=== PATIENT | female | born 1960 | race Caucasian/White ===

== ENCOUNTER → 2017-11-22 11:03 | Outpatient (CLI) | payer OTHER, SELFPAY ==
[2017-11-22 12:45] LABS: ALB/GLOB Ratio 0.9 RATIO (0.9-2.4); AST(SGOT) 34 U/L (15-37); Alanine Aminotransfer ALT/SGPT 37 U/L (13-56); Albumin, Serum 3.8 g/dL (3.2-5.0); Alkaline Phosphatase 54 U/L (45-117); Anion Gap 10 (5-15); BUN 22 mg/dL (7-18); BUN/Creat Ratio 21.2 RATIO (10-20); Calcium,Total 9.8 mg/dL (8.5-10.1); Chloride 106 mmol/L (98-107); Creatinine, Serum 1.04 mg/dL (0.55-1.02); EST Glomerular Filtration Rate 58 mL/min (>60); Est Glom Filt Rate - Afr Amer 70 mL/min (>60); Globulin 4.4 g/dL (2.2-4.2); Glucose 96 mg/dL (74-106); Potassium 4.7 mmol/L (3.5-5.1); Protein, Total 8.2 g/dL (6.4-8.2); Sodium Level 141 mmol/L (136-145); Uric Acid 3.8 mg/dL (2.6-6.0)
[2017-11-22 12:46] LABS: Vitamin D,25 Hydroxy 52.5 ng/mL (19.95-100.01)
== END ==
PROVIDERS: Family Provider Family Medicine; PCP Family Medicine; Visit Provider Family Medicine
DX: E55.9 Vitamin D deficiency, unspecified (principal); E11.9 Type 2 diabetes mellitus without complications; M10.9 Gout, unspecified
CPT/HCPCS: 36415; 80053; 82306; 84443; 84550

== ENCOUNTER → 2018-02-19 11:06 | Outpatient (CLI) | payer OTHER, SELFPAY ==
[2018-02-19 12:18] LABS: Absolute Lymphocyte Count 1.72 X10^3/ul (0.83-4.51); Absolute Neutrophil Count 2.3 X10^3/uL (2.0-7.7); Basophil# 0.07 X10^3/uL; Basophil% 1.5 % (0-1); Eosinophil# 0.26 X10^3/uL; Eosinophils% 5.6 % (0-5); Hematocrit 36.6 % (37-47); Lymphocyte # 1.72 X10^3/ul (4.0); Lymphocyte % 37.3 % (19-41); Mean Corp Hgb Conc 32.8 g/gl (32-36); Mean Corpuscular Hgb 30.2 pg (27.0-32.0); Mean Corpuscular Volume 92.2 fL (81-99); Mean Platelet Vol. 9.3 fl (6.2-12.0); Monocyte# 0.27 X10^3/uL; Monocyte% 5.9 % (0-10); Neutrophil # 2.29 X10^3/uL (2.7-7.7); Neutrophil % 49.7 % (47-70); POSITIVE COUNT NO; POSITIVE DIFFERENTIAL NO; POSITIVE MORPHOLOGY NO; Platelet Count 191 K/mm3 (150-450); RBC Distribution Width CV 13.7 % (11.6-14.6); RBC Distribution Width SD 45.4 fl (35.1-43.9); Red Blood Count 3.97 M/mm3 (4.2-5.4); White Blood Count 4.6 K/mm3 (4.4-11.0)
[2018-02-19 12:40] LABS: ALB/GLOB Ratio 0.9 RATIO (0.9-2.4); AST(SGOT) 34 U/L (15-37); Alanine Aminotransfer ALT/SGPT 39 U/L (13-56); Albumin, Serum 3.9 g/dL (3.2-5.0); Alkaline Phosphatase 52 U/L (45-117); Anion Gap 9 (5-15); BUN 27 mg/dL (7-18); BUN/Creat Ratio 22.3 RATIO (10-20); Calcium,Total 10.1 mg/dL (8.5-10.1); Chloride 106 mmol/L (98-107); Cholesterol 254 mg/dL (200); Creatinine, Serum 1.21 mg/dL (0.55-1.02); EST Glomerular Filtration Rate 49 mL/min (>60); Est Glom Filt Rate - Afr Amer 59 mL/min (>60); Globulin 4.2 g/dL (2.2-4.2); Glucose 100 mg/dL (74-106); High Density Lipoprotein 36 mg/dL; Potassium 4.9 mmol/L (3.5-5.1); Protein, Total 8.1 g/dL (6.4-8.2); Sodium Level 139 mmol/L (136-145); Triglycerides 364 mg/dL; Very Low Density Lipoprotein 73 mg/dL (5-40)
== END ==
PROVIDERS: Family Provider Family Medicine; PCP Family Medicine; Visit Provider Family Medicine
DX: I10 Essential (primary) hypertension (principal); E78.00 Pure hypercholesterolemia, unspecified
CPT/HCPCS: 36415; 80053; 80061; 85025

== ENCOUNTER → 2018-02-22 09:49 | Outpatient (CLI) | payer OTHER, SELFPAY ==
--- NOTE | 2018-02-22 09:53 | RAD_ITS ---
STUDY: X-RAY - RIGHT SHOULDER REASON FOR EXAM: Female, 57 years old. Right shoulder pain for one month. No injury. TECHNIQUE: 4 view(s) of the shoulder. COMPARISON: None. FINDINGS: Normal glenohumeral articulation. Normal acromioclavicular joint. Normal acromion. There is no acute fracture, dislocation or destructive osseous pathology. Normal humeral head and visualized proximal humerus. The soft tissue structures are unremarkable. Normal visualized pulmonary apex. RAD/Shoulder min 2 Views IMPRESSION: Normal x-ray examination of the shoulder. Electronically Signed: Naveed Haas DO at 17:33 EDT Tel [phone], Service support ,
== END ==
PROVIDERS: Family Provider Family Medicine; PCP Family Medicine; Visit Provider Family Medicine
DX: M25.511 Pain in right shoulder (principal)
CPT/HCPCS: 73030

== ENCOUNTER → 2018-05-28 10:19 | Outpatient (CLI) | payer OTHER, SELFPAY ==
[2018-05-28 12:37] LABS: Absolute Lymphocyte Count 1.96 X10^3/ul (0.83-4.51); Absolute Neutrophil Count 3.1 X10^3/uL (2.0-7.7); Basophil# 0.07 X10^3/uL; Eosinophil# 1.39 X10^3/uL; Eosinophils% 20.3 % (0-5); Hematocrit 36.5 % (37-47); Hemoglobin 12.1 g/dl (12.0-15.0); Lymphocyte # 1.96 X10^3/ul (4.0); Lymphocyte % 28.7 % (19-41); Mean Corp Hgb Conc 33.2 g/gl (32-36); Mean Corpuscular Hgb 31.4 pg (27.0-32.0); Mean Corpuscular Volume 94.8 fL (81-99); Mean Platelet Vol. 9.8 fl (6.2-12.0); Monocyte# 0.35 X10^3/uL; Monocyte% 5.1 % (0-10); Neutrophil # 3.05 X10^3/uL (2.7-7.7); Neutrophil % 44.6 % (47-70); Platelet Count 216 K/mm3 (150-450); RBC Distribution Width CV 13.5 % (11.6-14.6); RBC Distribution Width SD 44.5 fl (35.1-43.9); Red Blood Count 3.85 M/mm3 (4.2-5.4); White Blood Count 6.8 K/mm3 (4.4-11.0)
[2018-05-28 12:39] LABS: POSITIVE COUNT NO; POSITIVE DIFFERENTIAL NO; POSITIVE MORPHOLOGY NO
[2018-05-28 13:06] LABS: Vitamin D,25 Hydroxy 64.1 ng/mL (29.95-100.01)
[2018-05-28 13:18] LABS: ALB/GLOB Ratio 0.9 RATIO (0.9-2.4); AST(SGOT) 35 U/L (15-37); Alanine Aminotransfer ALT/SGPT 33 U/L (13-56); Albumin, Serum 3.6 g/dL (3.2-5.0); Alkaline Phosphatase 52 U/L (45-117); Anion Gap 9 (5-15); BUN 34 mg/dL (7-18); BUN/Creat Ratio 29.8 RATIO (10-20); Calcium,Total 9.6 mg/dL (8.5-10.1); Chloride 109 mmol/L (98-107); Creatinine, Serum 1.14 mg/dL (0.55-1.02); EST Glomerular Filtration Rate 52 mL/min (>60); Est Glom Filt Rate - Afr Amer 63 mL/min (>60); Globulin 4.2 g/dL (2.2-4.2); Glucose 84 mg/dL (74-106); Potassium 4.6 mmol/L (3.5-5.1); Protein, Total 7.8 g/dL (6.4-8.2); Sodium Level 141 mmol/L (136-145); Thyroid Stim Hormone (TSH) 1.67 uIU/mL (0.358-3.74)
== END ==
PROVIDERS: Family Provider Family Medicine; PCP Family Medicine; Visit Provider Family Medicine
DX: E11.9 Type 2 diabetes mellitus without complications (principal); N18.9 Chronic kidney disease, unspecified; M06.4 Inflammatory polyarthropathy; M79.7 Fibromyalgia; R76.8 Other specified abnormal immunological findings in serum; M35.00 Sjogren syndrome, unspecified; K21.9 Gastro-esophageal reflux disease without esophagitis; M21.40 Flat foot [pes planus] (acquired), unspecified foot; K76.0 Fatty (change of) liver, not elsewhere classified; M47.897 Other spondylosis, lumbosacral region
CPT/HCPCS: 36415; 80053; 82306; 84443; 85025

== ENCOUNTER → 2018-08-08 14:47 | Outpatient (CLI) | payer OTHER, SELFPAY ==
--- NOTE | 2018-08-08 14:50 | RAD_ITS ---
STUDY: X-RAY - CERVICAL SPINE REASON FOR EXAM: Female, 57 years old. Chronic pain TECHNIQUE: 5 view(s) of the cervical spine were obtained. COMPARISON: None FINDINGS: There is no evidence of fracture or dislocation in the cervical spine. The dens is intact. The vertebral body heights are well-maintained There are mild degenerative changes with disc space narrowing in the mid to lower cervical spine. The prevertebral soft tissues are unremarkable. There is no radiodense foreign body. RAD/Cerv Spine 4 or 5 Views IMPRESSION: No fracture or dislocation in the cervical spine. Mild degenerative changes. Electronically Signed: Herve Hayden, at 15:13 EDT Tel , Service support ,
== END ==
PROVIDERS: Family Provider Family Medicine; PCP Family Medicine; Referring Provider Family Medicine; Visit Provider Family Medicine
DX: M54.2 Cervicalgia (principal)
CPT/HCPCS: 72050

== ENCOUNTER 2018-08-23 09:00 | Outpatient (RCR) | payer OTHER, SELFPAY ==
--- NOTE | 2018-08-23 10:42 | HP.PTEVAL_ITS ---
Patient's Visit Information AMY ELLISON is a 57 year old F referred to Physical Therapy by Olivier Gonzalez with a diagnosis of Cervical radiculopathy, R arm, radial nerve. Date of Evaluation: 08/13/18 Physical Therapist: Darryl Manriquez - Visit Plan Frequency: 2x /Week Duration: 4 Weeks Plan: Start with cervical retraction, postural exercises. Add in radial nerve glides, pec stretching, mid trap strengthening. May use modalities to reduce symptoms as well. - Subjective Subjective: Pt. is here today for her initial evaluation with diagnosis of cervical radiculopathy down her R arm. Pt. reports having increased pain for ~3- 4 years, but got worse last year and in November of this year she had a ripping sensation in R shoulder and has been bad ever since. Pt. reports increased pain with all use of RUE, especially with lifting and fine motor skills. Pt. has decreased pain with OTC meds and muscle relaxors. Pt. has had xrays of shoulder and neck with minor degeneration in disc. Pt. reports no mechanism of injury noted. Pt. does have increased pain with sleeping, has to sleep on her L side with R arm propped up. Pt. denies N/T in R UE. Pt. does have pain that radiates into R hand times, but not consistent. Pt. 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 Pt. has trialled massage therapy x1 per month, and chiropractor- x1 per week. 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 Pt. is hopeful to reduce symptoms in order to have a greater quality of life. - Pain RUE Pain Intensity (Out of 10): 3 Pain Intensity Range: 1, 7 Comment: anterior shoulder/ pec region Cervical spine Pain Intensity (Out of 10): 2 Pain Intensity Range: 0, 4 - Objective POSTURE: Pt. has FH posture, rounded shoulders. Pt. has overall slouched posture. PALPATION: Pt. has mild tenderness at anterior and posterior subacromial space, at pec minor/major, levator scap and UT on R side. No L sided pain. NEURO: Pt. has normal sensation throughout bilateral UEs and cervical spine. Pt. has 2+ biceps and triceps DTR without issues. ROM: CERVICAL SPINE: flexion- nil loss NE, ext mod loss mild increase NS, SB min loss NE bilat, rotation- min loss bilat increase NW rotation L. R shoulder- flexion 165deg increase NW, abd 155deg increase NW, ext 40deg NE, functional ER NE WNL, functional IR NE WFL. LUE- normal no effected. MMT: LUE- 5/5 throughout NE, RUE- wrist 5/5 throughout; elbow- 5/5 throughout; shoulder- flexion 4/5 increase NW, abd 4/5 increase nW, ext 5/5 NE, ER 4/5 increase NW, IR 5/5 NE. CERVICAL SPINE: 5/5 isometrics. - Special Tests C/S Radiculapathy - Left Spurlings: Negative C/S Radiculapathy - Right Spurlings: Negative C/S Radiculapathy - Left Cervical distraction: Negative C/S Radiculapathy - Right Cervical distraction: Negative C/S Radiculapathy - Left Relief test: Negative C/S Radiculapathy - Right Relief test: Negative Cervical Sitting: Protrusion - Mechanical Response: No effect Cervical Sitting: Protrusion - Symptoms During Testing: No effect Cervical Sitting: Protrusion - Symptoms After Testing: No effect Cervical Sitting: Retraction - Symptoms During Testing: Increases Cervical Sitting: Retraction - Symptoms After Testing: No worse Cervical Sitting: Retraction-Extension - Mechanical Response: No effect Cerv Sitting: Retraction-Extension - Symptoms During Testing: Increases Cerv Sitting: Retraction-Extension - Symptoms After Testing: No worse Cervical Sitting: Sidebend Right - Mechanical Response: No effect Cervical Sitting: Sidebend Right - Symptoms During Testing: No effect Cervical Sitting: Sidebend Right - Symptoms After Testing: No effect Cervical Sitting: Sidebend Left - Mechanical Response: No effect Cervical Sitting: Sidebend Left - Symptoms During Testing: No effect Cervical Sitting: Sidebend Left - Symptoms After Testing: No effect Cervical Sitting: Rotation Right - Mechanical Response: No effect Cervical Sitting: Rotation Right - Symptoms During Testing: Increases Cervical Sitting: Rotation Right - Symptoms After Testing: No worse Cervical Sitting: Rotation Left - Mechanical Response: No effect Cervical Sitting: Rotation Left - Symptoms During Testing: Increases Cervical Sitting: Rotation Left - Symptoms After Testing: No worse Cervical Sitting: Flexion - Mechanical Response: No effect Cervical Sitting: Flexion - Symptoms During Testing: No effect Cervical Sitting: Flexion - Symptoms After Testing: No effect R Shoulder External Rotation Lag Test - RC Tear: Negative R Shoulder Supine Impingement Test - RC Tear: Negative R Shoulder Lift Off Test - Subscapular Tear: Negative R Shoulder Drop Sign - IS Test: Negative R Shoulder Empty Can - SS: Positive R Shoulder Belly Press - SupScap: Negative R Shoulder Neer - Impingement: Negative R Shoulder Amos Ángel - Impingement: Negative - Goals Goal 1:: Pt. to be I with HEP. Goal Time Frame: 4-6 Weeks Goal 2:: Pt. to have increased R shoulder and neck ROM by 25% in all directions without increase in symptoms. Goal Time Frame: 4-6 Weeks Goal 3:: Pt. to sleep throughout the night without increase in symptoms. Goal Time Frame: 4-6 Weeks Goal 4:: Pt. to have increased R shoulder strength by 1/2 grade of all effected musculature. Goal Time Frame: 4-6 Weeks Goal 5:: Pt. to have decreased radiating RUE symptoms by 25% allowing for increased tolerance with all activities. - Rehabilitation Potential Physical Therapy Diagnosis: Pt. has some marked weakness in her R arm. Pt. has pain in her shoulder and symptoms matching radial nerve distrabution. Pt. has some shoulder weakness, but not distally. Pt. has not numbness or tingling. Pt. would benefit from PT to increase posture, work on cervical ROM, and increase RUE strengthening in order to increase tolerance to all work and recreational activities. Rehabilitation Potential: Good - Anticipated Interventions Patient/Client Instruction: Educate patient on: Condition, Plan of Care, Risk Factors, Benefits of Fitness Program For the Purpose of:: To improve decision making, To facilitate caregiver knowledge, To improve self management, To prevent re-injury, To improve ability to perform tasks related to life management, To improve tolerance to ADL's Therapeutic Exercise to Include: Strength training, Power training, Body mechanics, Postural training, Flexibilty training, Passive ROM, Active ROM, Dynamic Lumbar Stabilization, Fermin Exercises, Scapular Strength/Stabilization For the Purpose of:: To decrease pain, To increase ROM, To improve nutrient delivery to tissue, To increase oxygenation perfusion, To improve muscle performance and motor function, To improve health of tissue, To decrease soft tissue restriction, To increase flexibility/ROM, To improve endurance Manual Therapy Techniques to Include: Mobilization, Passive ROM, Functional dry needling, Soft tissue mobilization For the Purpose of:: To decrease pain, To decrease swelling/inflammation, To increase ROM, To improve nutrient delivery to tissue, To improve muscle performance and motor function, To decrease soft tissue restriction, To increase flexibility/ROM IF ES: Yes Ultrasound (thermal/non thermal): Yes Intermittent cervical traction: Yes For the Purpose of:: To decrease pain, To decrease swelling/inflammation, To increase ROM, To improve nutrient delivery to tissue Thank you for the opportunity to evaluate your patient. For Medicare and Medicare HMO plans, please review the plan of care and approve it. It will need to be FAXED BACK to us at [phone] for Medicare purposes. Please let me know if there are questions or concerns regarding this plan of care. Physician Signature: Date:
--- NOTE | 2018-10-12 11:13 | HP.PT.NRP ---
HP - Discharge Summary (1) - Patient Information AMY ELLISON was seen in my office for initial evaluation on 08/13/18. The following Plan of Care was established for this patient: Initial Frequency: 2x /Week Initial Duration: 4 Weeks - Anticipated Interventions Patient/Client Instruction: Educate patient on: Condition, Plan of Care, Risk Factors, Benefits of Fitness Program For the Purpose of:: To improve decision making, To facilitate caregiver knowledge, To improve self management, To prevent re-injury, To improve ability to perform tasks related to life management, To improve tolerance to ADL's Therapeutic Exercise to Include: Strength training, Power training, Body mechanics, Postural training, Flexibilty training, Passive ROM, Active ROM, Dynamic Lumbar Stabilization, Fermin Exercises, Scapular Strength/Stabilization For the Purpose of:: To decrease pain, To increase ROM, To improve nutrient delivery to tissue, To increase oxygenation perfusion, To improve muscle performance and motor function, To improve health of tissue, To decrease soft tissue restriction, To increase flexibility/ROM, To improve endurance Manual Therapy Techniques to Include: Mobilization, Passive ROM, Functional dry needling, Soft tissue mobilization For the Purpose of:: To decrease pain, To decrease swelling/inflammation, To increase ROM, To improve nutrient delivery to tissue, To improve muscle performance and motor function, To decrease soft tissue restriction, To increase flexibility/ROM IF ES: Yes Ultrasound (thermal/non thermal): Yes Intermittent cervical traction: Yes For the Purpose of:: To decrease pain, To decrease swelling/inflammation, To increase ROM, To improve nutrient delivery to tissue This patient was last seen in our office 08/23/18. Pertinent comments regarding their Physical therapy will appear below: Pt. was seen for her RUE pain. Pt. was not progressing as expected and was recommended to look at getting an MRI. It was found that she had a RTC tear. Pt. was DC back to physician at this point in time. At this point I will be discontinuing this patient from physical therapy. I would be happy to see this patient again in the future if found appropriate by the physician. Thank you! Darryl Manriquez, HUANGT
== END 2018-08-23 19:00 | disposition home or self-care (01) ==
LOC: PT 09:00
PROVIDERS: Family Provider Family Medicine; PCP Family Medicine; Visit Provider Family Medicine
DX: M54.12 Radiculopathy, cervical region (principal)
CPT/HCPCS: 97035; 97110; 97140; 97163

== ENCOUNTER → 2018-09-10 07:07 | Outpatient (CLI) | payer OTHER, SELFPAY ==
--- NOTE | 2018-09-10 07:26 | MRI_ITS ---
STUDY: MRI RIGHT SHOULDER REASON FOR EXAM: Shoulder pain extending down arm for one year, no specific injury. TECHNIQUE: Standardized fat and water weighted pulse sequences were obtained in all 3 orthogonal planes. COMPARISON: Radiographs 12/23/2017. FINDINGS: There is supraspinatus tendinosis and a full-thickness tear of the distal anterior supraspinatus tendon (T2 coronal images 12, 13; proton density axial image 6) measuring approximately 0.6 x 1.1 cm (length x width) with mild delamination. Normal infraspinatus tendon. Normal subscapularis tendon. Normal teres minor tendon. Normal supraspinatus muscle. Normal infraspinatus muscle. Normal subscapularis muscle. Normal teres minor muscle. There is a small glenohumeral joint effusion with fluid extending into the bicipital tendon sheath. Normal humeral head and visualized proximal humerus. Normal biceps labral complex. Normal intracapsular long biceps tendon. Normal labrum. Normal capsulo- ligamentous complex. There is acromioclavicular arthrosis with hypertrophic changes effacing the subacromial fat (T2 sagittal images 11, 12). There is a Type I morphology (flat undersurface), with a neutral orientation. There is a small volume of subacromial-subdeltoid bursal fluid. Normal visualized coracohumeral and coracoacromial ligaments. Normal deltoid muscle. Normal trapezius muscle. MRI/Upper Ext Joint Only(Routine) IMPRESSION: Full-thickness tear and tendinosis of the supraspinatus tendon. Acromioclavicular arthrosis. Glenohumeral joint fluid communicating with the subacromial-subdeltoid bursa. Electronically Signed: Rishabh Tubbs MD at 8:57 EST Tel , Service support ,
== END ==
PROVIDERS: Family Provider Family Medicine; PCP Family Medicine; Referring Provider Family Medicine; Visit Provider Family Medicine
DX: M25.511 Pain in right shoulder (principal)
CPT/HCPCS: 73221

== ENCOUNTER 2018-09-26 08:39 | Day surgery (SDC) | payer OTHER, SELFPAY ==
[2018-09-20 13:43] VITALS: BMI 37.8
[2018-09-26] VITALS (7 sets, daily range): BP systolic 100–130; BP diastolic 54–72; PULSE 64–88; RESP 16–18; TEMP 36–36.5; O2SAT 92–98; BMI 39.4
[2018-09-26 09:21] LABS: Hematocrit 36.4 % (37-47); Hemoglobin 11.8 g/dl (12.0-15.0); Mean Corp Hgb Conc 32.4 g/gl (32-36); Mean Corpuscular Hgb 29.9 pg (27.0-32.0); Mean Corpuscular Volume 92.4 fL (81-99); Mean Platelet Vol. 8.8 fl (6.2-12.0); Platelet Count 216 K/mm3 (150-450); RBC Distribution Width CV 13.5 % (11.6-14.6); RBC Distribution Width SD 46.3 fl (35.1-43.9); Red Blood Count 3.94 M/mm3 (4.2-5.4); White Blood Count 5.6 K/mm3 (4.4-11.0)
[2018-09-26 09:22] LABS: Prothrombin Time (Protime)PT. 13.4 SECONDS (11.7-14.9); Scan Indicated on CBC? Y/N NO
[2018-09-26 09:23] LABS: Partial Thromboplast Time 30.4 Seconds (24.1-36.2)
[2018-09-26 09:36] LABS: Bedside Glucose 119 mg/dL (70-110)
[2018-09-26 09:37] LABS: Anion Gap 7 (5-15); BUN 32 mg/dL (7-18); BUN/Creat Ratio 26.7 RATIO (10-20); Calcium,Total 9.8 mg/dL (8.5-10.1); Chloride 105 mmol/L (98-107); EST Glomerular Filtration Rate 49 mL/min (>60); Est Glom Filt Rate - Afr Amer 59 mL/min (>60); Estimated Creatinine Clearance 37.15 ml/min; Glucose 138 mg/dL (74-106); Potassium 4.2 mmol/L (3.5-5.1); Sodium Level 138 mmol/L (136-145); Thyroid Stim Hormone (TSH) 3.96 uIU/mL (0.358-3.74)
[2018-09-26 09:51] LABS: Hemoglobin A1c 5.6 % (4.2-6.3)
--- NOTE | 2018-09-26 10:10 | TESH_PTH ---
PATIENT: AMY ELLISON [place] [facility] [place][id number] AGE/SX: 57/F ROOM: RE09/26/[address]: Dr. Elsa Fernandez DO : 1960 BED: DIS: 09/26/2018 SPEC #: [id number] RECD: 09/26/18 16:23 STATUS: PIERRE KOREY #: [id number] SCAR: 09/26/18 10:[address]: Elsa Fernandez DEPT: SURGICAL PATHOLOGY RECD BY: Ronald Rascon ENTERED: 09/27/18 11:26 SP TYPE: TENDON OTHR DR: Dr. Olivier Gonzalez MD Tissues: Tendon and tendon sheath, NOS Procedures: Surgery Specimen Level III HEADER OPERATION: Arthroscopy, shoulder, cuff, subacromial decompression PRE-OP DIAGNOSIS: Incomplete tear of right rotator cuff, internal impingement of right shoulder, bursitis of right shoulder TISSUE SUBMITTED: Bicep tendon MICROSCOPIC DIAGNOSIS Biceps tendon, excision: Fragments of tendon with degenerative and reparative change. Synovial tissue with mild hyperplasia and associated minimal chronic inflammation. AM:jose 09/28/18 MICROSCOPIC DESCRIPTION Slides are reviewed. GROSS DESCRIPTION Received in fixative is one container labeled with the patient's name and designated bicep tendon. The specimen consists of two pieces of grover, indurated tissue that in aggregate measure 3 x 1.5 x 0.5 cm. The entire specimen is submitted in one cassette. / SJ:jose 09/27/18 TC:3 CPT: 12958
[2018-09-26] MEDS: Cefazolin 2 GM in 0.9% Normal Saline 100 ML IV (12:29)
[2018-09-26] MEDS: Mupirocin Ointment 22gm Tube 1 APPLIC (13:12)
--- NOTE | 2018-09-26 14:52 | PCM.DC.ORTHO ---
Discharge Diet: No Restrictions - remove dressings in 4 days and apply bandaids to incision sites and may get incision wet at that time, pendulums out of sling only, wear sling to bed, may move hand as tolerated, follow up in 2 weeks for clinic appt, call with concerns Discharge Activity: May Not Drive May shower in (days): 1 Ice area for (Minutes): 20 - Every hour while awake. Weight Bearing Status: Weight bearing as tolerated Keep extremity elevated above heart level: Operative Extremity Call your doctor if your incision/area has: Continuous Slow Oozing, Sudden Increased Bleeding, Increased Pain/ Swelling, Increased Redness, Foul Smelling Discharge Call your doctor if you observe: Fever of 101 or Higher, Coldness, Increased Pain, Numbness or Tingling, Change in Color, Calf discomfort Allergies/Adverse Reactions: Allergies cefaclor [From Ceclor] Allergy (Verified 09/24/18 13:54) Other SEVERE YEAST INFECTION erythromycin ethylsuccinate [From E.E.S.] Allergy (Verified 09/24/18 13:54) Other HEADACHES ezetimibe [From Zetia] Allergy (Verified 09/24/18 13:54) Other MUSCLE PAIN lisinopril Allergy (Verified 09/24/18 13:54) Other COUGH lovastatin Allergy (Verified 09/24/18 13:54) Other MUSCLE PAIN Penicillins [PCN] Allergy (Verified 09/24/18 13:54) Hives rosuvastatin calcium [From Crestor] Allergy (Verified 09/24/18 13:54) Other MUSCLE PAIN Dwrcnip-Bpx-Prl Reductase Inhibitor Allergy (Verified 09/24/18 13:54) Other MUSCLE PAIN sulfamethoxazole [From Bactrim] Allergy (Verified 09/24/18 13:54) Hives tramadol HCl [From Ultram] Allergy (Verified 09/24/18 13:54) Other SEVERE HEADACHES trimethoprim [From Bactrim] Allergy (Verified 09/24/18 13:54) Hives Medications to take at Discharge Allopurinol [Zyloprim] 200 mg PO DAILYCM 08/18/14 Ascorbic Acid [Vitamin C] 1,000 mg PO DAILY@0800 08/18/14 Azelastine HCl [Astelin] 1 spray NASAL BID PRN 08/18/14 Cholecalciferol (Vitamin D3) [Vitamin D3] 5,000 unit PO DAILY 08/18/14 Cyclobenzaprine [Flexeril] 10 mg PO TID PRN PRN 08/18/14 Etodolac [Lodine Xl] 500 mg PO BID 08/18/14 Fenofibrate [Tricor] 145 mg PO DAILY 08/18/14 Fluticasone 0.05% [Flonase Nasal [place]] 2 spray NASAL DAILY 08/18/14 Krill/[place]-3/Dha/Epa/Lipids [Krill Oil 300 mg Softgel] 1,000 mg PO BID 08/18/14 Loratadine [Claritin] 10 mg PO DAILY 08/18/14 Losartan Potassium [Cozaar] 100 mg PO DAILY 08/18/14 Magnesium 400 mg PO DAILY 08/18/14 Metformin HCl [Glucophage] 1,000 mg PO BID 08/18/14 Methocarbamol [Robaxin] 500 mg PO Q6H PRN PRN 08/18/14 Naphcon A 1 drop EACH EYE TID PRN PRN 08/18/14 Systane Eye Drops 1 drop EACH EYE BID 08/18/14 Thyroid [[place] Thyroid] 60 mg PO DAILY 08/18/14 Vitamin B Complex 1 each PO DAILY 08/18/14 Zolpidem Tartrate [Ambien] 5 mg PO QHS PRN PRN 08/18/14 Metformin HCl [Glucophage] 500 mg PO LUNCH 12/08/14 Cytomulti 2 tab PO DAILY 09/24/18 Digestive Enyzmes 2 tab PO TID 09/24/18 Doxazosin Mesylate [Cardura] 2 mg PO QHS 09/24/18 Hm Complex 1 cap PO TID 09/24/18 Omeprazole [Prilosec] 40 mg PO QHS 09/24/18 Hydrocodone Bitart/Apap 5-325 [[place] 5MG-325MG] 1 - 2 tablet PO Q6H PRN PRN 5 Days #40 tablet 09/26/18 Zolpidem Tartrate [Ambien (Generic)] 5 mg PO QHS PRN PRN #14 tablet 09/26/18 The following prescriptions were given: Hydrocodone Bitart/Apap 5-325 [[place] 5MG-325MG] 1 - 2 tablet PO Q6H PRN PRN 5 Days #40 tablet PRN Reason: Pain Zolpidem Tartrate [Ambien (Generic)] 5 mg PO QHS PRN PRN #14 tablet PRN Reason: Insomnia Orders to be completed after discharge: 12 Lead EKG [[facility]] Time Frame: 09/26/18, Location: None Selected Primary Care Physician: Miki Gonzalez MD [Primary Care Provider] - Test Results: Test results from this visit will be discussed in further detail at your follow-up appointment, if applicable. Please Follow Up With: Elsa Fernandez, DO - [phone]
--- NOTE | 2018-09-26 14:53 | PCM.OPRPT ---
Report of Operation Date of Procedure: 09/26/18 Pre-Operative Diagnosis: right shoulder rotator cuff tear, biceps tendinosis, subacromial impingement syndrome Post-Operative Diagnosis: same Surgery/Procedure Performed:: sars, rc repair, sad/acromioplasty, open subpec biceps tenodesis Type of Anesthesia:: General Anesthesiologist: Bakari Kebede Specimen's removed: biceps tendon Estimated Blood Loss (mL): minimal Fluids Replaced: 1300cc lr Description of Procedure: Preop note Patient is a 57-year-old female with continued pain and inability to weight raise her arm above her head. Failed conservative treatment and an MRI confirms rotator cuff tear and biceps tendon tear. Risks benefits and alternatives surgery discussed with patient. Risks including but not limited to blood loss, blood clot, infection, neurovascular injury, failure procedure, loss of life and loss of limb. Patient is aware would like proceed with right shoulder arthroscopy repair is indicated. Operative note Patient seen and examined preoperative holding area. Right shoulder was marked. Patient brought to the operating room placed supine on the operating room table. Signing, anesthesia, antibiotics were administered. Right shoulder was prepped and draped in usual sterile fashion after beachchair positioning was maintained. Please note that all bony prominences well padded and SCDs were placed on her bilateral lower extremity. Custodial through beachchair positioning we did recheck her blood pressure which was stable throughout. The right arm was then prepped and draped in usual sterile fashion. We marked out our bony landmarks for portal placement. Her posterior glenoid humeral joint was insufflated with 60 cc of normal saline had good return. Timeout was performed. Then used 11 blade to create our posterior portal. Begin our diagnostic arthroscopy. Able to visualize the glenohumeral joint which was intact. She had an abnormal middle glenohumeral ligament her subscap was torn as well as her biceps and was torn. We then created an anterior portal under direct visualization. We released the biceps tendon and then debrided back to its insertion with a shaver. We then repaired the subscap after releasing it and debriding back the footprint with of 2 fiber links placed in a.m. Arthrex push lock. We had good jehovah's witness of our footprint with the subscap at that point. We then moved to our rotator cuff which is an obvious tendon supraspinatus tendon tear. We created a lateral portal under direct visualization. We then released the subacromial bursa which was extensive throughout. We then performed an acromioplasty of the anterior lateral portal is a little bit of a hook. We co-planed this. We then used to 5.5 bio composite bicortical suture anchors Arthrex for medial row placed our anchors anterior posterior in sequential fashion. Prior to this please note that we did pull the tendon noted that it actually came from medial lateral but it ended from posterior to anterior so we did place our sutures in this fashion. There she also had a little remnant remnant tear in her supraspinatus infraspinatus borders we did marginal convergence stitches at that point prior to placing her anchors as well. We then placed again our 2 5 5 suture anchors placed our and they were both double loaded we did not use a second suture arm of the second suture anchor. After tying these down we then used our swivel locks laterally for lateral row. We had great footprint coverage and fixation and it was a tensionless repair. We then irrigated the shoulder with copious amounts of sterile saline. We then moved to our open biceps tenodesis. We reprepped the area waited the allotted 3 minutes made our incision just distal to the insertion of the pec. Use a 15 blade through the skin dissect down to 9 the level of the biceps biceps was brought out of the incision and truncated to the appropriate length after measuring for our pec button would be inserted. We then bovied the insertion site for pec button unicortical he drilled and then placed her whipstitched our biceps tendon placed the stitches through the pec button and then placed the pec button through the predrilled hole. We then flipped the button and then oversewed the tendon down to the periosteum. We irrigated the incision with copious amounts of sterile saline. The incision was closed with 3-0 Vicryl and running 4-0 Monocryl the portals were closed with interrupted 4-0 nylon stitches. Sterile dressings were applied and a sling was applied. Patient tolerated procedure well there are no comp occasions transferred to recovery room in stable condition. Next Postoperative note Pharmacy has prescriptions as Discussed with Follow-up in 2 weeks We will give patient pictures in 2 weeks This note was generated with Remitlyation software. It may contain incorrect words, spelling, and punctuation that were not noted in checking the note before signing.
[2018-09-26] MEDS: Bupiv/Epi 0.5% Mpf 30 ML Vial (15:15)
[2018-09-26 15:40] LABS: Bedside Glucose 165 mg/dL (70-110)
[2018-09-26] MEDS: HYDROcodone Bitartrate/Apap 5/325 Tablet PO (16:44)
--- OUTSIDE RECORDS SUMMARY | 2018-11-12 04:22 | XMS RPT_ITS ---
:1960 Author Organization OHIP Support Name Relationship Address Phone JEROMY ELLISON Unavailable [address] + [place] [phone] [employer] Unavailable [address] + [place] [address] YEASTE, FORE[employer] Unavailable [address] + [place] [address] TERRAJEROMY MARTELL Unavailable [address] + [place] [address] [employer] Unavailable [address] + [place] [address] YEASTE, FOREIGN Unavailable [address] + [place] [address] [place] Unavailable [address] + [place] [address] [employer] Unavailable [address] + [place] [address] YEASTE, FOREIGN Unavailable [address] + [place] [phone] [facility] JEROMY Unavailable [address] + [place] [phone] [employer] Unavailable [address] + [place] [address] YEASTE, FOREIGN Unavailable [address] + [place] [address] [place] Unavailable [address] + [place] [phone] [employer] Unavailable [address] + [place] [address] YEASTE, FOREIGN Unavailable [address] + [place] [address] [facility] JEROMY Unavailable [address] + [place] [address] [employer] Unavailable [address] + [place] [address] YEASTE, FOREIGN Unavailable [address] + [place] [address] [facility] JEROMY Unavailable [address] + [place] [phone] [employer] Unavailable [address] + [place] [address] YEASTE, FOREIGN Unavailable [address] + [address] JEROMY Unavailable [address] + [place] [address] [employer] Unavailable [address] + [place] [address] YEASTE, FOREIGN Unavailable [address] + [place] [address] [facility] JEROMY Unavailable [address] + [place] [phone] [employer] Unavailable [address] + [place] [address] YEASTE, FOREIGN Unavailable [address] + [address] JEROMY Unavailable [address] + [place] [phone] [employer] Unavailable [address] + [place] [address] YEASTE, FOREIGN Unavailable [address] + [place] [address] [facility] JEROMY Unavailable [address] + [place] [address] [employer] Unavailable [address] + [place] [address] YEASTE, FOREIGN Unavailable [address] + [place] [address] [facility] JEROMY Unavailable [address] + [address] Un[address] + [place] [address] YEASTE, FOREIGN Unavailable [address] + [place] [phone] [place] JEROMY Unavailable [address] + [place] [address] [employer] Unavailable [address] + [place] [address] YEASTE, FOREIGN Unavailable [address] + [place] [address] Care Team Providers Name Role Phone PORSCHE PEREZA Attending Unavailable ZABRINA GONZALEZ Referring Unavailable TABATHA VEGA (RD) Attending Unavailable HIGINIO GONZALEZER B Referring Unavailable LAURY ALEJANDRE (EX PHYS) Attending Unavailable PEREZ, KYLEE Referring Unavailable CUCTABATHA SLAUGHTER (RD) Attending Unavailable PEREZ, KYLEE Referring Unavailable KIM VIRK (OD) Attending Unavailable JEROMY YOUNG Referring Unavailable PEREZ, KYLEE Attending Unavailable MICHELA OSCAR (RD) Attending Unavailable CUCUZZATABATHA (RD) Attending Unavailable NORM GISSEL Referring Unavailable NORMMIKI LLANESFER Attending Unavailable PEREZ, KYLEE Admitting Unavailable PEREZ, KYLEE Attending Unavailable NORM, GISSEL Referring Unavailable Javier Laws Attending Unavailable Citlali Fernandeze Referring Unavailable Elsa Fernandez Attending Unavailable Lisa, Christopher Referring Unavailable Zabrina Gonzalez Attending Unavailable Chrisney, Christopher Primary Care Unavailable Zabrina Gonzalez Attending Unavailable Chrisney, Christopher Primary Care Unavailable ChicElsa hearn Attending Unavailable Ranney, Christopher Primary Care Unavailable Elsa Fernandez Attending Unavailable Higinio Gonzalezer Attending Unavailable Chrisney, Christopher Referring Unavailable Ranney, Christopher Primary Care Unavailable Zabrina Gonzalez Attending Unavailable Ranney, Christopher Primary Care Unavailable Zabrina Gonzalez Attending Unavailable Ranney, Christopher Referring Unavailable Ranney, Christopher Primary Care Unavailable Zabrina Gonzalez Attending Unavailable Chrisney, Christopher Primary Care Unavailable Zabrina Gonzalez Attending Unavailable Lisa, Christopher Referring Unavailable Ranney, Christopher Primary Care Unavailable Chicorelli, Elsa Attending Unavailable Zabrina Gonzalez Referring Unavailable Elsa Fernandez Attending Unavailable Zabrina Gonzalez Primary Care Unavailable Elsa Fernandez Referring Unavailable PROBLEMS PROBLEMS DATE TYPE CONDITION / CODE ATTENDING STATUS SOURCE Active Other specified diseases NA Active [facility] of intestine / Clinic Other K63.89(ICD-10) [place] [facility] Active Candidiasis, unspecified NA Active [facility] / B37.9(ICD-10) Clinic Other [place] [facility] Unknown I10 - Essential (primary) Eusebia, Javier Active [facility] hypertension / Community I10(ICD-10) Hospital Repository Unknown R06.02 - Shortness of Eusebia, Javier Active [facility] breath / R06.02(ICD-10) [facility] Repository Unknown G89.18 - Other acute Jim, Active [facility] postprocedural pain / [facility] G89.18(ICD-10) Hospital Repository Unknown M54.12 - Radiculopathy, Lisa, Active [facility] [facility] cervical region / [facility] M54.12(ICD-10) Hospital Repository Unknown M54.2 - Cervicalgia / Lisa, Active [place] 8 M54.2(ICD-10) [facility] Repository Active Unknown / UNK(Unknown) KYLEE PEREZ Active [facility] Clinic Other [place] [facility] Active Other allergy status, NA Active [facility] other than to drugs and Clinic Main biological substances / [place] Z91.09(ICD-10) Repository Active Essential (primary) NA Active [facility] hypertension / Clinic Main I10(ICD-10) [place] [facility] Active Body mass index (bmi) NA Active [facility] 39.0-39.9, adult / Clinic Main Z68.39(ICD-10) [place] Rep[facility] Active 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 / G47.31(ICD-10) Clinic Main [place] Rep[facility] Active Type 2 diabetes mellitus NA Active [facility] without complications / Clinic Main E11.9(ICD-10) [place] [facility] Active Other specified abnormal NA Active [facility] immunological findings in Clinic Main serum / R76.8(ICD-10) [place] [facility] Active Contact with and NA Active [facility] (suspected) exposure to Clinic Main other hazardous metals / [place] Z77.018(ICD-10) Repository Active Hypothyroidism, NA Active [facility] unspecified / Clinic Main E03.9(ICD-10) [place] Repository Unknown M25.511 - Pain in right Ranney, Active [facility] shoulder [facility] M25.511(ICD-10) Hospital Repository Unknown 401.1 - Benign essential Ranney, Active [place] [facility] hypertension [facility] 401.1(ICD-9) Hospital Repository Unknown E78.00 - Pure Ranney, Active [facility] hypercholesterolemia, [facility] unspecified / Hospital E78.00(ICD-10) Repository Unknown 272.0 - Pure Ranney, Active [facility] 272.0(ICD-9) Hospital Repository PROCEDURES PROCEDURES No Procedure Records FoundRESULTS RESULTS ORTHOPEDIC VISIT Observed: 10/11/2018 Status: F Source: [place] REPORT 1:28 PM [facility] REPOSITORY [facility] [address] [place] [address] OFFICE VISIT Date of Service: 10/11/18 MR#: [id number] Acct: [id number] Name: BESSIE ELLISON Rep #: [id number] : 1960 Provider: Elsa Fernandez DO Age/Sex: 57/F Location: [facility] Status: Signed Intake Vital Signs10/11/18 Body Mass Index (BMI) 39.4 Intake Visit Reasons: RIGHT SHOULDER Is patient in pain?: Yes Allergies cefaclor [From Ceclor] Allergy (Verified 09/24/18 13:54) Other erythromycin ethylsuccinate [From E.E.S.] Allergy (Verified 09/24/18 13:54) Other ezetimibe [From Zetia] Allergy (Verified 09/24/18 13:54) Other lisinopril Allergy (Verified 09/24/18 13:54) Other lovastatin Allergy (Verified 09/24/18 13:54) Other Penicillins [PCN] Allergy (Verified 09/24/18 13:54) Hives rosuvastatin calcium [From Crestor] Allergy (Verified 09/24/18 13:54) Other Semyayw-Zza-Xgm Reductase Inhibitor Allergy (Verified 09/24/18 13:54) Other sulfamethoxazole [From Bactrim] Allergy (Verified 09/24/18 13:54) Hives tramadol HCl [From Ultram] Allergy (Verified 09/24/18 13:54) Other trimethoprim [From Bactrim] Allergy (Verified 09/24/18 13:54) Hives Medications Allopurinol [Zyloprim] 200 mg PO DAILYCM 08/18/14 [History Confirmed 09/24/18] Ascorbic Acid [Vitamin C] 1,000 mg PO DAILY@0800 08/18/14 [History Confirmed 09/24/18] Azelastine HCl [Astelin] 1 spray NASAL BID PRN 08/18/14 [History Confirmed 09/24/18] Cholecalciferol (Vitamin D3) [Vitamin D3] 5,000 unit PO DAILY 08/18/14 [History Confirmed 09/24/18] Cyclobenzaprine [Flexeril] 10 mg PO TID PRN PRN 08/18/14 [History Confirmed 09/24/18] Etodolac [Lodine Xl] 500 mg PO BID 08/18/14 [History Confirmed 09/24/18] Fenofibrate [Tricor] 145 mg PO DAILY 08/18/14 [History Confirmed 09/24/18] Fluticasone 0.05% [Flonase Nasal [place]] 2 spray NASAL DAILY 08/18/14 [History Confirmed 09/24/18] Krill/Henriette-3/Dha/Epa/Lipids [Krill Oil 300 mg Softgel] 1,000 mg PO BID 08/18/14 [History Confirmed 09/24/18] Loratadine [Claritin] 10 mg PO DAILY 08/18/14 [History Confirmed 09/24/18] Losartan Potassium [Cozaar] 100 mg PO DAILY 08/18/14 [History Confirmed 09/24/18] Magnesium 400 mg PO DAILY 08/18/14 [History Confirmed 09/24/18] Metformin HCl [Glucophage] 1,000 mg PO BID 08/18/14 [History Confirmed 09/24/18] Methocarbamol [Robaxin] 500 mg PO Q6H PRN PRN 08/18/14 [History Confirmed 09/24/18] Naphcon A 1 drop EACH EYE TID PRN PRN 08/18/14 [History Confirmed 09/24/18] Systane Eye Drops 1 drop EACH EYE BID 08/18/14 [History Confirmed 09/24/18] Thyroid [Galt Thyroid] 60 mg PO DAILY 08/18/14 [History Confirmed 09/24/18] Vitamin B Complex 1 ea PO DAILY 08/18/14 [History Confirmed 09/24/18] Zolpidem Tartrate [Ambien] 5 mg PO QHS PRN PRN 08/18/14 [History Confirmed 09/24/18] Metformin HCl [Glucophage] 500 mg PO LUNCH 12/08/14 [History Confirmed 09/24/18] Cytomulti 2 tab PO DAILY 09/24/18 [History Confirmed 09/24/18] Digestive Enyzmes 2 tab PO TID 09/24/18 [History Confirmed 09/24/18] Doxazosin Mesylate [Cardura] 2 mg PO QHS 09/24/18 [History Confirmed 09/24/18] Hm Complex 1 cap PO TID 09/24/18 [History Confirmed 09/24/18] Omeprazole [Prilosec] 40 mg PO QHS 09/24/18 [History Confirmed 09/24/18] Zolpidem Tartrate [Ambien (Generic)] 5 mg PO QHS PRN PRN #14 tab 09/26/18 [Rx] PFSH Medical History Diabetes (Acute) Fibromyalgia (Acute) High blood cholesterol (Acute) Hypertension (Chronic) Surgical History h/o breast lumpectomy (Acute) h/o left hip replacement (Acute) Social History Smoking Status: Never smoker HPI RIGHT SHOULDER: Details: BESSIE ELLISON is a 57 year old F here today for f/u 09/26 right rtc repair with tenodesis. She is compliant with her sling, she used all her pain meds and is currently using just advil. She has concerns about pain with PT but today has none. Her incisions are well healed with no signs of infection just mild discoloration at the portal sites. Denies numbness, tingling or other associated symptoms. She has full rom at the elbow, wrist and fingers . Assessment AND Plan 1. Orthopedic aftercare Z47.89 Plan Personally reviewed the surgical images if available, the surgery procedure and reviewed the post op care instructions. Monitor for signs of infection, redness, warmth, swelling in excess, drainage, opening of incision site/sites, and/or fever. Instructed to remain in her brace. Follow up in a month or sooner if pain, swelling, numbness or associated symptoms, or concerns develop. All questions answered. Patient in agreement of plan. Coding Level of Care Code Global Post Op Diagnoses Orthopedic aftercare Z47.89 10/11/18 1328 <Electronically signed by Elsa Fernandez DO> Date Elsa Fernandez DO Cosigner Signature: Date (if applicable) CC: OPERATIVE REPORT Observed: 10/01/2018 Status: F Source: [place] 12:16 PM [facility] REPOSITORY [facility] Medical Records Department [address] [facility] [place] [address] Operative Report 09/26/18 1453 MR#: [id number] Acct: [id number] Name: BESSIE ELLISON Rep #: [id number] : 1960 57 From: Elsa Fernandez DO PCP: Zabrina Gonzalez MD Status: [facility] [place] [facility] [place] of Operation Date of Procedure: 09/26/18 Pre-Operative Diagnosis: right shoulder rotator cuff tear, biceps tendinosis, subacromial impingement syndrome Post-Operative Diagnosis: same Surgery/Procedure Performed:: sars, rc repair, sad/acromioplasty, open subpec biceps tenodesis Type of Anesthesia:: General Anesthesiologist: Bakari Kebede Specimen's removed: biceps tendon Estimated Blood Loss (mL): minimal Fluids Replaced: 1300cc lr Description of Procedure: Preop note Patient is a 57-year-old female with continued pain and inability to weight raise her arm above her head. Failed conservative treatment and an MRI confirms rotator cuff tear and biceps tendon tear. Risks benefits and alternatives surgery discussed with patient. Risks including but not limited to blood loss, blood clot, infection, neurovascular injury, failure procedure, loss of life and loss of limb. Patient is aware would like proceed with right shoulder arthroscopy repair is indicated. Operative note Patient seen and examined preoperative holding area. Right shoulder was marked. Patient brought to the operating room placed supine on the operating room table. Signing, anesthesia, antibiotics were administered. Right shoulder was prepped and draped in usual sterile fashion after beachchair positioning was maintained. Please note that all bony prominences well padded and SCDs were placed on her bilateral lower extremity. [place] through beachchair positioning we did recheck her blood pressure which was stable throughout. The right arm was then prepped and draped in usual sterile fashion. We marked out our bony landmarks for portal placement. Her posterior glenoid humeral joint was insufflated with 60 cc of normal saline had good return. Timeout was performed. Then used 11 blade to create our posterior portal. Begin our diagnostic arthroscopy. Able to visualize the glenohumeral joint which was intact. She had an abnormal middle glenohumeral ligament her subscap was torn as well as her biceps and was torn. We then created an anterior portal under direct visualization. We released the biceps tendon and then debrided back to its insertion with a shaver. We then repaired the subscap after releasing it and debriding back the footprint with of 2 fiber links placed in a.m. Arthrex push lock. We had good episcopalian of our footprint with the subscap at that point. We then moved to our rotator cuff which is an obvious tendon supraspinatus tendon tear. We created a lateral portal under direct visualization. We then released the subacromial bursa which was extensive throughout. We then performed an acromioplasty of the anterior lateral portal is a little bit of a hook. We co-planed this. We then used to 5.5 bio composite bicortical suture anchors Arthrex for medial row placed our anchors anterior posterior in sequential fashion. Prior to this please note that we did pull the tendon noted that it actually came from medial lateral but it ended from posterior to anterior so we did place our sutures in this fashion. There she also had a little remnant remnant tear in her supraspinatus infraspinatus borders we did marginal convergence stitches at that point prior to placing her anchors as well. We then placed again our 2 5 5 suture anchors placed our and they were both double loaded we did not use a second suture arm of the second suture anchor. After tying these down we then used our swivel locks laterally for lateral row. We had great footprint coverage and fixation and it was a tensionless repair. We then irrigated the shoulder with copious amounts of sterile saline. We then moved to our open biceps tenodesis. We reprepped the area waited the allotted 3 minutes made our incision just distal to the insertion of the pec. Use a 15 blade through the skin dissect down to 9 the level of the biceps biceps was brought out of the incision and truncated to the appropriate length after measuring for our pec button would be inserted. We then bovied the insertion site for pec button unicortical he drilled and then placed her whipstitched our biceps tendon placed the stitches through the pec button and then placed the pec button through the predrilled hole. We then flipped the button and then oversewed the tendon down to the periosteum. We irrigated the incision with copious amounts of sterile saline. The incision was closed with 3-0 Vicryl and running 4-0 Monocryl the portals were closed with interrupted 4-0 nylon stitches. Sterile dressings were applied and a sling was applied. Patient tolerated procedure well there are no comp occasions transferred to recovery room in stable condition. Next Postoperative note Pharmacy has prescriptions as Discussed with Follow-up in 2 weeks We will give patient pictures in 2 weeks This note was generated with kooldiner dictation software. It may contain incorrect words, spelling, and punctuation that were not noted in checking the note before signing. 10/01/18 1216 <Electronically signed by Elsa Fernandez DO> Date Elsa Fernandez DO CC: Elsa Fernandez DO; Zabrina Gonzalez MD Signed BEDSIDE GLUCOSE Collected: 09/26/2018 Status: F Source: [place] 3:38 PM [facility] REPOSITORY TYPE CODE TESTS RESULT OUT OF REFERENCE UNITS RANGE LAB L501.080 70-110 mg/dL High BEDSIDE GLU 165 Result Comment: MANAGEMENT OF PATIENT CARE PER NURSING PROTOCOL Performed By: #### L501.080 #### [facility] Point of Care [address] [place] [address] DISCHARGE INSTRUCTION Observed: 09/26/2018 Status: F Source: [place] 2:53 PM [facility] REPOSITORY [facility] Medical Records Department [address] [place] [address] Instructions for Home/Discharge Instructions 09/26/18 1452 MR#: [id number] Acct: [id number] Name: BESSIE ELLISON Rep #: [id number] : 1960 57 From: Elsa Fernandez DO PCP: Zabrina Gonzalez MD Status: REG PRC Discharge Diet: No Restrictions - remove dressings in 4 days and apply bandaids to incision sites and may get incision wet at that time, pendulums out of sling only, wear sling to bed, may move hand as tolerated, follow up in 2 weeks for clinic appt, call with concerns Discharge Activity: May Not Drive May shower in (days): 1 Ice area for (Minutes): 20 - Every hour while awake. Weight Bearing Status: Weight bearing as tolerated Keep extremity elevated above heart level: Operative Extremity Call your doctor if your incision/area has: Continuous Slow Oozing, Sudden Increased Bleeding, Increased Pain/ Swelling, Increased Redness, Foul Smelling Discharge Call your doctor if you observe: Fever of 101 or Higher, Coldness, Increased Pain, Numbness or Tingling, Change in Color, Calf discomfort Allergies/Adverse Reactions: Allergies cefaclor [From Ceclor] Allergy (Verified 09/24/18 13:54) Other SEVERE YEAST INFECTION erythromycin ethylsuccinate [From E.E.S.] Allergy (Verified 09/24/18 13:54) Other HEADACHES ezetimibe [From Zetia] Allergy (Verified 09/24/18 13:54) Other MUSCLE PAIN lisinopril Allergy (Verified 09/24/18 13:54) Other COUGH lovastatin Allergy (Verified 09/24/18 13:54) Other MUSCLE PAIN Penicillins [PCN] Allergy (Verified 09/24/18 13:54) Hives rosuvastatin calcium [From Crestor] Allergy (Verified 09/24/18 13:54) Other MUSCLE PAIN Qkrlnpb-Vae-Cqa Reductase Inhibitor Allergy (Verified 09/24/18 13:54) Other MUSCLE PAIN sulfamethoxazole [From Bactrim] Allergy (Verified 09/24/18 13:54) Hives tramadol HCl [From Ultram] Allergy (Verified 09/24/18 13:54) Other SEVERE HEADACHES trimethoprim [From Bactrim] Allergy (Verified 09/24/18 13:54) Hives Medications to take at Discharge Allopurinol [Zyloprim] 200 mg PO DAILYCM 08/18/14 Ascorbic Acid [Vitamin C] 1,000 mg PO DAILY@0800 08/18/14 Azelastine HCl [Astelin] 1 spray NASAL BID PRN 08/18/14 Cholecalciferol (Vitamin D3) [Vitamin D3] 5,000 unit PO DAILY 08/18/14 Cyclobenzaprine [Flexeril] 10 mg PO TID PRN PRN 08/18/14 Etodolac [Lodine Xl] 500 mg PO BID 08/18/14 Fenofibrate [Tricor] 145 mg PO DAILY 08/18/14 Fluticasone 0.05% [Flonase Nasal [place]] 2 spray NASAL DAILY 08/18/14 Krill/Henriette-3/Dha/Epa/Lipids [Krill Oil 300 mg Softgel] 1,000 mg PO BID 08/18/14 Loratadine [Claritin] 10 mg PO DAILY 08/18/14 Losartan Potassium [Cozaar] 100 mg PO DAILY 08/18/14 Magnesium 400 mg PO DAILY 08/18/14 Metformin HCl [Glucophage] 1,000 mg PO BID 08/18/14 Methocarbamol [Robaxin] 500 mg PO Q6H PRN PRN 08/18/14 Naphcon A 1 drop EACH EYE TID PRN PRN 08/18/14 Systane Eye Drops 1 drop EACH EYE BID 08/18/14 Thyroid [Galt Thyroid] 60 mg PO DAILY 08/18/14 Vitamin B Complex 1 each PO DAILY 08/18/14 Zolpidem Tartrate [Ambien] 5 mg PO QHS PRN PRN 08/18/14 Metformin HCl [Glucophage] 500 mg PO LUNCH 12/08/14 Cytomulti 2 tab PO DAILY 09/24/18 Digestive Enyzmes 2 tab PO TID 09/24/18 Doxazosin Mesylate [Cardura] 2 mg PO QHS 09/24/18 Hm Complex 1 cap PO TID 09/24/18 Omeprazole [Prilosec] 40 mg PO QHS 09/24/18 Hydrocodone Bitart/Apap 5-325 [[place] 5MG-325MG] 1 - 2 tablet PO Q6H PRN PRN 5 Days #40 tablet 09/26/18 Zolpidem Tartrate [Ambien (Generic)] 5 mg PO QHS PRN PRN #14 tablet 09/26/18 The following prescriptions were given: Hydrocodone Bitart/Apap 5-325 [[place] 5MG-325MG] 1 - 2 tablet PO Q6H PRN PRN 5 Days #40 tablet PRN Reason: Pain Zolpidem Tartrate [Ambien (Generic)] 5 mg PO QHS PRN PRN #14 tablet PRN Reason: Insomnia Orders to be completed after discharge: 12 Lead EKG [[facility]] Time Frame: 09/26/18, Location: None Selected Primary Care Physician: Miki Gonzalez MD [Primary Care Provider] - Test Results: Test results from this visit will be discussed in further detail at your follow-up appointment, if applicable. Please Follow Up With: Elsa Fernandez DO - [phone] 09/26/18 5183 <Electronically signed by Elsa Fernandez DO> Date Elsa Fernandez DO CC: Zabrina Gonzalez MD TENDON/OR TENDON Observed: 09/26/2018 Status: F Source: [place] 10:10 AM [facility] REPOSITORY Patient: BESSIE ELLISON : 1960 (57/F) Acct Num: [id number] Phys: Elsa Fernandez DO Unit Num: [id number] [place] [facility] Specimen: [id number] Received: 12/12/18 - 1623 Spec Type: TENDON TISSUES 1 TISSUES: Tendon and tendon sheath, NOS GROSS DESCRIPTION Received in fixative is one container labeled with the patient's name and designated bicep tendon. The specimen consists of two pieces of grover, indurated tissue that in aggregate measure 3 x 1.5 x 0.5 cm. The entire specimen is submitted in one cassette. / SJ:jose 09/27/18 TC:3 CPT: 41649 HEADER OPERATION: Arthroscopy, shoulder, cuff, subacromial decompression PRE-OP DIAGNOSIS: Incomplete tear of right rotator cuff, internal impingement of right shoulder, bursitis of right shoulder TISSUE SUBMITTED: Bicep tendon MICROSCOPIC DESCRIPTION Slides are reviewed. MICROSCOPIC DIAGNOSIS Biceps tendon, excision: Fragments of tendon with degenerative and reparative change. Synovial tissue with mild hyperplasia and associated minimal chronic inflammation. AM:jose 09/28/18 Signed Julio Aguilar, 09/28/18 <signature on file> Performed By: #### PTESH #### [facility] [address] [place], [address] BEDSIDE GLUCOSE Collected: 09/26/2018 Status: F Source: [place] 9:29 AM [facility] REPOSITORY TYPE CODE TESTS RESULT OUT OF REFERENCE UNITS RANGE LAB L501.080 70-110 mg/dL High BEDSIDE GLU 119 Result Comment: MANAGEMENT OF PATIENT CARE PER NURSING PROTOCOL Performed By: #### L501.080 #### [facility] Point of Care [address] [place] [address] CBC-COMPLETE BLOOD CNT Collected: 09/26/2018 Status: F Source: [place]ORD[place] NO DIFF 9:06 AM [facility] REPOSITORY Order Comment: Reason for Laboratory Test PREOP TYPE CODE TESTS RESULT OUT OF RANGE REFERENCE UNITS LAB L100.1000 4.4-11.0 K/mm3 Normal WBC 5.6 LAB L100.1200 4.2-5.4 M/mm3 Low RBC 3.94 LAB L100.1300 12.0-15.0 g/dl Low HGB 11.8 LAB L100.1400 37-47 % Low HCT 36.4 LAB L100.1500 81-99 fL Normal MCV 92.4 LAB L100.1600 27.0-32.0 pg Normal MCH 29.9 LAB L100.1700 32-36 g/gl Normal MCHC 32.4 LAB L100.1810 11.6-14.6 % Normal RDW CV 13.5 LAB L100.1820 35.1-43.9 fl High RDW SD 46.3 LAB L100.1900 150-450 K/mm3 Normal PLT 216 LAB L100.2000 6.2-12.0 fl Normal MPV 8.8 Performed By: #### L100.0500 #### [facility] [address] [place], [place], [address] BASIC METABOLIC Collected: 09/26/2018 Status: F Source: WILVER PROFILE (BMP) 9:06 AM [facility] REPOSITORY Order Comment: Reason for Laboratory Test PREOP TYPE CODE TESTS RESULT OUT OF RANGE REFERENCE UNITS LAB L501.0100 74-106 mg/dL High GLU 138 Result Comment: Fasting Glucose result greater than or equal to 126 mg/dL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 Ref Range: <=45 82 (H) ? Hypertension-cardura, cozaar Hair loss Environmental allergies claritin CRI cr 1.2-->1.14 07/03 Gout-on allopurinol Bronchitis 2x/year HPV Positive geovany, positive ds dna Borderline diabetes Results for BESSIE ELLISON ( ) as of 07/03/2018 14:46 ? Ref. Range 03/08/2018 09:19 Hemoglobin A1C Latest Ref Range: 4.3 - 5.6 % 5.7 (H)-->5.4 06/02 Estimated Average Glucose Latest Units: mg/dL 117 Insulin Latest Ref Range: 1 - 24 uU/mL 33.5 (H) ? Elevated homcysteine 19.8 (goal 6-8), mma 236 (goal < 100) Elevated crp 2.3 (goal <0.7) CIRS Labs Results Ref Range ? VCS 23-63 pg/ml ? MARCONS None ? TGF-B1 <2380 pg/ml 970 C4a 0-2830ng/ml 2322 C3a ? Energy Production Fibromyalgia-better h/o anemia currently fine h/h , ferritin 100 on iron Fatigue- much better Chronic pain back pain better 1-2 on etodolac, robaxin, flexeril (last as needed)-better Sleep apnea Finger tingling ? Detoxification Function Silver amalgams July 2018 [place] all heavy metals within normal limits Smoke exposure Renovation Tick bite as child enid 62 Mold exposure ? Hormonal Assessment Hypothyroidism Results for BESSIE ELLISON ( ) as of 07/03/2018 14:46-- repeat at PCP tsh 1.67 so stay on 60mg armour ? Ref. Range 03/08/2018 09:19 Free T4 Latest Ref Range: 0.9 - 1.7 ng/dL 1.2 TSH Latest Ref Range: 0.400 - 5.500 uU/mL 3.760 Free T3 Latest Ref Range: 2.3 - 4.1 pg/mL 2.3 Microsomal Antibody Latest Ref Range: <5.6 IU/mL <1.0 ? Menopause BMI 39-->37 anxiety ? Structural Assessment Overacticve bladder Renal cyst Joint pain-stable Shoulder pain- Back pain ? Plan and Lifestyle Prescription Plan/Instructions/Resources: To Schedule breath test before restart SIBO medications: [employer] call center (BOC) will be conducting ALL scheduling for the [facility] patient breath test(s). Please have patients call the ([facility]) at for a scheduling option at [place] or [facility] Future Plans: Resume SIBO treatment Follow up: Please schedule a follow up visit with the following Caregivers: Provider: 8weeks Dr. Perez in November LIFESTYLE PRESCRIPTION Functional Nutrition: GI Specific Dietary Plan: Low FODMAPS Adding in garlic and onions after surgery. Sleep: Sleep goal for most adults is a minimum of 7-9 hours nightly. Exercise Prescription: Numerous studies confirm the benefits of regular moderate aerobic exercise (walking, swimming, elliptical machine, cycling, etc.) for 30 min 5 days per week (150 min goal). Stress Management: 1) Please look into this Heart Rate Variability BioFeedback Tool (www.heartmath.org). 2) A regular, daily meditation practice of at least 15-20 minutes will change your brain--as well as your genes! Behavioral Health Therapist: I recommend that you schedule an individual appointment with our [facility] Behavioral Health Therapist , SONNY Irvin, after your visit today. Health Coaching: Please consider scheduling with our [facility] health coaches for a phone or virtual visit for accountability, goal setting and help with behavior change management consultant the next 6-8 weeks to be successful with your goals. [phone]. Smart phone apps to begin a meditative practice: Headspace (free for first 10 days) Insight Meditation Timer- (Free)-Great all-around jocelyn to use for guided meditations of many different types and lengths or just to use as a tool to time and track your meditation practice. This is my absolute favorite! Calm- (Free) Walking Meditations-($1.99)- Get your walk AND meditation done together. A good way to start out for individuals who feel they just can't sit still to begin a meditative practice. Medication orders placed last encounter and still taking. Stopping antiinflammatories ( meriva) for surgery. Biocidin Advanced Formula (FilmBreak) Sig: Take 5 Drops by mouth three times daily. For two months G.I. Detox ([employer]) Si-2 capsules with full glass of water 2 times daily between meals Homocysteine [place] (Designs for [employer]) Sig: Take 2 capsules by mouth daily with food. Refill: 0 nystatin (MYCOSTATIN, NILSTAT) 500,000 unit tab Sig: Take 2 tablets by mouth twice daily. Dispense: 120 tablet Refill: 2 Succimer, Bulk, (DMSA, BULK,) 98 % powd Sig: Take 3 500mg tabs after First Morning Void. Then collect urine x 6 hours. Dispense: 1.5 g Refill: 0 For Toxic Element Clearance Post-Provocation Test Continue with Neomycin 500mg 4x/day for 2 weeks Xifaximin 550mg 3x/day for one month ? Continue to use these previous supplements: ???Digestive Enzymes Ultra 180 ct. (Pure Encapsulations) supports digestion of food-will stop after sibo treated ?Si-2 capsules with meals ?Glutagenics (Metagenics) ?Sig: Mix one teaspoon (4.33 g) with water three times daily (1 teaspoon = 3.5 grams L-glut) ?Magnesium Glycinate 120mg (Pure Encapsulations) ?Sig: Take 1-4 capsules at night ?PhytoMulti (Metagenics) ?Si capsules daily with food ?? Vitamin C 500mg 2x/day Vitamin d/k daily ? HOLD while treating sibo with antibiotics and then can slowly add back in as tolerated Ther-Biotic Detoxification Support (Klaire/Prothera) probiotic (FRIDGE) ?Sig: Take 1 capsule by mouth once daily. ?Refill: ?0 ?Meriva-SR (Rosemary) ?Sig: Take 2 capsules two- three times daily. ?One Henriette (Pure Encapsulation) -- fish oil Still taking prior to surgery ?Sig: Take 2 capsules by mouth daily with food. Iron daily Medications/Supplements Recommended: No orders of the defined types were placed in this encounter. I recommend the supplements from the [facility] [employer] at [email or web address] as we have thoroughly evaluated the research and use only highest quality supplements. During the next 6-8 weeks you'll be working on your diet plan discussed with our belly packer, allowing for gentle detoxification and decreasing inflammation - while we are gathering your lab results and combining those with your complete history to formulate a very personalized treatment plan. LAB results: Due to the complexity of the testing performed, we are not able to review labs via [employer] or over the phone, but please know, if any of your labs are critical we will contact you. Otherwise, we will review all your labs at your next visit. We will go over a lot of information during your follow up visit - so please be well-rested and you may want to bring someone with you, if possible. Also make sure to schedule with the belly packer (this will not happen automatically) as you did with your first visit so that she can review nutritional aspects of your treatment plan. By your 3rd visit, as things are improving, we will likely transition you to one of our very capable Certified Nurse Practitioners/Physician Assistants for further follow-up. Potential future labs: Any documistic labs ordered take about 4 weeks to return. Do them as soon as possible so that we have the results before your next appointment. You can access them on the documistic website and it can be beneficial if you review them prior to your next visit. [email or web address]. Read about NutrEval if this was ordered. Time spend with patient: I spent 25 minutes in the visit with more than 50% of the time spent counseling in regards to lab results, diagnoses and treatment plan. JENNIFER Meredith APRN.CNP 09/25/2018 3:46 PM Signed Plan and Lifestyle Prescription Plan/Instructions/Resources: To Schedule breath test before restart SIBO medications: [employer] call center (BOC) will be conducting ALL scheduling for the [facility] GI Lab patient breath test(s). Please have patients call the ([facility]) at for a scheduling option at [place] or [facility]. Future Plans: Resume SIBO treatment Follow up: Please schedule a follow up visit with the following Caregivers: Provider: 8weeks Dr. Perez in November LIFESTYLE PRESCRIPTION Functional Nutrition: GI Specific Dietary Plan: Low FODMAPS Adding in garlic and onions after surgery. Sleep: Sleep goal for most adults is a minimum of 7-9 hours nightly. Exercise Prescription: Numerous studies confirm the benefits of regular moderate aerobic exercise (walking, swimming, elliptical machine, cycling, etc.) for 30 min 5 days per week (150 min goal). Stress Management: 1) Please look into this Heart Rate Variability BioFeedback Tool (www.heartmath.org). 2) A regular, daily meditation practice of at least 15-20 minutes will change your brain--as well as your genes! Behavioral Health Therapist: I recommend that you schedule an individual appointment with our [facility] Behavioral Health Therapist , SONNY Irvin, after your visit today. Health Coaching: Please consider scheduling with our [facility] health coaches for a phone or virtual visit for accountability, goal setting and help with behavior change management consultant the next 6-8 weeks to be successful with your goals. [phone]. Smart phone apps to begin a meditative practice: Headspace (free for first 10 days) Insight Meditation Timer- (Free)-Great all-around jocelyn to use for guided meditations of many different types and lengths or just to use as a tool to time and track your meditation practice. This is my absolute favorite! Calm- (Free) Walking Meditations-($1.99)- Get your walk AND meditation done together. A good way to start out for individuals who feel they just can't sit still to begin a meditative practice. Medication orders placed last encounter and still taking. Stopping antiinflammatories ( meriva) for surgery. Biocidin Advanced Formula (FilmBreak) Sig: Take 5 Drops by mouth three times daily. For two months G.I. Detox ([employer]) Si-2 capsules with full glass of water 2 times daily between meals Homocysteine [place] (Designs for [employer]) Sig: Take 2 capsules by mouth daily with food. Refill: 0 nystatin (MYCOSTATIN, NILSTAT) 500,000 unit tab Sig: Take 2 tablets by mouth twice daily. Dispense: 120 tablet Refill: 2 Succimer, Bulk, (DMSA, BULK,) 98 % powd Sig: Take 3 500mg tabs after First Morning Void. Then collect urine x 6 hours. Dispense: 1.5 g Refill: 0 For Toxic Element Clearance Post-Provocation Test Continue with Neomycin 500mg 4x/day for 2 weeks Xifaximin 550mg 3x/day for one month ? Continue to use these previous supplements: ???Digestive Enzymes Ultra 180 ct. (Pure Encapsulations) supports digestion of food-will stop after sibo treated ?Si-2 capsules with meals ?Glutagenics (Metagenics) ?Sig: Mix one teaspoon (4.33 g) with water three times daily (1 teaspoon = 3.5 grams L-glut) ?Magnesium Glycinate 120mg (Pure Encapsulations) ?Sig: Take 1-4 capsules at night ?PhytoMulti (Metagenics) ?Si capsules daily with food ?? Vitamin C 500mg 2x/day Vitamin d/k daily ? HOLD while treating sibo with antibiotics and then can slowly add back in as tolerated Ther-Biotic Detoxification Support (Klaire/Prothera) probiotic (FRIDGE) ?Sig: Take 1 capsule by mouth once daily. ?Refill: ?0 ?Meriva-SR (Rosemary) ?Sig: Take 2 capsules two- three times daily. ?One Henriette (Pure Encapsulation) -- fish oil Still taking prior to surgery ?Sig: Take 2 capsules by mouth daily with food. Iron daily Medications/Supplements Recommended: No orders of the defined types were placed in this encounter. I recommend the supplements from the [facility] [employer] at [email or web address] as we have thoroughly evaluated the research and use only highest quality supplements. During the next 6-8 weeks you'll be working on your diet plan discussed with our belly packer, allowing for gentle detoxification and decreasing inflammation - while we are gathering your lab results and combining those with your complete history to formulate a very personalized treatment plan. LAB results: Due to the complexity of the testing performed, we are not able to review labs via [employer] or over the phone, but please know, if any of your labs are critical we will contact you. Otherwise, we will review all your labs at your next visit. We will go over a lot of information during your follow up visit - so please be well-rested and you may want to bring someone with you, if possible. Also make sure to schedule with the belly packer (this will not happen automatically) as you did with your first visit so that she can review nutritional aspects of your treatment plan. By your 3rd visit, as things are improving, we will likely transition you to one of our very capable Certified Nurse Practitioners/Physician Assistants for further follow-up. Potential future labs: Any [facility]umistic labs ordered take about 4 weeks to return. Do them as soon as possible so that we have the results before your next appointment. You can access them on the documistic website and it can be beneficial if you review them prior to your next visit. [email or web address]. Read about NutrEval if this was ordered. Gissel Zheng APRN.HOTBED LEVER OPERATOR Referring Provider: SELF [[id number]] Allergies As of Date: 09/25/2018 Noted Allergy Reaction BACTRIM (SULFAMETHOXAZOLE) 01/12/2011 4 - Hives CECLOR (CEFACLOR) 12/04/2014 14 - Other: See Comments Comments: Yeast infection environmental [Other] 07/07/2005 14 - Other: See Comments Comments: dust, grass, trees, dogs ERYTHROMYCIN 07/07/2005 14 - Other: See Comments Comments: Headaches LISINOPRIL 12/04/2014 3 - Cough PENICILLINS 05/01/2006 4 - Hives VICTOZA (LIRAGLUTIDE) 05/23/2017 11 - Vomiting Date Reviewed: 07/04/2018 Reviewed by: Leonel Elizabeth MA - Fully Assessed Primary Visit Diagnosis:Small intestinal bacterial overgrowth [K63.89] Other Visit Diagnoses:Candidiasis [B37.9] Heavy metal exposure [Z77.018] Type 2 diabetes mellitus without retinopathy (HCC) [E11.9] Order(s):BREATH TEST - LACTULOSE [[id number]] Order #: [id number] FUTURE Prescriptions as of 09/25/2018 Sig: * ALLOPURINOL 100 MG TABLET Take 200 mg by mouth twice da* * ALPHA LIPOIC ACID 200 MG CAPS* Take 1 tablet by mouth once d* AZELASTINE 137 MCG (0.1 %) NA* Use 1 [place] in each nostril t* OTC NUTRITIONAL SUPPLEMENT Take 5 Drops by mouth three t* CALCIUM + D ORAL Take 1 tablet by mouth once d* CPAP * FLEXERIL 10 MG TABLET as necessary DANDELION ORAL Take by mouth. Milk thistle OTC NUTRITIONAL SUPPLEMENT 1-2 capsules with meals DOXAZOSIN 2 MG TABLET Take 2 mg by mouth daily at b* DULAGLUTIDE 0.75 MG/0.5 ML BROWN* Inject subcutaneously once e* * ETODOLAC 500 MG TABLET Take 1 tablet by mouth twice * FENOFIBRATE NANOCRYSTALLIZED * Take 145 mg by mouth once destiny* FERROUS SULFATE 325 MG (65 MG* Take 325 mg by mouth once destiny* OMEGA-3 FATTY ACIDS-FISH OIL * Take 2 capsules by mouth once* * FLONASE 50 MCG/ACTUATION NASA* 2 spray per nostril daily. * FOLIC ACID 800 MCG TABLET Take one(1) tablet daily. OTC NUTRITIONAL SUPPLEMENT 1-2 capsules with full glass * OTC NUTRITIONAL SUPPLEMENT Mix one teaspoon (4.33 g) wit* OTC NUTRITIONAL SUPPLEMENT Take 2 capsules by mouth soraida* * IBUPROFEN 200 MG TABLET Take 1-2 tablet's) every four* ACIDOPHILUS ORAL Take 7 mg by mouth as needed. * LORATADINE 10 MG TABLET Take 1 tablet by mouth once d* * LOSARTAN 100 MG TABLET Take 1 tablet by mouth once d* OTC NUTRITIONAL SUPPLEMENT Take 1-4 capsules at night MAGNESIUM OXIDE 400 MG (241.3* Take 400 mg by mouth once destiny* OTC NUTRITIONAL SUPPLEMENT Take 2 capsules two- three ti* METFORMIN 500 MG TABLET TAKE 2 TABLETS BY MOUTH WITH * METHOCARBAMOL 500 MG TABLET Take 500 mg by mouth as neede* MILK THISTLE ORAL Take by mouth. NAPHAZOLINE 0.025 %-PHENIRAMI* Use 2 Drops in both eyes ever* NYSTATIN 500,000 UNIT TABLET Take 2 tablets by mouth twice* OMEPRAZOLE 40 MG CAPSULE,MARKUS* Take 40 mg by mouth twice destiny* OTC NUTRITIONAL SUPPLEMENT Take 2 capsules by mouth soraida* PEG 400-PROPYLENE GLYCOL 0.4 * Use 1 Drop in both eyes twice* PHOSPHATIDYLCHOLINE (BULK) OK* OTC NUTRITIONAL SUPPLEMENT 2 capsules daily with food POTASSIMIN ORAL Take 198 mg by mouth. RANITIDINE 150 MG TABLET Take 150 mg by mouth twice da* RED YEAST RICE ORAL Take by mouth. SUCCIMER (BULK) 98 % POWDER Take 3 500mg tabs after First* OTC NUTRITIONAL SUPPLEMENT Take 1 capsule by mouth once * ARMOUR THYROID ORAL Take 60 mg by mouth once soraida* B COMPLEX ORAL Take 1 tablet by mouth once d* * VITAMIN C 1,000 MG TABLET Take one(1) tablet daily. ZOLPIDEM 5 MG TABLET Take 5 mg by mouth at bedtime* Problem List As Of Date 09/25/2018 Noted Resolved Mixed hyperlipidemia [E78.2] INVALID FOR* Type 2 diabetes mellitus without retinopathy (H*INVALID FOR* Morbid obesity (HCC) [E66.01] INVALID FOR* Hypothyroidism [E03.9] INVALID FOR* Bilateral renal cysts [N28.1] INVALID FOR* Overactive bladder [N32.81] INVALID FOR* Gout [M10.9] INVALID FOR* Central sleep apnea [G47.31] INVALID FOR* More... Adrenal cortical adenoma of left adrenal gland *INVALID FOR* More... 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] INVALID FOR* Vitreous floaters of both eyes [H43.393] INVALID FOR* Epiretinal membrane (ERM) of right eye [H35.371]INVALID FOR* Combined forms of age-related cataract of both *INVALID FOR* BMI 37.0-37.9, adult [Z68.37] INVALID FOR* Essential hypertension [I10] INVALID FOR* Environmental allergies [Z91.09] INVALID FOR* Small intestinal bacterial overgrowth [K63.89] INVALID FOR* Candidiasis [B37.9] INVALID FOR* Heavy metal exposure [Z77.018] INVALID FOR* Other instructions from your clinician: Plan and Lifestyle Prescription Plan/Instructions/Resources: To Schedule breath test before restart SIBO medications: [employer] call center (BOC) will be conducting ALL scheduling for the [facility] patient breath test(s). Please have patients call the (BOC) at for a scheduling option at [place] or [facility]. Future Plans: Resume SIBO treatment Follow up: Please schedule a follow up visit with the following Caregivers: Provider: 8weeks Dr. Perez in November LIFESTYLE PRESCRIPTION Functional Nutrition: GI Specific Dietary Plan: Low FODMAPS Adding in garlic and onions after surgery. Sleep: Sleep goal for most adults is a minimum of 7-9 hours nightly. Exercise Prescription: Numerous studies confirm the benefits of regular moderate aerobic exercise (walking, swimming, elliptical machine, cycling, etc.) for 30 min 5 days per week (150 min goal). Stress Management: 1) Please look into this Heart Rate Variability BioFeedback Tool (www.heartmath.org). 2) A regular, daily meditation practice of at least 15- 20 minutes will change your brain--as well as your genes! Behavioral Health Therapist: I recommend that you schedule an individual appointment with our [facility] Behavioral Health Therapist , SONNY Irvin, after your visit today. Health Coaching: Please consider scheduling with our [facility] health coaches for a phone or virtual visit for accountability, goal setting and help with behavior change management consultant the next 6-8 weeks to be successful with your goals. [phone]. Smart phone apps to begin a meditative practice: Headspace (free for first 10 days) Insight Meditation Timer- (Free)-Great all-around jocelyn to use for guided meditations of many different types and lengths or just to use as a tool to time and track your meditation practice. This is my absolute favorite! Calm- (Free) Walking Meditations-($1.99)- Get your walk AND meditation done together. A good way to start out for individuals who feel they just can't sit still to begin a meditative practice. Medication orders placed last encounter and still taking. Stopping antiinflammatories ( meriva) for surgery. Biocidin Advanced Formula (FilmBreak) Sig: Take 5 Drops by mouth three times daily. For two months G.I. Detox ([employer]) Si-2 capsules with full glass of water 2 times daily between meals Homocysteine [place] ([employer]) Sig: Take 2 capsules by mouth daily with food. Refill: 0 nystatin (MYCOSTATIN, NILSTAT) 500,000 unit tab Sig: Take 2 tablets by mouth twice daily. Dispense: 120 tablet Refill: 2 Succimer, Bulk, (DMSA, BULK,) 98 % powd Sig: Take 3 500mg tabs after First Morning Void. Then collect urine x 6 hours. Dispense: 1.5 g Refill: 0 For Toxic Element Clearance Post-Provocation Test Continue with Neomycin 500mg 4x/day for 2 weeks Xifaximin 550mg 3x/day for one month ? Continue to use these previous supplements: ???Digestive Enzymes Ultra 180 ct. (Pure Encapsulations) supports digestion of food-will stop after sibo treated ?Si-2 capsules with meals ?Glutagenics (Metagenics) ?Sig: Mix one teaspoon (4.33 g) with water three times daily (1 teaspoon = 3.5 grams L-glut) ?Magnesium Glycinate 120mg (Pure Encapsulations) ?Sig: Take 1-4 capsules at night ?PhytoMulti (Metagenics) ?Si capsules daily with food ?? Vitamin C 500mg 2x/day Vitamin d/k daily ? HOLD while treating sibo with antibiotics and then can slowly add back in as tolerated Ther-Biotic Detoxification Support (Klaire/Prothera) probiotic (FRIDGE) ?Sig: Take 1 capsule by mouth once daily. ?Refill: ?0 ?Meriva-SR (Rosemary) ?Sig: Take 2 capsules two- three times daily. ?One Henriette (Pure Encapsulation) -- fish oil Still taking prior to surgery ?Sig: Take 2 capsules by mouth daily with food. Iron daily Medications/Supplements Recommended: No orders of the defined types were placed in this encounter. I recommend the supplements from the [facility] [employer] at [email or web address] as we have thoroughly evaluated the research and use only highest quality supplements. During the next 6-8 weeks you'll be working on your diet plan discussed with our belly packer, allowing for gentle detoxification and decreasing inflammation - while we are gathering your lab results and combining those with your complete history to formulate a very personalized treatment plan. LAB results: Due to the complexity of the testing performed, we are not able to review labs via [employer] or over the phone, but please know, if any of your labs are critical we will contact you. Otherwise, we will review all your labs at your next visit. We will go over a lot of information during your follow up visit - so please be well-rested and you may want to bring someone with you, if possible. Also make sure to schedule with the belly packer (this will not happen automatically) as you did with your first visit so that she can review nutritional aspects of your treatment plan. By your 3rd visit, as things are improving, we will likely transition you to one of our very capable Certified Nurse Practitioners/Physician Assistants for further follow-up. Potential future labs: Any documistic labs ordered take about 4 weeks to return. Do them as soon as possible so that we have the results before your next appointment. You can access them on the documistic website and it can be beneficial if you review them prior to your next visit. [email or web address]. Read about NutrEval if this was ordered. Gissel Zheng APRN.LUIS Encounter Status:Closed by GISSEL ZHENG CNP on 09/25/18 PROGRESS Observed: 09/25/2018 Status: COMPLETED Source: [place] 2:30 PM [facility] [place] [facility] HNO ID: [id number] Author: Tabatha Vega Service: (none) Author Type: Registered Dietitian Type: Progress Notes Filed: 09/26/2018 11:52 AM Note Text: FUNCTION MEDICINE FOLLOW UP NUTRITION ASSESSMENT Patient name: Bessie Ellison Anthropometrics: LMP 01/17/2010 Height: Last 1 Encounter Ht Readings: Date: Ht: 07/04/2018 152 cm (4' 11.84) Weight: Last 2 Encounter Wt Readings: Date: Wt: 07/04/2018 86.1 kg (189 lb 14.4 oz) 03/08/2018 92.2 kg (203 lb 3.2 oz) Wt: 86.1 kg (189 lb 14.4 oz) BMI: 37.28 kg/(m2) Resting Metabolic Rate: 1369 Allergies: Bactrim [Sulfamethoxazole]; Ceclor [Cefaclor]; Environmental [Other]; Erythromycin; Lisinopril; Penicillins; Victoza [Liraglutide] Medications: Current Outpatient Prescriptions on File Prior to Visit: allopurinol 100 mg ORAL tablet Take 200 mg by mouth twice daily. alpha lipoic acid 200 mg ORAL Cap Take 1 tablet by mouth once daily. azelastine (ASTELIN,ASTEPRO) 0.1% nasal spray Use 1 [place] in each nostril twice daily. Biocidin Advanced Formula (FilmBreak) Take 5 Drops by mouth three times daily. For two months CALCIUM CARBONATE/VITAMIN D3 (CALCIUM + D ORAL) Take 1 tablet by mouth once daily. CPAP cyclobenzaprine hcl(FLEXERIL 10 MG TAB) as necessary DANDELION ORAL Take by mouth. Milk thistle Digestive Enzymes Ultra 180 ct. (Pure Encapsulations) supports digestion of food 1-2 capsules with meals doxazosin (CARDURA) 2 mg tablet Take 2 mg by mouth daily at bedtime. dulaglutide 0.75 mg/0.5 mL pnij Inject subcutaneously once each week. Etodolac 500 mg ORAL tablet Take 1 tablet by mouth twice daily. fenofibrate nanocrystallized (TRICOR) 145 mg tablet Take 145 mg by mouth once daily. Ferrous Sulfate 325 mg (65 mg iron) tablet Take 325 mg by mouth once daily. Fish Oil-Henriette-3 Fatty Acids (FISH OIL OMEGA 3-6-9) 300-1,000 mg cpDR Take 2 capsules by mouth once daily. FLONASE 50 MCG/ACTUATION NASAL SPRAY AEROSOL 2 spray per nostril daily. folic acid 800 mcg ORAL tablet Take one(1) tablet daily. G.I. Detox (Re[employer]) 1-2 capsules with full glass of water 2 times daily between meals Glutagenics (Metagenics) Mix one teaspoon (4.33 g) with water three times daily (1 teaspoon = 3.5 grams L-glut) Homocysteine [place] ([employer]) Take 2 capsules by mouth daily with food. ibuprofen 200 mg ORAL Tab Take 1-2 tablet's) every four(4) to six(6) hours as needed for pain. LACTOBACILLUS ACIDOPHILUS (ACIDOPHILUS ORAL) Take 7 mg by mouth as needed. loratadine 10 mg tablet Take 1 tablet by mouth once daily. losartan (COZAAR) 100 mg tablet Take 1 tablet by mouth once daily. Magnesium Glycinate 120mg (Pure Encapsulations) Take 1-4 capsules at night magnesium oxide (MAG-OX) 400 mg tablet Take 400 mg by mouth once daily. Meriva-SR (Rosemary) Take 2 capsules two- three times daily. metFORMIN (GLUCOPHAGE) 500 mg tablet TAKE 2 TABLETS BY MOUTH WITH BREAKFAST, TAKE 1 TABLET WITH lunch, TAKE 2 TABLETS WITH supper methocarbamol (ROBAXIN) 500 mg tablet Take 500 mg by mouth as needed. MILK THISTLE ORAL Take by mouth. naphazoline-pheniramine eye drops (NAPHCON-A) 0.025-0.3 % ophthalmic solution Use 2 Drops in both eyes every 4 hours as needed. nystatin (MYCOSTATIN, NILSTAT) 500,000 unit tab Take 2 tablets by mouth twice daily. Omeprazole 40 mg capsule Take 40 mg by mouth twice daily. One Henriette (Pure Encapsulation) -- fish oil Take 2 capsules by mouth daily with food. PEG 400-Propylene Glycol (SYSTANE) 0.4-0.3 % drop Use 1 Drop in both eyes twice daily. PHOSPHATIDYLCHOLINE, BULK, MISC PhytoMulti (Metagenics) 2 capsules daily with food POTASSIUM (POTASSIMIN ORAL) Take 198 mg by mouth. ranitidine (ZANTAC) 150 mg tablet Take 150 mg by mouth twice daily. RED YEAST RICE ORAL Take by mouth. Succimer, Bulk, (DMSA, BULK,) 98 % powd Take 3 500mg tabs after First Morning Void. Then collect urine x 6 hours. Ther-Biotic Detoxification Support (Klaire/Prothera) probiotic (FRIDGE) Take 1 capsule by mouth once daily. THYROID,PORK (ARMOUR THYROID ORAL) Take 60 mg by mouth once daily. VITAMIN B COMPLEX (B COMPLEX ORAL) Take 1 tablet by mouth once daily. VITAMIN C 1,000 MG TAB Take one(1) tablet daily. zolpidem (AMBIEN) 5 mg tablet Take 5 mg by mouth at bedtime as needed. No current facility-administered medications on file prior to visit. 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 Fibromyalgia 2. Anemia 3. Metabolic Syndrome 4. Diabetes 5. Arthritis 6. Inflammation 7. Gout 8. Incontinence 9. Chronic Renal Insufficiency 10. Autoimmune 11. Weight 12. SIBO Is the patient having any pain that is interfering with oral intake? No Labs: Positive SIBO breath test Vitals 11/07/2017 03/08/2018 07/04/2018 SITTING SYSTOLIC 168 148 159 SITTING DIASTOLIC 90 71 83 PULSE 90 92 RESPIRATIONS WEIGHT in POUNDS 203 lb 203 lb 3.2 oz 189 lb 14.4 oz WEIGHT in KILOGRAMS 92.08 kg 92.171 kg 86.138 kg HEIGHT in INCHES 59.843 in. 59.843 in. HEIGHT in CM 152 cm 152 cm SITTING BP 168/90 148/71 159/83 PULSE OX BODY MASS INDEX 39.85 39.89 37.28 Subjective: Patient reports to nutrition assessment for second follow up after seeing Tabatha. She had great success with weight loss on elimination plan, but since trasntioning to low FODMAP diet, she has gained some weight back. Discussed combining the two nutrition plans together. -Patient tested positive for SIBO and started low FODMAP food plan on her own and discontinued all aspects of elimination plan -She has felt better digestively with low FODMAPs, but reports gaining weight back since d/c elimination plan Current MSQ Score: 46 Previous MSQ Score: 118 Provider Nutrition Notes: Low FODMAP Meal Plans: GF, DF, No Sugar, No Grains Low FODMAP plan Nutrition Diagnosis: Obesity relates to excess food intake and inactivity as evidenced by BMI Altered GI function related to IBS as evidenced by patient reported digestive issues and SIBO Altered nutrition related lab values related to current diagnosis as evidenced by diabetes Nutrition Intervention 07/04/2018: 1. Please follow gluten free, dairy free, Grain Free low FODMAP plan -Utilize the low FODMAP list provided to help you balance the elimination plan with low FODMAP 2. Resources for low FODMAP Diet: -[facility] has a pretty good jocelyn that has recipes and food guides. It does cost $8. They are the founders of the FODMAP diet. -Doretha Calixto is a good resource. She has a book that is called The Low-FODMAP Diet - step by step and on her website she has a really great grocery shopping list>> - http://www.[employer]ital Farms/low-fodmapgrocerylist/ -Tad has a pretty good website for recipes and resources. It's within the health sciences website called Low FODMAP central >>> https://www.SecureAuth./lowfodmap -Aziza Franco RD - Particularly 10 ways to add flavor to low FODMAP diet Nutrition Tips for Success: Continue to focus on keeping your blood sugar balanced! This can reduce insulin levels and inflammation, while supporting a healthy metabolism. What: ? Colorful veggies and fruits (one food from each color of the rainbow per day). ? Organic foods: the dirty dozen and clean fifteen list from the Environmental Working Group www.ewg.org ? Local farms/farmers markets and CSAs are listed at www.SportyBird.org (enter your zip code). ? Lean, free range, grass fed, organically grown meats, non- GMO plant proteins, and wild caught fish are preferred. ? Consume healthy fats regularly. ? Focus on fiber rich foods (25/35 grams per day). ? Fluids: Aim for ? your body weight in ounces: filtered water, seltzer, shakes, soups, decaf green/herbal teas, 100% raw coconut water ([employer] [place]) and raw, cold-pressed vegetable juice. No alcohol, coffee AND soda (caffeine). When: ? Eat within an hour of rising and every 3-4 hours all within 12 hours. ? Always include a protein, fat and carbohydrate with breakfast, lunch and dinner. ? Small frequent meals but FRONT LOAD YOUR CALORIES, BY HAVING A LARGER BREAKFAST/LUNCH, SMALL DINNER. How: for proper digestion and assimilation of your nutrients you must: ? Enjoy your food ? Eat mindfully and peacefully ? Find support from friends and family Follow up: 6 weeks CURRENT NUTRITION ASSESSMENT Reason for consult: Follow-up Visit Date: September 25, 2018 Previous Concern(s): 1. Fibromyalgia 2. Anemia 3. Metabolic Syndrome 4. Diabetes 5. Arthritis 6. Inflammation 7. Gout 8. Incontinence 9. Chronic Renal Insufficiency 10. Autoimmune 11. Weight 12. SIBO Current Concern(s): 1. Fibromyalgia 2. Anemia 3. Metabolic Syndrome 4. Diabetes 5. Arthritis 6. Inflammation 7. Gout 8. Incontinence 9. Chronic Renal Insufficiency 10. Autoimmune 11. Weight 12. SIBO Is the patient having any pain that is interfering with oral intake? no HT/WT/BMI 10/06/2017 11/07/2017 03/08/2018 07/04/2018 HEIGHT 4' 11.843 4' 11.843 4' 11.843 WEIGHT 91.173 kg 92.08 kg 92.171 kg 86.138 kg BODY MASS INDEX 39.46 39.85 39.89 37.28 WEIGHT 201 lb 203 lb 203 lb 3.2 oz 189 lb 14.4 oz Labs: Results for BESSIE ELLISON ( ) as of 09/26/2018 11:39 Ref. Range 06/04/2014 11:42 12/02/2014 09:38 03/16/2015 12:00 06/15/2015 09:35 03/08/2018 09:19 Hemoglobin A1C Latest Ref Range: 4.3 - 5.6 % 6.3 (H) 6.6 (H) 6.0 6.0 5.7 (H) NutraEval: N/A GI Effects: Date Infection Proteus mirabilix, yeast prince, rhodontorula, yarrowia s to P tannis Digestion PE>500, protein 3.8 nl, fat 16.5 nl Beta Glucoronidase L279 Imbalance EPX 2.9H, SIgA 602 H Diversity/abundance Low orange diversity, increased abundance Commensal bacteria colonies in top 5th% 5 colonies high 13 colonies in 5th quintile Subjective: Having surgery tomorrow (detached tendon on right arm/shoulder) What are the nutrition-related successes? 1. Did really well on the elimination diet and is motivated to add some foods back into her diet and get back on track after surgery What are the nutrition-related concerns? 1. Several days this week she is having a few things that she shouldn't (pizza, etc.) 2. Originally lost about 22 pounds since she started with functional medicine but has gained some back since being on a low FODMAP food plan. Diet Recall: Not discussed in detail Current MSQ Score: 48 Previous MSQ Score: 46 Provider Nutrition Notes: GI Specific Dietary Plan: Low FODMAPS Adding in garlic and onions after surgery. Meal Plans: Gluten, dairy and added sugar free food plan - adding in low FODMAPs Nutrition Diagnosis: Obesity relates to excess food intake and inactivity as evidenced by BMI Altered GI function related to IBS as evidenced by patient reported digestive issues and SIBO Altered nutrition related lab values related to current diagnosis as evidenced by diabetes Nutrition Intervention 09/25/2018: Gluten, dairy and added sugar free food plan 1. Strive for minimum of 30g of protein per meal while you are recovering from surgery 4-6 oz of animal protein such as chicken, grass fed beef, or wild caught fish Plant-based protein powders (Pure Pea by [employer] from (Healthy Living Shop) or bone broth protein (Ancient Nutrition or Bulletproof) 2. Keep carbohydrates on the lower end (MAX of 1/2 cup gluten free grains/day, 1 cup starchy vegetables, 2-3 servings of fruits) 3. Incorporate bone broth and/or collagen powder daily (1- 2 scoops once or twice per day) Please see below for a list of collagen powders and where to purchase them: 1. dondeEsta™ Collagen Hydrolysate. Purchase at: Www.[employer]daytown/storefront/. OR Www.Apartment Adda. OR WwwWeSpeke 2. Bulletproof Collagen Protein. Purchase at: wwwBlu Homes. OR ChipRewards 3. NovaShunt Collagen Peptides. Purchase at: wwwCardiac Concepts/collagen-peptides.html. OR WwwTripeese. OR Ntractive 4. Anti-inflammatory practices -Herbs and spices such as turmeric, mirta, garlic (as tolerated), cinnamon -variety of phytonutrients from vegetables (eat variety of colors, especially dark green leafy vegetables) -omega 3 fats (wild caught fish such as sardines or salmons), walnuts, flaxseeds, bart seeds, grass fed beef, omega 3 eggs -Low carbohydrate food plan (try to avoid grains and high sugar fruits) 5. Reintroduce one previously avoided food at a time over 4 days. Carefully track symptoms for tolerance. If you have a reaction, stop that food and start another. If you have reactions to most fodmap foods, continue low-fodmap diet until your follow-up visit Some examples: - 1/4 avocado twice daily - 1/4 cup cashews twice daily - 1/2 green apple twice daily - 1/2 cup cooked or raw vegetable (broccoli, cauliflower, aspargus, artichokes) - 1 tsp added garlic or 1/4 cup added onions to a dish twice per day Nutrition Monitoring AND Evaluation: Adherence to nutrition recommendations Criteria: dietary recall and patient report Follow up: 3 months Time Spent with patient: 30 minutes Consult Billing Type: Re-assess/15 minutes, 2 increment(s), 30 minutes Number of Increments: 2 (30 minutes) Signed by: Tabatha Vega RD CNCNPATED Observed: 09/25/2018 Status: COMPLETED Source: [place] 2:30 PM [facility] [place] [facility] Education ([facility]) BESSIE ELLISON ([id number]) 1960 F Date Time Provider Department 09/25/18 2:30 PM TABATHA VEGA (RD) MEDN Reason for Visit: Follow Up [171] Progress Notes: Tabatha Vega RD 09/26/2018 11:52 AM Signed FUNCTION MEDICINE FOLLOW UP NUTRITION ASSESSMENT Patient name: Bessie Ellison Anthropometrics: LMP 01/17/2010 Height: Last 1 Encounter Ht Readings: Date: Ht: 07/04/2018 152 cm (4' 11.84) Weight: Last 2 Encounter Wt Readings: Date: Wt: 07/04/2018 86.1 kg (189 lb 14.4 oz) 03/08/2018 92.2 kg (203 lb 3.2 oz) Wt: 86.1 kg (189 lb 14.4 oz) BMI: 37.28 kg/(m2) Resting Metabolic Rate: 1369 Allergies: Bactrim [Sulfamethoxazole]; Ceclor [Cefaclor]; Environmental [Other]; Erythromycin; Lisinopril; Penicillins; Victoza [Liraglutide] Medications: Current Outpatient Prescriptions on File Prior to Visit: allopurinol 100 mg ORAL tablet Take 200 mg by mouth twice daily. alpha lipoic acid 200 mg ORAL Cap Take 1 tablet by mouth once daily. azelastine (ASTELIN,ASTEPRO) 0.1% nasal spray Use 1 [place] in each nostril twice daily. Biocidin Advanced Formula (FilmBreak) Take 5 Drops by mouth three times daily. For two months CALCIUM CARBONATE/VITAMIN D3 (CALCIUM + D ORAL) Take 1 tablet by mouth once daily. CPAP cyclobenzaprine hcl(FLEXERIL 10 MG TAB) as necessary DANDELION ORAL Take by mouth. Milk thistle Digestive Enzymes Ultra 180 ct. (Pure Encapsulations) supports digestion of food 1-2 capsules with meals doxazosin (CARDURA) 2 mg tablet Take 2 mg by mouth daily at bedtime. dulaglutide 0.75 mg/0.5 mL pnij Inject subcutaneously once each week. Etodolac 500 mg ORAL tablet Take 1 tablet by mouth twice daily. fenofibrate nanocrystallized (TRICOR) 145 mg tablet Take 145 mg by mouth once daily. Ferrous Sulfate 325 mg (65 mg iron) tablet Take 325 mg by mouth once daily. Fish Oil-Henriette-3 Fatty Acids (FISH OIL OMEGA 3-6-9) 300-1,000 mg cpDR Take 2 capsules by mouth once daily. FLONASE 50 MCG/ACTUATION NASAL SPRAY AEROSOL 2 spray per nostril daily. folic acid 800 mcg ORAL tablet Take one(1) tablet daily. G.I. Detox ([employer]) 1-2 capsules with full glass of water 2 times daily between meals Glutagenics ([employer]) Mix one teaspoon (4.33 g) with water three times daily (1 teaspoon = 3.5 grams L-glut) Homocysteine [place] ([employer]) Take 2 capsules by mouth daily with food. ibuprofen 200 mg ORAL Tab Take 1-2 tablet's) every four(4) to six(6) hours as needed for pain. LACTOBACILLUS ACIDOPHILUS (ACIDOPHILUS ORAL) Take 7 mg by mouth as needed. loratadine 10 mg tablet Take 1 tablet by mouth once daily. losartan (COZAAR) 100 mg tablet Take 1 tablet by mouth once daily. Magnesium Glycinate 120mg (Pure Encapsulations) Take 1-4 capsules at night magnesium oxide (MAG-OX) 400 mg tablet Take 400 mg by mouth once daily. Meriva-SR (Rosemary) Take 2 capsules two- three times daily. metFORMIN (GLUCOPHAGE) 500 mg tablet TAKE 2 TABLETS BY MOUTH WITH BREAKFAST, TAKE 1 TABLET WITH lunch, TAKE 2 TABLETS WITH supper methocarbamol (ROBAXIN) 500 mg tablet Take 500 mg by mouth as needed. MILK THISTLE ORAL Take by mouth. naphazoline-pheniramine eye drops (NAPHCON-A) 0.025-0.3 % ophthalmic solution Use 2 Drops in both eyes every 4 hours as needed. nystatin (MYCOSTATIN, NILSTAT) 500,000 unit tab Take 2 tablets by mouth twice daily. Omeprazole 40 mg capsule Take 40 mg by mouth twice daily. One Henriette (Pure Encapsulation) -- fish oil Take 2 capsules by mouth daily with food. PEG 400-Propylene Glycol (SYSTANE) 0.4-0.3 % drop Use 1 Drop in both eyes twice daily. PHOSPHATIDYLCHOLINE, BULK, MISC PhytoMulti (Metagenics) 2 capsules daily with food POTASSIUM (POTASSIMIN ORAL) Take 198 mg by mouth. ranitidine (ZANTAC) 150 mg tablet Take 150 mg by mouth twice daily. RED YEAST RICE ORAL Take by mouth. Succimer, Bulk, (DMSA, BULK,) 98 % powd Take 3 500mg tabs after First Morning Void. Then collect urine x 6 hours. Ther-Biotic Detoxification Support (Klaire/Prothera) probiotic (FRIDGE) Take 1 capsule by mouth once daily. THYROID,PORK (ARMOUR THYROID ORAL) Take 60 mg by mouth once daily. VITAMIN B COMPLEX (B COMPLEX ORAL) Take 1 tablet by mouth once daily. VITAMIN C 1,000 MG TAB Take one(1) tablet daily. zolpidem (AMBIEN) 5 mg tablet Take 5 mg by mouth at bedtime as needed. No current facility-administered medications on file prior to visit. 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 Fibromyalgia 2. Anemia 3. Metabolic Syndrome 4. Diabetes 5. Arthritis 6. Inflammation 7. Gout 8. Incontinence 9. Chronic Renal Insufficiency 10. Autoimmune 11. Weight 12. SIBO Is the patient having any pain that is interfering with oral intake? No Labs: Positive SIBO breath test Vitals 11/07/2017 03/08/2018 07/04/2018 SITTING SYSTOLIC 168 148 159 SITTING DIASTOLIC 90 71 83 PULSE 90 92 RESPIRATIONS WEIGHT in POUNDS 203 lb 203 lb 3.2 oz 189 lb 14.4 oz WEIGHT in KILOGRAMS 92.08 kg 92.171 kg 86.138 kg HEIGHT in INCHES 59.843 in. 59.843 in. HEIGHT in CM 152 cm 152 cm SITTING BP 168/90 148/71 159/83 PULSE OX BODY MASS INDEX 39.85 39.89 37.28 Subjective: Patient reports to nutrition assessment for second follow up after seeing Tabatha. She had great success with weight loss on elimination plan, but since trasntioning to low FODMAP diet, she has gained some weight back. Discussed combining the two nutrition plans together. -Patient tested positive for SIBO and started low FODMAP food plan on her own and discontinued all aspects of elimination plan -She has felt better digestively with low FODMAPs, but reports gaining weight back since d/c elimination plan Current MSQ Score: 46 Previous MSQ Score: 118 Provider Nutrition Notes: Low FODMAP Meal Plans: GF, DF, No Sugar, No Grains Low FODMAP plan Nutrition Diagnosis: Obesity relates to excess food intake and inactivity as evidenced by BMI Altered GI function related to IBS as evidenced by patient reported digestive issues and SIBO Altered nutrition related lab values related to current diagnosis as evidenced by diabetes Nutrition Intervention 07/04/2018: 1. Please follow gluten free, dairy free, Grain Free low FODMAP plan -Utilize the low FODMAP list provided to help you balance the elimination plan with low FODMAP 2. Resources for low FODMAP Diet: -[facility] has a pretty good jocelyn that has recipes and food guides. It does cost $8. They are the founders of the FODMAP diet. -Doretha Calixto is a good resource. She has a book that is called The Low-FODMAP Diet - step by step and on her website she has a really great grocery shopping list>> - http://www.Vital Farms/low-fodmapgrocerylist/ -Tad has a pretty good website for recipes and resources. It's within the health sciences website called Low FODMAP central >>> https://www.SecureAuth./lowfodmap -Aziza Franco RD - Particularly 10 ways to add flavor to low FODMAP diet Nutrition Tips for Success: Continue to focus on keeping your blood sugar balanced! This can reduce insulin levels and inflammation, while supporting a healthy metabolism. What: ? Colorful veggies and fruits (one food from each color of the rainbow per day). ? Organic foods: the dirty dozen and clean fifteen list from the Environmental Working Group www.ewg.org ? Local farms/farmers markets and CSAs are listed at www.SportyBird.WeDuc (enter your zip code). ? Lean, free range, grass fed, organically grown meats, non- GMO plant proteins, and wild caught fish are preferred. ? Consume healthy fats regularly. ? Focus on fiber rich foods (25/35 grams per day). ? Fluids: Aim for ? your body weight in ounces: filtered water, seltzer, shakes, soups, decaf green/herbal teas, 100% raw coconut water ([employer] [place]) and raw, cold-pressed vegetable juice. No alcohol, coffee AND soda (caffeine). When: ? Eat within an hour of rising and every 3-4 hours all within 12 hours. ? Always include a protein, fat and carbohydrate with breakfast, lunch and dinner. ? Small frequent meals but FRONT LOAD YOUR CALORIES, BY HAVING A LARGER BREAKFAST/LUNCH, SMALL DINNER. How: for proper digestion and assimilation of your nutrients you must: ? Enjoy your food ? Eat mindfully and peacefully ? Find support from friends and family Follow up: 6 weeks CURRENT NUTRITION ASSESSMENT Reason for consult: Follow-up Visit Date: September 25, 2018 Previous Concern(s): 1. Fibromyalgia 2. Anemia 3. Metabolic Syndrome 4. Diabetes 5. Arthritis 6. Inflammation 7. Gout 8. Incontinence 9. Chronic Renal Insufficiency 10. Autoimmune 11. Weight 12. SIBO Current Concern(s): 1. Fibromyalgia 2. Anemia 3. Metabolic Syndrome 4. Diabetes 5. Arthritis 6. Inflammation 7. Gout 8. Incontinence 9. Chronic Renal Insufficiency 10. Autoimmune 11. Weight 12. SIBO Is the patient having any pain that is interfering with oral intake? no HT/WT/BMI 10/06/2017 11/07/2017 03/08/2018 07/04/2018 HEIGHT 4' 11.843 4' 11.843 4' 11.843 WEIGHT 91.173 kg 92.08 kg 92.171 kg 86.138 kg BODY MASS INDEX 39.46 39.85 39.89 37.28 WEIGHT 201 lb 203 lb 203 lb 3.2 oz 189 lb 14.4 oz Labs: Results for BESSIE ELLISON ( ) as of 09/26/2018 11:39 Ref. Range 06/04/2014 11:42 12/02/2014 09:38 03/16/2015 12:00 06/15/2015 09:35 03/08/2018 09:19 Hemoglobin A1C Latest Ref Range: 4.3 - 5.6 % 6.3 (H) 6.6 (H) 6.0 6.0 5.7 (H) NutraEval: N/A GI Effects: Date Infection Proteus mirabilix, yeast prince, rhodontorula, yarrowia s to P tannis Digestion PE>500, protein 3.8 nl, fat 16.5 nl Beta Glucoronidase L279 Imbalance EPX 2.9H, SIgA 602 H Diversity/abundance Low orange diversity, increased abundance Commensal bacteria colonies in top 5th% 5 colonies high 13 colonies in 5th quintile Subjective: Having surgery tomorrow (detached tendon on right arm/shoulder) What are the nutrition-related successes? 1. Did really well on the elimination diet and is motivated to add some foods back into her diet and get back on track after surgery What are the nutrition-related concerns? 1. Several days this week she is having a few things that she shouldn't (pizza, etc.) 2. Originally lost about 22 pounds since she started with functional medicine but has gained some back since being on a low FODMAP food plan. Diet Recall: Not discussed in detail Current MSQ Score: 48 Previous MSQ Score: 46 Provider Nutrition Notes: GI Specific Dietary Plan: Low FODMAPS Adding in garlic and onions after surgery. Meal Plans: Gluten, dairy and added sugar free food plan - adding in low FODMAPs Nutrition Diagnosis: Obesity relates to excess food intake and inactivity as evidenced by BMI Altered GI function related to IBS as evidenced by patient reported digestive issues and SIBO Altered nutrition related lab values related to current diagnosis as evidenced by diabetes Nutrition Intervention 09/25/2018: Gluten, dairy and added sugar free food plan 1. Strive for minimum of 30g of protein per meal while you are recovering from surgery 4-6 oz of animal protein such as chicken, grass fed beef, or wild caught fish Plant-based protein powders (Pure Pea by [employer] from ([employer]) or bone broth protein ([employer] Nutrition or Bulletproof) 2. Keep carbohydrates on the lower end (MAX of 1/2 cup gluten free grains/day, 1 cup starchy vegetables, 2-3 servings of fruits) 3. Incorporate bone broth and/or collagen powder daily (1- 2 scoops once or twice per day) Please see below for a list of collagen powders and where to purchase them: 1. dondeEsta™ Collagen Hydrolysate. Purchase at: Www.[email or web address]/storefront/. OR WwwTripeese. OR Ntractive 2. Viewpoint LLCtproof Collagen Protein. Purchase at: wwwBlu Homes. OR ChipRewards 3. NovaShunt Collagen Peptides. Purchase at: wwwCardiac Concepts/collagen-peptides.html. OR WwwTripeese. OR Ntractive 4. Anti-inflammatory practices -Herbs and spices such as turmeric, mirta, garlic (as tolerated), cinnamon -variety of phytonutrients from vegetables (eat variety of colors, especially dark green leafy vegetables) -omega 3 fats (wild caught fish such as sardines or salmons), walnuts, flaxseeds, batr seeds, grass fed beef, omega 3 eggs -Low carbohydrate food plan (try to avoid grains and high sugar fruits) 5. Reintroduce one previously avoided food at a time over 4 days. Carefully track symptoms for tolerance. If you have a reaction, stop that food and start another. If you have reactions to most fodmap foods, continue low-fodmap diet until your follow-up visit Some examples: - 1/4 avocado twice daily - 1/4 cup cashews twice daily - 1/2 green apple twice daily - 1/2 cup cooked or raw vegetable (broccoli, cauliflower, aspargus, artichokes) - 1 tsp added garlic or 1/4 cup added onions to a dish twice per day Nutrition Monitoring AND Evaluation: Adherence to nutrition recommendations Criteria: dietary recall and patient report Follow up: 3 months Time Spent with patient: 30 minutes Consult Billing Type: Re-assess/15 minutes, 2 increment(s), 30 minutes Number of Increments: 2 (30 minutes) Signed by: BOB Tavera RD 09/25/2018 2:59 PM Signed [facility] NUTRITION INSTRUCTIONS We recommend scheduling your Follow-up appointment at the end of your initial appointment. Physician Follow-up: With Gissel Zheng APRN, CNP Nutrition Follow-up: In 3 months with Tabatha Vega RD Your Prescribed Nutrition Plan: Nutrition Intervention 09/25/2018: Gluten, dairy and added sugar free food plan 1. Strive for minimum of 30g of protein per meal while you are recovering from surgery 4-6 oz of animal protein such as chicken, grass fed beef, or wild caught fish Plant-based protein powders (Pure Pea by [employer] from ([employer]) or bone broth protein ([employer] Nutrition or Bulletproof) 2. Keep carbohydrates on the lower end (MAX of 1/2 cup gluten free grains/day, 1 cup starchy vegetables, 2-3 servings of fruits) 3. Incorporate bone broth and/or collagen powder daily (1- 2 scoops once or twice per day) Please see below for a list of collagen powders and where to purchase them: 1. dondeEsta™ Collagen Hydrolysate. Purchase at: Www.[email or web address]/storefront/. OR Www.Apartment Adda. OR Www.siXis 2. Bulletproof Collagen Protein. Purchase at: wwwBlu Homes. OR MetrixLab.Apartment Adda 3. NovaShunt Collagen Peptides. Purchase at: www.Innovolt/collagen-peptides.html. OR WwwTripeese. OR Ntractive 4. Anti-inflammatory practices -Herbs and spices such as turmeric, mirta, garlic (as tolerated), cinnamon -variety of phytonutrients from vegetables (eat variety of colors, especially dark green leafy vegetables) -omega 3 fats (wild caught fish such as sardines or salmons), walnuts, flaxseeds, bart seeds, grass fed beef, omega 3 eggs -Low carbohydrate food plan (try to avoid grains and high sugar fruits) 5. Reintroduce one previously avoided food at a time over 4 days. Carefully track symptoms for tolerance. If you have a reaction, stop that food and start another. If you have reactions to most fodmap foods, continue low-fodmap diet until your follow-up visit Some examples: - 1/4 avocado twice daily - 1/4 cup cashews twice daily - 1/2 green apple twice daily - 1/2 cup cooked or raw vegetable (broccoli, cauliflower, aspargus, artichokes) - 1 tsp added garlic or 1/4 cup added onions to a dish twice per day How to Contact Your Functional Medicine Team (Open M-F 8am-5pm): 1. Extended Stay Americ[facility] is the BEST form of communication to reach the Functional Medicine Team, see test results and request refills. Please allow 72 business hours for a response. Directions for signing up are included in your New Patient Folder. (Or you can go to [email or web address]) 2. For nutrition related questions or concerns, Network Chemistry message your physician and include Attn: Dietitian (Tabatha Vega RD) at the top of the message. Other instructions from your clinician: [facility]ONE[facility] FOR FUNCTIONAL MEDICINE NUTRITION INSTRUCTIONS We recommend scheduling your Follow-up appointment at the end of your initial appointment. Physician Follow-up: With Gissel Zheng APRN, CNP Nutrition Follow-up: In 3 months [address] Tabatha Vega RD Your Prescribed Nutrition Plan: Nutrition Intervention 09/25/2018: Gluten, dairy and added sugar free food plan 1. Strive for minimum of 30g of protein per meal while you are recovering from surgery 4-6 oz of animal protein such as chicken, grass fed beef, or wild caught fish Plant-based protein powders (Pure Pea by [employer] from ([employer] Living Shop) or bone broth protein (Ancient Nutrition or Bulletproof) 2. Keep carbohydrates on the lower end (MAX of 1/2 cup gluten free grains/day, 1 cup starchy vegetables, 2-3 servings of fruits) 3. Incorporate bone broth and/or collagen powder daily (1-2 scoops once or twice per day) Please see below for a list of collagen powders and where to purchase them: 1. dondeEsta™ Collagen Hydrolysate. Purchase at: Www.Edaytown/storefront/. OR WwwTripeese. OR WwwWeSpeke 2. Bulletproof Collagen Protein. Purchase at: www.Solidagex. OR Www.Apartment Adda 3. NovaShunt Collagen Peptides. Purchase at: www.Innovolt/collagen-peptides.html. OR WwwTripeese. OR Ntractive 4. Anti-inflammatory practices -Herbs and spices such as turmeric, mirta, garlic (as tolerated), cinnamon -variety of phytonutrients from vegetables (eat variety of colors, especially dark green leafy vegetables) -omega 3 fats (wild caught fish such as sardines or salmons), walnuts, flaxseeds, bart seeds, grass fed beef, omega 3 eggs -Low carbohydrate food plan (try to avoid grains and high sugar fruits) 5. Reintroduce one previously avoided food at a time over 4 days. Carefully track symptoms for tolerance. If you have a reaction, stop that food and start another. If you have reactions to most fodmap foods, continue low-fodmap diet until your follow-up visit Some examples: - 1/4 avocado twice daily - 1/4 cup cashews twice daily - 1/2 green apple twice daily - 1/2 cup cooked or raw vegetable (broccoli, cauliflower, aspargus, artichokes) - 1 tsp added garlic or 1/4 cup added onions to a dish twice per day How to Contact Your Functional Medicine Team (Open M-F 8am-5pm): 1. Extended Stay [facility] is the BEST form of communication to reach the Functional Medicine Team, see test results and request refills. Please allow 72 business hours for a response. Directions for signing up are included in your New Patient Folder. (Or you can go to [email or web address]) 2. For nutrition related questions or concerns, Network Chemistry message your physician and include Attn: Dietitian (Tabatha Vega RD) at the top of the message. Primary Visit Diagnosis:Small intestinal bacterial overgrowth [K63.89] Other Visit Diagnoses:Candidiasis [B37.9] Heavy metal exposure [Z77.018] Type 2 diabetes mellitus without retinopathy (HCC) [E11.9] Bloating [R14.0] Obesity (BMI 30-39.9) [E66.9] Dietary counseling and surveillance [Z71.3] During your visit today, we recorded the following information about you: Allergies As of Date: 09/25/2018 Noted Allergy Reaction BACTRIM (SULFAMETHOXAZOLE) 01/12/2011 4 - Hives CECLOR (CEFACLOR) 12/04/2014 14 - Other: See Comments Comments: Yeast infection environmental [Other] 07/07/2005 14 - Other: See Comments Comments: dust, grass, trees, dogs ERYTHROMYCIN 07/07/2005 14 - Other: See Comments Comments: Headaches LISINOPRIL 12/04/2014 3 - Cough PENICILLINS 05/01/2006 4 - Hives VICTOZA (LIRAGLUTIDE) 05/23/2017 11 - Vomiting Date Reviewed: 07/04/2018 Reviewed by: Leonel Elizabeth MA - Fully Assessed Prescriptions as of 09/25/2018 Sig: * ALLOPURINOL 100 MG TABLET Take 200 mg by mouth twice da* * ALPHA LIPOIC ACID 200 MG CAPS* Take 1 tablet by mouth once d* AZELASTINE 137 MCG (0.1 %) NA* Use 1 [place] in each nostril t* OTC NUTRITIONAL SUPPLEMENT Take 5 Drops by mouth three t* CALCIUM + D ORAL Take 1 tablet by mouth once d* CPAP * FLEXERIL 10 MG TABLET as necessary DANDELION ORAL Take by mouth. Milk thistle OTC NUTRITIONAL SUPPLEMENT 1-2 capsules with meals DOXAZOSIN 2 MG TABLET Take 2 mg by mouth daily at b* DULAGLUTIDE 0.75 MG/0.5 ML BROWN* Inject subcutaneously once e* * ETODOLAC 500 MG TABLET Take 1 tablet by mouth twice * FENOFIBRATE NANOCRYSTALLIZED * Take 145 mg by mouth once destiny* FERROUS SULFATE 325 MG (65 MG* Take 325 mg by mouth once destiny* OMEGA-3 FATTY ACIDS-FISH OIL * Take 2 capsules by mouth once* * FLONASE 50 MCG/ACTUATION NASA* 2 spray per nostril daily. * FOLIC ACID 800 MCG TABLET Take one(1) tablet daily. OTC NUTRITIONAL SUPPLEMENT 1-2 capsules with full glass * OTC NUTRITIONAL SUPPLEMENT Mix one teaspoon (4.33 g) wit* OTC NUTRITIONAL SUPPLEMENT Take 2 capsules by mouth soraida* * IBUPROFEN 200 MG TABLET Take 1-2 tablet's) every four* ACIDOPHILUS ORAL Take 7 mg by mouth as needed. * LORATADINE 10 MG TABLET Take 1 tablet by mouth once d* * LOSARTAN 100 MG TABLET Take 1 tablet by mouth once d* OTC NUTRITIONAL SUPPLEMENT Take 1-4 capsules at night MAGNESIUM OXIDE 400 MG (241.3* Take 400 mg by mouth once destiny* OTC NUTRITIONAL SUPPLEMENT Take 2 capsules two- three ti* METFORMIN 500 MG TABLET TAKE 2 TABLETS BY MOUTH WITH * METHOCARBAMOL 500 MG TABLET Take 500 mg by mouth as neede* MILK THISTLE ORAL Take by mouth. NAPHAZOLINE 0.025 %-PHENIRAMI* Use 2 Drops in both eyes ever* NYSTATIN 500,000 UNIT TABLET Take 2 tablets by mouth twice* OMEPRAZOLE 40 MG CAPSULE,MARKUS* Take 40 mg by mouth twice destiny* OTC NUTRITIONAL SUPPLEMENT Take 2 capsules by mouth soraida* PEG 400-PROPYLENE GLYCOL 0.4 * Use 1 Drop in both eyes twice* PHOSPHATIDYLCHOLINE (BULK) OK* OTC NUTRITIONAL SUPPLEMENT 2 capsules daily with food POTASSIMIN ORAL Take 198 mg by mouth. RANITIDINE 150 MG TABLET Take 150 mg by mouth twice da* RED YEAST RICE ORAL Take by mouth. SUCCIMER (BULK) 98 % POWDER Take 3 500mg tabs after First* OTC NUTRITIONAL SUPPLEMENT Take 1 capsule by mouth once * ARMOUR THYROID ORAL Take 60 mg by mouth once soraida* B COMPLEX ORAL Take 1 tablet by mouth once d* * VITAMIN C 1,000 MG TABLET Take one(1) tablet daily. ZOLPIDEM 5 MG TABLET Take 5 mg by mouth at bedtime* Encounter Status:Closed by TABATHA VEGA on 09/26/18 ORTHOPEDIC VISIT Observed: 09/25/2018 Status: F Source: [facility] REPORT 11:02 AM [facility] REPOSITORY [facility] [address] [place] [address] OFFICE VISIT Date of Service: 09/20/18 MR#: [id number] Acct: [id number] Name: BESSIE ELLISON Doreen Rep #: [id number] : 1960 Provider: Elsa Fernandez DO Age/Sex: 57/F Location: [facility] Status: Signed Intake Vital Signs09/20/18 Height 5 ft 1 in 09/20/18 Weight: 200 lb 09/20/18 Body Mass Index (BMI) 37.8 Intake Visit Reasons: RIGHT SHOULDER Is patient in pain?: Yes Pain scale (1-10): 4 Allergies cefaclor [From Ceclor] Allergy (Verified 09/24/18 13:54) Other erythromycin ethylsuccinate [From E.E.S.] Allergy (Verified 09/24/18 13:54) Other ezetimibe [From Zetia] Allergy (Verified 09/24/18 13:54) Other lisinopril Allergy (Verified 09/24/18 13:54) Other lovastatin Allergy (Verified 09/24/18 13:54) Other Penicillins [PCN] Allergy (Verified 09/24/18 13:54) Hives rosuvastatin calcium [From Crestor] Allergy (Verified 09/24/18 13:54) Other Flgnpnf-Zta-Mrf Reductase Inhibitor Allergy (Verified 09/24/18 13:54) Other sulfamethoxazole [From Bactrim] Allergy (Verified 09/24/18 13:54) Hives tramadol HCl [From Ultram] Allergy (Verified 09/24/18 13:54) Other trimethoprim [From Bactrim] Allergy (Verified 09/24/18 13:54) Hives Medications Allopurinol [Zyloprim] 200 mg PO DAILYCM 08/18/14 [History Confirmed 09/24/18] Ascorbic Acid [Vitamin C] 1,000 mg PO DAILY@0800 08/18/14 [History Confirmed 09/24/18] Azelastine HCl [Astelin] 1 spray NASAL BID PRN 08/18/14 [History Confirmed 09/24/18] Cholecalciferol (Vitamin D3) [Vitamin D3] 5,000 unit PO DAILY 08/18/14 [History Confirmed 09/24/18] Cyclobenzaprine [Flexeril] 10 mg PO TID PRN PRN 08/18/14 [History Confirmed 09/24/18] Etodolac [Lodine Xl] 500 mg PO BID 08/18/14 [History Confirmed 09/24/18] Fenofibrate [Tricor] 145 mg PO DAILY 08/18/14 [History Confirmed 09/24/18] Fluticasone 0.05% [Flonase Nasal [place]] 2 spray NASAL DAILY 08/18/14 [History Confirmed 09/24/18] Krill/Henriette-3/Dha/Epa/Lipids [Krill Oil 300 mg Softgel] 1,000 mg PO BID 08/18/14 [History Confirmed 09/24/18] Loratadine [Claritin] 10 mg PO DAILY 08/18/14 [History Confirmed 09/24/18] Losartan Potassium [Cozaar] 100 mg PO DAILY 08/18/14 [History Confirmed 09/24/18] Magnesium 400 mg PO DAILY 08/18/14 [History Confirmed 09/24/18] Metformin HCl [Glucophage] 1,000 mg PO BID 08/18/14 [History Confirmed 09/24/18] Methocarbamol [Robaxin] 500 mg PO Q6H PRN PRN 08/18/14 [History Confirmed 09/24/18] Naphcon A 1 drop EACH EYE TID PRN PRN 08/18/14 [History Confirmed 09/24/18] Systane Eye Drops 1 drop EACH EYE BID 08/18/14 [History Confirmed 09/24/18] Thyroid [Galt Thyroid] 60 mg PO DAILY 08/18/14 [History Confirmed 09/24/18] Vitamin B Complex 1 ea PO DAILY 08/18/14 [History Confirmed 09/24/18] Zolpidem Tartrate [Ambien] 5 mg PO QHS PRN PRN 08/18/14 [History Confirmed 09/24/18] Metformin HCl [Glucophage] 500 mg PO LUNCH 12/08/14 [History Confirmed 09/24/18] Cytomulti 2 tab PO DAILY 09/24/18 [History Confirmed 09/24/18] Digestive Enyzmes 2 tab PO TID 09/24/18 [History Confirmed 09/24/18] Doxazosin Mesylate [Cardura] 2 mg PO QHS 09/24/18 [History Confirmed 09/24/18] Hm Complex 1 cap PO TID 09/24/18 [History Confirmed 09/24/18] Omeprazole [Prilosec] 40 mg PO QHS 09/24/18 [History Confirmed 09/24/18] PFSH Medical History Diabetes (Acute) Fibromyalgia (Acute) High blood cholesterol (Acute) Hypertension (Chronic) Surgical History h/o breast lumpectomy (Acute) h/o left hip replacement (Acute) Social History Smoking Status: Never smoker HPI RIGHT SHOULDER: Details: BESSIE ELLISON is a 57 year old F here today for right shoulder pain. Patient notes that she has had shoulder pain for about a year ago. She states that she picked up a planter in February and she felt a sharp pain, and her pain has been worse since. Patient has worsening pain at night. Patient has pain over her anterior shoulder but it depends on the day. Some days her entire arm aches. Her range of motion is good. She notes that she has good strength. Patient completed 3 weeks of PT which was not helpful. She denies any injections. She had an MRI which is here for review. ROS Const Reports system reviewed and no additional complaints, except as docu Eyes Reports system reviewed and no additional complaints, except as docu ENT Reports system reviewed and no additional complaints, except as docu Card Reports system reviewed and no additional complaints, except as docu Resp Reports system reviewed and no additional complaints, except as docu GI Reports system reviewed and no additional complaints, except as docu Reports system reviewed and no additional complaints, except as docu Musc Reports joint pain Skin/Breast Reports system reviewed and no additional complaints, except as docu Neuro Yes system reviewed and no additional complaints, except as docu Psych Reports system reviewed and no additional complaints, except as docu Endo Reports system reviewed and no additional complaints, except as docu Ortho Exam Right Shoulder Skin/Wound: Yes CDI Contralateral Normal: Yes Testing: Positive Hawkin's, Neer's, empty can, Drop Arm, AROM- Forward Elevation 0-180 (130) and TTP Biceps SHOULDER: weak ER, Assessment AND Plan 1. Incomplete tear of right rotator cuff M75.111 Plan Personally reviewed the patient's medical history, medications, surgeries and recent exams if available. X-rays were reviewed. There is no obvious fracture, dislocation, or lucency noted. Educated on the anatomy of the shoulder and explained that she has a rtc tear, bursitis and impingement. Her treatment option is surgery next week or referral to another ortho. Reviewed the pre-operative plans with the patient. Risks and benefits of the procedure were fully explained, including but not limited to infection, neurovascular injury, continued pain, arthritis, stiffness, need for further surgery, re-injury, DVT, PE, general risks of anesthesia, and loss of limb or life. The patient understands all the risks and does wish to proceed with written consent. Follow up post op or sooner if pain, swelling, numbness or associated symptoms, or concerns develop. All questions answered. Patient in agreement of plan. 2. Internal impingement of right shoulder M75.41 3. Bursitis of right shoulder M75.51 Coding Level of Care Code Off vis,new,level 3 Diagnoses Incomplete tear of right rotator cuff M75.111 Rotator cuff tear extent: incomplete Internal impingement of right shoulder M75.41 Bursitis of right shoulder M75.51 09/25/18 1102 <Electronically signed by Elsa Fernandez DO> Date Elsa Fernandez DO Cosigner Signature: Date (if applicable) CC: UPPER EXT JOINT Observed: 09/10/2018 Status: F Source: [facility] ONLY(ROUTINE) 7:26 AM [facility] REPOSITORY [facility] Imaging Services [address] [place] [id number] Upper Ext Joint Only(Routine) MR#: [id number] Acct: [id number] Name: BESSIE ELLISON Rep #: [id number] : 1960 F 57 From: Rishabh Tubbs MD PCP: Zabrina Gonzalez MD Status: REG CLI Study: Upper Ext Joint Only(Routine) Date of Exam: 09/10/18 Exam# [id number] Ordering Dr: Miki Gonzalez MD STUDY: MRI RIGHT SHOULDER REASON FOR EXAM: Shoulder pain extending down arm for one year, no specific injury. TECHNIQUE: Standardized fat and water weighted pulse sequences were obtained in all 3 orthogonal planes. COMPARISON: Radiographs 12/23/2017. FINDINGS: There is supraspinatus tendinosis and a full-thickness tear of the distal anterior supraspinatus tendon (T2 coronal images 12, 13; proton density axial image 6) measuring approximately 0.6 x 1.1 cm (length x width) with mild delamination. Normal infraspinatus tendon. Normal subscapularis tendon. Normal teres minor tendon. Normal supraspinatus muscle. Normal infraspinatus muscle. Normal subscapularis muscle. Normal teres minor muscle. There is a small glenohumeral joint effusion with fluid extending into the bicipital tendon sheath. Normal humeral head and visualized proximal humerus. Normal biceps labral complex. Normal intracapsular long biceps tendon. Normal labrum. Normal capsulo- ligamentous complex. There is acromioclavicular arthrosis with hypertrophic changes effacing the subacromial fat (T2 sagittal images 11, 12). There is a Type I morphology (flat undersurface), with a neutral orientation. There is a small volume of subacromial-subdeltoid bursal fluid. Normal visualized coracohumeral and coracoacromial ligaments. Normal deltoid muscle. Normal trapezius muscle. MRI/Upper Ext Joint Only(Routine) IMPRESSION: Full-thickness tear and tendinosis of the supraspinatus tendon. Acromioclavicular arthrosis. Glenohumeral joint fluid communicating with the subacromial-subdeltoid bursa. Electronically Signed: Rishabh Tubbs MD at 8:57 EST Tel , Service support , CC: Zabrina Gonzalez MD Strong Nitric Operator: Signed INITAL EVALUATION (1) Observed: 08/23/2018 Status: F Source: [facility] - 10:42 AM [facility] REPOSITORY [facility] [address] [place] [address] [address] [place], [place] [address] Fax REHABILITATION SERVICES INITIAL EVALUATION MR#: [id number] Acct: [id number] Name: BESSIE ELLISON Rep #: [id number] : 1960 57 From: Darryl Manriquez DPT Referring Dr.: Zabrina Gonzalez MD Status: REG RCR Insurance: [facility] [employer] Patient's Visit Information BESSIE ELLISON is a 57 year old F referred to Physical Therapy by Zabrina Gonzalez with a diagnosis of Cervical radiculopathy, R arm, radial nerve. Date of Evaluation: 08/13/18 Physical Therapist: Darryl Manriquez - Visit Plan Frequency: 2x /Week Duration: 4 Weeks Plan: Start with cervical retraction, postural exercises. Add in radial nerve glides, pec stretching, mid trap strengthening. May use modalities to reduce symptoms as well. - Subjective Subjective: Pt. is here today for her initial evaluation with diagnosis of cervical radiculopathy down her R arm. Pt. reports having increased pain for 3-4 years, but got worse last year and in November of this year she had a ripping sensation in R shoulder and has been bad ever since. Pt. reports increased pain with all use of RUE, especially with lifting and fine motor skills. Pt. has decreased pain with OTC meds and muscle relaxors. Pt. has had xrays of shoulder and neck with minor degeneration in disc. Pt. reports no mechanism of injury noted. Pt. does have increased pain with sleeping, has to sleep on her L side with R arm propped up. Pt. denies N/T in R UE. Pt. does have pain that radiates into R hand times, but not consistent. Pt. 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 Pt. has trialled massage therapy x1 per month, and chiropractor- x1 per week. 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 Pt. is hopeful to reduce symptoms in order to have a greater quality of life. - Pain RUE Pain Intensity (Out of 10): 3 Pain Intensity Range: 1, 7 Comment: anterior shoulder/ pec region Cervical spine Pain Intensity (Out of 10): 2 Pain Intensity Range: 0, 4 - Objective POSTURE: Pt. has FH posture, rounded shoulders. Pt. has overall slouched posture. PALPATION: Pt. has mild tenderness at anterior and posterior subacromial space, at pec minor/major, levator scap and UT on R side. No L sided pain. NEURO: Pt. has normal sensation throughout bilateral UEs and cervical spine. Pt. has 2+ biceps and triceps DTR without issues. ROM: CERVICAL SPINE: flexion- nil loss NE, ext mod loss mild increase NS, SB min loss NE bilat, rotation- min loss bilat increase NW rotation L. R shoulder- flexion 165deg increase NW, abd 155deg increase NW, ext 40deg NE, functional ER NE WNL, functional IR NE WFL. LUE- normal no effected. MMT: LUE- 5/5 throughout NE, RUE- wrist 5/5 throughout; elbow- 5/5 throughout; shoulder- flexion 4/5 increase NW, abd 4/5 increase nW, ext 5/5 NE, ER 4/5 increase NW, IR 5/5 NE. CERVICAL SPINE: 5/5 isometrics. - Special Tests C/S Radiculapathy - Left Spurlings: Negative C/S Radiculapathy - Right Spurlings: Negative C/S Radiculapathy - Left Cervical distraction: Negative C/S Radiculapathy - Right Cervical distraction: Negative C/S Radiculapathy - Left Relief test: Negative C/S Radiculapathy - Right Relief test: Negative Cervical Sitting: Protrusion - Mechanical Response: No effect Cervical Sitting: Protrusion - Symptoms During Testing: No effect Cervical Sitting: Protrusion - Symptoms After Testing: No effect Cervical Sitting: Retraction - Symptoms During Testing: Increases Cervical Sitting: Retraction - Symptoms After Testing: No worse Cervical Sitting: Retraction-Extension - Mechanical Response: No effect Cerv Sitting: Retraction-Extension - Symptoms During Testing: Increases Cerv Sitting: Retraction-Extension - Symptoms After Testing: No worse Cervical Sitting: Sidebend Right - Mechanical Response: No effect Cervical Sitting: Sidebend Right - Symptoms During Testing: No effect Cervical Sitting: Sidebend Right - Symptoms After Testing: No effect Cervical Sitting: Sidebend Left - Mechanical Response: No effect Cervical Sitting: Sidebend Left - Symptoms During Testing: No effect Cervical Sitting: Sidebend Left - Symptoms After Testing: No effect Cervical Sitting: Rotation Right - Mechanical Response: No effect Cervical Sitting: Rotation Right - Symptoms During Testing: Increases Cervical Sitting: Rotation Right - Symptoms After Testing: No worse Cervical Sitting: Rotation Left - Mechanical Response: No effect Cervical Sitting: Rotation Left - Symptoms During Testing: Increases Cervical Sitting: Rotation Left - Symptoms After Testing: No worse Cervical Sitting: Flexion - Mechanical Response: No effect Cervical Sitting: Flexion - Symptoms During Testing: No effect Cervical Sitting: Flexion - Symptoms After Testing: No effect R Shoulder External Rotation Lag Test - RC Tear: Negative R Shoulder Supine Impingement Test - RC Tear: Negative R Shoulder Lift Off Test - Subscapular Tear: Negative R Shoulder Drop Sign - IS Test: Negative R Shoulder Empty Can - SS: Positive R Shoulder Belly Press - SupScap: Negative R Shoulder Neer - Impingement: Negative R Shoulder Amos Ángel - Impingement: Negative - Goals Goal 1:: Pt. to be I with HEP. Goal Time Frame: 4-6 Weeks Goal 2:: Pt. to have increased R shoulder and neck ROM by 25% in all directions without increase in symptoms. Goal Time Frame: 4-6 Weeks Goal 3:: Pt. to sleep throughout the night without increase in symptoms. Goal Time Frame: 4-6 Weeks Goal 4:: Pt. to have increased R shoulder strength by 1/2 grade of all effected musculature. Goal Time Frame: 4-6 Weeks Goal 5:: Pt. to have decreased radiating RUE symptoms by 25% allowing for increased tolerance with all activities. - Rehabilitation Potential Physical Therapy Diagnosis: Pt. has some marked weakness in her R arm. Pt. has pain in her shoulder and symptoms matching radial nerve distrabution. Pt. has some shoulder weakness, but not distally. Pt. has not numbness or tingling. Pt. would benefit from PT to increase posture, work on cervical ROM, and increase RUE strengthening in order to increase tolerance to all work and recreational activities. Rehabilitation Potential: Good - Anticipated Interventions Patient/Client Instruction: Educate patient on: Condition, Plan of Care, Risk Factors, Benefits of Fitness Program For the Purpose of:: To improve decision making, To facilitate caregiver knowledge, To improve self management, To prevent re-injury, To improve ability to perform tasks related to life management, To improve tolerance to ADL's Therapeutic Exercise to Include: Strength training, Power training, Body mechanics, Postural training, Flexibilty training, Passive ROM, Active ROM, Dynamic Lumbar Stabilization, Fermin Exercises, Scapular Strength/Stabilization For the Purpose of:: To decrease pain, To increase ROM, To improve nutrient delivery to tissue, To increase oxygenation perfusion, To improve muscle performance and motor function, To improve health of tissue, To decrease soft tissue restriction, To increase flexibility/ROM, To improve endurance Manual Therapy Techniques to Include: Mobilization, Passive ROM, Functional dry needling, Soft tissue mobilization For the Purpose of:: To decrease pain, To decrease swelling/inflammation, To increase ROM, To improve nutrient delivery to tissue, To improve muscle performance and motor function, To decrease soft tissue restriction, To increase flexibility/ROM IF ES: Yes Ultrasound (thermal/non thermal): Yes Intermittent cervical traction: Yes For the Purpose of:: To decrease pain, To decrease swelling/inflammation, To increase ROM, To improve nutrient delivery to tissue Thank you for the opportunity to evaluate your patient. For Medicare and Medicare HMO plans, please review the plan of care and approve it. It will need to be FAXED BACK to us at [phone] for Medicare purposes. Please let me know if there are questions or concerns regarding this plan of care. Physician Signature: Date: <Electronically signed by Darryl Manriquez DPT> 08/23/18 1042 CC: Zabrina Gonzalez MD CLS Signed For Medicare only, by signing this I certify the plan of care. Physicians Signature Date CERV SPINE 4 OR 5 Observed: 08/08/2018 Status: F Source: WILVER VIEWS 2:51 PM [facility] REPOSITORY [facility] Imaging Services [address] [place] [address] Cerv Spine 4 or 5 Views MR#: [id number] Acct: [id number] Name: TERRABESSIE Rep #: [id number] : 1960 F 57 From: Herve Hayden MD PCP: Zabrina Gonzalez MD Status: REG CLI Study: Cerv Spine 4 or 5 Views Date of Exam: 08/08/18 Exam# [id number] Ordering Dr: Miki Gonzalez MD STUDY: X-RAY - CERVICAL SPINE REASON FOR EXAM: Female, 57 years old. Chronic pain TECHNIQUE: 5 view(s) of the cervical spine were obtained. COMPARISON: None FINDINGS: There is no evidence of fracture or dislocation in the cervical spine. The dens is intact. The vertebral body heights are well-maintained There are mild degenerative changes with disc space narrowing in the mid to lower cervical spine. The prevertebral soft tissues are unremarkable. There is no radiodense foreign body. RAD/Cerv Spine 4 or 5 Views IMPRESSION: No fracture or dislocation in the cervical spine. Mild degenerative changes. Electronically Signed: Herve Hayden, at 15:13 EDT Tel , Service support , CC: Zabrina Gonzalez MD Strong Nitric Operator: Signed PROGRESS Observed: 07/04/2018 Status: COMPLETED Source: [place] 9:23 AM [facility] REPOSITORY O ID: [id number] Author: Michela Oscar Service: (none) Author Type: Registered Dietitian Type: Progress Notes Filed: 07/05/2018 1:39 PM Note Text: FUNCTION MEDICINE FOLLOW UP NUTRITION ASSESSMENT Patient name: Bessie Ellison Anthropometrics: LMP 01/17/2010 Height: Last 1 Encounter Ht Readings: Date: Ht: 07/04/2018 152 cm (4' 11.84) Weight: Last 2 Encounter Wt Readings: Date: Wt: 07/04/2018 86.1 kg (189 lb 14.4 oz) 03/08/2018 92.2 kg (203 lb 3.2 oz) Wt: 86.1 kg (189 lb 14.4 oz) BMI: 37.28 kg/(m2) Resting Metabolic Rate: 1369 Allergies: Bactrim [Sulfamethoxazole]; Ceclor [Cefaclor]; Environmental [Other]; Erythromycin; Lisinopril; Penicillins; Victoza [Liraglutide] Medications: Current Outpatient Prescriptions on File Prior to Visit: Homocysteine [place] (PerBlue for Staxxon) Take 2 capsules by mouth daily with food. nystatin (MYCOSTATIN, NILSTAT) 500,000 unit tab Take 2 tablets by mouth twice daily. G.I. Detox (Reenergy Electric) 1-2 capsules with full glass of water 2 times daily between meals Biocidin Advanced Formula (FilmBreak) Take 5 Drops by mouth three times daily. For two months Succimer, Bulk, (DMSA, BULK,) 98 % powd Take 3 500mg tabs after First Morning Void. Then collect urine x 6 hours. rifAXIMin (RIFAXIMIN) 550 mg tab Take 1 tablet by mouth three times daily for 14 days. neomycin 500 mg tablet Take 1 tablet by mouth four times daily. Glutagenics (ParkTAG [employer] Parking) Mix one teaspoon (4.33 g) with water three times daily (1 teaspoon = 3.5 grams L-glut) Ther-Biotic Detoxification Support (Klaire/Prothera) probiotic (FRIDGE) Take 1 capsule by mouth once daily. Digestive Enzymes Ultra 180 ct. (Pure Encapsulations) supports digestion of food 1-2 capsules with meals PhytoMulti (Metagenics) 2 capsules daily with food One Henriette (Pure Encapsulation) -- fish oil Take 2 capsules by mouth daily with food. Magnesium Glycinate 120mg (Pure Encapsulations) Take 1-4 capsules at night Meriva-SR (Rosemary) Take 2 capsules two- three times daily. ranitidine (ZANTAC) 150 mg tablet Take 150 mg by mouth twice daily. Omeprazole 40 mg capsule Take 40 mg by mouth twice daily. POTASSIUM (POTASSIMIN ORAL) Take 198 mg by mouth. doxazosin (CARDURA) 2 mg tablet Take 2 mg by mouth daily at bedtime. PHOSPHATIDYLCHOLINE, BULK, MISC MILK THISTLE ORAL Take by mouth. RED YEAST RICE ORAL Take by mouth. DANDELION ORAL Take by mouth. Milk thistle metFORMIN (GLUCOPHAGE) 500 mg tablet TAKE 2 TABLETS BY MOUTH WITH BREAKFAST, TAKE 1 TABLET WITH lunch, TAKE 2 TABLETS WITH supper dulaglutide 0.75 mg/0.5 mL pnij Inject subcutaneously once each week. Fish Oil-Henriette-3 Fatty Acids (FISH OIL OMEGA 3-6-9) 300-1,000 mg cpDR Take 2 capsules by mouth once daily. Ferrous Sulfate 325 mg (65 mg iron) tablet Take 325 mg by mouth once daily. THYROID,PORK (ARMOUR THYROID ORAL) Take 60 mg by mouth once daily. naphazoline-pheniramine eye drops (NAPHCON-A) 0.025-0.3 % ophthalmic solution Use 2 Drops in both eyes every 4 hours as needed. PEG 400-Propylene Glycol (SYSTANE) 0.4-0.3 % drop Use 1 Drop in both eyes twice daily. CALCIUM CARBONATE/VITAMIN D3 (CALCIUM + D ORAL) Take 1 tablet by mouth once daily. magnesium oxide (MAG-OX) 400 mg tablet Take 400 mg by mouth once daily. CPAP azelastine (ASTELIN,ASTEPRO) 0.1% nasal spray Use 1 [place] in each nostril twice daily. methocarbamol (ROBAXIN) 500 mg tablet Take 500 mg by mouth as needed. zolpidem (AMBIEN) 5 mg tablet Take 5 mg by mouth at bedtime as needed. LACTOBACILLUS ACIDOPHILUS (ACIDOPHILUS ORAL) Take 7 mg by mouth as needed. fenofibrate nanocrystallized (TRICOR) 145 mg tablet Take 145 mg by mouth once daily. VITAMIN B COMPLEX (B COMPLEX ORAL) Take 1 tablet by mouth once daily. losartan (COZAAR) 100 mg tablet Take 1 tablet by mouth once daily. loratadine 10 mg tablet Take 1 tablet by mouth once daily. allopurinol 100 mg ORAL tablet Take 200 mg by mouth twice daily. alpha lipoic acid 200 mg ORAL Cap Take 1 tablet by mouth once daily. Etodolac 500 mg ORAL tablet Take 1 tablet by mouth twice daily. folic acid 800 mcg ORAL tablet Take one(1) tablet daily. cyclobenzaprine hcl(FLEXERIL 10 MG TAB) as necessary ibuprofen 200 mg ORAL Tab Take 1-2 tablet's) every four(4) to six(6) hours as needed for pain. FLONASE 50 MCG/ACTUATION NASAL SPRAY AEROSOL 2 spray per nostril daily. VITAMIN C 1,000 MG TAB Take one(1) tablet daily. No current facility-administered medications on file prior to visit. 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 Fibromyalgia 2. Anemia 3. Metabolic Syndrome 4. Diabetes 5. Arthritis 6. Inflammation 7. Gout 8. Incontinence 9. Chronic Renal Insufficiency 10. Autoimmune Current Concern(s): 1. Fibromyalgia - improving 2. Anemia 3. Metabolic Syndrome 4. Diabetes 5. Arthritis 6. Inflammation 7. Gout 8. Incontinence 9. Chronic Renal Insufficiency 10. Autoimmune Is the patient having any pain that is interfering with oral intake? no Labs: Results for BESSIE ELLISON ( ) as of 05/29/2018 09:13 Ref. Range 03/08/2018 09:19 Homocysteine, Serum Latest Ref Range: <15.1 umol/L 19.8 (H) MMA Latest Ref Range: 79 - 376 nmol/L 236 UltraSens C-Reactive Protein Latest Ref Range: <3.1 mg/L 2.3 NMRLIP Source Unknown SERUM LDL Particle Number (NMRLIP) Latest Ref Range: <1,000 nmol/L 2,631 (H) LDL Cholesterol (NMRLIP) Latest Ref Range: 0 - 99 mg/dL 155 (H) HDL Cholesterol (NMRLIP) Latest Ref Range: >39 mg/dL 38 (L) Triglycerides (NMRLIP) Latest Ref Range: 0 - 149 mg/dL 384 (H) Total Cholesterol (NMRLIP) Latest Ref Range: 100 - 199 mg/dL 270 (H) Total HDL Particles (NMRLIP) Latest Ref Range: >=30.5 umol/L 30.3 (L) Small LDL-P (NMRLIP) Latest Ref Range: <=527 nmol/L 1,587 (H) Large VLDL-P (NMRLIP) Latest Ref Range: <=2.7 nmol/L 9.2 (H) Large HDL-P (NMRLIP) Latest Ref Range: >=4.8 umol/L 1.7 (L) VLDL Size (NMRLIP) Latest Ref Range: <=46.6 nm 49.3 (H) LDL Size (NMRLIP) Latest Ref Range: >20.5 nm 20.9 HDL Size (NMRLIP) Latest Ref Range: >=9.2 nm 8.4 (L) LP/IR Score (NMRLIP) Latest Ref Range: <=45 82 (H) Lipoprotein (a) Latest Ref Range: 0 - 40 mg/dL <2 Vitamin D 25 Hydroxy Latest Ref Range: 31.0 - 80.0 ng/mL 51.0 Hemoglobin A1C Latest Ref Range: 4.3 - 5.6 % 5.7 (H) Estimated Average Glucose Latest Units: mg/dL 117 Insulin Latest Ref Range: 1 - 24 uU/mL 33.5 (H) NutraEval: N/A GI Effects: Completed: March 30, 2018 Elevated EPX and fecal secretory IgA Elevated PP bacteria 4+ Proteus mirabilis (susceptible to Berberine, plant tannins, Uva ursi for natural agents) Subjective: 57 year old female (Shannon) presents from [place], [place] for initial nutrition assessment relative to metabolic syndrome, suspected autoimmune issues and kidney concerns. C/o every time she gets stomach issues, her blood sugar tends to spike. Past medical history is notable for nonalcoholic liver disease, metabolic syndrome, myalgia, and polycystic ovaries. Originally thought she had gall-bladder issues due to where the pain occurred but all tests have been negative, per patient. Diet recall includes elimination diet with no grains, legumes or starchy vegetables. Due to metabolic syndrome and to control overall inflammation, patient would benefit from an elimination diet with no starchy vegetables, grains or legumes. What are the nutrition-related successes? 1. She has been on the elimination plan for about 9 weeks - no grains, no legumes no starchy veggies 2. Lost 18 pounds 3. She used to take 2 Zantac and 2 Prilosec and now she is only taking 1 Prilosec at night which is an improvement! What are the nutrition-related concerns? 1. Experiencing some stomach issues recently (had subsided for awhile - hadn't had it for months until a few weeks ago - 05/18/18) - hurts in epigastric region and radiates to the back 2. Has 3 deaths in the family while on the elimination plan which caused a lot of stress. Traveled every weekend for funerals, etc and tried to stick to food plan the best she could. Ate out at [employer] a lot (grilled chicken, side salad and streamed broccoli) 3. As a child she knew she was lactose intolerant (running to the bathroom after ice cream, pizza, etc.). She also used to have some issues with eggs. 4. Had some grass-fed beef (burger) last night with tomatoes - hard time digesting it. 5. Misses bread (was already cutting down her bread consumption to the skinny bread or 1 slice whole grain but has been looking up some recipes for keto bread. Diet Recall: Yes Tuna (Wild Planet) or Mackerel. Eating lots of fish and chicken as her protein source Beverages: green tea Current MSQ Score: N/A Previous MSQ Score: 118 Provider Nutrition Notes: N/A - RD visit only today Meal Plans: Elimination - with reintroductions Nutrition Diagnosis: Obesity relates to excess food intake and inactivity as evidenced by BMI Food and nutrition related knowledge deficit related to lack of prior education as evidenced by patient's verbalized inaccurate/incomplete information. Altered nutrition related lab values related to diabetes and hyperlipidemia as evidenced by lab results Nutrition Intervention 05/29/2018: Elimination Diet 1. I would recommend staying away from beef, dairy, eggs, and legumes, grains and gluten for right now - we can reassess at your follow up visit in June. 2. Please reintroduce the following foods using our Reintroduction Protocol; 1. Good source of pork (pasture-raised pork chops, etc.) - 1-2 ounces (if tolerated, serving size is about 4 oz) 2. Starchy vegetables (sweet potatoes, butternut squash or acorn squash) - Reintroduce with 1/4 cup-1/2 cup. (if tolerated, stick to 1/2 cup-1 cup per day ) Reintroduce 1 previously eliminated food every 4 days. Eat the previously eliminated food twice as a snack on day 1 and 3, and avoid that food day 2 and 4. If you have a reaction, eliminate that food for 12 weeks. If not, you can reintroduce that food back into your diet on a regular basis. Reintroduce these foods before your follow-up appointment. The food in parenthesis is the amount recommended per snack. 3. I would recommend that you see one of our health coaches (Laury Powell Alejandre or Jonny Gaffney) to help with stress, continuing motivation and support. You can schedule at the front clerk or by calling , option 0. 4. See bread recipes I printed for you - Dr. Darby's fluffy sandwich bread (https://[employer]/blog//girh-ruupgjispmwl-cxsgpz-sandwich-luz d/) or Keto Paleo [place] Bread (substitute eggs for a flax or bart egg and sub mayonnaise for Veganaise) (https://www.[employer]/kjyi-vownl-mtfzp-bread/) 5. Look for Follow Your Heart Parmesan - https://[employer]/products/parmesan/. You can also find at [employer], [employer] or [employer]row[employer] 6. Avoid big fish - www.nrdc.org or http://www.seafoodwatch.org/ lowest mercury only - also safe farmed fish Nutrition Monitoring AND Evaluation: Adherence to nutrition recommendations Criteria: dietary recall, labs (HbA1c), weight status, and patient report Follow up: 4 weeks CURRENT NUTRITION ASSESSMENT Reason for consult: Follow-up Visit Date: July 04, 2018 Previous Concern(s): 1. Fibromyalgia - improving 2. Anemia 3. Metabolic Syndrome 4. Diabetes 5. Arthritis 6. Inflammation 7. Gout 8. Incontinence 9. Chronic Renal Insufficiency 10. Autoimmune Current Concern(s): 1. Fibromyalgia 2. Anemia 3. Metabolic Syndrome 4. Diabetes 5. Arthritis 6. Inflammation 7. Gout 8. Incontinence 9. Chronic Renal Insufficiency 10. Autoimmune 11. Weight 12. SIBO Is the patient having any pain that is interfering with oral intake? No Labs: Positive SIBO breath test Vitals 11/07/2017 03/08/2018 07/04/2018 SITTING SYSTOLIC 168 148 159 SITTING DIASTOLIC 90 71 83 PULSE 90 92 RESPIRATIONS WEIGHT in POUNDS 203 lb 203 lb 3.2 oz 189 lb 14.4 oz WEIGHT in KILOGRAMS 92.08 kg 92.171 kg 86.138 kg HEIGHT in INCHES 59.843 in. 59.843 in. HEIGHT in CM 152 cm 152 cm SITTING BP 168/90 148/71 159/83 PULSE OX BODY MASS INDEX 39.85 39.89 37.28 Subjective: Patient reports to nutrition assessment for second follow up after seeing Tabatha. She had great success with weight loss on elimination plan, but since trasntioning to low FODMAP diet, she has gained some weight back. Discussed combining the two nutrition plans together. -Patient tested positive for SIBO and started low FODMAP food plan on her own and discontinued all aspects of elimination plan -She has felt better digestively with low FODMAPs, but reports gaining weight back since d/c elimination plan Current MSQ Score: 46 Previous MSQ Score: 118 Provider Nutrition Notes: Low FODMAP Meal Plans: GF, DF, No Sugar, No Grains Low FODMAP plan Nutrition Diagnosis: Obesity relates to excess food intake and inactivity as evidenced by BMI Altered GI function related to IBS as evidenced by patient reported digestive issues and SIBO Altered nutrition related lab values related to current diagnosis as evidenced by diabetes Nutrition Intervention 07/04/2018: 1. Please follow gluten free, dairy free, Grain Free low FODMAP plan -Utilize the low FODMAP list provided to help you balance the elimination plan with low FODMAP 2. Resources for low FODMAP Diet: -[facility] has a pretty good jocelyn that has recipes and food guides. It does cost $8. They are the founders of the FODMAP diet. -Doretha Calixto is a good resource. She has a book that is called The Low-FODMAP Diet - step by step and on her website she has a really great grocery shopping list>> - http://www.[employer]/low-fodmapgrocerylist/ -Tad has a pretty good website for recipes and resources. It's within the health sciences website called Low FODMAP central >>> https://www.SecureAuth.us/lowfodmap -Aziza Franco RD - Particularly 10 ways to add flavor to low FODMAP diet Nutrition Tips for Success: Continue to focus on keeping your blood sugar balanced! This can reduce insulin levels and inflammation, while supporting a healthy metabolism. What: ? Colorful veggies and fruits (one food from each color of the rainbow per day). ? Organic foods: the dirty dozen and clean fifteen list from the Environmental Working Group www.ewg.org ? Local farms/farmers markets and CSAs are listed at www.SportyBird.org (enter your zip code). ? Lean, free range, grass fed, organically grown meats, non- GMO plant proteins, and wild caught fish are preferred. ? Consume healthy fats regularly. ? Focus on fiber rich foods (25/35 grams per day). ? Fluids: Aim for ? your body weight in ounces: filtered water, seltzer, shakes, soups, decaf green/herbal teas, 100% raw coconut water ([employer] [place]) and raw, cold-pressed vegetable juice. No alcohol, coffee AND soda (caffeine). When: ? Eat within an hour of rising and every 3-4 hours all within 12 hours. ? Always include a protein, fat and carbohydrate with breakfast, lunch and dinner. ? Small frequent meals but FRONT LOAD YOUR CALORIES, BY HAVING A LARGER BREAKFAST/LUNCH, SMALL DINNER. How: for proper digestion and assimilation of your nutrients you must: ? Enjoy your food ? Eat mindfully and peacefully ? Find support from friends and family Follow up: 6 weeks Time Spent with patient: 30 minutes Consult Billing Type: Re-assess/15 minutes, 2 increment(s), 30 minutes Number of Increments: 2 (30 minutes) Signed by: Michela Oscar RD CNCNPATED Observed: 07/04/2018 Status: COMPLETED Source: [place] 9:15 AM [facility] REPOSITORY Education ([facility]) TERRABESSIE ([id number]) 1960 F Date Time Provider Department 07/04/18 9:15 AM MICHELA OSCAR (BOB) [facility] Reason for Visit: Follow Up [171] Progress Notes: Michela Oscar RD 07/05/2018 1:39 PM Signed FUNCTION MEDICINE FOLLOW UP NUTRITION ASSESSMENT Patient name: Bessie Ellison Anthropometrics: LMP 01/17/2010 Height: Last 1 Encounter Ht Readings: Date: Ht: 07/04/2018 152 cm (4' 11.84) Weight: Last 2 Encounter Wt Readings: Date: Wt: 07/04/2018 86.1 kg (189 lb 14.4 oz) 03/08/2018 92.2 kg (203 lb 3.2 oz) Wt: 86.1 kg (189 lb 14.4 oz) BMI: 37.28 kg/(m2) Resting Metabolic Rate: 1369 Allergies: Bactrim [Sulfamethoxazole]; Ceclor [Cefaclor]; Environmental [Other]; Erythromycin; Lisinopril; Penicillins; Victoza [Liraglutide] Medications: Current Outpatient Prescriptions on File Prior to Visit: Homocysteine [place] ([employer]) Take 2 capsules by mouth daily with food. nystatin (MYCOSTATIN, NILSTAT) 500,000 unit tab Take 2 tablets by mouth twice daily. G.I. Detox ([employer]) 1-2 capsules with full glass of water 2 times daily between meals Biocidin Advanced Formula (FilmBreak) Take 5 Drops by mouth three times daily. For two months Succimer, Bulk, (DMSA, BULK,) 98 % powd Take 3 500mg tabs after First Morning Void. Then collect urine x 6 hours. rifAXIMin (RIFAXIMIN) 550 mg tab Take 1 tablet by mouth three times daily for 14 days. neomycin 500 mg tablet Take 1 tablet by mouth four times daily. Glutagenics (Metagenics) Mix one teaspoon (4.33 g) with water three times daily (1 teaspoon = 3.5 grams L-glut) Ther-Biotic Detoxification Support (Klaire/Prothera) probiotic (FRIDGE) Take 1 capsule by mouth once daily. Digestive Enzymes Ultra 180 ct. (Pure Encapsulations) supports digestion of food 1-2 capsules with meals PhytoMulti (Metagenics) 2 capsules daily with food One Henriette (Pure Encapsulation) -- fish oil Take 2 capsules by mouth daily with food. Magnesium Glycinate 120mg (Pure Encapsulations) Take 1-4 capsules at night Meriva-SR (Rosemary) Take 2 capsules two- three times daily. ranitidine (ZANTAC) 150 mg tablet Take 150 mg by mouth twice daily. Omeprazole 40 mg capsule Take 40 mg by mouth twice daily. POTASSIUM (POTASSIMIN ORAL) Take 198 mg by mouth. doxazosin (CARDURA) 2 mg tablet Take 2 mg by mouth daily at bedtime. PHOSPHATIDYLCHOLINE, BULK, MISC MILK THISTLE ORAL Take by mouth. RED YEAST RICE ORAL Take by mouth. DANDELION ORAL Take by mouth. Milk thistle metFORMIN (GLUCOPHAGE) 500 mg tablet TAKE 2 TABLETS BY MOUTH WITH BREAKFAST, TAKE 1 TABLET WITH lunch, TAKE 2 TABLETS WITH supper dulaglutide 0.75 mg/0.5 mL pnij Inject subcutaneously once each week. Fish Oil-Henriette-3 Fatty Acids (FISH OIL OMEGA 3-6-9) 300-1,000 mg cpDR Take 2 capsules by mouth once daily. Ferrous Sulfate 325 mg (65 mg iron) tablet Take 325 mg by mouth once daily. THYROID,PORK (ARMOUR THYROID ORAL) Take 60 mg by mouth once daily. naphazoline-pheniramine eye drops (NAPHCON-A) 0.025-0.3 % ophthalmic solution Use 2 Drops in both eyes every 4 hours as needed. PEG 400-Propylene Glycol (SYSTANE) 0.4-0.3 % drop Use 1 Drop in both eyes twice daily. CALCIUM CARBONATE/VITAMIN D3 (CALCIUM + D ORAL) Take 1 tablet by mouth once daily. magnesium oxide (MAG-OX) 400 mg tablet Take 400 mg by mouth once daily. CPAP azelastine (ASTELIN,ASTEPRO) 0.1% nasal spray Use 1 [place] in each nostril twice daily. methocarbamol (ROBAXIN) 500 mg tablet Take 500 mg by mouth as needed. zolpidem (AMBIEN) 5 mg tablet Take 5 mg by mouth at bedtime as needed. LACTOBACILLUS ACIDOPHILUS (ACIDOPHILUS ORAL) Take 7 mg by mouth as needed. fenofibrate nanocrystallized (TRICOR) 145 mg tablet Take 145 mg by mouth once daily. VITAMIN B COMPLEX (B COMPLEX ORAL) Take 1 tablet by mouth once daily. losartan (COZAAR) 100 mg tablet Take 1 tablet by mouth once daily. loratadine 10 mg tablet Take 1 tablet by mouth once daily. allopurinol 100 mg ORAL tablet Take 200 mg by mouth twice daily. alpha lipoic acid 200 mg ORAL Cap Take 1 tablet by mouth once daily. Etodolac 500 mg ORAL tablet Take 1 tablet by mouth twice daily. folic acid 800 mcg ORAL tablet Take one(1) tablet daily. cyclobenzaprine hcl(FLEXERIL 10 MG TAB) as necessary ibuprofen 200 mg ORAL Tab Take 1-2 tablet's) every four(4) to six(6) hours as needed for pain. FLONASE 50 MCG/ACTUATION NASAL SPRAY AEROSOL 2 spray per nostril daily. VITAMIN C 1,000 MG TAB Take one(1) tablet daily. No current facility-administered medications on file prior to visit. 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 Fibromyalgia 2. Anemia 3. Metabolic Syndrome 4. Diabetes 5. Arthritis 6. Inflammation 7. Gout 8. Incontinence 9. Chronic Renal Insufficiency 10. Autoimmune Current Concern(s): 1. Fibromyalgia - improving 2. Anemia 3. Metabolic Syndrome 4. Diabetes 5. Arthritis 6. Inflammation 7. Gout 8. Incontinence 9. Chronic Renal Insufficiency 10. Autoimmune Is the patient having any pain that is interfering with oral intake? no Labs: Results for BESSIE ELLISON ( ) as of 05/29/2018 09:13 Ref. Range 03/08/2018 09:19 Homocysteine, Serum Latest Ref Range: <15.1 umol/L 19.8 (H) MMA Latest Ref Range: 79 - 376 nmol/L 236 UltraSens C-Reactive Protein Latest Ref Range: <3.1 mg/L 2.3 NMRLIP Source Unknown SERUM LDL Particle Number (NMRLIP) Latest Ref Range: <1,000 nmol/L 2,631 (H) LDL Cholesterol (NMRLIP) Latest Ref Range: 0 - 99 mg/dL 155 (H) HDL Cholesterol (NMRLIP) Latest Ref Range: >39 mg/dL 38 (L) Triglycerides (NMRLIP) Latest Ref Range: 0 - 149 mg/dL 384 (H) Total Cholesterol (NMRLIP) Latest Ref Range: 100 - 199 mg/dL 270 (H) Total HDL Particles (NMRLIP) Latest Ref Range: >=30.5 umol/L 30.3 (L) Small LDL-P (NMRLIP) Latest Ref Range: <=527 nmol/L 1,587 (H) Large VLDL-P (NMRLIP) Latest Ref Range: <=2.7 nmol/L 9.2 (H) Large HDL-P (NMRLIP) Latest Ref Range: >=4.8 umol/L 1.7 (L) VLDL Size (NMRLIP) Latest Ref Range: <=46.6 nm 49.3 (H) LDL Size (NMRLIP) Latest Ref Range: >20.5 nm 20.9 HDL Size (NMRLIP) Latest Ref Range: >=9.2 nm 8.4 (L) LP/IR Score (NMRLIP) Latest Ref Range: <=45 82 (H) Lipoprotein (a) Latest Ref Range: 0 - 40 mg/dL <2 Vitamin D 25 Hydroxy Latest Ref Range: 31.0 - 80.0 ng/mL 51.0 Hemoglobin A1C Latest Ref Range: 4.3 - 5.6 % 5.7 (H) Estimated Average Glucose Latest Units: mg/dL 117 Insulin Latest Ref Range: 1 - 24 uU/mL 33.5 (H) NutraEval: N/A GI Effects: Completed: March 30, 2018 Elevated EPX and fecal secretory IgA Elevated PP bacteria 4+ Proteus mirabilis (susceptible to Berberine, plant tannins, Uva ursi for natural agents) Subjective: 57 year old female (Shannon) presents from [place], [place] for initial nutrition assessment relative to metabolic syndrome, suspected autoimmune issues and kidney concerns. C/o every time she gets stomach issues, her blood sugar tends to spike. Past medical history is notable for nonalcoholic liver disease, metabolic syndrome, myalgia, and polycystic ovaries. Originally thought she had gall-bladder issues due to where the pain occurred but all tests have been negative, per patient. Diet recall includes elimination diet with no grains, legumes or starchy vegetables. Due to metabolic syndrome and to control overall inflammation, patient would benefit from an elimination diet with no starchy vegetables, grains or legumes. What are the nutrition-related successes? 1. She has been on the elimination plan for about 9 weeks - no grains, no legumes no starchy veggies 2. Lost 18 pounds 3. She used to take 2 Zantac and 2 Prilosec and now she is only taking 1 Prilosec at night which is an improvement! What are the nutrition-related concerns? 1. Experiencing some stomach issues recently (had subsided for awhile - hadn't had it for months until a few weeks ago - 05/18/18) - hurts in epigastric region and radiates to the back 2. Has 3 deaths in the family while on the elimination plan which caused a lot of stress. Traveled every weekend for funerals, etc and tried to stick to food plan the best she could. Ate out at [employer] a lot (grilled chicken, side salad and streamed broccoli) 3. As a child she knew she was lactose intolerant (running to the bathroom after ice cream, pizza, etc.). She also used to have some issues with eggs. 4. Had some grass-fed beef (burger) last night with tomatoes - hard time digesting it. 5. Misses bread (was already cutting down her bread consumption to the skinny bread or 1 slice whole grain but has been looking up some recipes for keto bread. Diet Recall: Yes Tuna ([employer]) or Mackerel. Eating lots of fish and chicken as her protein source Beverages: green tea Current MSQ Score: N/A Previous MSQ Score: 118 Provider Nutrition Notes: N/A - RD visit only today Meal Plans: Elimination - with reintroductions Nutrition Diagnosis: Obesity relates to excess food intake and inactivity as evidenced by BMI Food and nutrition related knowledge deficit related to lack of prior education as evidenced by patient's verbalized inaccurate/incomplete information. Altered nutrition related lab values related to diabetes and hyperlipidemia as evidenced by lab results Nutrition Intervention 05/29/2018: Elimination Diet 1. I would recommend staying away from beef, dairy, eggs, and legumes, grains and gluten for right now - we can reassess at your follow up visit in June. 2. Please reintroduce the following foods using our Reintroduction Protocol; 1. Good source of pork (pasture-raised pork chops, etc.) - 1-2 ounces (if tolerated, serving size is about 4 oz) 2. Starchy vegetables (sweet potatoes, butternut squash or acorn squash) - Reintroduce with 1/4 cup-1/2 cup. (if tolerated, stick to 1/2 cup-1 cup per day ) Reintroduce 1 previously eliminated food every 4 days. Eat the previously eliminated food twice as a snack on day 1 and 3, and avoid that food day 2 and 4. If you have a reaction, eliminate that food for 12 weeks. If not, you can reintroduce that food back into your diet on a regular basis. Reintroduce these foods before your follow-up appointment. The food in parenthesis is the amount recommended per snack. 3. I would recommend that you see one of our health coaches (Willow Santa, Laury Alejandre or Jonny Gaffney) to help with stress, continuing motivation and support. You can schedule at the front clerk or by calling , option 0. 4. See bread recipes I printed for you - Dr. Darby's fluffy sandwich bread (https://[employer]/blog//eask-czxmthrekbpz-hcvger-sandwich-bread/) or Keto Paleo [place] Bread (substitute eggs for a flax or bart egg and sub mayonnaise for Veganaise) (https://www.[employer]/ljqq-zlqbn-wvkbq-bread/) 5. Look for Follow Your Heart Parmesan - https://[employer]/products/parmesan/. You can also find at [employer], Beautiful Foods or [employer]'s 6. Avoid big fish - www.nrdc.org or http://www.seafoodwatch.org/ lowest mercury only - also safe farmed fish Nutrition Monitoring AND Evaluation: Adherence to nutrition recommendations Criteria: dietary recall, labs (HbA1c), weight status, and patient report Follow up: 4 weeks CURRENT NUTRITION ASSESSMENT Reason for consult: Follow-up Visit Date: July 04, 2018 Previous Concern(s): 1. Fibromyalgia - improving 2. Anemia 3. Metabolic Syndrome 4. Diabetes 5. Arthritis 6. Inflammation 7. Gout 8. Incontinence 9. Chronic Renal Insufficiency 10. Autoimmune Current Concern(s): 1. Fibromyalgia 2. Anemia 3. Metabolic Syndrome 4. Diabetes 5. Arthritis 6. Inflammation 7. Gout 8. Incontinence 9. Chronic Renal Insufficiency 10. Autoimmune 11. Weight 12. SIBO Is the patient having any pain that is interfering with oral intake? No Labs: Positive SIBO breath test Vitals 11/07/2017 03/08/2018 07/04/2018 SITTING SYSTOLIC 168 148 159 SITTING DIASTOLIC 90 71 83 PULSE 90 92 RESPIRATIONS WEIGHT in POUNDS 203 lb 203 lb 3.2 oz 189 lb 14.4 oz WEIGHT in KILOGRAMS 92.08 kg 92.171 kg 86.138 kg HEIGHT in INCHES 59.843 in. 59.843 in. HEIGHT in CM 152 cm 152 cm SITTING BP 168/90 148/71 159/83 PULSE OX BODY MASS INDEX 39.85 39.89 37.28 Subjective: Patient reports to nutrition assessment for second follow up after seeing Tabatha. She had great success with weight loss on elimination plan, but since trasntioning to low FODMAP diet, she has gained some weight back. Discussed combining the two nutrition plans together. -Patient tested positive for SIBO and started low FODMAP food plan on her own and discontinued all aspects of elimination plan -She has felt better digestively with low FODMAPs, but reports gaining weight back since d/c elimination plan Current MSQ Score: 46 Previous MSQ Score: 118 Provider Nutrition Notes: Low FODMAP Meal Plans: GF, DF, No Sugar, No Grains Low FODMAP plan Nutrition Diagnosis: Obesity relates to excess food intake and inactivity as evidenced by BMI Altered GI function related to IBS as evidenced by patient reported digestive issues and SIBO Altered nutrition related lab values related to current diagnosis as evidenced by diabetes Nutrition Intervention 07/04/2018: 1. Please follow gluten free, dairy free, Grain Free low FODMAP plan -Utilize the low FODMAP list provided to help you balance the elimination plan with low FODMAP 2. Resources for low FODMAP Diet: -[facility] has a pretty good jocelyn that has recipes and food guides. It does cost $8. They are the founders of the FODMAP diet. -Doretha De Luna is a good resource. She has a book that is called The Low-FODMAP Diet - step by step and on her website she has a really great grocery shopping list>> - http://[email or web address].[employer]/low-fodmapgrocerylist/ -Tad has a pretty good website for recipes and resources. It's within the health sciences website called Low FODMAP central >>> https://www.[facility].us/lowfodmap -Aziza Franco RD - Particularly 10 ways to add flavor to low FODMAP diet Nutrition Tips for Success: Continue to focus on keeping your blood sugar balanced! This can reduce insulin levels and inflammation, while supporting a healthy metabolism. What: ? Colorful veggies and fruits (one food from each color of the rainbow per day). ? Organic foods: the dirty dozen and clean fifteen list from the Environmental Working Group www.ewg.org ? Local farms/farmers markets and CSAs are listed at www.[employer].org (enter your zip code). ? Lean, free range, grass fed, organically grown meats, non- GMO plant proteins, and wild caught fish are preferred. ? Consume healthy fats regularly. ? Focus on fiber rich foods (25/35 grams per day). ? Fluids: Aim for ? your body weight in ounces: filtered water, seltzer, shakes, soups, decaf green/herbal teas, 100% raw coconut water ([employer] [place]) and raw, cold-pressed vegetable juice. No alcohol, coffee AND soda (caffeine). When: ? Eat within an hour of rising and every 3-4 hours all within 12 hours. ? Always include a protein, fat and carbohydrate with breakfast, lunch and dinner. ? Small frequent meals but FRONT LOAD YOUR CALORIES, BY HAVING A LARGER BREAKFAST/LUNCH, SMALL DINNER. How: for proper digestion and assimilation of your nutrients you must: ? Enjoy your food ? Eat mindfully and peacefully ? Find support from friends and family Follow up: 6 weeks Time Spent with patient: 30 minutes Consult Billing Type: Re-assess/15 minutes, 2 increment(s), 30 minutes Number of Increments: 2 (30 minutes) Signed by: BOB Adrian RD 07/04/2018 9:43 AM Signed [facility] FOLLOW UP NUTRITION INSTRUCTIONS We recommend scheduling your Follow-up appointment at the end of your initial appointment. Nutrition Follow-up: In 8 weeks with Michela Oscar RDN, LD. Your Prescribed Nutrition Plan: Nutrition Plan: 1. Please follow gluten free, dairy free, Grain Free low FODMAP plan - 4-6 weeks -Utilize the low FODMAP list provided to help you balance the elimination plan with low FODMAP 2. Resources for low FODMAP Diet: -[facility] has a pretty good jocelyn that has recipes and food guides. It does cost $8. They are the founders of the FODMAP diet. -Doretha De Luna is a good resource. She has a book that is called The Low-FODMAP Diet - step by step and on her website she has a really great grocery shopping list>> - http://www.[employer]/low-fodmapgrocerylist/ -Tad has a pretty good website for recipes and resources. It's within the health sciences website called Low FODMAP central >>> https://www.[employer]./lowfodmap -Aziza Franco RD - Particularly 10 ways to add flavor to low FODMAP diet Nutrition Tips for Success: Continue to focus on keeping your blood sugar balanced! This can reduce insulin levels and inflammation, while supporting a healthy metabolism. What: ? Colorful veggies and fruits (one food from each color of the rainbow per day). ? Organic foods: the dirty dozen and clean fifteen list from the Environmental Working Group www.ewg.org ? Local farms/farmers markets and CSAs are listed at www.[employer].org (enter your zip code). ? Lean, free range, grass fed, organically grown meats, non- GMO plant proteins, and wild caught fish are preferred. ? Consume healthy fats regularly. ? Focus on fiber rich foods (25/35 grams per day). ? Fluids: Aim for ? your body weight in ounces: filtered water, seltzer, shakes, soups, decaf green/herbal teas, 100% raw coconut water ([employer] [place]) and raw, cold-pressed vegetable juice. No alcohol, coffee AND soda (caffeine). When: ? Eat within an hour of rising and every 3-4 hours all within 12 hours. ? Always include a protein, fat and carbohydrate with breakfast, lunch and dinner. ? Small frequent meals but FRONT LOAD YOUR CALORIES, BY HAVING A LARGER BREAKFAST/LUNCH, SMALL DINNER. How: for proper digestion and assimilation of your nutrients you must: ? Enjoy your food ? Eat mindfully and peacefully ? Find support from friends and family Follow this nutrition plan until your follow-up appointment. Ordering Supplements: Supplements can be ordered from the [facility]'s Online Store: [email or web address] Directions to create a new account can be found in the New Patient Packet ? You will need to create an account on the store website, using your Medical Record Number (MRN) and Provider's name. ? Provider Code: '[facility]' PATIENT INSTRUCTIONS: To be completed before next visit: Food Diaries/Reintroduction of Foods Tracker: Please complete your food logs and bring them back to you follow-up nutrition appointment. Submit your food diaries to the [employer] when you are roomed during your next visit. How to Contact Your Functional Medicine Team (Open M-F 8am-5pm): 1. Extended Stay [employer] is the BEST form of communication to reach the Functional Medicine Team, see test results and request refills. Please allow 72 business hours for a response. Directions for signing up are included in your New Patient Folder. (Or you can go to [email or web address]) 2. For nutrition related questions or concerns, [employer] message your physician and include Attn: Michela at the top of the message. Other instructions from your clinician: [facility] FOLLOW UP NUTRITION INSTRUCTIONS We recommend scheduling your Follow-up appointment at the end of your initial appointment. Nutrition Follow-up: In 8 weeks with Michela Oscar RDN, LD. Your Prescribed Nutrition Plan: Nutrition Plan: 1. Please follow gluten free, dairy free, Grain Free low FODMAP plan - 4-6 weeks -Utilize the low FODMAP list provided to help you balance the elimination plan with low FODMAP 2. Resources for low FODMAP Diet: -[facility] has a pretty good jocelyn that has recipes and food guides. It does cost $8. They are the founders of the FODMAP diet. -Doretha De Luna is a good resource. She has a book that is called The Low-FODMAP Diet - step by step and on her website she has a really great grocery shopping list>> - http://www.[employer]/low-fodmapgrocerylist/ -Tad has a pretty good website for recipes and resources. It's within the health sciences website called Low FODMAP central >>> https://www.[employer]./lowfodmap -Azizapaxton Franco RD - Particularly 10 ways to add flavor to low FODMAP diet Nutrition Tips for Success: Continue to focus on keeping your blood sugar balanced! This can reduce insulin levels and inflammation, while supporting a healthy metabolism. What: ? Colorful veggies and fruits (one food from each color of the rainbow per day). ? Organic foods: the dirty dozen and clean fifteen list from the Environmental Working Group www.ewg.org ? Local farms/farmers markets and CSAs are listed at www.[employer].org (enter your zip code). ? Lean, free range, grass fed, organically grown meats, non-GMO plant proteins, and wild caught fish are preferred. ? Consume healthy fats regularly. ? Focus on fiber rich foods (25/35 grams per day). ? Fluids: Aim for ? your body weight in ounces: filtered water, seltzer, shakes, soups, decaf green/herbal teas, 100% raw coconut water ([employer] [place]) and raw, cold-pressed vegetable juice. No alcohol, coffee AND soda (caffeine). When: ? Eat within an hour of rising and every 3-4 hours all within 12 hours. ? Always include a protein, fat and carbohydrate with breakfast, lunch and dinner. ? Small frequent meals but FRONT LOAD YOUR CALORIES, BY HAVING A LARGER BREAKFAST/LUNCH, SMALL DINNER. How: for proper digestion and assimilation of your nutrients you must: ? Enjoy your food ? Eat mindfully and peacefully ? Find support from friends and family Follow this nutrition plan until your follow-up appointment. Ordering Supplements: Supplements can be ordered from the [facility]'s Online Store: [email or web address] Directions to create a new account can be found in the New Patient Packet ? You will need to create an account on the store website, using your Medical Record Number (MRN) and Provider's name. ? Provider Code: '[facility]' PATIENT INSTRUCTIONS: To be completed before next visit: Food Diaries/Reintroduction of Foods Tracker: Please complete your food logs and bring them back to you follow-up nutrition appointment. Submit your food diaries to the [employer] when you are roomed during your next visit. How to Contact Your Functional Medicine Team (Open M-F 8am-5pm): 1. Extended Stay [employer] is the BEST form of communication to reach the Functional Medicine Team, see test results and request refills. Please allow 72 business hours for a response. Directions for signing up are included in your New Patient Folder. (Or you can go to [email or web address]) 2. For nutrition related questions or concerns, Network [employer] message your physician and include Attn: Michela at the top of the message. Primary Visit Diagnosis:Type 2 diabetes mellitus without retinopathy (HCC) [E11.9] Other Visit Diagnoses:Small intestinal bacterial overgrowth [K63.89] Bloating [R14.0] Obesity (BMI 30-39.9) [E66.9] Dietary counseling and surveillance [Z71.3] During your visit today, we recorded the following information about you: Allergies As of Date: 07/04/2018 Noted Allergy Reaction BACTRIM (SULFAMETHOXAZOLE) 01/12/2011 4 - Hives CECLOR (CEFACLOR) 12/04/2014 14 - Other: See Comments Comments: Yeast infection environmental [Other] 07/07/2005 14 - Other: See Comments Comments: dust, grass, trees, dogs ERYTHROMYCIN 07/07/2005 14 - Other: See Comments Comments: Headaches LISINOPRIL 12/04/2014 3 - Cough PENICILLINS 05/01/2006 4 - Hives VICTOZA (LIRAGLUTIDE) 05/23/2017 11 - Vomiting Date Reviewed: 07/04/2018 Reviewed by: Leonel Elizabeth MA - Fully Assessed Prescriptions as of 07/04/2018 Sig: RIFAXIMIN 550 MG TABLET Take 1 tablet by mouth three * NEOMYCIN 500 MG TABLET Take 1 tablet by mouth four t* OTC NUTRITIONAL SUPPLEMENT Mix one teaspoon (4.33 g) wit* OTC NUTRITIONAL SUPPLEMENT Take 1 capsule by mouth once * OTC NUTRITIONAL SUPPLEMENT 1-2 capsules with meals OTC NUTRITIONAL SUPPLEMENT 2 capsules daily with food OTC NUTRITIONAL SUPPLEMENT Take 2 capsules by mouth soraida* OTC NUTRITIONAL SUPPLEMENT Take 1-4 capsules at night OTC NUTRITIONAL SUPPLEMENT Take 2 capsules two- three ti* RANITIDINE 150 MG TABLET Take 150 mg by mouth twice da* OMEPRAZOLE 40 MG CAPSULE,MARKUS* Take 40 mg by mouth twice destiny* POTASSIMIN ORAL Take 198 mg by mouth. DOXAZOSIN 2 MG TABLET Take 2 mg by mouth daily at b* PHOSPHATIDYLCHOLINE (BULK) OK* MILK THISTLE ORAL Take by mouth. RED YEAST RICE ORAL Take by mouth. DANDELION ORAL Take by mouth. Milk thistle METFORMIN 500 MG TABLET TAKE 2 TABLETS BY MOUTH WITH * DULAGLUTIDE 0.75 MG/0.5 ML BROWN* Inject subcutaneously once e* OMEGA-3 FATTY ACIDS-FISH OIL * Take 2 capsules by mouth once* FERROUS SULFATE 325 MG (65 MG* Take 325 mg by mouth once destiny* ARMOUR THYROID ORAL Take 60 mg by mouth once soraida* NAPHAZOLINE 0.025 %-PHENIRAMI* Use 2 Drops in both eyes ever* PEG 400-PROPYLENE GLYCOL 0.4 * Use 1 Drop in both eyes twice* CALCIUM + D ORAL Take 1 tablet by mouth once d* MAGNESIUM OXIDE 400 MG (241.3* Take 400 mg by mouth once destiny* CPAP AZELASTINE 137 MCG (0.1 %) NA* Use 1 [place] in each nostril t* METHOCARBAMOL 500 MG TABLET Take 500 mg by mouth as neede* ZOLPIDEM 5 MG TABLET Take 5 mg by mouth at bedtime* ACIDOPHILUS ORAL Take 7 mg by mouth as needed. FENOFIBRATE NANOCRYSTALLIZED * Take 145 mg by mouth once destiny* B COMPLEX ORAL Take 1 tablet by mouth once d* * LOSARTAN 100 MG TABLET Take 1 tablet by mouth once d* * LORATADINE 10 MG TABLET Take 1 tablet by mouth once d* * ALLOPURINOL 100 MG TABLET Take 200 mg by mouth twice da* * ALPHA LIPOIC ACID 200 MG CAPS* Take 1 tablet by mouth once d* * ETODOLAC 500 MG TABLET Take 1 tablet by mouth twice * * FOLIC ACID 800 MCG TABLET Take one(1) tablet daily. * FLEXERIL 10 MG TABLET as necessary * IBUPROFEN 200 MG TABLET Take 1-2 tablet's) every four* * FLONASE 50 MCG/ACTUATION NASA* 2 spray per nostril daily. * VITAMIN C 1,000 MG TABLET Take one(1) tablet daily. Encounter Status:Closed by MICHELA OSCAR on 07/05/18 CNMARY Observed: 07/04/2018 Status: COMPLETED Source: [place] 7:45 AM [facility] REPOSITORY Office Visit (MEDN) BESSIE ELLISON ([id number]) 1960 F Date Time Provider Department 07/04/18 7:45 AM KYLEE PEREZ [facility] During your visit today, we recorded the following information about you: Pulse Blood pressure Weight Height 92/minute 159/83 86.1 kg 1.52 m Kylee Perez MD 07/04/2018 8:45 AM Signed Follow-up Visit Patient: Bessie Ellison 86.1 kg (189 lb 14.4 oz) 152 cm (4' 11.84) Body mass index is 37.28 kg/m?. Resting Metabolic Rate: 1429 Waist measurement: No waist measurement recorded. BP: 159/83 ALLERGIES Allergen Reactions - Bactrim [Sulfametho* Hives - Ceclor [Cefaclor] Other: See Comments Yeast infection - Environmental [Othe* Other: See Comments dust, grass, trees, dogs - Erythromycin Other: See Comments Headaches - Lisinopril Cough - Penicillins Hives - Victoza [Liraglutid* Vomiting Current Outpatient Prescriptions on File Prior to Visit: rifAXIMin (RIFAXIMIN) 550 mg tab Take 1 tablet by mouth three times daily for 14 days. neomycin 500 mg tablet Take 1 tablet by mouth four times daily. Glutagenics (Metagenics) Mix one teaspoon (4.33 g) with water three times daily (1 teaspoon = 3.5 grams L-glut) Ther-Biotic Detoxification Support (Klaire/Prothera) probiotic (FRIDGE) Take 1 capsule by mouth once daily. Digestive Enzymes Ultra 180 ct. (Pure Encapsulations) supports digestion of food 1-2 capsules with meals PhytoMulti (Metagenics) 2 capsules daily with food One Henriette (Pure Encapsulation) -- fish oil Take 2 capsules by mouth daily with food. Magnesium Glycinate 120mg (Pure Encapsulations) Take 1-4 capsules at night Meriva-SR (Rosemary) Take 2 capsules two- three times daily. ranitidine (ZANTAC) 150 mg tablet Take 150 mg by mouth twice daily. Omeprazole 40 mg capsule Take 40 mg by mouth twice daily. POTASSIUM (POTASSIMIN ORAL) Take 198 mg by mouth. doxazosin (CARDURA) 2 mg tablet Take 2 mg by mouth daily at bedtime. PHOSPHATIDYLCHOLINE, BULK, MISC MILK THISTLE ORAL Take by mouth. RED YEAST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 investigation on my part, I will more than likely ask you to schedule either an in-person or virtual follow-up to address your questions. Time spend with patient: Physician isbg-wb-aadh time was approximately 45 minutes with >50% devoted to counseling or coordination of care for above diagnoses. The impression as well as the plan, as outlined, were extensively discussed with the patient who voiced understanding. All questions were answered to their stated satisfaction. In addition, approximately 20-30 minutes were spent reviewing electronic or paper patient questionnaire/medical records/labs before and/or after the appointment. Kylee Perez MD, MPH PROGRESS Observed: 06/06/2018 Status: COMPLETED Source: [place] 10:11 AM [facility] REPOSITORY HNO ID: [id number] Author: Kim (Od) Rhea Service: (none) Author Type: GOLD BLOWER Type: Progress Notes Filed: 06/06/2018 10:13 AM Note Text: ASSESSMENT/PLAN: 1. Epiretinal membrane (ERM) of right eye - ICD9: 362.56, ICD10: H35.371 (primary diagnosis) - FUNDUS PHOTOS OU (BOTH EYES) Stable / Observe 2. Type 2 diabetes mellitus without retinopathy (HCC) - ICD9: 250.00, ICD10: E11.9 Please keep your blood sugar under good control to minimize the risk of ocular complications from diabetes. 3. Combined forms of age-related cataract of both eyes - ICD9: 366.19, ICD10: H25.813 Not visually significant / Observe 4. Vitreous floaters of both eyes - ICD9: 379.24, ICD10: H43.393 Patient was given both written and verbal information on flashes and floaters. Patient was instructed to call the office ([phone]) immediately upon noticing flashes of light, increase in floaters, or changes in vision. 5. 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 I have seen and examined Bessie Ellison. I have discussed the examination findings, diagnosis, and treatment options with Bessie Ellison and/or her family. I have also reviewed and agree with the assessment and plan as stated above and agree with all its relevant components. I gave the patient the opportunity to ask questions about the findings, diagnosis, and treatment options. CNCNPATED Observed: 05/29/2018 Status: COMPLETED Source: [place] 9:15 AM [facility] Education ([facility]) TERRABESSIE ([id number]) 1960 F Date Time Provider Department 05/29/18 9:15 AM TABATHA VEGA (RD) [facility] Reason for Visit: Follow Up [171] Progress Notes: Tabatha Vega RD 05/29/2018 5:41 PM Signed FUNCTION MEDICINE FOLLOW UP NUTRITION ASSESSMENT Patient name: Bessie Ellison Anthropometrics: LMP 01/17/2010 Height: Last 1 Encounter Ht Readings: Date: Ht: 03/08/2018 152 cm (4' 11.84) Weight: Last 2 Encounter Wt Readings: Date: Wt: 03/08/2018 92.2 kg (203 lb 3.2 oz) 11/07/2017 92.1 kg (203 lb) Wt: 92.2 kg (203 lb 3.2 oz) BMI: 39.89 kg/(m2) Resting Metabolic Rate: 1429 Allergies: Bactrim [Sulfamethoxazole]; Ceclor [Cefaclor]; Environmental [Other]; Erythromycin; Lisinopril; Penicillins; Victoza [Liraglutide] Medications: Current Outpatient Prescriptions on File Prior to Visit: Glutagenics (Metagenics) Mix one teaspoon (4.33 g) with water three times daily (1 teaspoon = 3.5 grams L-glut) Ther-Biotic Detoxification Support (Klaire/Prothera) probiotic (FRIDGE) Take 1 capsule by mouth once daily. Digestive Enzymes Ultra 180 ct[address] (Pure Encapsulations) supports digestion of food 1-2 capsules with meals PhytoMulti (Metagenics) 2 capsules daily with food One Henriette (Pure Encapsulation) -- fish oil Take 2 capsules by mouth daily with food. Magnesium Glycinate 120mg (Pure Encapsulations) Take 1-4 capsules at night Meriva-SR (Rosemary) Take 2 capsules two- three times daily. ranitidine (ZANTAC) 150 mg tablet Take 150 mg by mouth twice daily. Omeprazole 40 mg capsule Take 40 mg by mouth twice daily. POTASSIUM (POTASSIMIN ORAL) Take 198 mg by mouth. doxazosin (CARDURA) 2 mg tablet Take 2 mg by mouth daily at bedtime. PHOSPHATIDYLCHOLINE, BULK, MISC MILK THISTLE ORAL Take by mouth. RED YEAST RICE ORAL Take by mouth. DANDELION ORAL Take by mouth. Milk thistle metFORMIN (GLUCOPHAGE) 500 mg tablet TAKE 2 TABLETS BY MOUTH WITH BREAKFAST, TAKE 1 TABLET WITH lunch, TAKE 2 TABLETS WITH supper dulaglutide 0.75 mg/0.5 mL pnij Inject subcutaneously once each week. Fish Oil-Henriette-3 Fatty Acids (FISH OIL OMEGA 3-6-9) 300-1,000 mg cpDR Take 2 capsules by mouth once daily. Ferrous Sulfate 325 mg (65 mg iron) tablet Take 325 mg by mouth once daily. THYROID,PORK (ARMOUR THYROID ORAL) Take 60 mg by mouth once daily. naphazoline-pheniramine eye drops (NAPHCON-A) 0.025-0.3 % ophthalmic solution Use 2 Drops in both eyes every 4 hours as needed. PEG 400-Propylene Glycol (SYSTANE) 0.4-0.3 % drop Use 1 Drop in both eyes twice daily. CALCIUM CARBONATE/VITAMIN D3 (CALCIUM + D ORAL) Take 1 tablet by mouth once daily. magnesium oxide (MAG-OX) 400 mg tablet Take 400 mg by mouth once daily. CPAP azelastine (ASTELIN,ASTEPRO) 0.1% nasal spray Use 1 [place] in each nostril twice daily. methocarbamol (ROBAXIN) 500 mg tablet Take 500 mg by mouth as needed. zolpidem (AMBIEN) 5 mg tablet Take 5 mg by mouth at bedtime as needed. LACTOBACILLUS ACIDOPHILUS (ACIDOPHILUS ORAL) Take 7 mg by mouth as needed. fenofibrate nanocrystallized (TRICOR) 145 mg tablet Take 145 mg by mouth once daily. VITAMIN B COMPLEX (B COMPLEX ORAL) Take 1 tablet by mouth once daily. losartan (COZAAR) 100 mg tablet Take 1 tablet by mouth once daily. loratadine 10 mg tablet Take 1 tablet by mouth once daily. allopurinol 100 mg ORAL tablet Take 200 mg by mouth twice daily. alpha lipoic acid 200 mg ORAL Cap Take 1 tablet by mouth once daily. Etodolac 500 mg ORAL tablet Take 1 tablet by mouth twice daily. folic acid 800 mcg ORAL tablet Take one(1) tablet daily. cyclobenzaprine hcl(FLEXERIL 10 MG TAB) as necessary ibuprofen 200 mg ORAL Tab Take 1-2 tablet's) every four(4) to six(6) hours as needed for pain. FLONASE 50 MCG/ACTUATION NASAL SPRAY AEROSOL 2 spray per nostril daily. VITAMIN C 1,000 MG TAB Take one(1) tablet daily. No current facility-administered medications on file prior to visit. 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 Fibromyalgia 2. Anemia 3. Metabolic Syndrome 4. Diabetes 5. Arthritis 6. Inflammation 7. Gout 8. Incontinence 9. Chronic Renal Insufficiency 10. Autoimmune Health Goals: Improve health and not just keep adding medications. MSQ Score: 118 Is the patient having any pain that is interfering with oral intake? 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 - Atypical ductal hyperplasia of breast 08/21/14 Left Breast - CPAP (continuous positive airway pressure) dependence - Dysmetabolic syndrome X - Essential hypertension, benign - Growth of eyelid - Right Eye 08/11/2014 - Myalgia and myositis, unspecified - Nonalcoholic liver disease, chronic - Other and unspecified hyperlipidemia - Other vitreous opacities - Both Eyes 08/11/2014 - Polycystic ovaries Anthropometrics: LMP 01/17/2010 Height: Last 1 Encounter Ht Readings: Date: Ht: 03/08/2018 152 cm (4' 11.84) Current weight: Last 1 Encounter Wt Readings: Date: Wt: 03/08/2018 92.2 kg (203 lb 3.2 oz) Wt: 92.2 kg (203 lb 3.2 oz) BMI: 39.89 kg/(m2) Resting Metabolic Rate: 1429 Results for BESSIE ELLISON ( ) as of 03/08/2018 16:55 Ref. Range 03/08/2018 09:19 Homocysteine, Serum Latest Ref Range: <15.1 umol/L 19.8 (H) UltraSens C-Reactive Protein Latest Ref Range: <3.1 mg/L 2.3 Hemoglobin A1C Latest Ref Range: 4.3 - 5.6 % 5.7 (H) Estimated Average Glucose Latest Units: mg/dL 117 Lifestyle: Weight issues: Yes, BMI indicates obesity Adequate, restful sleep?: Yes, average of 9 hours but patient feels tired upon awakening. Use of Ambien 1-2 times per year Currently exercising?: Yes, treadmill, weights/bands, stretching GI symptoms:Yes, heartburn (4) and bloating, belching, gas (3) Dietary pattern: Current diet: Yes, I have been trying a healthy diet - nothing artificial, no preservatives, green tea, etc. Food allergies:No Food sensitivities: Yes, Lactose problems, though not as bad as used to be. Sometimes will bloat, but not a pattern. Reported lifestyle behaviors and eating habits:Fast eater,Eat too much,Late-night eating,Time constraints,Travel frequently,Healthy foods not readily available,Significant other or family don't like healthy foods Diet Recall: Yes B: An egg sandwich, or a bowl of grits; or occasionally egg biscuit L: Soup and veggie; or entree and veggie; or salad with chcken D: Soup an crackers; or entree and veggie and half sweet potato; or two slices pizza (Fri.); or fish and veggie Snacks: Raisins; apple; orange; celery; carrots; rice cake with natural peanut butter Beverages: Water; water with lemon; green tea; occasionally a Coke; water with falvor packet Excessive stress reported?: Yes, primarily related to stress (7) 57 year old female (Shannon) presents from [place], [place] for initial nutrition assessment relative to metabolic syndrome, suspected autoimmune issues and kidney concerns. C/o sneezing attacks, heartburn, bloating, gas, joint pain, and frequent illness. Past medical history is notable for nonalcoholic liver disease, metabolic syndrome, myalgia, and polycystic ovaries. Diet recall includes trying to eat a healthier diet and contains some breads/biscuits and occasional sodas. Due to metabolic syndrome and to control overall inflammation, patient would benefit from an elimination diet with no starchy vegetables, grains or legumes. Provider Nutrition Notes: Elimination Diet with no grains, no legumes no starchy veggies Nutrition Diagnosis: Obesity relates to excess food intake and inactivity as evidenced by BMI Food and nutrition related knowledge deficit related to lack of prior education as evidenced by patient's verbalized inaccurate/incomplete information. Altered nutrition related lab values related to diabetes as evidenced by lab results Nutrition Intervention 03/08/2018: Nutrition education: 1. Whole foods, plant based, low glycemic, comprehensive elimination diet 2. Adequate hydration 3. Self-Monitoring: Track food/beverage intake 4. Schedule follow up for food reintroduction and further personalization of eating plan Nutrition Monitoring AND Evaluation: Adherence to elimination diet Criteria: Patient recall, food diary Follow up: 8 weeks CURRENT NUTRITION ASSESSMENT Reason for consult: Follow-up Visit Date: May 29, 2018 Previous Concern(s): 1. Fibromyalgia 2. Anemia 3. Metabolic Syndrome 4. Diabetes 5. Arthritis 6. Inflammation 7. Gout 8. Incontinence 9. Chronic Renal Insufficiency 10. Autoimmune Current Concern(s): 1. Fibromyalgia - improving 2. Anemia 3. Metabolic Syndrome 4. Diabetes 5. Arthritis 6. Inflammation 7. Gout 8. Incontinence 9. Chronic Renal Insufficiency 10. Autoimmune Is the patient having any pain that is interfering with oral intake? no Labs: Results for BESSIE ELLISON ( ) as of 05/29/2018 09:13 Ref. Range 03/08/2018 09:19 Homocysteine, Serum Latest Ref Range: <15.1 umol/L 19.8 (H) MMA Latest Ref Range: 79 - 376 nmol/L 236 UltraSens C-Reactive Protein Latest Ref Range: <3.1 mg/L 2.3 NMRLIP Source Unknown SERUM LDL Particle Number (NMRLIP) Latest Ref Range: <1,000 nmol/L 2,631 (H) LDL Cholesterol (NMRLIP) Latest Ref Range: 0 - 99 mg/dL 155 (H) HDL Cholesterol (NMRLIP) Latest Ref Range: >39 mg/dL 38 (L) Triglycerides (NMRLIP) Latest Ref Range: 0 - 149 mg/dL 384 (H) Total Cholesterol (NMRLIP) Latest Ref Range: 100 - 199 mg/dL 270 (H) Total HDL Particles (NMRLIP) Latest Ref Range: >=30.5 umol/L 30.3 (L) Small LDL-P (NMRLIP) Latest Ref Range: <=527 nmol/L 1,587 (H) Large VLDL-P (NMRLIP) Latest Ref Range: <=2.7 nmol/L 9.2 (H) Large HDL-P (NMRLIP) Latest Ref Range: >=4.8 umol/L 1.7 (L) VLDL Size (NMRLIP) Latest Ref Range: <=46.6 nm 49.3 (H) LDL Size (NMRLIP) Latest Ref Range: >20.5 nm 20.9 HDL Size (NMRLIP) Latest Ref Range: >=9.2 nm 8.4 (L) LP/IR Score (NMRLIP) Latest Ref Range: <=45 82 (H) Lipoprotein (a) Latest Ref Range: 0 - 40 mg/dL <2 Vitamin D 25 Hydroxy Latest Ref Range: 31.0 - 80.0 ng/mL 51.0 Hemoglobin A1C Latest Ref Range: 4.3 - 5.6 % 5.7 (H) Estimated Average Glucose Latest Units: mg/dL 117 Insulin Latest Ref Range: 1 - 24 uU/mL 33.5 (H) NutraEval: N/A GI Effects: Completed: March 30, 2018 Elevated EPX and fecal secretory IgA Elevated PP bacteria 4+ Proteus mirabilis (susceptible to Berberine, plant tannins, Uva ursi for natural agents) Subjective: 57 year old female (Shannon) presents from [place], [place] for initial nutrition assessment relative to metabolic syndrome, suspected autoimmune issues and kidney concerns. C/o every time she gets stomach issues, her blood sugar tends to spike. Past medical history is notable for nonalcoholic liver disease, metabolic syndrome, myalgia, and polycystic ovaries. Originally thought she had gall-bladder issues due to where the pain occurred but all tests have been negative, per patient. Diet recall includes elimination diet with no grains, legumes or starchy vegetables. Due to metabolic syndrome and to control overall inflammation, patient would benefit from an elimination diet with no starchy vegetables, grains or legumes. What are the nutrition-related successes? 1. She has been on the elimination plan for about 9 weeks - no grains, no legumes no starchy veggies 2. Lost 18 pounds 3. She used to take 2 Zantac and 2 Prilosec and now she is only taking 1 Prilosec at night which is an improvement! What are the nutrition-related concerns? 1. Experiencing some stomach issues recently (had subsided for awhile - hadn't had it for months until a few weeks ago - 05/18/18) - hurts in epigastric region and radiates to the back 2. Has 3 deaths in the family while on the elimination plan which caused a lot of stress. Traveled every weekend for funerals, etc and tried to stick to food plan the best she could. Ate out at [employer] a lot (grilled chicken, side salad and streamed broccoli) 3. As a child she knew she was lactose intolerant (running to the bathroom after ice cream, pizza, etc.). She also used to have some issues with eggs. 4. Had some grass-fed beef (burger) last night with tomatoes - hard time digesting it. 5. Misses bread (was already cutting down her bread consumption to the skinny bread or 1 slice whole grain but has been looking up some recipes for keto bread. Diet Recall: Yes Tuna ([employer] Planet) or Mackerel. Eating lots of fish and chicken as her protein source Beverages: green tea Current MSQ Score: N/A Previous MSQ Score: 118 Provider Nutrition Notes: N/A - RD visit only today Meal Plans: Elimination - with reintroductions Nutrition Diagnosis: Obesity relates to excess food intake and inactivity as evidenced by BMI Food and nutrition related knowledge deficit related to lack of prior education as evidenced by patient's verbalized inaccurate/incomplete information. Altered nutrition related lab values related to diabetes and hyperlipidemia as evidenced by lab results Nutrition Intervention 05/29/2018: Elimination Diet 1. I would recommend staying away from beef, dairy, eggs, and legumes, grains and gluten for right now - we can reassess at your follow up visit in June. 2. Please reintroduce the following foods using our Reintroduction Protocol; 1. Good source of pork (pasture-raised pork chops, etc.) - 1-2 ounces (if tolerated, serving size is about 4 oz) 2. Starchy vegetables (sweet potatoes, butternut squash or acorn squash) - Reintroduce with 1/4 cup-1/2 cup. (if tolerated, stick to 1/2 cup-1 cup per day ) Reintroduce 1 previously eliminated food every 4 days. Eat the previously eliminated food twice as a snack on day 1 and 3, and avoid that food day 2 and 4. If you have a reaction, eliminate that food for 12 weeks. If not, you can reintroduce that food back into your diet on a regular basis. Reintroduce these foods before your follow-up appointment. The food in parenthesis is the amount recommended per snack. 3. I would recommend that you see one of our health coaches (Willow Santa, Laury Alejandre or Jonny Gaffney) to help with stress, continuing motivation and support. You can schedule at the front clerk or by calling , option 0. 4. See bread recipes I printed for you - Dr. Darby's fluffy sandwich bread (https://[employer]/blog//fidc-uzznpfaqxedo-nzcpyh-sandwich-bread/) or Keto Paleo [place] Bread (substitute eggs for a flax or bart egg and sub mayonnaise for Veganaise) (https://www.[employer]/wcoe-bvyqv-bthpt-bread/) 5. Look for Follow Your Heart Parmesan - https://followyoGENERAL MEDICAL MERATE.[employer]/products/parmesan/. You can also find at [employer], [employer] or [employer] 6. Avoid big fish - www.nrdc.org or http://www.seafoodwatch.org/ lowest mercury only - also safe farmed fish Nutrition Monitoring AND Evaluation: Adherence to nutrition recommendations Criteria: dietary recall, labs (HbA1c), weight status, and patient report Follow up: 4 weeks Time Spent with patient: 30 minutes Consult Billing Type: Re-assess/15 minutes, 2 increment(s), 30 minutes Number of Increments: 2 (30 minutes) Signed by: BOB Tavera RD 05/29/2018 9:54 AM AddendMary [facility] FUNCTIONAL MEDICINE NUTRITION INSTRUCTIONS We recommend scheduling your Follow-up appointment at the end of your initial appointment. Physician Follow-up: With Dr. Perez in June Nutrition Follow-up: In June with Tabatha Vega RD Your Prescribed Nutrition Plan: Nutrition Intervention 05/29/2018: Elimination Diet 1. I would recommend staying away from beef, dairy, eggs, and legumes, grains and gluten for right now - we can reassess at your follow up visit in June. 2. Please reintroduce the following foods using our Reintroduction Protocol; 1. Good source of pork (pasture-raised pork chops, etc.) - 1-2 ounces (if tolerated, serving size is about 4 oz) 2. Starchy vegetables (sweet potatoes, butternut squash or acorn squash) - Reintroduce with 1/4 cup-1/2 cup. (if tolerated, stick to 1/2 cup-1 cup per day ) Reintroduce 1 previously eliminated food every 4 days. Eat the previously eliminated food twice as a snack on day 1 and 3, and avoid that food day 2 and 4. If you have a reaction, eliminate that food for 12 weeks. If not, you can reintroduce that food back into your diet on a regular basis. Reintroduce these foods before your follow-up appointment. The food in parenthesis is the amount recommended per snack. 3. I would recommend that you see one of our health coaches (Willow Santa, Laury Alejandre or Jonny Gaffney) to help with stress, continuing motivation and support. You can schedule at the front clerk or by calling , option 0. 4. See bread recipes I printed for you - Dr. Darby's fluffy sandwich bread (https://[employer]/blog//pmcn-bgoiuuriatxy-skbgpu-sandwich-bread/) or Keto Paleo [place] Bread (substitute eggs for a flax or bart egg and sub mayonnaise for Veganaise) (https://www.[employer]/oqce-ieqlv-fwkaa-bread/) 5. Look for Follow Your Heart Parmesan - [email or web address]/products/parmesan/. You can also find at [employer], [employer] or [employer] 6. Avoid big fish - www.nrdc.org or http://www.seafoodwatch.org/ lowest mercury only - also safe farmed fish How to Contact Your Functional Medicine Team (Open M-F 8am-5pm): 1. Extended Stay [employer] is the BEST form of communication to reach the Functional Medicine Team, see test results and request refills. Please allow 72 business hours for a response. Directions for signing up are included in your New Patient Folder. (Or you can go to [email or web address]) 2. For nutrition related questions or concerns, Network Chemistry message your physician and include Attn: Dietitian (Tabatha Vega RD) at the top of the message. Previous Version Other instructions from your clinician: DONEGAL FOR FUNCTIONAL MEDICINE NUTRITION INSTRUCTIONS We recommend scheduling your Follow-up appointment at the end of your initial appointment. Physician Follow-up: With Dr. Perez in June Nutrition Follow-up: In June with Tabatha Vega RD Your Prescribed Nutrition Plan: Nutrition Intervention 05/29/2018: Elimination Diet 1. I would recommend staying away from beef, dairy, eggs, and legumes, grains and gluten for right now - we can reassess at your follow up visit in June. 2. Please reintroduce the following foods using our Reintroduction Protocol; 1. Good source of pork (pasture-raised pork chops, etc.) - 1-2 ounces (if tolerated, serving size is about 4 oz) 2. Starchy vegetables (sweet potatoes, butternut squash or acorn squash) - Reintroduce with 1/4 cup-1/2 cup. (if tolerated, stick to 1/2 cup-1 cup per day ) Reintroduce 1 previously eliminated food every 4 days. Eat the previously eliminated food twice as a snack on day 1 and 3, and avoid that food day 2 and 4. If you have a reaction, eliminate that food for 12 weeks. If not, you can reintroduce that food back into your diet on a regular basis. Reintroduce these foods before your follow-up appointment. The food in parenthesis is the amount recommended per snack. 3. I would recommend that you see one of our health coaches (Willow Santa, Laury Alejandre or Jonny Gaffney) to help with stress, continuing motivation and support. You can schedule at the front clerk or by calling , option 0. 4. See bread recipes I printed for you - Dr. Darby's fluffy sandwich bread (https://[employer]/blog//piji-tfortljkzyts-nxrodp-sandwich-luz d/) or Keto Paleo [place] Bread (substitute eggs for a flax or bart egg and sub mayonnaise for Veganaise) (https://www.[employer]/sdsp-yzwdn-brbqm-bread/) 5. Look for Follow Your Heart Parmesan - https://[facility]/products/parmesan/. You can also find at [employer], [employer] or [employer] 6. Avoid big fish - www.nrdc.org or http://www.seafoodwatch.org/ lowest mercury only - also safe farmed fish How to Contact Your Functional Medicine Team (Open M-F 8am-5pm): 1. Extended Stay [employer] is the BEST form of communication to reach the Functional Medicine Team, see test results and request refills. Please allow 72 business hours for a response. Directions for signing up are included in your New Patient Folder. (Or you can go to [email or web address]) 2. For nutrition related questions or concerns, Network Chemistry message your physician and include Attn: Dietitian (Tabatha Vega RD) at the top of the message. Primary Visit Diagnosis:Type 2 diabetes mellitus without retinopathy (HCC) [E11.9] Other Visit Diagnoses:Central sleep apnea [G47.31] Dietary counseling and surveillance [Z71.3] Essential hypertension [I10] Environmental allergies [Z91.09] Mixed hyperlipidemia [E78.2] Obesity (BMI 30-39.9) [E66.9] During your visit today, we recorded the following information about you: Allergies As of Date: 05/29/2018 Noted Allergy Reaction BACTRIM (SULFAMETHOXAZOLE) 01/12/2011 4 - Hives CECLOR (CEFACLOR) 12/04/2014 14 - Other: See Comments Comments: Yeast infection environmental [Other] 07/07/2005 14 - Other: See Comments Comments: dust, grass, trees, dogs ERYTHROMYCIN 07/07/2005 14 - Other: See Comments Comments: Headaches LISINOPRIL 12/04/2014 3 - Cough PENICILLINS 05/01/2006 4 - Hives VICTOZA (LIRAGLUTIDE) 05/23/2017 11 - Vomiting Date Reviewed: 03/08/2018 Reviewed by: Tabatha Rios) Silvia - Fully Assessed Prescriptions as of 05/29/2018 Sig: OTC NUTRITIONAL SUPPLEMENT Mix one teaspoon (4.33 g) wit* OTC NUTRITIONAL SUPPLEMENT Take 1 capsule by mouth once * OTC NUTRITIONAL SUPPLEMENT 1-2 capsules with meals OTC NUTRITIONAL SUPPLEMENT 2 capsules daily with food OTC NUTRITIONAL SUPPLEMENT Take 2 capsules by mouth soraida* OTC NUTRITIONAL SUPPLEMENT Take 1-4 capsules at night OTC NUTRITIONAL SUPPLEMENT Take 2 capsules two- three ti* RANITIDINE 150 MG TABLET Take 150 mg by mouth twice da* OMEPRAZOLE 40 MG CAPSULE,MARKUS* Take 40 mg by mouth twice destiny* POTASSIMIN ORAL Take 198 mg by mouth. DOXAZOSIN 2 MG TABLET Take 2 mg by mouth daily at b* PHOSPHATIDYLCHOLINE (BULK) OK* MILK THISTLE ORAL Take by mouth. RED YEAST RICE ORAL Take by mouth. DANDELION ORAL Take by mouth. Milk thistle METFORMIN 500 MG TABLET TAKE 2 TABLETS BY MOUTH WITH * DULAGLUTIDE 0.75 MG/0.5 ML BROWN* Inject subcutaneously once e* OMEGA-3 FATTY ACIDS-FISH OIL * Take 2 capsules by mouth once* FERROUS SULFATE 325 MG (65 MG* Take 325 mg by mouth once destiny* ARMOUR THYROID ORAL Take 60 mg by mouth once soraida* NAPHAZOLINE 0.025 %-PHENIRAMI* Use 2 Drops in both eyes ever* PEG 400-PROPYLENE GLYCOL 0.4 * Use 1 Drop in both eyes twice* CALCIUM + D ORAL Take 1 tablet by mouth once d* MAGNESIUM OXIDE 400 MG TABLET Take 400 mg by mouth once destiny* CPAP AZELASTINE 137 MCG (0.1 %) NA* Use 1 [place] in each nostril t* METHOCARBAMOL 500 MG TABLET Take 500 mg by mouth as neede* ZOLPIDEM 5 MG TABLET Take 5 mg by mouth at bedtime* ACIDOPHILUS ORAL Take 7 mg by mouth as needed. FENOFIBRATE NANOCRYSTALLIZED * Take 145 mg by mouth once destiny* B COMPLEX ORAL Take 1 tablet by mouth once d* * LOSARTAN 100 MG TABLET Take 1 tablet by mouth once d* * LORATADINE 10 MG TABLET Take 1 tablet by mouth once d* * ALLOPURINOL 100 MG TABLET Take 200 mg by mouth twice da* * ALPHA LIPOIC ACID 200 MG CAPS* Take 1 tablet by mouth once d* * ETODOLAC 500 MG TABLET Take 1 tablet by mouth twice * * FOLIC ACID 800 MCG TABLET Take one(1) tablet daily. * FLEXERIL 10 MG TABLET as necessary * IBUPROFEN 200 MG TABLET Take 1-2 tablet's) every four* * FLONASE 50 MCG/ACTUATION NASA* 2 spray per nostril daily. * VITAMIN C 1,000 MG TABLET Take one(1) tablet daily. Encounter Status:Closed by TABATHA VEGA on 05/29/18 PROGRESS Observed: 05/29/2018 Status: COMPLETED Source: [place] 9:10 AM [facility] REPOSITORY [facility] ID: [id number] Author: Tabatha (Bob) Silvia Service: (none) Author Type: Registered Dietitian Type: Progress Notes Filed: 05/29/2018 5:41 PM Note Text: FUNCTION MEDICINE FOLLOW UP NUTRITION ASSESSMENT Patient name: Bessie Ellison Anthropometrics: [facility] 01/17/2010 Height: Last 1 Encounter Ht Readings: Date: Ht: 03/08/2018 152 cm (4' 11.84) Weight: Last 2 Encounter Wt Readings: Date: Wt: 03/08/2018 92.2 kg (203 lb 3.2 oz) 11/07/2017 92.1 kg (203 lb) Wt: 92.2 kg (203 lb 3.2 oz) BMI: 39.89 kg/(m2) Resting Metabolic Rate: 1429 Allergies: Bactrim [Sulfamethoxazole]; Ceclor [Cefaclor]; Environmental [Other]; Erythromycin; Lisinopril; Penicillins; Victoza [Liraglutide] Medications: Current Outpatient Prescriptions on File Prior to Visit: Glutagenics (Metagenics) Mix one teaspoon (4.33 g) with water three times daily (1 teaspoon = 3.5 grams L-glut) Ther-Biotic Detoxification Support (Klaire/Prothera) probiotic (FRIDGE) Take 1 capsule by mouth once daily. Digestive Enzymes Ultra 180 ct. (Pure Encapsulations) supports digestion of food 1-2 capsules with meals PhytoMulti (Metagenics) 2 capsules daily with food One Henriette (Pure Encapsulation) -- fish oil Take 2 capsules by mouth daily with food. Magnesium Glycinate 120mg (Pure Encapsulations) Take 1-4 capsules at night Meriva-SR (Rosemary) Take 2 capsules two- three times daily. ranitidine (ZANTAC) 150 mg tablet Take 150 mg by mouth twice daily. Omeprazole 40 mg capsule Take 40 mg by mouth twice daily. POTASSIUM (POTASSIMIN ORAL) Take 198 mg by mouth. doxazosin (CARDURA) 2 mg tablet Take 2 mg by mouth daily at bedtime. PHOSPHATIDYLCHOLINE, BULK, MISC MILK THISTLE ORAL Take by mouth. RED YEAST RICE ORAL Take by mouth. DANDELION ORAL Take by mouth. Milk thistle metFORMIN (GLUCOPHAGE) 500 mg tablet TAKE 2 TABLETS BY MOUTH WITH BREAKFAST, TAKE 1 TABLET WITH lunch, TAKE 2 TABLETS WITH supper dulaglutide 0.75 mg/0.5 mL pnij Inject subcutaneously once each week. Fish Oil-Henriette-3 Fatty Acids (FISH OIL OMEGA 3-6-9) 300-1,000 mg cpDR Take 2 capsules by mouth once daily. Ferrous Sulfate 325 mg (65 mg iron) tablet Take 325 mg by mouth once daily. THYROID,PORK (ARMOUR THYROID ORAL) Take 60 mg by mouth once daily. naphazoline-pheniramine eye drops (NAPHCON-A) 0.025-0.3 % ophthalmic solution Use 2 Drops in both eyes every 4 hours as needed. PEG 400-Propylene Glycol (SYSTANE) 0.4-0.3 % drop Use 1 Drop in both eyes twice daily. CALCIUM CARBONATE/VITAMIN D3 (CALCIUM + D ORAL) Take 1 tablet by mouth once daily. magnesium oxide (MAG-OX) 400 mg tablet Take 400 mg by mouth once daily. CPAP azelastine (ASTELIN,ASTEPRO) 0.1% nasal spray Use 1 [place] in each nostril twice daily. methocarbamol (ROBAXIN) 500 mg tablet Take 500 mg by mouth as needed. zolpidem (AMBIEN) 5 mg tablet Take 5 mg by mouth at bedtime as needed. LACTOBACILLUS ACIDOPHILUS (ACIDOPHILUS ORAL) Take 7 mg by mouth as needed. fenofibrate nanocrystallized (TRICOR) 145 mg tablet Take 145 mg by mouth once daily. VITAMIN B COMPLEX (B COMPLEX ORAL) Take 1 tablet by mouth once daily. losartan (COZAAR) 100 mg tablet Take 1 tablet by mouth once daily. loratadine 10 mg tablet Take 1 tablet by mouth once daily. allopurinol 100 mg ORAL tablet Take 200 mg by mouth twice daily. alpha lipoic acid 200 mg ORAL Cap Take 1 tablet by mouth once daily. Etodolac 500 mg ORAL tablet Take 1 tablet by mouth twice daily. folic acid 800 mcg ORAL tablet Take one(1) tablet daily. cyclobenzaprine hcl(FLEXERIL 10 MG TAB) as necessary ibuprofen 200 mg ORAL Tab Take 1-2 tablet's) every four(4) to six(6) hours as needed for pain. FLONASE 50 MCG/ACTUATION NASAL SPRAY AEROSOL 2 spray per nostril daily. VITAMIN C 1,000 MG TAB Take one(1) tablet daily. No current facility-administered medications on file prior to visit. 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 Fibromyalgia 2. Anemia 3. Metabolic Syndrome 4. Diabetes 5. Arthritis 6. Inflammation 7. Gout 8. Incontinence 9. Chronic Renal Insufficiency 10. Autoimmune Health Goals: Improve health and not just keep adding medications. MSQ Score: 118 Is the patient having any pain that is interfering with oral intake? 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 - Atypical ductal hyperplasia of breast 08/21/14 Left Breast - CPAP (continuous positive airway pressure) dependence - Dysmetabolic syndrome X - Essential hypertension, benign - Growth of eyelid - Right Eye 08/11/2014 - Myalgia and myositis, unspecified - Nonalcoholic liver disease, chronic - Other and unspecified hyperlipidemia - Other vitreous opacities - Both Eyes 08/11/2014 - Polycystic ovaries Anthropometrics: LMP 01/17/2010 Height: Last 1 Encounter Ht Readings: Date: Ht: 03/08/2018 152 cm (4' 11.84) Current weight: Last 1 Encounter Wt Readings: Date: Wt: 03/08/2018 92.2 kg (203 lb 3.2 oz) Wt: 92.2 kg (203 lb 3.2 oz) BMI: 39.89 kg/(m2) Resting Metabolic Rate: 1429 Results for BESSIE ELLISON ( ) as of 03/08/2018 16:55 Ref. Range 03/08/2018 09:19 Homocysteine, Serum Latest Ref Range: <15.1 umol/L 19.8 (H) UltraSens C-Reactive Protein Latest Ref Range: <3.1 mg/L 2.3 Hemoglobin A1C Latest Ref Range: 4.3 - 5.6 % 5.7 (H) Estimated Average Glucose Latest Units: mg/dL 117 Lifestyle: Weight issues: Yes, BMI indicates obesity Adequate, restful sleep?: Yes, average of 9 hours but patient feels tired upon awakening. Use of Ambien 1-2 times per year Currently exercising?: Yes, treadmill, weights/bands, stretching GI symptoms:Yes, heartburn (4) and bloating, belching, gas (3) Dietary pattern: Current diet: Yes, I have been trying a healthy diet - nothing artificial, no preservatives, green tea, etc. Food allergies:No Food sensitivities: Yes, Lactose problems, though not as bad as used to be. Sometimes will bloat, but not a pattern. Reported lifestyle behaviors and eating habits:Fast eater,Eat too much,Late-night eating,Time constraints,Travel frequently,Healthy foods not readily available,Significant other or family don't like healthy foods Diet Recall: Yes B: An egg sandwich, or a bowl of grits; or occasionally egg biscuit L: Soup and veggie; or entree and veggie; or salad with chcken D: Soup an crackers; or entree and veggie and half sweet potato; or two slices pizza (Fri.); or fish and veggie Snacks: Raisins; apple; orange; celery; carrots; rice cake with natural peanut butter Beverages: Water; water with lemon; green tea; occasionally a Coke; water with falvor packet Excessive stress reported?: Yes, primarily related to stress (7) 57 year old female (Shannon) presents from [place], [place] for initial nutrition assessment relative to metabolic syndrome, suspected autoimmune issues and kidney concerns. C/o sneezing attacks, heartburn, bloating, gas, joint pain, and frequent illness. Past medical history is notable for nonalcoholic liver disease, metabolic syndrome, myalgia, and polycystic ovaries. Diet recall includes trying to eat a healthier diet and contains some breads/biscuits and occasional sodas. Due to metabolic syndrome and to control overall inflammation, patient would benefit from an elimination diet with no starchy vegetables, grains or legumes. Provider Nutrition Notes: Elimination Diet with no grains, no legumes no starchy veggies Nutrition Diagnosis: Obesity relates to excess food intake and inactivity as evidenced by BMI Food and nutrition related knowledge deficit related to lack of prior education as evidenced by patient's verbalized inaccurate/incomplete information. Altered nutrition related lab values related to diabetes as evidenced by lab results Nutrition Intervention 03/08/2018: Nutrition education: 1. Whole foods, plant based, low glycemic, comprehensive elimination diet 2. Adequate hydration 3. Self-Monitoring: Track food/beverage intake 4. Schedule follow up for food reintroduction and further personalization of eating plan Nutrition Monitoring AND Evaluation: Adherence to elimination diet Criteria: Patient recall, food diary Follow up: 8 weeks CURRENT NUTRITION ASSESSMENT Reason for consult: Follow-up Visit Date: May 29, 2018 Previous Concern(s): 1. Fibromyalgia 2. Anemia 3. Metabolic Syndrome 4. Diabetes 5. Arthritis 6. Inflammation 7. Gout 8. Incontinence 9. Chronic Renal Insufficiency 10. Autoimmune Current Concern(s): 1. Fibromyalgia - improving 2. Anemia 3. Metabolic Syndrome 4. Diabetes 5. Arthritis 6. Inflammation 7. Gout 8. Incontinence 9. Chronic Renal Insufficiency 10. Autoimmune Is the patient having any pain that is interfering with oral intake? no Labs: Results for BESSIE ELLSION ( ) as of 05/29/2018 09:13 Ref. Range 03/08/2018 09:19 Homocysteine, Serum Latest Ref Range: <15.1 umol/L 19.8 (H) MMA Latest Ref Range: 79 - 376 nmol/L 236 UltraSens C-Reactive Protein Latest Ref Range: <3.1 mg/L 2.3 NMRLIP Source Unknown SERUM LDL Particle Number (NMRLIP) Latest Ref Range: <1,000 nmol/L 2,631 (H) LDL Cholesterol (NMRLIP) Latest Ref Range: 0 - 99 mg/dL 155 (H) HDL Cholesterol (NMRLIP) Latest Ref Range: >39 mg/dL 38 (L) Triglycerides (NMRLIP) Latest Ref Range: 0 - 149 mg/dL 384 (H) Total Cholesterol (NMRLIP) Latest Ref Range: 100 - 199 mg/dL 270 (H) Total HDL Particles (NMRLIP) Latest Ref Range: >=30.5 umol/L 30.3 (L) Small LDL-P (NMRLIP) Latest Ref Range: <=527 nmol/L 1,587 (H) Large VLDL-P (NMRLIP) Latest Ref Range: <=2.7 nmol/L 9.2 (H) Large HDL-P (NMRLIP) Latest Ref Range: >=4.8 umol/L 1.7 (L) VLDL Size (NMRLIP) Latest Ref Range: <=46.6 nm 49.3 (H) LDL Size (NMRLIP) Latest Ref Range: >20.5 nm 20.9 HDL Size (NMRLIP) Latest Ref Range: >=9.2 nm 8.4 (L) LP/IR Score (NMRLIP) Latest Ref Range: <=45 82 (H) Lipoprotein (a) Latest Ref Range: 0 - 40 mg/dL <2 Vitamin D 25 Hydroxy Latest Ref Range: 31.0 - 80.0 ng/mL 51.0 Hemoglobin A1C Latest Ref Range: 4.3 - 5.6 % 5.7 (H) Estimated Average Glucose Latest Units: mg/dL 117 Insulin Latest Ref Range: 1 - 24 uU/mL 33.5 (H) NutraEval: N/A GI Effects: Completed: March 30, 2018 Elevated EPX and fecal secretory IgA Elevated PP bacteria 4+ Proteus mirabilis (susceptible to Berberine, plant tannins, Uva ursi for natural agents) Subjective: 57 year old female (Shannon) presents from [place], [place] for initial nutrition assessment relative to metabolic syndrome, suspected autoimmune issues and kidney concerns. C/o every time she gets stomach issues, her blood sugar tends to spike. Past medical history is notable for nonalcoholic liver disease, metabolic syndrome, myalgia, and polycystic ovaries. Originally thought she had gall-bladder issues due to where the pain occurred but all tests have been negative, per patient. Diet recall includes elimination diet with no grains, legumes or starchy vegetables. Due to metabolic syndrome and to control overall inflammation, patient would benefit from an elimination diet with no starchy vegetables, grains or legumes. What are the nutrition-related successes? 1. She has been on the elimination plan for about 9 weeks - no grains, no legumes no starchy veggies 2. Lost 18 pounds 3. She used to take 2 Zantac and 2 Prilosec and now she is only taking 1 Prilosec at night which is an improvement! What are the nutrition-related concerns? 1. Experiencing some stomach issues recently (had subsided for awhile - hadn't had it for months until a few weeks ago - 05/18/18) - hurts in epigastric region and radiates to the back 2. Has 3 deaths in the family while on the elimination plan which caused a lot of stress. Traveled every weekend for funerals, etc and tried to stick to food plan the best she could. Ate out at [facility] a lot (grilled chicken, side salad and streamed broccoli) 3. As a child she knew she was lactose intolerant (running to the bathroom after ice cream, pizza, etc.). She also used to have some issues with eggs. 4. Had some grass-fed beef (burger) last night with tomatoes - hard time digesting it. 5. Misses bread (was already cutting down her bread consumption to the skinny bread or 1 slice whole grain but has been looking up some recipes for keto bread. Diet Recall: Yes Tuna (Wild Planet) or Mackerel. Eating lots of fish and chicken as her protein source Beverages: green tea Current MSQ Score: N/A Previous MSQ Score: 118 Provider Nutrition Notes: N/A - RD visit only today Meal Plans: Elimination - with reintroductions Nutrition Diagnosis: Obesity relates to excess food intake and inactivity as evidenced by BMI Food and nutrition related knowledge deficit related to lack of prior education as evidenced by patient's verbalized inaccurate/incomplete information. Altered nutrition related lab values related to diabetes and hyperlipidemia as evidenced by lab results Nutrition Intervention 05/29/2018: Elimination Diet 1. I would recommend staying away from beef, dairy, eggs, and legumes, grains and gluten for right now - we can reassess at your follow up visit in June. 2. Please reintroduce the following foods using our Reintroduction Protocol; 1. Good source of pork (pasture-raised pork chops, etc.) - 1-2 ounces (if tolerated, serving size is about 4 oz) 2. Starchy vegetables (sweet potatoes, butternut squash or acorn squash) - Reintroduce with 1/4 cup-1/2 cup. (if tolerated, stick to 1/2 cup-1 cup per day ) Reintroduce 1 previously eliminated food every 4 days. Eat the previously eliminated food twice as a snack on day 1 and 3, and avoid that food day 2 and 4. If you have a reaction, eliminate that food for 12 weeks. If not, you can reintroduce that food back into your diet on a regular basis. Reintroduce these foods before your follow-up appointment. The food in parenthesis is the amount recommended per snack. 3. I would recommend that you see one of our health coaches (Willow Santa, Laury Alejandre or Jonny Gaffney) to help with stress, continuing motivation and support. You can schedule at the front clerk or by calling , option 0. 4. See bread recipes I printed for you - Dr. Darby's fluffy sandwich bread (https://[employer]/blog//isaj-tbnhnifzneov-kdmpno-sandwich-luz d/) or Keto Paleo [place] Bread (substitute eggs for a flax or bart egg and sub mayonnaise for Veganaise) (https://www.[employer]/vmhm-hxjyz-rniea-bread/) 5. Look for Follow Your Heart Parmesan - https://[employer]/products/parmesan/. You can also find at [employer], [employer] or [employer] 6. Avoid big fish - www.nrdc.org or http://www.seafoodwatch.org/ lowest mercury only - also safe farmed fish Nutrition Monitoring AND Evaluation: Adherence to nutrition recommendations Criteria: dietary recall, labs (HbA1c), weight status, and patient report Follow up: 4 weeks Time Spent with patient: 30 minutes Consult Billing Type: Re-assess/15 minutes, 2 increment(s), 30 minutes Number of Increments: 2 (30 minutes) Signed by: Tabatha Vega RD CBC W/DIFF, AUTOMATED Collected: 05/28/2018 Status: F Source: [place] 10:21 AM [facility] [place] REPOSITORY Order Comment: DR CASTRO: CBCD, CMP, TSH, VITD DR. PAIGE ORDERED: CMP, CBCD TYPE CODE TESTS RESULT OUT OF RANGE REFERENCE UNITS LAB L100.1000 4.4-11.0 K/mm3 Normal WBC 6.8 LAB L100.1200 4.2-5.4 M/mm3 Low RBC 3.85 LAB L100.1300 12.0-15.0 g/dl Normal HGB 12.1 LAB L100.1400 37-47 % Low HCT 36.5 LAB L100.1500 81-99 fL Normal MCV 94.8 LAB L100.1600 27.0-32.0 pg Normal MCH 31.4 LAB L100.1700 32-36 g/gl Normal MCHC 33.2 LAB L100.1810 11.6-14.6 % Normal RDW CV 13.5 LAB L100.1820 35.1-43.9 fl High RDW SD 44.5 LAB L100.1900 150-450 K/mm3 Normal PLT 216 LAB L100.2000 6.2-12.0 fl Normal MPV 9.8 LAB L100.2100 47-70 % Low NEUT% 44.6 LAB L100.2200 19-41 % Normal LY% 28.7 LAB L100.2300 0-10 % Normal MONO% 5.1 LAB L100.2400 0-5 % High EO% 20.3 LAB L100.2500 0-1 % Normal BASO% 1.0 LAB L100.2550 0.0-0.9 % Normal IM GRAN % 0.300 Result Comment: IG% - Immature Granulocytes (promyelocytes, myelocytes and metamyelocytes) > 1% indicates that a LEFT SHIFT is Present. LAB L100.2620 2.0-7.7 X10 3/uL Normal Absolute Neut 3.1 LAB L100.2720 0.83-4.51 X10 3/ul Normal Absolute Lymph 1.96 Performed By: #### L100.0100 #### [facility] [address] [place], [place], [address] VITAMIN D,25 HYDROXY Collected: 05/28/2018 Status: F Source: [place] 10:21 AM [facility] REPOSITORY Order Comment: DR CASTRO: CBCD, CMP, TSH, VITD DR. PAIGE ORDERED: CMP, CBCD TYPE CODE TESTS RESULT OUT OF RANGE REFERENCE UNITS LAB L506.1000 29.95-100.01 ng/mL Normal Vitamin D 64.1 25-OH Result Comment: Vitamin D 25(OH) Status Range Deficiency <20 ng/mL (50nmol/L) Insuffciency 20 - 30 ng/mL (50 - 75 nmol/L) Sufficiency 30 - 100 ng/mL (75 - 250 nmol/L) Toxicity >100 ng/mL (>250 nmol/L) Performed By: #### L506.1000 #### [facility] [address] [place], [place], [address] COMPREHENSIVE METABOLIC Collected: 05/28/2018 Status: F Source: [facility] 10:21 AM [facility] REPOSITORY Order Comment: DR CASTRO: CBCD, CMP, TSH, VITD DR. PAIGE ORDERED: CMP, CBCD TYPE CODE TESTS RESULT OUT OF RANGE REFERENCE UNITS LAB L501.0100 74-106 mg/dL Normal GLU 84 Result Comment: Please note revised GLUCOSE reference range effective 2017. LAB L501.1000 7-18 mg/dL High BUN 34 LAB L501.1100 0.55-1.02 mg/dL High CREAT,SERUM 1.14 Result Comment: The validity of the calculated GFR AND GFRAA in patients over 70 years has not been determined. Clinical correlation is essential. LAB L501.1110 >60 mL/min Low EST GFR 52 Result Comment: Non- GFR Calc LAB L501.1115 >60 mL/min Normal EST GFR - AA 63 Result Comment: GFR Calc LAB L501.1300 10-20 RATIO High BUN/CRE 29.8 LAB L501.1500 6.4-8.2 g/dL T Normal PROT 7.8 LAB L501.1800 3.2-5.0 g/dL Normal ALB 3.6 LAB L501.1950 2.2-4.2 g/dL Normal GLOB 4.2 LAB L501.2000 0.9-2.4 RATIO Normal A/G 0.9 LAB L501.2200 8.5-10.1 mg/dL CA Normal 9.6 LAB L501.4100 15-37 U/L Normal AST 35 LAB L501.4305 45-117 U/L Normal ALK P 52 LAB L501.4405 13-56 U/L Normal ALT 33 LAB L501.4600 0.20-1.00 mg/dL T Normal BILI 0.60 LAB L501.5300 136-145 mmol/L NA Normal 141 LAB L501.5600 3.5-5.1 mmol/L K Normal 4.6 LAB L501.5900 98-107 mmol/L High CL 109 LAB L501.6100 21.0-32.0 mmol/L Normal CO2 23.0 LAB L501.6200 5-15 Normal GAP 9 Performed By: #### L500.4050, L501.9520 #### [facility] [address] [place], [place], [address] THYROID STIM HORMONE Collected: 05/28/2018 Status: F Source: [place] [facility]) 10:21 AM [facility] REPOSITORY Order Comment: DR CASTRO: CBCD, CMP, TSH, VITD DR. PAIGE ORDERED: CMP, CBCD TYPE CODE TESTS RESULT OUT OF RANGE REFERENCE UNITS LAB L501.9520 0.358-3.74 uIU/mL Normal TSH 1.67 Performed By: #### L500.4050, L501.9520 #### [facility] [address] [place], [place], [address] PROGRESS Observed: 03/08/2018 Status: COMPLETED Source: [place] 4:47 PM [facility] REPOSITORY HNO ID: [id number] Author: Tabatha Vega Service: (none) Author Type: Registered Dietitian Type: Progress Notes Filed: 03/08/2018 4:59 PM Note Text: [facility] Nutrition Therapy: Initial Assessment (Group) Patient Name: Bessie Ellison Class Topic: Functional Nutrition and Elimination Diet Introduction Education Materials: IFM Elimination Diet Food List, Weekly Quality Assurance Supervisor and Recipes, Comprehensive Guide, Adaptable Meals, Dirty Dozen Chief Concerns: 1. Fibromyalgia 2. Anemia 3. Metabolic Syndrome 4. Diabetes 5. Arthritis 6. Inflammation 7. Gout 8. Incontinence 9. Chronic Renal Insufficiency 10. Autoimmune Health Goals: Improve health and not just keep adding medications. MSQ Score: 118 Is the patient having any pain that is interfering with oral intake? 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 - Atypical ductal hyperplasia of breast 08/21/14 Left Breast - CPAP (continuous positive airway pressure) dependence - Dysmetabolic syndrome X - Essential hypertension, benign - Growth of eyelid - Right Eye 08/11/2014 - Myalgia and myositis, unspecified - Nonalcoholic liver disease, chronic - Other and unspecified hyperlipidemia - Other vitreous opacities - Both Eyes 08/11/2014 - Polycystic ovaries Anthropometrics: LMP 01/17/2010 Height: Last 1 Encounter Ht Readings: Date: Ht: 03/08/2018 152 cm (4' 11.84) Current weight: Last 1 Encounter Wt Readings: Date: Wt: 03/08/2018 92.2 kg (203 lb 3.2 oz) Wt: 92.2 kg (203 lb 3.2 oz) BMI: 39.89 kg/(m2) Resting Metabolic Rate: 1429 Results for BESSIE ELLISON ( ) as of 03/08/2018 16:55 Ref. Range 03/08/2018 09:19 Homocysteine, Serum Latest Ref Range: <15.1 umol/L 19.8 (H) UltraSens C-Reactive Protein Latest Ref Range: <3.1 mg/L 2.3 Hemoglobin A1C Latest Ref Range: 4.3 - 5.6 % 5.7 (H) Estimated Average Glucose Latest Units: mg/dL 117 Lifestyle: Weight issues: Yes, BMI indicates obesity Adequate, restful sleep?: Yes, average of 9 hours but patient feels tired upon awakening. Use of Ambien 1-2 times per year Currently exercising?: Yes, treadmill, weights/bands, stretching GI symptoms:Yes, heartburn (4) and bloating, belching, gas (3) Dietary pattern: Current diet: Yes, I have been trying a healthy diet - nothing artificial, no preservatives, green tea, etc. Food allergies:No Food sensitivities: Yes, Lactose problems, though not as bad as used to be. Sometimes will bloat, but not a pattern. Reported lifestyle behaviors and eating habits:Fast eater,Eat too much,Late-night eating,Time constraints,Travel frequently,Healthy foods not readily available,Significant other or family don't like healthy foods Diet Recall: Yes B: An egg sandwich, or a bowl of grits; or occasionally egg biscuit L: Soup and veggie; or entree and veggie; or salad with chcken D: Soup an crackers; or entree and veggie and half sweet potato; or two slices pizza (Fri.); or fish and veggie Snacks: Raisins; apple; orange; celery; carrots; rice cake with natural peanut butter Beverages: Water; water with lemon; green tea; occasionally a Coke; water with falvor packet Excessive stress reported?: Yes, primarily related to stress (7) 57 year old female (Shannon) presents from [place], [place] for initial nutrition assessment relative to metabolic syndrome, suspected autoimmune issues and kidney concerns. C/o sneezing attacks, heartburn, bloating, gas, joint pain, and frequent illness. Past medical history is notable for nonalcoholic liver disease, metabolic syndrome, myalgia, and polycystic ovaries. Diet recall includes trying to eat a healthier diet and contains some breads/biscuits and occasional sodas. Due to metabolic syndrome and to control overall inflammation, patient would benefit from an elimination diet with no starchy vegetables, grains or legumes. Provider Nutrition Notes: Elimination Diet with no grains, no legumes no starchy veggies Nutrition Diagnosis: Obesity relates to excess food intake and inactivity as evidenced by BMI Food and nutrition related knowledge deficit related to lack of prior education as evidenced by patient's verbalized inaccurate/incomplete information. Altered nutrition related lab values related to diabetes as evidenced by lab results Nutrition Intervention 03/08/2018: Nutrition education: 1. Whole foods, plant based, low glycemic, comprehensive elimination diet 2. Adequate hydration 3. Self-Monitoring: Track food/beverage intake 4. Schedule follow up for food reintroduction and further personalization of eating plan Nutrition Monitoring AND Evaluation: Adherence to elimination diet Criteria: Patient recall, food diary Follow up: 8 weeks Time Spent: 60 minutes Referred/Supervised by: Dr. Kylee Perez Consult Billing Type: Group/60 minutes Number of Increments: 2 (60 minutes) Signed by: Tabatha Vega RD CNOV Observed: 03/08/2018 Status: COMPLETED Source: [place] 11:00 AM [facility] REPOSITORY Office Visit (MEDN) BESSIE ELLISON ([id number]) 1960 F Date Time Provider Department 03/08/18 11:00 AM LAURY ALEJANDRE (HEALTH INSPECTOR [employer]AG [employer]ING) [facility] During your visit today, we recorded the following information about you: James Bill 03/08/2018 3:16 PM Signed INITIAL VISIT GROUP 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 Coordinated approach in nutrition, supplements, lifestyle, and some medication. MSQ: 118 ...............................................................................- .............................................................. LIFESTYLE ACTION PLAN: Stress: Reports excessive stress and not handling it well. 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 Sleep: 9 hrs avg., tired upon waking and uses ambien once or twice a year. Self-Care: breathing and prayer Exercise/Movement: moderate use of treadmill, weights and bands, stretching. Every time I get into a routine, a problem develops that I have to get over and then get back into routine. Then it happens again. About every three weeks. Nutrition: I have been trying a healthy diet - nothing artificial, no preservatives, green tea, etc. Relationships/Connection: somewhat well overall. Confidence, Willingness and Readiness: ...............................................................................- ............................................................. FOLLOW UP: Educational materials provided: Transform Sleep/Ways to implement Exercise/Hunger AND Satisfaction Scale/Heart Math/Meditation and Mindfulness/ Resource sheet and Health coaching scheduling informtion. Additional support needed: (4) Phone Consultations with Health Clipper Automatic Signed : Laury Alejandre MA [facility] Board Certified Health and Supervisor [employer] Time Spent with patient: 30 minutes Consult Billing Type: 1 increment (30 minutes) Number of Increments: 1 (30 minutes) Referring Provider: SELF [200] Allergies As of Date: 03/08/2018 Noted Allergy Reaction BACTRIM (SULFAMETHOXAZOLE) 01/12/2011 4 - Hives CECLOR (CEFACLOR) 12/04/2014 14 - Other: See Comments Comments: Yeast infection environmental [Other] 07/07/2005 14 - Other: See Comments Comments: dust, grass, trees, dogs ERYTHROMYCIN 07/07/2005 14 - Other: See Comments Comments: Headaches LISINOPRIL 12/04/2014 3 - Cough PENICILLINS 05/01/2006 4 - Hives VICTOZA (LIRAGLUTIDE) 05/23/2017 11 - Vomiting Date Reviewed: 03/08/2018 Reviewed by: Leonel Elizabeth MA - Fully Assessed Reason for Visit: Patient Education [91] Primary Visit Diagnosis:Encounter for person encountering health services [Z76.89] Prescriptions as of 03/08/2018 Sig: RANITIDINE 150 MG TABLET Take 150 mg by mouth twice da* OMEPRAZOLE 40 MG CAPSULE,MARKUS* Take 40 mg by mouth twice destiny* POTASSIMIN ORAL Take 198 mg by mouth. DOXAZOSIN 2 MG TABLET Take 2 mg by mouth daily at b* PHOSPHATIDYLCHOLINE (BULK) OK* MILK THISTLE ORAL Take by mouth. RED YEAST RICE ORAL Take by mouth. DANDELION ORAL Take by mouth. Milk thistle METFORMIN 500 MG TABLET TAKE 2 TABLETS BY MOUTH WITH * DULAGLUTIDE 0.75 MG/0.5 ML BROWN* Inject subcutaneously once e* OMEGA-3 FATTY ACIDS-FISH OIL * Take 2 capsules by mouth once* FERROUS SULFATE 325 MG (65 MG* Take 325 mg by mouth once destiny* ARMOUR THYROID ORAL Take 60 mg by mouth once soraida* NAPHAZOLINE 0.025 %-PHENIRAMI* Use 2 Drops in both eyes ever* PEG 400-PROPYLENE GLYCOL 0.4 * Use 1 Drop in both eyes twice* CALCIUM + D ORAL Take 1 tablet by mouth once d* MAGNESIUM OXIDE 400 MG TABLET Take 400 mg by mouth once destiny* CPAP AZELASTINE 137 MCG (0.1 %) NA* Use 1 [place] in each nostril t* METHOCARBAMOL 500 MG TABLET Take 500 mg by mouth as neede* ZOLPIDEM 5 MG TABLET Take 5 mg by mouth at bedtime* ACIDOPHILUS ORAL Take 7 mg by mouth as needed. FENOFIBRATE NANOCRYSTALLIZED * Take 145 mg by mouth once destiny* B COMPLEX ORAL Take 1 tablet by mouth once d* * LOSARTAN 100 MG TABLET Take 1 tablet by mouth once d* * LORATADINE 10 MG TABLET Take 1 tablet by mouth once d* * ALLOPURINOL 100 MG TABLET Take 200 mg by mouth twice da* * ALPHA LIPOIC ACID 200 MG CAPS* Take 1 tablet by mouth once d* * ETODOLAC 500 MG TABLET Take 1 tablet by mouth twice * * FOLIC ACID 800 MCG TABLET Take one(1) tablet daily. * FLEXERIL 10 MG TABLET as necessary * IBUPROFEN 200 MG TABLET Take 1-2 tablet's) every four* * FLONASE 50 MCG/ACTUATION NASA* 2 spray per nostril daily. * VITAMIN C 1,000 MG TABLET Take one(1) tablet daily. Problem List As Of Date 03/08/2018 Noted Resolved Mixed hyperlipidemia [E78.2] INVALID FOR* Type 2 diabetes mellitus without retinopathy (H*INVALID FOR* Morbid obesity (HCC) [E66.01] INVALID FOR* Hypothyroidism [E03.9] INVALID FOR* Bilateral renal cysts [N28.1] INVALID FOR* Overactive bladder [N32.81] INVALID FOR* Gout [M10.9] INVALID FOR* Central sleep apnea [G47.31] INVALID FOR* More... Adrenal cortical adenoma of left adrenal gland *INVALID FOR* More... 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] INVALID FOR* Vitreous floaters of both eyes [H43.393] INVALID FOR* ERM OD (epiretinal membrane, right eye) [H35.37*INVALID FOR* Combined forms of age-related cataract of both *INVALID FOR* Adult BMI 39.0-39.9 kg/sq m [Z68.39] INVALID FOR* Essential hypertension [I10] INVALID FOR* Environmental allergies [Z91.09] INVALID FOR* Encounter Status:Closed by LAURY ALEJANDRE on 03/08/18 CNCNPATED Observed: 03/08/2018 Status: COMPLETED Source: [place] 10:00 AM [facility] Education ([facility]) BESSIE ELLISON ([id number]) 1960 F Date Time Provider Department 03/08/18 10:00 AM TABATHA VEGA (RD[facility] Reason for Visit: Patient Education [91] Progress Notes: Tabatha Vega RD 03/08/2018 4:59 PM Signed [facility] Nutrition Therapy: Initial Assessment (Group) Patient Name: Bessie Ellison Class Topic: Functional Nutrition and Elimination Diet Introduction Education Materials: IFM Elimination Diet Food List, Weekly Quality Assurance Supervisor and Recipes, Comprehensive Guide, Adaptable Meals, Dirty Dozen Chief Concerns: 1. Fibromyalgia 2. Anemia 3. Metabolic Syndrome 4. Diabetes 5. Arthritis 6. Inflammation 7. Gout 8. Incontinence 9. Chronic Renal Insufficiency 10. Autoimmune Health Goals: Improve health and not just keep adding medications. MSQ Score: 118 Is the patient having any pain that is interfering with oral intake? 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 - Atypical ductal hyperplasia of breast 08/21/14 Left Breast - CPAP (continuous positive airway pressure) dependence - Dysmetabolic syndrome X - Essential hypertension, benign - Growth of eyelid - Right Eye 08/11/2014 - Myalgia and myositis, unspecified - Nonalcoholic liver disease, chronic - Other and unspecified hyperlipidemia - Other vitreous opacities - Both Eyes 08/11/2014 - Polycystic ovaries Anthropometrics: LMP 01/17/2010 Height: Last 1 Encounter Ht Readings: Date: Ht: 03/08/2018 152 cm (4' 11.84) Current weight: Last 1 Encounter Wt Readings: Date: Wt: 03/08/2018 92.2 kg (203 lb 3.2 oz) Wt: 92.2 kg (203 lb 3.2 oz) BMI: 39.89 kg/(m2) Resting Metabolic Rate: 1429 Results for BESSIE ELLISON ( ) as of 03/08/2018 16:55 Ref. Range 03/08/2018 09:19 Homocysteine, Serum Latest Ref Range: <15.1 umol/L 19.8 (H) UltraSens C-Reactive Protein Latest Ref Range: <3.1 mg/L 2.3 Hemoglobin A1C Latest Ref Range: 4.3 - 5.6 % 5.7 (H) Estimated Average Glucose Latest Units: mg/dL 117 Lifestyle: Weight issues: Yes, BMI indicates obesity Adequate, restful sleep?: Yes, average of 9 hours but patient feels tired upon awakening. Use of Ambien 1-2 times per year Currently exercising?: Yes, treadmill, weights/bands, stretching GI symptoms:Yes, heartburn (4) and bloating, belching, gas (3) Dietary pattern: Current diet: Yes, I have been trying a healthy diet - nothing artificial, no preservatives, green tea, etc. Food allergies:No Food sensitivities: Yes, Lactose problems, though not as bad as used to be. Sometimes will bloat, but not a pattern. Reported lifestyle behaviors and eating habits:Fast eater,Eat too much,Late-night eating,Time constraints,Travel frequently,Healthy foods not readily available,Significant other or family don't like healthy foods Diet Recall: Yes B: An egg sandwich, or a bowl of grits; or occasionally egg biscuit L: Soup and veggie; or entree and veggie; or salad with chcken D: Soup an crackers; or entree and veggie and half sweet potato; or two slices pizza (Fri.); or fish and veggie Snacks: Raisins; apple; orange; celery; carrots; rice cake with natural peanut butter Beverages: Water; water with lemon; green tea; occasionally a Coke; water with falvor packet Excessive stress reported?: Yes, primarily related to stress (7) 57 year old female (Shannon) presents from [place], [place] for initial nutrition assessment relative to metabolic syndrome, suspected autoimmune issues and kidney concerns. C/o sneezing attacks, heartburn, bloating, gas, joint pain, and frequent illness. Past medical history is notable for nonalcoholic liver disease, metabolic syndrome, myalgia, and polycystic ovaries. Diet recall includes trying to eat a healthier diet and contains some breads/biscuits and occasional sodas. Due to metabolic syndrome and to control overall inflammation, patient would benefit from an elimination diet with no starchy vegetables, grains or legumes. Provider Nutrition Notes: Elimination Diet with no grains, no legumes no starchy veggies Nutrition Diagnosis: Obesity relates to excess food intake and inactivity as evidenced by BMI Food and nutrition related knowledge deficit related to lack of prior education as evidenced by patient's verbalized inaccurate/incomplete information. Altered nutrition related lab values related to diabetes as evidenced by lab results Nutrition Intervention 03/08/2018: Nutrition education: 1. Whole foods, plant based, low glycemic, comprehensive elimination diet 2. Adequate hydration 3. Self-Monitoring: Track food/beverage intake 4. Schedule follow up for food reintroduction and further personalization of eating plan Nutrition Monitoring AND Evaluation: Adherence to elimination diet Criteria: Patient recall, food diary Follow up: 8 weeks Time Spent: 60 minutes Referred/Supervised by: Dr. Kylee Perez Consult Billing Type: Group/60 minutes Number of Increments: 2 (60 minutes) Signed by: Tabatha Vega RD Primary Visit Diagnosis:Type 2 diabetes mellitus without retinopathy (HCC) [E11.9] Other Visit Diagnoses:Adult BMI 39.0-39.9 kg/sq m [Z68.39] GEOVANY positive [R76.8] Central sleep apnea [G47.31] Dietary counseling and surveillance [Z71.3] During your visit today, we recorded the following information about you: Allergies As of Date: 03/08/2018 Noted Allergy Reaction BACTRIM (SULFAMETHOXAZOLE) 01/12/2011 4 - Hives CECLOR (CEFACLOR) 12/04/2014 14 - Other: See Comments Comments: Yeast infection environmental [Other] 07/07/2005 14 - Other: See Comments Comments: dust, grass, trees, dogs ERYTHROMYCIN 07/07/2005 14 - Other: See Comments Comments: Headaches LISINOPRIL 12/04/2014 3 - Cough PENICILLINS 05/01/2006 4 - Hives VICTOZA (LIRAGLUTIDE) 05/23/2017 11 - Vomiting Date Reviewed: 03/08/2018 Reviewed by: Tabatha Vega - Fully Assessed Prescriptions as of 03/08/2018 Sig: RANITIDINE 150 MG TABLET Take 150 mg by mouth twice da* OMEPRAZOLE 40 MG CAPSULE,MARKUS* Take 40 mg by mouth twice destiny* POTASSIMIN ORAL Take 198 mg by mouth. DOXAZOSIN 2 MG TABLET Take 2 mg by mouth daily at b* PHOSPHATIDYLCHOLINE (BULK) OK* MILK THISTLE ORAL Take by mouth. RED YEAST RICE ORAL Take by mouth. DANDELION ORAL Take by mouth. Milk thistle METFORMIN 500 MG TABLET TAKE 2 TABLETS BY MOUTH WITH * DULAGLUTIDE 0.75 MG/0.5 ML BROWN* Inject subcutaneously once e* OMEGA-3 FATTY ACIDS-FISH OIL * Take 2 capsules by mouth once* FERROUS SULFATE 325 MG (65 MG* Take 325 mg by mouth once destiny* ARMOUR THYROID ORAL Take 60 mg by mouth once soraida* NAPHAZOLINE 0.025 %-PHENIRAMI* Use 2 Drops in both eyes ever* PEG 400-PROPYLENE GLYCOL 0.4 * Use 1 Drop in both eyes twice* CALCIUM + D ORAL Take 1 tablet by mouth once d* MAGNESIUM OXIDE 400 MG TABLET Take 400 mg by mouth once destiny* CPAP AZELASTINE 137 MCG (0.1 %) NA* Use 1 [place] in each nostril t* METHOCARBAMOL 500 MG TABLET Take 500 mg by mouth as neede* ZOLPIDEM 5 MG TABLET Take 5 mg by mouth at bedtime* ACIDOPHILUS ORAL Take 7 mg by mouth as needed. FENOFIBRATE NANOCRYSTALLIZED * Take 145 mg by mouth once destiny* B COMPLEX ORAL Take 1 tablet by mouth once d* * LOSARTAN 100 MG TABLET Take 1 tablet by mouth once d* * LORATADINE 10 MG TABLET Take 1 tablet by mouth once d* * ALLOPURINOL 100 MG TABLET Take 200 mg by mouth twice da* * ALPHA LIPOIC ACID 200 MG CAPS* Take 1 tablet by mouth once d* * ETODOLAC 500 MG TABLET Take 1 tablet by mouth twice * * FOLIC ACID 800 MCG TABLET Take one(1) tablet daily. * FLEXERIL 10 MG TABLET as necessary * IBUPROFEN 200 MG TABLET Take 1-2 tablet's) every four* * FLONASE 50 MCG/ACTUATION NASA* 2 spray per nostril daily. * VITAMIN C 1,000 MG TABLET Take one(1) tablet daily. Encounter Status:Closed by TABATHA VEGA on 03/08/18 HUMAN TGF BETA 1 Collected: 03/08/2018 Status: F Source: [facility] [facility] 9:29 AM [facility] USE ONLY REPOSITORY TYPE CODE TESTS RESULT OUT OF RANGE REFERENCE UNITS LAB TGFB1R [id number] pg/mL HUMAN TGF 970 BETA 1 RES LAB USE ONLY Result Comment: (NOTE) INTERPRETIVE INFORMATION: Transforming Growth Factor beta, Plasma Results are intended for research purposes or in attempts to understand the pathophysiology of unusual immune or inflammatory disorders. Test developed and characteristics determined by [facility]. See Compliance Statement B: [employer]/ Performed by [facility], [address] [place] [id number] www.[employer], Jason Peterson MD, Lab. Director Performed By: #### TGFB1 #### [employer] [address] [address] [phone] FREE T3 Collected: 03/08/2018 Status: F Source: [place] 9:19 AM [facility] REPOSITORY TYPE CODE TESTS RESULT OUT OF RANGE REFERENCE UNITS LAB FREET3 2.3-4.1 pg/mL Free T3 2.3 Performed By: #### FREET3, FT4, HSCRP, URIC, HOMCYS, TSH, HBA1C, MICRO, TGAB, INSULN, VITD, MMA, LPA, NMRLIP #### [facility] [employer] [address] [place] [address] #### COMP4A #### [place] [address] [phone] FREE T4 Collected: 03/08/2018 Status: F Source: [place] 9:19 AM [facility] REPOSITORY TYPE CODE TESTS RESULT OUT OF RANGE REFERENCE UNITS LAB FT4 0.9-1.7 ng/dL Free T4 1.2 Performed By: #### FREET3, FT4, HSCRP, URIC, HOMCYS, TSH, HBA1C, MICRO, TGAB, INSULN, VITD, MMA, LPA, NMRLIP #### [facility] [employer] [address] [place] [address] #### COMP4A #### [place] [address] [phone] ULTRA-SENSITIVE CRP Collected: 03/08/2018 Status: F Source: [place] 9:19 AM [facility] REPOSITORY TYPE CODE TESTS RESULT OUT OF REFERENCE UNITS RANGE LAB CRPUS <3.1 mg/L UltraSens 2.3 C-ReacProt Result Comment: (NOTE) hsCRP < 1.0 mg/L, relative risk is low hsCRP 1.0-3.0 mg/L, relative risk is average hsCRP > 3.0 mg/L, relative risk is high Reference: Owen TA, Zhang GA, Pankaj RW, et al. Markers of Inflammation and Cardiovascular Disease. Application to Clinical and Public Health Practice. A Statement for Healthcare Professionals From the Centers for Disease Control and Prevention and the [employer]. Circulation 2003;107:499-511. Performed By: #### FREET3, FT4, HSCRP, URIC, HOMCYS, TSH, HBA1C, MICRO, TGAB, INSULN, VITD, MMA, LPA, NMRLIP #### [place] [address] [place] [phone] #### COMP4A #### [facility] [address] [place] [address] [phone] URIC ACID Collected: 03/08/2018 Status: F Source: [place] 9:19 AM [facility] REPOSITORY TYPE CODE TESTS RESULT OUT OF RANGE REFERENCE UNITS LAB URIC 2.5-6.6 mg/dL Uric Acid 3.9 Performed By: #### FREET3, FT4, HSCRP, URIC, HOMCYS, TSH, HBA1C, MICRO, TGAB, INSULN, VITD, MMA, LPA, NMRLIP #### [place] [phone] #### COMP4A #### [facility] [address] [place] [address] [phone] HOMOCYSTEINE Collected: 03/08/2018 Status: F Source: [place] 9:19 AM [facility] REPOSITORY TYPE CODE TESTS RESULT OUT OF REFERENCE UNITS RANGE LAB HOMCYS <15.1 umol/L Homocysteine High 19.8 Performed By: #### FREET3, FT4, HSCRP, URIC, HOMCYS, TSH, HBA1C, MICRO, TGAB, INSULN, VITD, MMA, LPA, NMRLIP #### [place] [address] [place] [phone] #### COMP4A #### [facility] [address] [place] [address] [phone] TSH Collected: 03/08/2018 Status: F Source: [place] 9:19 AM [facility] REPOSITORY TYPE CODE TESTS RESULT OUT OF RANGE REFERENCE UNITS LAB TSH 0.400-5.500 uU/mL TSH 3.760 Performed By: #### FREET3, FT4, HSCRP, URIC, HOMCYS, TSH, HBA1C, MICRO, TGAB, INSULN, VITD, MMA, LPA, NMRLIP #### [place] [phone] #### COMP4A #### [place] [address] [phone] HEMOGLOBIN A1C Collected: 03/08/2018 Status: F Source: [place] 9: AM [facility] REPOSITORY TYPE CODE TESTS RESULT OUT OF REFERENCE UNITS RANGE LAB HGBA1C 4.3-5.6 % High Hemoglobin A1c 5.7 LAB HBA0 mg/dL Est. Average Glucose 117 Result Comment: eAG: (Estimated average glucose) is a calculated value from HgbA1c and is data entry representative of the average blood glucose level in the last 2-3 month period. Performed By: #### FREET3, FT4, HSCRP, URIC, HOMCYS, TSH, HBA1C, MICRO, TGAB, INSULN, VITD, MMA, LPA, NMRLIP #### [place] [address] [place] [phone] #### COMP4A #### [place] [address] [phone] TPO ANTIBODY Collected: 03/08/2018 Status: F Source: [place] 9: AM [facility] REPOSITORY TYPE CODE TESTS RESULT OUT OF REFERENCE UNITS RANGE LAB MICRO <5.6 IU/mL TPO Antibody <1.0 Performed By: #### FREET3, FT4, HSCRP, URIC, HOMCYS, TSH, HBA1C, MICRO, TGAB, INSULN, VITD, MMA, LPA, NMRLIP #### [place] [address] [place] [phone] #### COMP4A #### [place] [address] [phone] THYROGLOBULIN AB Collected: 03/08/2018 Status: F Source: [place] 9:19 [facility] REPOSITORY TYPE CODE TESTS RESULT OUT OF REFERENCE UNITS RANGE LAB TGAB <14.4 IU/mL Thyroglobulin Ab 1.7 Performed By: #### FREET3, FT4, HSCRP, URIC, HOMCYS, TSH, HBA1C, MICRO, TGAB, INSULN, VITD, MMA, LPA, NMRLIP #### [place] [address] [place] [phone] #### COMP4A #### [facility] [address] [place] [address] [phone] INSULIN Collected: 03/08/2018 Status: F Source: [place] 9: AM [facility] REPOSITORY TYPE CODE TESTS RESULT OUT OF REFERENCE UNITS RANGE LAB INSULN 1-24 uU/mL High Insulin 33.5 Performed By: #### FREET3, FT4, HSCRP, URIC, HOMCYS, TSH, HBA1C, MICRO, TGAB, INSULN, VITD, MMA, LPA, NMRLIP #### [place] [phone] #### COMP4A #### [facility] [address] [place] [address] [phone] VITAMIN D 25 HYDROXY Collected: 03/08/2018 Status: F Source: [place] 9: [facility] REPOSITORY TYPE CODE TESTS RESULT OUT OF REFERENCE UNITS RANGE LAB VITD 31.0-80.0 ng/mL Vitamin D 25 51.0 Hydroxy Result Comment: Classification of 25 [place] Vitamin D status: Insufficiency/Moderate Deficiency: < or = 30 ng/mL Sufficiency/Optimal Levels: 31 to 80 ng/mL Toxicity: > 100 ng/mL Test performed by chemiluminescent immunoassay. Performed By: #### FREET3, FT4, HSCRP, URIC, HOMCYS, TSH, HBA1C, MICRO, TGAB, INSULN, VITD, MMA, LPA, NMRLIP #### [place] [address] [place] [phone] #### COMP4A #### [facility] [address] [address] [phone] METHYLMALONIC ACID Collected: 03/08/2018 Status: F Source: [place] 9:19 [facility] REPOSITORY TYPE CODE TESTS RESULT OUT OF REFERENCE UNITS RANGE LAB MMA 79-376 nmol/L Methylmalonic Acid 236 Result Comment: This test was developed and its performance characteristics determined by [facility] Jeromy [facility] [place] ([facility]). It has not been cleared or approved by the FDA. -[facility] is regulated under CLIA as qualified to perform high-complexity testing. This test is used for clinical purposes. It should not be regarded as investigational or for research. Performed By: #### FREET3, FT4, HSCRP, URIC, HOMCYS, TSH, HBA1C, MICRO, TGAB, INSULN, VITD, MMA, LPA, NMRLIP #### [facility] [address] [place] [address] #### COMP4A #### [facility] [address] [address] [phone] LIPOPROTEIN (A) Collected: 03/08/2018 Status: F Source: [place] 9:19 [facility] REPOSITORY TYPE CODE TESTS RESULT OUT OF REFERENCE UNITS RANGE LAB LPA 0-40 mg/dL Lipoprotein (a) <2 Result Comment: Result rechecked. Performed By: #### FREET3, FT4, HSCRP, URIC, HOMCYS, TSH, HBA1C, MICRO, TGAB, INSULN, VITD, MMA, LPA, NMRLIP #### [place] [address] [place] [address] #### COMP4A #### [address] [address] [phone] NMR LIPOPROTEIN PROF Collected: 03/08/2018 Status: F Source: [place] 9:19 [facility] REPOSITORY TYPE CODE TESTS RESULT OUT OF REFERENCE UNITS RANGE LAB NMRSRC NMRLIP Source SERUM LAB LDLPN <1000 nmol/L LDL High Particle Number [id number] LAB NMRLDL 0-99 mg/dL LDL High Cholesterol 155 Result Comment: (NOTE) LDL-C is inaccurate if patient is non-fasting. LAB NMRHDL >39 mg/dL Low HDL Cholesterol 38 LAB NMRTRG 0-149 mg/dL Triglycerides High 384 LAB NMRTOT 100-199 mg/dL Total Cholesterol High 270 LAB HDLP >=30.5 umol/L Low Total HDL Particles 30.3 LAB SMLDLP <=527 nmol/L Small LDL-P High 1587 LAB LVLDLP <=2.7 nmol/L Large VLDL-P High 9.2 LAB LGHDLP >=4.8 umol/L Low Large HDL-P 1.7 LAB VLDLSZ <=46.6 nm VLDL Size High 49.3 LAB LDLSZE >20.5 nm LDL Size 20.9 Result Comment: (NOTE) Small LDL-P and LDL Size are associated with CVD risk, but not after LDL-P is taken into account. These assays were developed and their performance characteristics determined by [employer]. These assays have not been cleared by the US Food and Drug Administration. The clinical utility of these laboratory values have not been fully established. LAB HDLSZE >=9.2 nm Low HDL Size 8.4 LAB LPIR <=45 High LP / IR Score 82 Result Comment: (NOTE) LP-IR Score is inaccurate if patient is non-fasting. The LP-IR score is a laboratory developed index that has been associated with insulin resistance and diabetes risk and should be used as one component of a physician's clinical assessment. Neither the LP-IR score nor the subclasses listed above have been cleared by the US Food and Drug Administration. Test performed at: [address] [phone] Simon Mckeon MD Performed By: #### FREET3, FT4, HSCRP, URIC, HOMCYS, TSH, HBA1C, MICRO, TGAB, INSULN, VITD, MMA, LPA, NMRLIP #### [facility] [address] [place], [place] [address] #### COMP4A #### [facility] [address] [place]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 orders placed this encounter Digestive Enzymes Ultra 180 ct. (Pure Encapsulations) supports digestion of food Si-2 capsules with meals Refill: 0 Glutagenics (Metagenics) Sig: Mix one teaspoon (4.33 g) with water three times daily (1 teaspoon = 3.5 grams L-glut) Magnesium Glycinate 120mg (Pure Encapsulations) Sig: Take 1-4 capsules at night Meriva-SR (Rosemary) Sig: Take 2 capsules two- three times daily. One Henriette (Pure Encapsulation) -- fish oil Sig: Take 2 capsules by mouth daily with food. Refill: 0 PhytoMulti (Metagenics) Si capsules daily with food Ther-Biotic Detoxification Support (Klaire/Prothera) probiotic (FRIDGE) Sig: Take 1 capsule by mouth once daily. Refill: 0 Continue with Mag Vitamin C 500mg 2x/day Iron daily Vitamin d/k daily Instructions AND Resources [facility] labs GI effects Additional Recommendations: Natural ways to detox: 1. IR saunas 5 min to start and increase as tolerated to 30 minutes 3-5x/week 2. Dry brushing: use loofah brush over body, always moving towards the heart daily before showering. If you feel worse with the above two, this is a sign of a lot of toxin build up, decrease what you are doing to the level you can tolerate. 3. Air quality in your house and work are important. Consider investing in a good quality air purifier to clean the air. You can visit www.[employer] to learn more. If you wish to buy one from them, you can use the health partner code 189. Other ways to improve air quality are to keep windows open even for a few minutes to improve air quality, changing your HVAC filter more often and using a higher grade (10 is preferred). You can also open the windows to let the air circulate. Outside air generally is window cleaner than indoor air. 4. Drink water: 60oz with organic lemon 5. Eat organic as much as possible. Please visit the environmental working group to learn about fruits and veggies with the highest amount of toxins on them called the dirty dozen. EWG.org. Try to eat clean sources of meat as well. If you can not afford this, more vegetables than fruits are important to consume since they help up regulate your detoxification ability. 6. Get the free jocelyn: think dirty. It evaluates your personal care products and household products to make sure they are toxin free or low in toxins. Aim for a grade of 3 or less. LIFESTYLE PRESCRIPTION Functional Nutrition: Elimination Diet with no grains, no legumes no starchy veggies Sleep: Sleep is a necessary part to helping the body heal, detoxifying and restoring adrenal health. Sleep goal for most adults is a minimum of 7-9 hours nightly. Studies consistently show that less than 6 hours of sleep for even just a few nights can alter gene expression of over 700 different genes! This can lead to reduced immunity and altered hormone levels which can increase inflammation and cause weight gain, poor blood sugar regulation, memory problems and numerous other negative effects. Please make sleep a priority. Be very protective of your sleep time and find a routine that works for you. I recommend good sleep hygiene that our health coaches will review with you. -Do not use electronics including TV, computer, cell phones, tablets 60-90 minutes before bed time. -Use the red glasses to help make Melatonin which promote sleep. Buy this on [employer] PO5463 Laser Enhancement Glasses, about $8 -Listen to calming meditation and sleep music prior to bed. Visit [employer] or use [employer] music available for free on You Tube. -Calming teas such as chamomile, Passion Flower and Holy Basil can help decrease the stress response and promote sleep -Baths with Epsom salt and Lavender can help or just soaking your feet in a bucket with this can help -Use dark window shades or consider a set of eye shades for your eyes when trying to sleep Exercise Prescription: Numerous studies confirm the benefits of regular moderate aerobic exercise (walking, swimming, elliptical machine, cycling, etc.) for 30 min 5 days per week (150 min goal). I need you to incorporate this into your regular schedule as part of your journey to optimal wellness. If you do not engage in a regular exercise program, start slow and build up. Begin with 15 minutes 3-4x/week at a mild intensity (this means you can sing or hum). After a few weeks, increase to 20-30 minutes but at a moderate intensity (this means you can talk but can not sing). Stress Management: Meditation-can help reduce stress, chronic pain as well as chronic disease states. Begin with mindfulness using Venkata Castillo Mindfulness CD or MP3 available on [employer] or a free jocelyn: headspace or calm. Begin with mindfulness meditation once per day for 5-15 minutes and then build up to 15 min twice per day as you feel ready. You can also try hemisync music for a deeper meditation as well as yoga breathing to calm the system down. Yoga Breathing: Practice breath work to calm the body down. Water Breath / Balanced Breathin-6 breathes per minute When you breathe 4-6 breathes per minute, it has an adaptogenic effect on your nervous system. If you're up, it will bring you down; if you're down, it will bring you up. You can practice Water Breath standing, seated, lying down, and even while driving. Like drinking a glass of water, it's always safe, always appropriate, and always healthful. ? Practice any time, day or night ? Use before high-stress meetings or presentations ? Use if you're feeling sluggish midday ? Use during all yoga practices and low-intensity exercise How to Practice: ? Inhale through your nose 1-2-3-4 ? Exhale through your nose 4-3-2-1 Repeat for at least 10 Whiskey Breath / Down-Regulating Breath: < 4 breathes per minute When you reduce your breath below 4 breathes per minutes, it triggers a strong parasympathetic (rest and digest) nervous system response, reduces your heart rate, reduces activity in skeletal muscles, and improves digestion. This type of breathing is great after meals, in the evening, and most-commonly, right before bed. This practice should be done seated or lying down, and never while driving or doing anything standing or active. It's extremely common for students to fall asleep while using Whiskey Breath, so it should be used with care, only when appropriate. ? Use primarily before bed ? Can be used (with care) to reduce intense stress or anxiety ? After eating, this breathing pattern can aid in digestion How to Practice: ? Sit down or lie down in bed ? Inhale through your nose 1-2-3-4 ? Hold: 1-2-3-4 ? Exhale through your nose 4-3-2-1 ? Hold: 4-3-2-1 ? Repeat for at least 10 rounds (approx 10 min) Practice only while seated or lying down (never while driving) Smart phone apps to begin a meditative practice: Headspace (free for first 10 days) Insight Meditation Timer- (Free)-Great all-around jocelyn to use for guided meditations of many different types and lengths or just to use as a tool to time and track your meditation practice. This is my absolute favorite! Calm- (Free) Walking Meditations-($1.99) - Get your walk AND meditation done together. A good way to start out for individuals who feel they just can't sit still to begin a meditative practice. Seeing a therapist: Please consider seeing Laury DENNIS-she is our behavioral therapis at least once or using [facility]-please call the [facility] at [phone] to make your appointment. I really like Chiqui Castorena and Augustina Rojas. I recommend that you use the supplements from the [facility] [employer] Living Store at : https://store.[employer]/ as we have thoroughly evaluated the research and use only highest quality supplements. Instructions are in your packet. During the next 8 weeks you'll be doing the diet plan discussed with our belly packer, allowing for gentle detoxification and decreasing inflammation - while we are gather your lab results and combine those with your complete history to formulate a very personalized treatment plan. Any documistic labs ordered take about 4 weeks to return. Do them as soon as possible so that we have the results before your next appointment. You can access them on the documistic website if you set up a user account, and it can beneficial if you look at them to be a tad familiar with the layout. I will discuss this with you at the follow up visit only. Due to the volume and complexity of the testing performed, we are not able to review labs via [employer] or over the phone, but please know, if any of your labs are critical we will contact you. Some of your labs may likely look out of range, and this is not unexpected. Therefore, I will likely not be addressing abnormal food sensitivities or prince complex results via MyChart or otherwise, We will review and discuss these all at your next visit. Also, MyChart volume has increased tremendously recently. I respectfully request that if you send a message, please limit it to no more than 2 brief questions. If it is going to require in-depth investigation on my part, I will more than likely ask you to schedule either an in-person or virtual follow-up to address your questions. We will go over a lot of information during your 30 minute follow up visit - so please be well-rested and alert. I will be documenting as we go along for your to digest later, but you may want to bring someone with you, if possible. Also make sure to schedule with the belly packer (this will not happen automatically as it did with your first visit) so that she can go into a deeper dive on the nutritional aspects of your treatment plan. Please make a follow up appointment in 8-10 weeks and then 4 months. 1. Labs will be discussed at your next visit. 2. Visit 3 and on you will transition to one of our qualified certified mid-level providers for continuing care 3. Schedule with the belly packer prior to your appointment with me if needed. 4. Use the health coaches to help you with lifestyle transitions. This is hard so use them to help make it easier Time spend with patient: Physician edyp-ze-yuah time was approximately 70 minutes with >50% devoted to counseling or coordination of care for above diagnoses. The impression as well as the plan, as outlined, were extensively discussed with the patient who voiced understanding. All questions were answered to their stated satisfaction. In addition, approximately 20-30 minutes were spent reviewing electronic or paper patient questionnaire/medical records/labs before and/or after the appointment. Kylee Perez MD, MPH SHOULDER MIN 2 VIEWS Observed: 02/22/2018 Status: F Source: [place] 9:53 AM [facility] REPOSITORY [facility] Imaging Services [address] [place] [id number] Shoulder min 2 Views MR#: [id number] Acct: [id number] Name: BESSIE ELLISON Rep #: [id number] : 1960 F 57 From: Naveed Haas DO PCP: Zabrina Gonzalez MD Status: REG CLI Study: Shoulder min 2 Views Date of Exam: 02/22/18 Exam# [id number] Ordering Dr: Miki Gonzalez MD STUDY: X-RAY - RIGHT SHOULDER REASON FOR EXAM: Female, 57 years old. Right shoulder pain for one month. No injury. TECHNIQUE: 4 view(s) of the shoulder. COMPARISON: None. FINDINGS: Normal glenohumeral articulation. Normal acromioclavicular joint. Normal acromion. There is no acute fracture, dislocation or destructive osseous pathology. Normal humeral head and visualized proximal humerus. The soft tissue structures are unremarkable. Normal visualized pulmonary apex. RAD/Shoulder min 2 Views IMPRESSION: Normal x-ray examination of the shoulder. Electronically Signed: Naveed Haas DO at 17:33 EDT Tel [phone], Service support , CC: Zabrina Gonzalez MD Strong Nitric Operator: Signed CBC W/DIFF, AUTOMATED Collected: 02/19/2018 Status: F Source: [place] 11:19 AM [facility] REPOSITORY Order Comment: Order Date: 02/19/18 Order Info: [id number] - CBCD TYPE CODE TESTS RESULT OUT OF RANGE REFERENCE UNITS LAB L100.1000 4.4-11.0 K/mm3 Normal WBC 4.6 LAB L100.1200 4.2-5.4 M/mm3 Low RBC 3.97 LAB L100.1300 12.0-15.0 g/dl Normal HGB 12.0 LAB L100.1400 37-47 % Low HCT 36.6 LAB L100.1500 81-99 fL Normal MCV 92.2 LAB L100.1600 27.0-32.0 pg Normal MCH 30.2 LAB L100.1700 32-36 g/gl Normal MCHC 32.8 LAB L100.1810 11.6-14.6 % Normal RDW CV 13.7 LAB L100.1820 35.1-43.9 fl High RDW SD 45.4 LAB L100.1900 150-450 K/mm3 Normal PLT 191 LAB L100.2000 6.2-12.0 fl Normal MPV 9.3 LAB L100.2100 47-70 % Normal NEUT% 49.7 LAB L100.2200 19-41 % Normal LY% 37.3 LAB L100.2300 0-10 % Normal MONO% 5.9 LAB L100.2400 0-5 % High EO% 5.6 LAB L100.2500 0-1 % High BASO% 1.5 LAB L100.2550 0.0-0.9 % Normal IM GRAN % 0.000 Result Comment: IG% - Immature Granulocytes (promyelocytes, myelocytes and metamyelocytes) > 1% indicates that a LEFT SHIFT is Present. LAB L100.2620 2.0-7.7 X10 3/uL Normal Absolute Neut 2.3 LAB L100.2720 0.83-4.51 X10 3/ul Normal Absolute Lymph 1.72 Performed By: #### L100.0100, L500.4050, L500.4100 #### [facility] [address] [place], [address] COMPREHENSIVE METABOLIC Collected: 02/19/2018 Status: F Source: [facility] 11:19 AM [facility] REPOSITORY Order Comment: Order Date: 02/19/18 Order Info: [id number] - CMP Order Info: [id number] - LIPID TYPE CODE TESTS RESULT OUT OF RANGE REFERENCE UNITS LAB L501.0100 74-106 mg/dL Normal GLU 100 Result Comment: Fasting Glucose result from 100 to 125 mg/dL suggests IMPAIRED HOMEOSTASIS per A.D.A. criteria. Please note revised GLUCOSE reference range effective 2017. LAB L501.1000 7-18 mg/dL High BUN 27 LAB L501.1100 0.55-1.02 mg/dL High CREAT,SERUM 1.21 Result Comment: The validity of the calculated GFR AND GFRAA in patients over 70 years has not been determined. Clinical correlation is essential. LAB L501.1110 >60 mL/min Low EST GFR 49 Result Comment: Non- GFR Calc LAB L501.1115 >60 mL/min Low EST GFR - AA 59 Result Comment: GFR Calc LAB L501.1300 10-20 RATIO High BUN/CRE 22.3 LAB L501.1500 6.4-8.2 g/dL T Normal PROT 8.1 LAB L501.1800 3.2-5.0 g/dL Normal ALB 3.9 LAB L501.1950 2.2-4.2 g/dL Normal GLOB 4.2 LAB L501.2000 0.9-2.4 RATIO Normal A/G 0.9 LAB L501.2200 8.5-10.1 mg/dL CA Normal 10.1 LAB L501.4100 15-37 U/L Normal AST 34 LAB L501.4305 45-117 U/L Normal ALK P 52 LAB L501.4405 13-56 U/L Normal ALT 39 LAB L501.4600 0.20-1.00 mg/dL T Normal BILI 0.50 LAB L501.5300 136-145 mmol/L NA Normal 139 LAB L501.5600 3.5-5.1 mmol/L K Normal 4.9 LAB L501.5900 98-107 mmol/L CL Normal 106 LAB L501.6100 21.0-32.0 mmol/L Normal CO2 24.0 LAB L501.6200 5-15 Normal GAP 9 Performed By: #### L100.0100, L500.4050, L500.4100 #### [facility] [address] [place], [address] LIPID PROFILE Collected: 02/19/2018 Status: F Source: [place] 11:19 AM [facility] REPOSITORY Order Comment: Order Date: 02/19/18 Order Info: [id number] - CMP Order Info: [id number] - LIPID TYPE CODE TESTS RESULT OUT OF RANGE REFERENCE UNITS LAB L501.4900 200 mg/dL High CHOL 254 Result Comment: <200 mg/dL Desirable 200-240 mg/dL Borderline >240 mg/dL High Risk LAB L501.5000 mg/dL High TRIG 364 Result Comment: The drugs N-Acetylcysteine and Metamizole may falsely depress this assay. Serum Triglycerides Reference Interval Normal <150 mg/dL Borderline high 150 - 199 mg/dL High 200 - 499 mg/dL Very High > or = 500 mg/dL LAB L501.6400 mg/dL Low HDL 36 Result Comment: The drugs N-Acetylcysteine and Metamizole may falsely depress this assay. Reference Range HDL <40 mg/dL Low HDL Cholesterol HDL >or= 60 mg/dL High HDL Cholesterol LAB L501.6500 0-130 mg/dL High LDL 145 LAB L501.6600 5-40 mg/dL High VLDL 73 Performed By: #### L100.0100, L500.4050, L500.4100 #### [facility] [address] [place], [address] COMPREHENSIVE METABOLIC Collected: 11/22/2017 Status: F Source: [facility] 11:04 AM [facility] REPOSITORY Order Comment: Order Date: 11/22/17 Order Info: [id number] - CMP Order Info: [id number] - URIC Order Info: [id number] - TSH TYPE CODE TESTS RESULT OUT OF RANGE REFERENCE UNITS LAB L501.0100 74-106 mg/dL Normal GLU 96 LAB L501.1000 7-18 mg/dL High BUN 22 LAB L501.1100 0.55-1.02 mg/dL High 1.04 CREAT,SERUM Result Comment: The validity of the calculated GFR AND GFRAA in patients over 70 years has not been determined. Clinical correlation is essential. LAB L501.1110 >60 mL/min Low EST GFR 58 Result Comment: Non- GFR Calc LAB L501.1115 >60 mL/min Normal EST GFR - AA 70 Result Comment: GFR Calc LAB L501.1300 10-20 RATIO High BUN/CRE 21.2 LAB L501.1500 6.4-8.2 g/dL T Normal PROT 8.2 LAB L501.1800 3.2-5.0 g/dL Normal ALB 3.8 LAB L501.1950 2.2-4.2 g/dL High GLOB 4.4 LAB L501.2000 0.9-2.4 RATIO Normal A/G 0.9 LAB L501.2200 8.5-10.1 mg/dL CA Normal 9.8 LAB L501.4100 15-37 U/L Normal AST 34 LAB L501.4305 45-117 U/L Normal ALK P 54 LAB L501.4405 13-56 U/L Normal ALT 37 Result Comment: Please note revised ALT reference range effective 2017. LAB L501.4600 0.20-1.00 mg/dL Normal T BILI 0.70 LAB L501.5300 136-145 mmol/L Normal NA 141 LAB L501.5600 3.5-5.1 mmol/L Normal K 4.7 LAB L501.5900 98-107 mmol/L Normal CL 106 LAB L501.6100 21.0-32.0 mmol/L Normal CO2 25.0 LAB L501.6200 5-15 Normal GAP 10 Performed By: #### L500.4050, L501.1400, L501.9520, L506.1000 #### [facility] [address] [address] [place], [place], [address] URIC ACID Collected: 11/22/2017 Status: F Source: [place] 11:04 AM [facility] REPOSITORY Order Comment: Order Date: 11/22/17 Order Info: [id number] - CMP Order Info: [id number] - URIC Order Info: 3016-3 - TSH TYPE CODE TESTS RESULT OUT OF RANGE REFERENCE UNITS LAB L501.1400 2.6-6.0 mg/dL Normal URIC 3.8 Result Comment: The drugs N-Acetylcysteine and Metamizole may falsely depress this assay. Performed By: #### L500.4050, L501.1400, L501.9520, L506.1000 #### [facility] [address] [place], [place], [address] THYROID STIM HORMONE Collected: 11/22/2017 Status: F Source: WIL[place] (TSH) 11:04 AM [facility] REPOSITORY Order Comment: Order Date: 11/22/17 Order Info: [id number] - CMP Order Info: [id number] - URIC Order Info: 3016-3 - TSH TYPE CODE TESTS RESULT OUT OF RANGE REFERENCE UNITS LAB L501.9520 0.358-3.74 uIU/mL Normal TSH 1.20 Performed By: #### L500.4050, L501.1400, L501.9520, L506.1000 #### [facility] [address] [place], [address] VITAMIN D,25 HYDROXY Collected: 11/22/2017 Status: F Source: [place] 11:04 AM [facility] REPOSITORY Order Comment: Order Date: 11/22/17 Order Info: [id number] - VITD25 TYPE CODE TESTS RESULT OUT OF RANGE REFERENCE UNITS LAB L506.1000 19.95-100.01 ng/mL Normal Vitamin D 52.5 25-OH Result Comment: Vitamin D 25(OH) Status Range Deficiency <20 ng/mL (50nmol/L) Insuffciency 20 - 30 ng/mL (50 - 75 nmol/L) Sufficiency 30 - 100 ng/mL (75 - 250 nmol/L) Toxicity >100 ng/mL (>250 nmol/L) Performed By: #### L500.4050, L501.1400, L501.9520, L506.1000 #### [facility] [address] [place], [address] HOSP Observed: 11/09/2017 Status: COMPLETED Source: [place]OU[place] 12:00 AM [facility] REPOSITORY Get Medical Advice (WOOB) BESSIE ELLISON ([id number]) 1960 F Date Time Provider Department 11/09/17 JOSE E BASSETT During your visit today, we recorded the following information about you: Jose E Bassett MD 11/10/2017 3:14 PM Signed Please call patient about this We may need to schedule her an appt to discuss MD Kiah Henning RN 11/10/2017 3:57 PM Signed Left message to call office. Kiah Hammer RN 11/10/2017 4:41 PM Signed Patient declines an appointment to discuss. She feels that she asked direct questions in her Endorphin message that could be addressed via Endorphin. She does not feel an appointment is needed. Nor can she afford the Copay. Informed patient that HPV testing is more sensitive than what it was when she had her last pap. Patient still needing more reassurance from Dr. Bassett. Please address patient's concerns via mychart. Thank you. Gissel Hammer RN Allergies As of Date: 11/09/2017 Noted Allergy Reaction BACTRIM (SULFAMETHOXAZOLE) 01/12/2011 4 - Hives CECLOR (CEFACLOR) 12/04/2014 14 - Other: See Comments Comments: Yeast infection ERYTHROMYCIN 07/07/2005 14 - Other: See Comments Comments: Headaches LISINOPRIL 12/04/2014 3 - Cough PENICILLINS 05/01/2006 4 - Hives VICTOZA (LIRAGLUTIDE) 05/23/2017 11 - Vomiting environmental [Other] 07/07/2005 14 - Other: See Comments Comments: dust, grass, trees, dogs Date Reviewed: 11/07/2017 Reviewed by: Jose E Bassett - Fully Assessed Prescriptions as of 11/09/2017 Sig: RANITIDINE 150 MG TABLET Take 150 mg by mouth twice da* OMEPRAZOLE 40 MG CAPSULE,MARKUS* Take 40 mg by mouth twice destiny* POTASSIMIN ORAL Take 198 mg by mouth. DOXAZOSIN 2 MG TABLET Take 2 mg by mouth daily at b* PHOSPHATIDYLCHOLINE (BULK) OK* MILK THISTLE ORAL Take by mouth. RED YEAST RICE ORAL Take by mouth. DANDELION ORAL Take by mouth. Milk thistle METFORMIN 500 MG TABLET TAKE 2 TABLETS BY MOUTH WITH * DULAGLUTIDE 0.75 MG/0.5 ML BROWN* Inject subcutaneously once e* OMEGA-3 FATTY ACIDS-FISH OIL * Take 2 capsules by mouth once* FERROUS SULFATE 325 MG (65 MG* Take 325 mg by mouth once destiny* ARMOUR THYROID ORAL Take 60 mg by mouth once soraida* NAPHAZOLINE 0.025 %-PHENIRAMI* Use 2 Drops in both eyes ever* PEG 400-PROPYLENE GLYCOL 0.4 * Use 1 Drop in both eyes twice* CALCIUM + D ORAL Take 1 tablet by mouth once d* MAGNESIUM OXIDE 400 MG TABLET Take 400 mg by mouth once destiny* CPAP AZELASTINE 137 MCG (0.1 %) NA* Use 1 [place] in each nostril t* METHOCARBAMOL 500 MG TABLET Take 500 mg by mouth as neede* ZOLPIDEM 5 MG TABLET Take 5 mg by mouth at bedtime* ACIDOPHILUS ORAL Take 7 mg by mouth as needed. FENOFIBRATE NANOCRYSTALLIZED * Take 145 mg by mouth once destiny* B COMPLEX ORAL Take 1 tablet by mouth once d* * LOSARTAN 100 MG TABLET Take 1 tablet by mouth once d* * LORATADINE 10 MG TABLET Take 1 tablet by mouth once d* * ALLOPURINOL 100 MG TABLET Take 200 mg by mouth twice da* * ALPHA LIPOIC ACID 200 MG CAPS* Take 1 tablet by mouth once d* * ETODOLAC 500 MG TABLET Take 1 tablet by mouth twice * * FOLIC ACID 800 MCG TABLET Take one(1) tablet daily. * FLEXERIL 10 MG TABLET as necessary * IBUPROFEN 200 MG TABLET Take 1-2 tablet's) every four* * FLONASE 50 MCG/ACTUATION [employer]* 2 spray per nostril daily. * VITAMIN C 1,000 MG TABLET Take one(1) tablet daily. Problem List As Of Date 11/09/2017 Noted Resolved Mixed hyperlipidemia [E78.2] INVALID FOR* Type 2 diabetes mellitus without retinopathy (H*INVALID FOR* Morbid obesity (HCC) [E66.01] INVALID FOR* Hypothyroidism [E03.9] INVALID FOR* Bilateral renal cysts [N28.1] INVALID FOR* Overactive bladder [N32.81] INVALID FOR* Gout [M10.9] INVALID FOR* Central sleep apnea [G47.31] INVALID FOR* More... Adrenal cortical adenoma of left adrenal gland *INVALID FOR* More... 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 3 o'clock cervix, biopsy (A) - Benign ectocervix. 2. 6 o'clock cervix, biopsy (B) - Benign squamous epithelium. 3. 9 o'clock cervix, biopsy (C) - Benign ectocervix. 4. 12 o'clock cervix, biopsy (D) - Benign ectocervix. 5. Endocervix, curettings (E) - Benign squamous epithelium. ACV/uriel 11/09/2017 Obi Oviedo M.D. (Electronic Signature) SPECIMEN SUBMITTED A: 3 O'CLOCK CERVIX, BIOPSY B: 6 O'CLOCK CERVIX, BIOPSY C: 9 O'CLOCK CERVIX, BIOPSY D: 12 O'CLOCK CERVIX, BIOPSY E: ENDOCERVICAL, CURETTINGS CLINICAL DATA ascus pap with HPV positive GROSS DESCRIPTION A. Received in formalin is one piece of grover, soft tissue measuring 0.3 x 0.2 x 0.2 cm. Totally submitted in one cassette. B. Received in formalin is one piece of grover, soft tissue measuring 0.3 x 0.2 x 0.1 cm. Totally submitted in one cassette. C. Received in formalin is one piece of grover, soft tissue measuring 0.3 x 0.2 x 0.2 cm. Totally submitted in one cassette. D. Received in formalin is one piece of grover, soft tissue measuring 0.3 x 0.2 x 0.2 cm. Totally submitted in one cassette. E. Received in formalin are multiple brown, soft feathery segments of tissue aggregating to 2.0 x 0.5 x 0.1 cm. Totally submitted in one cassette. Gross examination performed at [facility], [address] [place] [address] 11/08/2017 9:43:46 PM Date of Report: 11/09/2017 Date of Procedure: 11/07/2017 Date of Receipt: 11/08/2017 Submitted by: JOSE E BASSETT MD Location: [facility] Diagnostic interpretation performed at [facility], [address] [place] [address]. ALLERGIES ALLERGIES DATE TYPE / CODE NAME / CODE REACTION SEVERITY SOURCE Drug erythromycin Other Unknown [place] 8 Allergy/983790618( ethylsuccinate/F0000 [facility] SNOM[facility]) [address](RXNORM) Hospital Repository Drug tramadol Other Unknown [place] 8 Allergy/913668980( HCl/T183748758(RXNOR [facility] SN[facility]) M) Hospital Repository Drug rosuvastatin Other Unknown [facility] Allergy/720811991( calcium/A065862152(R [facility]) XNORM) Hospital Repository Drug Penicillins/I9556809 Hives Unknown [facility] 8 Allergy/090926060( 76(RXNORM) [facility] SN[facility]) Hospital Repository Drug Oqfittz-Ghg-Svl Other Unknown [place] 8 Allergy/902168857( Reductase [facility]) Inhibitor/B579896836 Hospital (RXNORM) Repository Drug lisinopril/Z60317543 Other Unknown [place] 8 Allergy/110360644( 8(RXNORM) [facility] SN[facility]) Hospital Repository Drug lovastatin/L49242436 Other Unknown [place] 8 Allergy/904817681( 3(RXNORM) [facility] SN[facility]) Hospital Repository Drug cefaclor/Q293307723( Other Unknown [place] 8 Allergy/576984274( RXNORM) [facility]) Hospital Repository Drug sulfamethoxazole/F00 Hives Unknown [facility] 8 Allergy/460282932( 1768575(RXNORM) [facility]) Hospital Repository Drug trimethoprim/T836318 Hives Unknown [place] [facility] Allergy/448647600( 873(RXNORM) [facility] SN[facility]) Hospital Repository Drug ezetimibe/V036280048 Other Unknown [place] 8 Allergy/033126025( (RXNORM) [facility] SN[facility]) Hospital Repository DRUG LIRAGLUTIDE Vomiting [place] 7 INGREDI/267240041( Clinic Main SNOMED CT) [place] Repository DRUG CEFACLOR OTHER: SEE C [place] 5 INGREDI/210260928( Clinic Main SNOMED CT) [place] Repository DRUG LISINOPRIL COUGH [place] 5 INGREDI/771459083( Clinic Main SNOMED CT) [place] Repository DRUG SULFAMETHOXAZOLE HIVES [place] 1 INGREDI/148508865( Clinic Main SNOMED CT) [place] Repository Drug PENICILLINS HIVES [place] 6 Class/099556691(SN [facility] Main OMED CT) [place] Repository Miscellaneous OTHER OTHER: SEE [facility] 5 Allergy/196952011( Clinic Main SNOMED CT) [place] Repository DRUG/715987332(SNO ERYTHROMYCIN OTHER: SEE [facility] [address]) [facility] Main [place] Repository ENCOUNTERS ENCOUNTERS ADMIT/DISCHARGE ACCOUNT NUMBER ADMITTING ENCOUNTER LOCATION SOURCE CLASS 11/06/2018 [id number] Ambulatory [facility] ding:PT Repository 10/15/2018 [id number] Ambulatory [facility] Other [place] Repository 10/11/2018/10/11/20 [id number] Ambulatory BMSBuilding: [place] 18 BMS.[facility] Repository 09/26/2018 [id number] Ambulatory BMSBuilding: [facility] Repository 09/26/2018/09/26/20 [id number] Ambulatory BMSBuilding: [place] 18 BMS.CF.[facility] Repository 09/26/2018/09/26/20 [id number] Ambulatory [address] ding:SDCRoom Repository : AC03 09/25/2018/09/26/20 [id number] Ambulatory [address] Main [place] Repository 09/25/2018/09/25/20 [id number] Ambulatory [address] Main [place] Repository 09/20/2018/09/20/20 [id number] Ambulatory BMSBuilding: [place] 18 BMS.[facility] Repository 09/10/2018 [id number] Ambulatory [facility] ding:MRI Repository 08/23/2018/08/23/20 [id number] Ambulatory [address] ding:PT Repository 08/08/2018 [id number] [facility] ding:MTRAD Repository 07/04/2018/07/04/20 [id number] Ambulatory [address] [place] Repository 07/04/2018/07/05/20 [id number] Ambulatory [address] [place] Repository 06/14/2018 [id number] KYLEE PEREZ Ambulatory [facility] Other [place] Repository 06/06/2018/06/07/20 [id number] Ambulatory [address] Repository 05/29/2018/05/29/20 [id number] Ambulatory [address] Repository 05/28/2018 [id number] Ambulatory [facility] ding:LAB.FUT Repository URE 03/08/2018/03/08/20 [id number] Ambulatory [address] Main [place] Repository 03/08/2018/03/08/20 [id number] Ambulatory [address] [place] Repository 03/08/2018/03/08/20 [id number] Ambulatory [address] [place] Repository 03/08/2018/03/08/20 [id number] Ambulatory [address] Repository 02/22/2018 [id number] Ambulatory [facility] ding:MTRAD Repository 02/19/2018 [id number] [facility] ding:MFPLAB Repository 11/22/2017 [id number] [facility] ding:MFPLAB Repository PAYERS PAYERS ENCOUNTER GUARANTOR PAYER SUBSCRIBER SOURCE 11/06/2018 BESSIE Logan Primary BESSIE [place] [address] [facility] [id number] Number: Repository [address]Cta: [phone] [id number] [phone] () Date:7899-30-05[address] [address]MG: 11/06/2018 Secondary NOT GIVENUNK [place] Insurance:SELF PAY [facility] Number: Effective Repository Date:2018-10-11 10/11/2018 BESSIE Logan Primary BESSIE [address] Insurance:MEDICAL [place]: [facility] [id number], [place] Number: Repository [address]Rmi: 419 [id number] [phone] (HP) Date:9652-09-93KB [address] [place] [address]JU: 10/11/2018 Secondary NOT GIVENUNK [place] Insurance:SELF PAY [facility] Number: Effective Repository Date:2018-10-10 09/26/2018 BESSIE Logan Primary BESSIE [place] [id number] Insurance:MEDICAL [place]: [facility] [id number], [place] Number: Repository [address]Wbm: 419 [id number] [phone] (HP) Date:5248-78-92NL [address] [place] [phone]: 09/26/2018 Secondary NOT GIVENUNK [place] Insurance:SELF PAY [facility] Number: Effective Repository Date:2018-09-26 09/26/2018 BESSIE Logan Primary BESSIE [address] Insurance:MEDICAL [place]: [facility] [id number] Number: Repository [address]Lvq: 419 [id number] [phone] (HP) Date:4691-51-34PT [address] [place] [phone]: 09/26/2018 Secondary NOT GIVENUNK [place] Insurance:SELF PAY [facility] Number: Effective Repository Date:2018-09-26 09/26/2018 BESSIE Logan Primary B[place]IE [place] [id number] Insurance:MEDICAL [place]IREDOB: [facility] [id number] Number: Repository [address]Fcg: 419 [id number] [phone] (HP) Date:1012-85-88AJ [address] [place] [phone]: 09/26/2018 Secondary NOT GIVENUNK [place] Insurance:SELF PAY [facility] Number: Effective Repository Date:2018-09-21 09/20/2018 BESSIE Logan Primary BESSIE Logan [place] [id number] Insurance:MEDICAL BROOKIREDOB: [facility] [id number] Number: Repository [address]Xbe: 419 [id number] [phone] (HP) Date:4026-33-75LG [address] [place] [phone]: 09/20/2018 Secondary NOT GIVENUNK [place] Insurance:SELF PAY [facility] Number: Effective Repository Date:2018-09-20 09/10/2018 BESSIE Logan Primary BESSIE Logan [place] [id number] Insurance:MEDICAL [place]OOK[place]IREDOB: [facility] [id number] Number: Repository [address]Csa: ([phone] [id number] [phone] (HP) Date:1517-72-17JN [address] [address]UA: 09/10/2018 Secondary NOT GIVENUNK [place] Insurance:SELF PAY [facility] Number: Effective Repository Date:2018-09-04 08/23/2018 BESSIE Logan Primary BESSIE Logan [place] [id number] Insurance:MEDICAL [place]IREDOB: [facility] [id number] Number: Repository [address]Eop: 419 [id number] [phone] (HP) Date:1127-84-80NV [address] [place] [phone]: 08/23/2018 Secondary NOT GIVENUNK [place] Insurance:SELF PAY [facility] Number: Effective Repository Date:2018-08-08 08/08/2018 BESSIE Logan Primary B[place]IE [place] [id number] Insurance:MEDICAL BROOKSHIREDOB: [facility] [id number], [place] Number: Repository [address]Bae: 419 [id number] [phone] (HP) Date:8937-13-82KA [address] [place] [address]JI: 08/08/2018 Secondary NOT GIVENUNK [place] Insurance:SELF PAY [facility] Number: Effective Repository Date:2018-08-08 05/28/2018 Bessie Logan Primary Bessie [place] [id number] Insurance:MEDICAL [place]OB: [facility] [id number] Number: Repository [address]Ntx: 419 [id number] [phone] (HP) Date:6943-39-95YD [address] [place] [phone]: 05/28/2018 Secondary NOT GIVENUNK [place] Insurance:SELF PAY [facility] Number: Effective Repository Date:2018-05-15 02/22/2018 Bessie Logan Primary Bessie [place] [id number] Insurance:MEDICAL BrookshireDOB: [facility] 2006-[place] Number: Repository [address]Ewa: 419 [id number] [phone] (HP) Date:1762-53-14WT [address] [place] [phone]: 02/22/2018 Secondary NOT GIVENUNK [place] Insurance:SELF PAY [facility] Number: Effective Repository Date:2018-02-22 02/19/2018 Bessie Logan Primary Bessie [place] [id number] Insurance:MEDICAL BrookshireDOB: [facility] [id number] Number: Repository [address]Uou: 419 [id number] [phone] () Date:4805-70-89UX [address] [place] [phone]: 02/19/2018 Secondary NOT GIVENUNK [place] Insurance:SELF PAY [facility] Number: Effective Repository Date:2018-02-19 11/22/2017 Bessie Logan Primary [place] [address] Insurance:[facility] [id number] Number: Repository [address]Mkj: [phone] [id number] [phone] () Date:4895-30-45EI [address] [place] [address]EO: 11/22/2017 Secondary NOT GIVENUNK [place] Insurance:SELF PAY [facility] Number: Effective Repository Date:2017-11-22
== END 2018-09-26 18:47 | disposition home or self-care (01) ==
LOC: SDC 08:39 → AC 08:40
PROVIDERS: Anesthesiology; Family Provider Family Medicine; PCP Family Medicine; Referring Provider Orthopaedic Surgery; Visit Provider Orthopaedic Surgery
PROC: (CPT 29827; principal; 2018-09-26 09:50)
DX: M75.111 Incomplete rotator cuff tear or rupture of right shoulder, not specified as traumatic (principal); I10 Essential (primary) hypertension; M75.41 Impingement syndrome of right shoulder; M75.51 Bursitis of right shoulder; K21.9 Gastro-esophageal reflux disease without esophagitis; E78.00 Pure hypercholesterolemia, unspecified; D64.9 Anemia, unspecified; K76.0 Fatty (change of) liver, not elsewhere classified; R06.02 Shortness of breath; E11.9 Type 2 diabetes mellitus without complications
CPT/HCPCS: 23430; 29823; 29826; 36415; 80048; 82962; 83036; 84443; 85027; 85610; 85730; 88304; 93005; J7120; C1713; J2405

== ENCOUNTER → 2019-02-13 10:37 | Outpatient (CLI) | payer OTHER, SELFPAY ==
[2019-01-31 10:18] VITALS: BMI 39.4
[2019-02-13 12:33] LABS: Erythrocyte Sedimentation Rate 18 mm/hr (0-30)
[2019-02-13 12:37] LABS: Absolute Lymphocyte Count 1.31 X10^3/ul (0.83-4.51); Absolute Neutrophil Count 2.2 X10^3/uL (2.0-7.7); Basophil# 0.05 X10^3/uL; Basophil% 1.3 % (0-1); Eosinophil# 0.19 X10^3/uL; Eosinophils% 4.8 % (0-5); Hematocrit 35.4 % (37-47); Hemoglobin 11.6 g/dl (12.0-15.0); Lymphocyte # 1.31 X10^3/ul (4.0); Lymphocyte % 33.2 % (19-41); Mean Corp Hgb Conc 32.8 g/gl (32-36); Mean Corpuscular Hgb 29.7 pg (27.0-32.0); Mean Corpuscular Volume 90.5 fL (81-99); Mean Platelet Vol. 9.5 fl (6.2-12.0); Monocyte# 0.22 X10^3/uL; Monocyte% 5.6 % (0-10); Neutrophil # 2.16 X10^3/uL (2.7-7.7); Neutrophil % 54.6 % (47-70); Platelet Count 189 K/mm3 (150-450); RBC Distribution Width CV 14.8 % (11.6-14.6); RBC Distribution Width SD 48.8 fl (35.1-43.9); Red Blood Count 3.91 M/mm3 (4.2-5.4)
[2019-02-13 12:59] LABS: POSITIVE COUNT NO; POSITIVE DIFFERENTIAL NO; POSITIVE MORPHOLOGY NO
[2019-02-13 13:02] LABS: ALB/GLOB Ratio 0.9 RATIO (0.9-2.4); AST(SGOT) 69 U/L (15-37); Alanine Aminotransfer ALT/SGPT 58 U/L (13-56); Albumin, Serum 3.7 g/dL (3.2-5.0); Alkaline Phosphatase 66 U/L (45-117); Anion Gap 10 (5-15); BUN 27 mg/dL (7-18); BUN/Creat Ratio 24.1 RATIO (10-20); Calcium,Total 9.3 mg/dL (8.5-10.1); Chloride 105 mmol/L (98-107); Creatinine, Serum 1.12 mg/dL (0.55-1.02); EST Glomerular Filtration Rate 53 mL/min (>60); Est Glom Filt Rate - Afr Amer 64 mL/min (>60); Glucose 128 mg/dL (74-106); Potassium 4.4 mmol/L (3.5-5.1); Protein, Total 7.7 g/dL (6.4-8.2); Sodium Level 140 mmol/L (136-145); Thyroid Stim Hormone (TSH) 3.26 uIU/mL (0.358-3.74)
[2019-02-13 14:26] LABS: Vitamin D,25 Hydroxy 37.2 ng/mL (29.95-100.01)
== END ==
PROVIDERS: Family Provider Family Medicine; PCP Family Medicine; Referring Provider Family Medicine; Visit Provider Family Medicine
DX: E55.9 Vitamin D deficiency, unspecified (principal); E11.9 Type 2 diabetes mellitus without complications; D64.9 Anemia, unspecified
CPT/HCPCS: 36415; 80053; 82306; 84443; 85025; 85652

== ENCOUNTER → 2019-02-25 11:31 | Outpatient (CLI) | payer OTHER, SELFPAY ==
[2019-01-31 10:18] VITALS: BMI 39.4
[2019-02-25 14:00] LABS: Absolute Lymphocyte Count 1.39 X10^3/ul (0.83-4.51); Absolute Neutrophil Count 2.5 X10^3/uL (2.0-7.7); Basophil# 0.04 X10^3/uL; Basophil% 0.9 % (0-1); Eosinophil# 0.23 X10^3/uL; Eosinophils% 5.2 % (0-5); Hematocrit 36.6 % (37-47); Immature Platelet Fraction 1.6 % (1.0-7.9); Lymphocyte # 1.39 X10^3/ul (4.0); Lymphocyte % 31.3 % (19-41); Mean Corp Hgb Conc 32.8 g/gl (32-36); Mean Corpuscular Volume 91.5 fL (81-99); Mean Platelet Vol. 9.6 fl (6.2-12.0); Monocyte# 0.27 X10^3/uL; Monocyte% 6.1 % (0-10); Neutrophil # 2.49 X10^3/uL (2.7-7.7); Platelet Count 197 K/mm3 (150-450); RBC Distribution Width SD 50.4 fl (35.1-43.9); RET-HE 35.2 pg (30-35); Reticulocyte Count 1.89 % (0.5-1.5); White Blood Count 4.4 K/mm3 (4.4-11.0)
[2019-02-25 14:02] LABS: POSITIVE COUNT NO; POSITIVE DIFFERENTIAL NO; POSITIVE MORPHOLOGY NO
[2019-02-25 14:08] LABS: Erythrocyte Sedimentation Rate 40 mm/hr (0-30)
[2019-02-25 14:17] LABS: Vitamin B12 570 pg/mL (211-911); Vitamin D,25 Hydroxy 31.3 ng/mL (29.95-100.01)
[2019-02-25 14:44] LABS: Cholesterol 248 mg/dL (200); Ferritin 119 ng/mL (8-252); Free T3 2.5 pg/mL (2.18-3.98); High Density Lipoprotein 36 mg/dL; Iron 84 ug/dL (50-170); Iron Binding Capacity,Total 430 ug/dL (250-450); T4 Free Direct 1.03 ng/dL (0.76-1.46); T4 Total, Thyroxin 12.2 ug/dL (4.8-13.9); Triglycerides 330 mg/dL; Very Low Density Lipoprotein 66 mg/dL (5-40)
== END ==
PROVIDERS: Family Provider Family Medicine; PCP Family Medicine; Visit Provider Family Medicine
DX: R53.83 Other fatigue (principal); D64.9 Anemia, unspecified; E03.9 Hypothyroidism, unspecified
CPT/HCPCS: 36415; 80061; 82306; 82607; 82728; 82746; 83540; 83550; 84436; 84439; 84443; 84481; 85025; 85045; 85652

== ENCOUNTER 2019-03-15 15:30 | Outpatient (RCR) | payer OTHER, SELFPAY ==
[2018-10-11 09:34] VITALS: BMI 39.4
--- NOTE | 2018-11-08 07:56 | HP.PTEVAL ---
Patient's Visit Information AMY ELLISON is a 58 year old F referred to Physical Therapy by Elsa Fernandez DO with a diagnosis of R subscapularis, supraspinatus and open biceps tenodesis. Date of Evaluation: 10/22/18 Physical Therapist: Darryl Manriquez DPT - Visit Plan Frequency: 2-3x /Week Duration: 8 weeks Plan: Start with PROM and inferior glides with distraction. No initial elbow flexion for 6 weeks. Progress per protocol. - Subjective Findings: Pt. is here today for her initial evaluation with diagnosis of R subscapularis, supraspinatus and open biceps tenodesis. DOS: 09/26/18. Pt. arrives today in sling and prescribed. Pt. reports having increased pain after moving arm slightly in her shower. Pt. denies N/T, fever or chills. Pt. reports beign in sling except for showering. Pt. is having most pain in biceps region and deltoid region. Pt. reports not doing any exercises to this point. 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 Pt. is hopeful to return to work in 6 weeks. Pt. is sleeping in reclinig chair currently for relief. Pt. is taking pain medication as prescribed. Pt. is hopeful to reduce symptoms in order to get back to all recreational and household work without limitations. - Pain R shoulder Pain Intensity (Out of 10): 4 Pain Intensity Range: 2, 8 - Objective POSTURE: Pt. has slightly elevated R shoulder, keeps in very guarded posture. Pt. also has increased edema at medial elbow. This tissue is very brawny like. No bursing, pt. reports this brawny tissue has been there since surgery. May be edema pressed up against sling, but can not total rule out biceps injury. PALPATION: Pt. has normal healing incisions throughout R shoulder. Pt. does have this increased edema which I am concerned about at her elbow. I can not fully tell if this is edema or balled up muscle tissue. It is a odd spot, but difficult to differenciate. NEURO: Normal all intact. No issues. Normal sensation. ROM: PROM: elbow- 0-5-140deg, mild increase in symptoms with increased extension. PROM shoulder- flexion 90deg, abd 75deg, ER 8deg at side. MMT: LUE- 5/5 throughout. RUE- did not test. - Goals Goal 1:: Pt. to be I with HEP. Goal Time Frame: 4-6 Weeks Goal 2:: Pt. to have increased PROM of R shoulder to 75% of full motion throughout without increase in symptoms. Goal Time Frame: 4-6 Weeks Goal 3:: Pt. to sleep throughout the night without increas in symptonms. Goal Time Frame: 2-4 Weeks Goal 4:: Pt. to have increased AROM of R shoulder to full without increase in of pain. Goal Time Frame: 6-8 Weeks Goal 5:: Pt. to have increased strength of RUE by 1/2 grade without increase in symptoms. Goal Time Frame: 8-12 Weeks - Rehabilitation Potential Physical Therapy Diagnosis: Pt. has signs and symptoms consistent with R subscapularis, supraspinatus and open biceps tenodesis. Pt. has subsequent hypombility, weakness, increased pain, and decreased functional tolerance. Pt. would benefit from PT to address above limitations progressing back to PLOF. Rehabilitation Potential: Excellent - Anticipated Interventions Patient/Client Instruction: Educate patient on: Condition, Plan of Care, Risk Factors, Benefits of Fitness Program For the Purpose of:: To foster healthy habits, To improve decision making, To facilitate caregiver knowledge, To improve self management, To prevent re-injury, To improve ability to perform tasks related to life management, To improve tolerance to ADL's Therapeutic Exercise to Include: Strength training, Power training, Endurance training, Postural training, Flexibilty training, Passive ROM, Active ROM, Dynamic Lumbar Stabilization, Scapular Strength/Stabilization For the Purpose of:: To decrease pain, To decrease swelling/inflammation, To increase ROM, To improve nutrient delivery to tissue, To increase oxygenation perfusion, To improve muscle performance and motor function, To improve health of tissue, To decrease soft tissue restriction, To increase flexibility/ROM Manual Therapy Techniques to Include: Passive ROM, Soft tissue mobilization For the Purpose of:: To decrease pain, To decrease swelling/inflammation, To increase ROM, To improve nutrient delivery to tissue IF ES: Yes Cryotherapy (ice pack, ice massage): Yes Thermo therapy (hot pack): Yes For the Purpose of:: To decrease pain, To decrease swelling/inflammation, To increase ROM Thank you for the opportunity to evaluate your patient. For Medicare and Medicare HMO plans, please review the plan of care and approve it. It will need to be FAXED BACK to us at [phone] for Medicare purposes. For Medicare only, by signing this I certify the plan of care. Please let me know if there are questions or concerns regarding this plan of care. Physician Signature: Date:
--- NOTE | 2018-11-08 11:30 | HP.PTREVAL_ITS ---
Elsa Fernandez, DO, It has been my pleasure to treat AMY ELLISON over the last 8 visits for R subscapularis, supraspinatus and open biceps tenodesis. Please see the progress note below for an update on the physical therapy plan of care! Subjective: Pt. arrived today with out sling on, she reports taking it off in waiting room. Pt. reports doing pendulums at home and massaging her elbow as well, PROM elbow flexion as well. Pt. reports overall improving. Pt. is hopeful to go back to work next week. Objective/Function: PROM- flexion 135deg, abd 130deg, ER at side 18deg. Pt. has increased tightness limiting all motions, but no hard end feel noted. Pt. has tight patterns, but is improving. Pt. contiunes to be hesitant to progress ROM. Pt. is slowly improving. pt. to see physician tomorrow. Plan Plan: Start with PROM and inferior glides with distraction. No initial elbow flexion for 6 weeks. Progress per protocol. Goals Goal 1:: Pt. to be I with HEP. Goal Time Frame: 4-6 Weeks Goal Progress: Progressing Goal 2:: Pt. to have increased PROM of R shoulder to 75% of full motion throughout without increase in symptoms. Goal Time Frame: 4-6 Weeks Goal Progress: Progressing Goal 3:: Pt. to sleep throughout the night without increas in symptonms. Goal Time Frame: 2-4 Weeks Goal Progress: Progressing Goal 4:: Pt. to have increased AROM of R shoulder to full without increase in of pain. Goal Time Frame: 6-8 Weeks Goal Progress: Progressing Goal 5:: Pt. to have increased strength of RUE by 1/2 grade without increase in symptoms. Goal Time Frame: 8-12 Weeks Anticipated Interventions Patient/Client Instruction: Educate patient on: Condition, Plan of Care, Risk Factors, Benefits of Fitness Program For the Purpose of:: To foster healthy habits, To improve decision making, To facilitate caregiver knowledge, To improve self management, To prevent re- injury, To improve ability to perform tasks related to life management, To improve tolerance to ADL's Therapeutic Exercise to Include: Strength training, Power training, Endurance training, Postural training, Flexibilty training, Passive ROM, Active ROM, Dynamic Lumbar Stabilization, Scapular Strength/Stabilization For the Purpose of:: To decrease pain, To decrease swelling/inflammation, To increase ROM, To improve nutrient delivery to tissue, To increase oxygenation perfusion, To improve muscle performance and motor function, To improve health of tissue, To decrease soft tissue restriction, To increase flexibility/ROM Manual Therapy Techniques to Include: Passive ROM, Soft tissue mobilization For the Purpose of:: To decrease pain, To decrease swelling/inflammation, To increase ROM, To improve nutrient delivery to tissue IF ES: Yes Cryotherapy (ice pack, ice massage): Yes Thermo therapy (hot pack): Yes For the Purpose of:: To decrease pain, To decrease swelling/inflammation, To increase ROM Please do not hesitate to contact me at [phone] by phone or if you have questions or concerns regarding this new plan of care! Sincerely, HUANG AlcantarT
--- NOTE | 2018-12-12 12:01 | HP.PTREVAL_ITS ---
Elsa Fernandez, DO, It has been my pleasure to treat AMY ELLISON over the last 16 visits for R subscapularis, supraspinatus and open biceps tenodesis. Please see the progress note below for an update on the physical therapy plan of care! Subjective: Pt. reports I am doing pretty well, but not there yet. pt. reports being HEP complaint. She reports being 75% better overall. Objective/Function: ROM- AROM- flexion 120, abd 110deg, functional ER C1, functional IR R PSIS. PROM- flexion 155deg, abd 1405deg, ER at 90deg 60deg. IR at 90deg 35deg. MMT: Pt. has 4/5 strength with flexion and abd, 4/5 with ER and IR testing. PT. reports being able to sleep without issues, but does have increased pain with attempt to lie on R side. Pt. is back to work, but has incraesed pain with attempts to go throughout her day with normal routine. Plan Plan: I would recomment, Pt. continue with PT x2 per week for 4 weeks with progression of end range of motion and starting with strength/AROM motions. Goals Goal 1:: Pt. to be I with HEP. Goal Time Frame: 4-6 Weeks Goal Progress: Progressing Goal 2:: Pt. to have increased PROM of R shoulder to 75% of full motion th roughout without increase in symptoms. Goal Time Frame: 4-6 Weeks Goal Progress: Progressing Goal 3:: Pt. to sleep throughout the night without increas in symptonms. Goal Time Frame: 2-4 Weeks Goal Progress: Goal Met Goal 4:: Pt. to have increased AROM of R shoulder to full without increase in of pain. Goal Time Frame: 6-8 Weeks Goal Progress: Progressing Goal 5:: Pt. to have increased strength of RUE by 1/2 grade without increase in symptoms. Goal Time Frame: 8-12 Weeks Goal Progress: Progressing Anticipated Interventions Patient/Client Instruction: Educate patient on: Condition, Plan of Care, Risk Factors, Benefits of Fitness Program For the Purpose of:: To foster healthy habits, To improve decision making, To facilitate caregiver knowledge, To improve self management, To prevent re- injury, To improve ability to perform tasks related to life management, To improve tolerance to ADL's Therapeutic Exercise to Include: Strength training, Power training, Endurance training, Postural training, Flexibilty training, Passive ROM, Active ROM, Dynamic Lumbar Stabilization, Scapular Strength/Stabilization For the Purpose of:: To decrease pain, To decrease swelling/inflammation, To increase ROM, To improve nutrient delivery to tissue, To increase oxygenation perfusion, To improve muscle performance and motor function, To improve health of tissue, To decrease soft tissue restriction, To increase flexibility/ROM Manual Therapy Techniques to Include: Passive ROM, Soft tissue mobilization For the Purpose of:: To decrease pain, To decrease swelling/inflammation, To increase ROM, To improve nutrient delivery to tissue IF ES: Yes Cryotherapy (ice pack, ice massage): Yes Thermo therapy (hot pack): Yes For the Purpose of:: To decrease pain, To decrease swelling/inflammation, To increase ROM Please do not hesitate to contact me at [phone] by phone or if you have questions or concerns regarding this new plan of care! Sincerely, Darryl Manriquez DPT
--- NOTE | 2019-05-22 13:37 | HP.PTDCSUM ---
HP - PT D/C Summary It has been my pleasure to treat AMY ELLISON under orders from Elsa Fernandez DO, for the diagnosis of R subscapularis, supraspinatus and open biceps tenodesis for a total of 29 visit(s). Discharge Date: 03/15/19 Please see the following information for a summary of their discharge status. - Subjective Subjective: Pt. repots I am doing better, I know I will just have to continue working at it. Pt. reports beign HEP compliant. - Pain R shoulder Pain Intensity (Out of 10): 0 - Overall Improvement % Improvement: 87 - Objective Objective/Function: Pt. has slight limitation in flexion and abd, but more limitation with ER and with IR. Pt. has AROM strength with rest of motions. Pt. reports being HEP compliant, but not frequently. I talked with her about increaseing her ROM wtih come with consistency and she reports understanding. Pt. desires to be DC form PT at this point in time. - Goals Goal 1:: Pt. to be I with HEP. Goal Progress: Progressing Goal 2:: Pt. to have increased PROM of R shoulder to 75% of full motion throughout without increase in symptoms. Goal Progress: Goal Met Goal 3:: Pt. to sleep throughout the night without increas in symptonms. Goal Progress: Goal Met Goal 4:: Pt. to have increased AROM of R shoulder to full without increase in of pain. Goal Progress: Progressing Goal 5:: Pt. to have increased strength of RUE by 1/2 grade without increase in symptoms. Goal Progress: Goal Met - Plan Plan: Pt. to DC to HEP at this point in time. - D/C Information Discharge Comments: Pt. will be DC from PT this date. Pt. continues to have some limitations with IR and ER motions, but is independent with her program. She really needs to be compliant with exercises at home. Pt .reports understanding. Pt. desires to be DC from PT at this pioint in time. If there are questions or concerns regarding this patient's physical therapy, please feel free to call me at [phone]. Thank you for the referral of this patient. Sincerely, Darryl Manriquez DPT
== END 2019-03-15 19:00 | disposition home or self-care (01) ==
LOC: PT 15:30
PROVIDERS: Family Provider Family Medicine; PCP Family Medicine; Visit Provider Orthopaedic Surgery
DX: Z98.890 Other specified postprocedural states (principal)
CPT/HCPCS: 97110; 97161; 97530

== ENCOUNTER → 2019-05-20 08:37 | Outpatient (CLI) | payer OTHER, SELFPAY ==
[2019-04-04 09:08] VITALS: BMI 39.4
[2019-05-20 10:31] LABS: Absolute Lymphocyte Count 1.37 X10^3/uL (0.83-4.51); Absolute Neutrophil Count 2.2 X10^3/uL (2.0-7.7); Basophil# 0.04 X10^3/uL; Basophil% 0.9 % (0-1); Eosinophil# 0.35 X10^3/uL; Eosinophils% 8.2 % (0-5); Hematocrit 34.2 % (37-47); Hemoglobin 11.4 g/dL (12.0-15.0); Lymphocyte # 1.37 X10^3/ul (4.0); Mean Corp Hgb Conc 33.3 g/dL (32-36); Mean Corpuscular Hgb 31.8 pg (27.0-32.0); Mean Corpuscular Volume 95.3 fL (81-99); Mean Platelet Vol. 10.2 fl (6.2-12.0); Monocyte# 0.26 X10^3/uL; Monocyte% 6.1 % (0-10); NRBC Flagged by Analyzer 0 % (0-5); Neutrophil # 2.23 X10^3/uL (2.7-7.7); Neutrophil % 52.1 % (47-70); Platelet Count 171 K/mm3 (150-450); RBC Distribution Width CV 13.1 % (11.6-14.6); RBC Distribution Width SD 45.9 fl (35.1-43.9); Red Blood Count 3.59 M/mm3 (4.2-5.4); White Blood Count 4.3 K/mm3 (4.4-11.0)
[2019-05-20 10:51] LABS: Free T3 2.6 pg/mL (2.18-3.98); T4 Free Direct 1.25 ng/dL (0.76-1.46); Thyroid Stim Hormone (TSH) 4.94 uIU/mL (0.358-3.74); Vitamin D,25 Hydroxy 47.4 ng/mL (29.95-100.01)
[2019-05-22 11:31] LABS: Mumps Antibody, IgM < 0.80 AU (0.00-0.79)
== END ==
PROVIDERS: Family Provider Family Medicine; PCP Family Medicine; Visit Provider Family Medicine
DX: R53.83 Other fatigue (principal); E03.9 Hypothyroidism, unspecified; J02.9 Acute pharyngitis, unspecified
CPT/HCPCS: 36415; 82306; 84439; 84443; 84481; 85025; 86735

== ENCOUNTER → 2019-05-22 11:45 | Outpatient (CLI) | payer OTHER, SELFPAY ==
[2019-04-04 09:08] VITALS: BMI 39.4
[2019-05-22 14:14] LABS: Erythrocyte Sedimentation Rate 26 mm/hr (0-30)
[2019-05-22 14:21] LABS: ALB/GLOB Ratio 0.9 RATIO (0.9-2.4); AST(SGOT) 76 U/L (15-37); Alanine Aminotransfer ALT/SGPT 52 U/L (13-56); Albumin, Serum 3.6 g/dL (3.2-5.0); Alkaline Phosphatase 75 U/L (45-117); Anion Gap 8 (5-15); BUN 23 mg/dL (7-18); Calcium,Total 9.6 mg/dL (8.5-10.1); Chloride 108 mmol/L (98-107); Creatinine, Serum 1.15 mg/dL (0.55-1.02); EST Glomerular Filtration Rate 51 mL/min (>60); Est Glom Filt Rate - Afr Amer 62 mL/min (>60); Glucose 158 mg/dL (74-106); Potassium 4.9 mmol/L (3.5-5.1); Protein, Total 7.6 g/dL (6.4-8.2); Sodium Level 141 mmol/L (136-145)
== END ==
PROVIDERS: Family Provider Family Medicine; PCP Family Medicine; Referring Provider Family Medicine; Visit Provider Family Medicine
DX: E11.9 Type 2 diabetes mellitus without complications (principal); R79.82 Elevated C-reactive protein (CRP)
CPT/HCPCS: 36415; 80053; 85652

== ENCOUNTER → 2019-08-01 07:45 | Outpatient (CLI) | payer OTHER, SELFPAY ==
[2019-04-04 09:08] VITALS: BMI 39.4
--- NOTE | 2019-08-01 07:49 | ECHOD_ITS ---
Reason For Study: SOB Procedure This was a 2D Doppler, Color Flow transthoracic echocardiogram. The study was technically difficult. Contrast injection was performed. Exam performed in department. Left Ventricle Normal size and thickness. The estimated ejection fraction is 55 %. There is evidence of diastolic dysfunction. No regional wall motion abnormalities noted. Right Ventricle Normal RV size. Normal systolic function. Atria Normal left atrium. Normal right atrium. No doppler evidence for ASD. Mitral Valve There is no stenosis. Mild (1+) mitral valve insufficiency. Tricuspid Valve There is no tricuspid stenosis. Trivial tricuspid valve insufficiency. Pulmonary artery systolic pressure is 30 mmHg. Aortic Valve There is no aortic stenosis. No aortic valve insufficiency. Pulmonic Valve There is no pulmonic valvular stenosis. No pulmonic valve insufficiency. Great Vessels Normal aortic root. Pericardium/Pleural No pericardial effusion. Medication 22 gauge I.V. with prn adaptor inserted into right arm. Diluted definity 4.0ml given slow IV push to enhance endocardial definition. MMode/2D Measurements & Calculations LVIDd: 5.1 cm IVSd: 0.97 cm Ao root diam: 3.0 cm LVIDs: 3.4 cm LVPWd: 1.3 cm RVDd: 3.5 cm FS: 32.1 % LAV(MOD-bp): 60.8 ml LA A4 area: 20.6 cm2 LA dimension(2D): 4.2 cm LAV(MOD-bp) Indexed: 31.3 ml/m2 LAV(MOD-sp2): 54.3 ml LAV(MOD-sp4): 56.2 ml RA A4 area: 13.7 cm2 Time Measurements MV dec time: 0.18 sec Doppler Measurements & Calculations MV E max inderjit: 122.6 cm/sec Lat Peak E' Inderjit: 10.5 cm/sec Med Peak E' Inderjit: 5.4 cm/sec MV A max inderjit: 80.3 cm/sec E/E' lat: 11.7 E/E' med: 22.9 MV E/A: 1.5 Ao V2 max: 135.7 cm/sec LV V1 max: 93.3 cm/sec TR max inderjit: 259.5 cm/sec Ao max P.4 mmHg LV V1 max P.5 mmHg TR max P.9 mmHg Interpretation Summary The study was technically difficult. Diluted definity 4.0ml given slow IV push to enhance endocardial definition. The estimated ejection fraction is 55 %. There is evidence of diastolic dysfunction. Mild (1+) mitral valve insufficiency. The study was technically difficult. Ordering Physician: Miki Gonzalez Referring Physician: Miki Gonzalez Performed By: Niya Lawson, RDCS, RVT
== END ==
PROVIDERS: Family Provider Family Medicine; PCP Family Medicine; Referring Provider Family Medicine; Visit Provider Family Medicine
DX: R06.02 Shortness of breath (principal)
CPT/HCPCS: 93306; Q9957; A4216; C8929

== ENCOUNTER → 2019-08-02 15:41 | Outpatient (CLI) | payer OTHER, SELFPAY ==
[2019-04-04 09:08] VITALS: BMI 39.4
[2019-08-02 17:41] LABS: Hemoglobin 11.5 g/dL (12.0-15.0); Mean Corp Hgb Conc 32.9 g/dL (32-36); Mean Corpuscular Hgb 31.1 pg (27.0-32.0); Mean Corpuscular Volume 94.6 fL (81-99); Mean Platelet Vol. 9.8 fl (6.2-12.0); Platelet Count 172 K/mm3 (150-450); RBC Distribution Width CV 13.5 % (11.6-14.6); RBC Distribution Width SD 46.6 fl (35.1-43.9); White Blood Count 3.8 K/mm3 (4.4-11.0)
[2019-08-02 17:49] LABS: Prothrombin Time (Protime)PT. 13.2 SECONDS (11.7-14.9)
[2019-08-02 18:09] LABS: AST(SGOT) 86 U/L (15-37); Alanine Aminotransfer ALT/SGPT 63 U/L (13-56); Albumin, Serum 3.7 g/dL (3.2-5.0); Alkaline Phosphatase 78 U/L (45-117); Bilirubin, Direct 0.21 mg/dL (0.00-0.30); Globulin 3.9 g/dL (2.2-4.2); Protein, Total 7.6 g/dL (6.4-8.2)
[2019-08-04 10:46] LABS: AFP, Tumor Marker 3.6 ng/mL (0.0-8.3)
== END ==
PROVIDERS: Family Provider Family Medicine; PCP Family Medicine; Referring Provider Internal Medicine Gastroenterology; Visit Provider Internal Medicine Gastroenterology
DX: K74.60 Unspecified cirrhosis of liver (principal)
CPT/HCPCS: 36415; 80076; 82105; 85027; 85610; 85730

== ENCOUNTER → 2019-08-13 06:27 | Outpatient (CLI) | payer OTHER, SELFPAY ==
[2019-04-04 09:08] VITALS: BMI 39.4
--- NOTE | 2019-08-13 06:40 | MRI_ITS ---
STUDY: MRI ABDOMEN WITH AND WITHOUT CONTRAST REASON FOR EXAM: Female, 58 years old. Cirrhosis, abdominal pain. TECHNIQUE: Standardized fat and water weighted pulse sequences were obtained in all 3 orthogonal planes post contrast administration. IV Dotarem 20 was administered for the contrast portion of the examination. COMPARISON: CT 05/31/2017 FINDINGS: The visualized lung bases are unremarkable. The visualized portions of the heart are within normal limits. There is a marked decrease in the signal intensity of the liver on the axial T1-weighted images on the opposed-phase images as compared to the in-phase images, consistent with diffuse steatosis. Normal gallbladder and extrahepatic biliary system. Normal spleen. Normal pancreas. Normal bilateral adrenal glands. Nonrotated right kidney which is a normal variant. Normal left kidney. Normal visualized stomach. Normal small intestine. Normal colon. There is non-visualization of the appendix. Normal abdominal aorta. Normal inferior vena cava. Normal retroperitoneum. Normal abdominal wall. Normal osseous structures. MRI/MRI Abd WITH and W/O Contrast IMPRESSION: Fatty infiltration of the liver. Electronically Signed: Juan Nicole MD at 8:50 EDT Tel , Service support ,
[2019-08-13 13:51] LABS: CREATININE FINGERSTICK 0.7 mg/dL (0.55-1.02); EGFR FINGERSTICK > 60.0000 mL/min (>60)
== END ==
PROVIDERS: Family Provider Family Medicine; PCP Family Medicine; Referring Provider Internal Medicine Gastroenterology; Visit Provider Internal Medicine Gastroenterology
DX: K74.60 Unspecified cirrhosis of liver (principal)
CPT/HCPCS: 74183; A9575

== ENCOUNTER → 2019-08-22 15:59 | Outpatient (CLI) | payer OTHER, SELFPAY ==
[2019-04-04 09:08] VITALS: BMI 39.4
[2019-08-22 16:48] LABS: Fibrinogen 317 mg/dl (203-444)
[2019-08-22 17:26] LABS: AST(SGOT) 71 U/L (15-37); Alanine Aminotransfer ALT/SGPT 60 U/L (13-56); Albumin, Serum 3.8 g/dL (3.2-5.0); Alkaline Phosphatase 78 U/L (45-117); Anion Gap 8 (5-15); BUN 19 mg/dL (7-18); BUN/Creat Ratio 15.8 RATIO (10-20); CRP, High Sensitivity Cardiac 4.89 mg/L; Calcium,Total 9.5 mg/dL (8.5-10.1); Chloride 104 mmol/L (98-107); EST Glomerular Filtration Rate 49 mL/min (>60); Est Glom Filt Rate - Afr Amer 59 mL/min (>60); Ferritin 175 ng/mL (8-252); Free T3 2.3 pg/mL (2.18-3.98); GGTP 162 U/L (5-55); Glucose 215 mg/dL (74-106); Iron 82 ug/dL (50-170); Iron Binding Capacity,Total 407 ug/dL (250-450); PERCENT IRON SATURATION 20.1 % (15.0-55.0); Potassium 4.6 mmol/L (3.5-5.1); Protein, Total 7.8 g/dL (6.4-8.2); Rheumatoid Factor < 10.0 IU/mL (<15); Sodium Level 139 mmol/L (136-145); T4 Free Direct 1.12 ng/dL (0.76-1.46); Thyroid Stim Hormone (TSH) 2.71 uIU/mL (0.358-3.74)
[2019-08-22 17:27] LABS: Homocysteine 13.7 umol/L (3.2-10.7)
[2019-08-22 17:29] LABS: Insulin 61.8 mU/L (2.6-37.6); Vitamin D,25 Hydroxy 45.6 ng/mL (29.95-100.01)
[2019-08-26 18:06] LABS: Anti-Nuclear Antibody Test Negative; Methylmalonic Acid Bld 199
[2019-08-27 16:07] LABS: DHEA Sulfate 34.7 ug/dL (29.4-220.5)
[2019-08-28 11:43] LABS: CCP IgG Antibodies 11 units (0-19); CMV Acute Antibody IgM < 30.0 AU/mL (0.0-29.9); EBV Acute VCA IgM < 36.0 U/mL (0.0-35.9); EBV Early Antigen IgG <9.0 U/mL (0.0-8.9); Mycoplasma Pneum AB IgG 109 U/mL (0-99); Mycoplasma pneum. AB IgM < 770 U/mL (0-769); PARVOVIRUS B19 IGG 0.1 index (0.0-0.8); PARVOVIRUS B19 IGM 0.1 index (0.0-0.8); Transferrin 320 mg/dL (200-370); Zinc, Plasma or Serum 100 ug/dL (56-134)
== END ==
PROVIDERS: Family Provider Family Medicine; PCP Family Medicine
DX: E11.9 Type 2 diabetes mellitus without complications (principal); E66.01 Morbid (severe) obesity due to excess calories; K63.89 Other specified diseases of intestine; Z77.120 Contact with and (suspected) exposure to mold (toxic); R76.8 Other specified abnormal immunological findings in serum
CPT/HCPCS: 36415; 80053; 82306; 82627; 82728; 82977; 83036; 83090; 83525; 83540; 83550; 83921; 84439; 84443; 84466; 84481; 84630; 85384; 86038; 86141; 86200; 86431; 86644; 86645; 86663; 86664; 86665; 86738; 86747; 82626

== ENCOUNTER → 2019-08-28 10:13 | Outpatient (CLI) | payer OTHER, SELFPAY ==
[2019-04-04 09:08] VITALS: BMI 39.4
[2019-08-28 10:58] LABS: GGTP 162 U/L (5-55)
== END ==
PROVIDERS: Family Provider Family Medicine; PCP Family Medicine
DX: E11.9 Type 2 diabetes mellitus without complications (principal); E66.01 Morbid (severe) obesity due to excess calories; K63.89 Other specified diseases of intestine; R76.8 Other specified abnormal immunological findings in serum; Z77.120 Contact with and (suspected) exposure to mold (toxic)
CPT/HCPCS: 36415; 80061; 82977; 83704

== ENCOUNTER → 2019-09-05 12:59 | Outpatient (CLI) | payer OTHER, SELFPAY ==
[2019-09-03 13:38] VITALS: BMI 44.1
--- NOTE | 2019-09-05 13:41 | RAD_ITS ---
STUDY: X-RAY - RIGHT WRIST REASON FOR EXAM: Female, 58 years old. Arthritis. TECHNIQUE: 2 view(s) of the wrist were obtained. COMPARISON: None. FINDINGS: Normal visualized distal radius and ulna. Normal radiocarpal articulation. Normal distal radioulnar articulation. Normal carpal bones. There is minimal scapholunate trapezium trapezoid arthrosis. There is scapholunate dissociation. Remainder of the carpal joints are normal. There is mild degenerative arthrosis of the carpometacarpal articulation of the thumb. Normal second through fifth carpometacarpal articulations. Normal visualized metacarpal bones. The soft tissue structures are unremarkable. There is no demonstrated acute fracture. 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 Electronically Signed: Darlin Jeronimo MD at 1:42 EST , Service support ,
--- NOTE | 2019-09-05 13:42 | RAD_ITS ---
STUDY: X-RAY - BILATERAL HANDS REASON FOR EXAM: Female, 58 years old. Arthritis. TECHNIQUE - RIGHT HAND: 2 view(s) of the right hand were obtained. TECHNIQUE - LEFT HAND: 2 view(s) of the left hand were obtained. COMPARISON: None. FINDINGS - RIGHT HAND: Normal visualized carpal bones. Minimal degenerative arthrosis of the scaphotrapezium trapezoid joint, otherwise normal carpal articulations. There is minimal degenerative arthrosis of the carpometacarpal (CMC) articulation of the thumb. Normal second through fifth carpometacarpal joints. Normal metacarpi. Minimal narrowing of the metacarpophalangeal (MCP) joints. Normal visualized phalanges and interphalangeal joints. The soft tissue structures are unremarkable. FINDINGS - LEFT HAND: Normal visualized carpal bones. Minimal degenerative arthrosis of the scaphotrapezium trapezoid joint. Minimal scapholunate separation. Remainder of the carpal articulations are unremarkable. There is mild degenerative arthrosis of the carpometacarpal (CMC) articulation of the thumb. Normal second through fifth carpometacarpal joints. Normal metacarpi. Normal metacarpophalangeal (MCP) joints. Normal visualized phalanges. Mild narrowing of the distal interphalangeal joints. The soft tissue structures are unremarkable. RAD/Hand 2 Views IMPRESSION: Right Hand: Minor osteoarthritic changes, primarily seen at the wrist and distal interphalangeal joints. Mild scapholunate dissociation. Left Hand: Minor osteoarthritic changes in the wrist and distal interphalangeal joints. Minimal scapholunate dissociation. Electronically Signed: Darlin Jeronimo MD at 1:40 EST , Service support ,
--- NOTE | 2019-09-05 13:43 | RAD_ITS ---
STUDY: X-RAY - LEFT WRIST REASON FOR EXAM: Female, 58 years old. Arthritis. TECHNIQUE: 3 view(s) of the wrist were obtained. COMPARISON: None. FINDINGS: Normal visualized distal radius and ulna. Normal radiocarpal articulation. Normal distal radioulnar articulation. Normal carpal bones. Minimal widening of the scapholunate space. Minimal degenerative arthritis of the scaphotrapezium trapezoid joint. There is minimal degenerative arthrosis of the carpometacarpal articulation of the thumb. Normal second through fifth carpometacarpal articulations. Normal visualized metacarpal bones. The soft tissue structures are unremarkable. There is no demonstrated acute fracture. RAD/Wrist 2 Views IMPRESSION: Minimal scapholunate dissociation. Minor degenerative disease at the levels described above. No acute fracture. Electronically Signed: Darlin Jeronimo MD at 1:37 EST , Service support ,
[2019-09-05 13:49] LABS: Bacteria 0 SEEN /hpf (None Seen); Mucous, Urine 0 SEEN /hpf (<or=2+); Red Blood Cells-Urine 0 SEEN /hpf (0-5); Squamous Epithelial Cells - UA 0 SEEN /hpf (5-10); White Blood Cells 0 SEEN /hpf (0-5)
[2019-09-05 15:03] LABS: Erythrocyte Sedimentation Rate 30 mm/hr (0-30)
[2019-09-05 15:04] LABS: Absolute Lymphocyte Count 1.57 X10^3/uL (0.83-4.51); Absolute Neutrophil Count 2.6 X10^3/uL (2.0-7.7); Basophil# 0.04 X10^3/uL; Basophil% 0.8 % (0-1); Eosinophil# 0.35 X10^3/uL; Eosinophils% 7.2 % (0-5); Hematocrit 36.7 % (37-47); Hemoglobin 12.2 g/dL (12.0-15.0); Lymphocyte # 1.57 X10^3/ul (4.0); Lymphocyte % 32.4 % (19-41); Mean Corp Hgb Conc 33.2 g/dL (32-36); Mean Corpuscular Hgb 31.5 pg (27.0-32.0); Mean Corpuscular Volume 94.8 fL (81-99); Mean Platelet Vol. 9.6 fl (6.2-12.0); Monocyte% 6.2 % (0-10); NRBC Flagged by Analyzer 0 % (0-5); Neutrophil # 2.56 X10^3/uL (2.7-7.7); Neutrophil % 52.8 % (47-70); Platelet Count 173 K/mm3 (150-450); RBC Distribution Width CV 13.4 % (11.6-14.6); RBC Distribution Width SD 46.5 fl (35.1-43.9); Red Blood Count 3.87 M/mm3 (4.2-5.4); White Blood Count 4.9 K/mm3 (4.4-11.0)
[2019-09-05 15:19] LABS: Color, Urine Yellow (Yellow); Glucose, Dipstick Normal (Normal); Ketone-Dipstick Negative (Negative); Leukocyte Esterase-Dipstick 25 /ul (Negative); Nitrite-Dipstick Negative (Negative); Occult Blood-Urine Negative /ul (Negative); Protein-Dipstick Negative (Negative); Urine Bilirubin Dipstick 1 mg/dL (Negative); Urine Clarity Clear (Clear); Urine Urobilinogen Normal (Normal); Urine pH 6.5 (5.0 - 8.0)
[2019-09-05 15:26] LABS: AST(SGOT) 77 U/L (15-37); Alanine Aminotransfer ALT/SGPT 64 U/L (13-56); Albumin, Serum 4.1 g/dL (3.2-5.0); Alkaline Phosphatase 75 U/L (45-117); Anion Gap 7 (5-15); BUN 20 mg/dL (7-18); BUN/Creat Ratio 18.2 RATIO (10-20); CPK Total, Creatine Kinase 74 U/L (26-192); CRP 5.33 mg/L (0.0-3.0); Chloride 104 mmol/L (98-107); EST Glomerular Filtration Rate 54 mL/min (>60); Est Glom Filt Rate - Afr Amer 65 mL/min (>60); Globulin 4.2 g/dL (2.2-4.2); Glucose 160 mg/dL (74-106); Magnesium 1.5 mg/dL (1.6-2.6); Potassium 4.6 mmol/L (3.5-5.1); Protein, Total 8.3 g/dL (6.4-8.2); Rheumatoid Factor < 10.0 IU/mL (<15); Sodium Level 138 mmol/L (136-145); Uric Acid 4.3 mg/dL (2.6-6.0)
[2019-09-05 15:31] LABS: Vitamin D,25 Hydroxy 60.6 ng/mL (29.95-100.01)
[2019-09-10 12:07] LABS: Anti-Centromere B Ab <0.2 AI (0.0-0.9); Anti-Chromatin <0.2 AI (0.0-0.9); Anti-Jo <0.2 AI (0.0-0.9); Anti-Scleroderma-70 AB <0.2 AI (0.0-0.9); CHOLESTEROL TOTAL 254 mg/dL (100-199); HDL-C 34 mg/dL (>39); HDL-P TOTAL 32.7 umol/L (>=30.5); RNP Ab <0.2 AI (0.0-0.9); SJOGREN'S Anti-SS-A test < 0.2 AI (0.0-0.9); SJOGREN'S Anti-SS-B test < 0.2 AI (0.0-0.9); SMALL LDL-P 1536 nmol/L (<=527); Smith Ab <0.2 AI (0.0-0.9); TRIGLYCERIDES 294 mg/dL (0-149); Vitamin D 1,25-Dihydroxy 36.3 pg/mL (19.9-79.3)
[2019-09-10 14:07] LABS: Albumin 3.9 g/dL (2.9-4.4); Alpha-1-Globulins 0.3 g/dL (0.0-0.4); Alpha-2-Globulins 0.7 g/dL (0.4-1.0); Angiotensin Convert Enzyme 77 U/L (14-82); Complement C3 193 mg/dL (82-167); Cytoplasmic Ab (C-ANCA) <1:20 titer (Neg:<1:20); Immunoglobulin A 161 mg/dL (87-352); Immunoglobulin G 1146 mg/dL (700-1600); Immunoglobulin M 52 mg/dL (26-217); PROEL- TOTAL PROTEIN 7.3 g/dL (6.0-8.5)
[2019-09-10 14:25] LABS: ANTINUCLEAR ANTIBODIES DIRECT Positive (Negative); Anti-Histone Abs 0.7 Units (0.0-0.9); Anti-dsDNA Ab 36 IU/mL (0-9); INSULIN RESISTANCE SCORE 82 (<=45); LDL SIZE 20.5 nm (>20.5); LDL-C 161 mg/dL (0-99); LDL-P 2263 nmol/L (<1000)
[2019-09-11 12:41] LABS: Adrenocorticotropic Hormone 18.5 pg/mL (7.2-63.3); CCP IgG Antibodies 14 units (0-19); HLA B27 Negative (.); Perinuclear Ab (P-ANCA) <1:20 titer (Neg:<1:20); t-Transglutaminase IgA <2 U/mL (0-3)
== END ==
PROVIDERS: Family Provider Family Medicine; PCP Family Medicine; Referring Provider Internal Medicine Rheumatology; Visit Provider Internal Medicine Rheumatology
DX: M19.041 Primary osteoarthritis, right hand (principal); M19.042 Primary osteoarthritis, left hand; M35.00 Sjogren syndrome, unspecified; Z96.642 Presence of left artificial hip joint; Z79.1 Long term (current) use of non-steroidal anti-inflammatories (NSAID); I10 Essential (primary) hypertension; M54.2 Cervicalgia; E03.9 Hypothyroidism, unspecified; M79.641 Pain in right hand; M79.642 Pain in left hand; M35.01 Sjogren syndrome with keratoconjunctivitis; M79.644 Pain in right finger(s); M79.645 Pain in left finger(s); M25.531 Pain in right wrist; M25.532 Pain in left wrist; M89.9 Disorder of bone, unspecified; M94.9 Disorder of cartilage, unspecified; M25.552 Pain in left hip; M51.36 Other intervertebral disc degeneration, lumbar region; M19.071 Primary osteoarthritis, right ankle and foot; M19.072 Primary osteoarthritis, left ankle and foot; M25.511 Pain in right shoulder; R53.83 Other fatigue; Z87.39 Personal history of other diseases of the musculoskeletal system and connective tissue
CPT/HCPCS: 36415; 73100; 73120; 80053; 80061; 81001; 81374; 82024; 82164; 82306; 82533; 82550; 82652; 82784; 83516; 83704; 83735; 84165; 84550; 85025; 85652; 86038; 86140; 86160; 86200; 86225; 86235; 86256; 86334; 86431

== ENCOUNTER → 2019-09-19 11:53 | Outpatient (CLI) | payer OTHER, SELFPAY ==
[2019-09-03 13:38] VITALS: BMI 44.1
--- NOTE | 2019-09-19 14:09 | STRESSREP ---
Stress Test Report Date: 09/19/2019 Procedure: Exercise tolerance test Indications: Shortness of breath Consent: Per the patient Procedure: The patient exercised on a Ziggy protocol for 5 minutes achieving a peak heart rate of 155 bpm (95 % predicted maximal heart rate) with a peak blood pressure 170/64 mmHg and a peak MET capacity of approximately 7 mET's. The baseline ECG demonstrated normal sinus rhythm. The peak exercise ECG demonstrated no significant ischemic changes. [There were no cardiac dysrhythmias pretest, during exercise, or recovery]. The functional capacity was considered decreased for age. Patient had chest tightness with exertion. The examination was discontinued secondary to dyspnea, chest discomfort. Impression: 1. Technically adequate (percent predicted maximal heart rate greater than 85%) exercise tolerance test 2. Stress test is positive for exercise-induced chest pain. 3. Stress test test is negative for exercise-induced EKG changes of ischemia. 4. Functional capacity is decreased for age. This note was generated with [employer] software. It may contain incorrect words, spelling, and punctuation that were not noted in checking the note before signing.
== END ==
PROVIDERS: Family Provider Family Medicine; PCP Family Medicine; Referring Provider Specialist; Visit Provider Specialist
DX: R06.02 Shortness of breath (principal); I10 Essential (primary) hypertension; E78.5 Hyperlipidemia, unspecified; M35.00 Sjogren syndrome, unspecified
CPT/HCPCS: 93017

== ENCOUNTER 2019-09-30 08:23 | Day surgery (SDC) | payer OTHER, SELFPAY ==
[2019-09-03 13:38] VITALS: BMI 44.1
[2019-09-27 13:48] VITALS: BMI 44.1
--- NOTE | 2019-09-30 11:21 | CL.D_ITS ---
Patient Name: AMY ELLISON Study Date: 09/30/2019 Performing: Lila Pope MD Ht: 59.84 inches 152 cm : 1960 Wt: 227.08 lbs 103 kg Age: 58 Gender: female BSA: 1.97 PROCEDURE(S) PERFORMED [id number]/COR CLINICAL PROFILE AND INDICATIONS Indications: Suspected CAD Heart Failure: None Stress/Imaging Standard Exercise Stress Test: Yes Result: Positive Intermediate Risk CAD Presentations: Unstable angina. CONCLUSIONS Non obstructive coronary arteries RECOMMENDATIONS Risk factor modification DESCRIPTION OF PROCEDURE The patient arrived to the procedure lab. The risks and benefits of the procedure as well as a full d escription of our services here and current unavailability of surgical backup were fully explained to the patient and/or their significant other prior to the catheterization. The Timeout was completed, verifying the correct patient and procedure. The patient's procedural site was prepped and draped in the usual fashion. Local anesthetic was given subcutaneously to right radial region with Lidocaine 2% . Using a modified Seldinger technique, arterial access was obtained via the right radial artery, a 6 Fr sheath was inserted. Left Coronary Artery selective angiography was performed in multiple views u sing a 5 Fr. JL3.5 catheter. Left Coronary Artery selective angiography was performed in multiple vie ws using a 6 Fr. XB3. Right Coronary Artery selective angiography was then performed in multiple view s using a 5 Fr. JR 4 catheter. LV to AO pullback pressures were then recorded.The arterial sheath was pulled and a TR Band was applied for hemostasis. 14cc of air CORONARY ANGIOGRAPHY DOMINANCE: Right Dominant LEFT HEART ASSESSMENT Left Ventricular Ejection Fraction: Not assessed LEFT MAIN: Mild luminal irregularities LEFT ANTERIOR DESCENDING ARTERY: Angiographically normal CIRCUMFLEX ARTERY: Angiographically normal RIGHT CORONARY ARTERY: Mild luminal irregularities VALVE FINDINGS: No Aortic Valve Stenosis COMPLICATIONS No Complications PROCEDURE MEDICATIONS Versed 1 mg IV Fentanyl 50 mcg IV Oxygen: 2 L/min via nasal cannula Heparin given IA 09/30/2019 10:39:23 Verapamil 2.5mg, Ntg 100mcgs, 3000 units of Heparin given IA 09/30/2019 10:39:23 SUMMARY OF HEMODYNAMIC DATA Time AIR REST ECG 08:50:23 LV 137/-5, 5 10:43:14 LV 139/-3, 6 10:43:20 LVp 133/60, 65 10:43:35 AOp 137/45 (88) 10:43:40 AO 119/64 (88) 10:44:58 Signed By Lila Pope MD On 09/30/2019 11:21:01 Lila Pope MD
== END 2019-09-30 13:40 | disposition home or self-care (01) ==
LOC: CLSP 08:24
PROVIDERS: Family Provider Family Medicine; PCP Family Medicine; Referring Provider Specialist; Visit Provider Specialist
DX: R06.02 Shortness of breath (principal); R00.2 Palpitations; I10 Essential (primary) hypertension; E78.5 Hyperlipidemia, unspecified; M35.00 Sjogren syndrome, unspecified; M79.7 Fibromyalgia; K21.9 Gastro-esophageal reflux disease without esophagitis; E03.9 Hypothyroidism, unspecified; E11.9 Type 2 diabetes mellitus without complications
CPT/HCPCS: 93458; 99152; 99153; J7040; Q9967; C1769; C1887; C1894

== ENCOUNTER → 2019-11-28 09:25 | Outpatient (CLI) | payer OTHER, SELFPAY ==
[2019-10-30 09:59] VITALS: BMI 43.1
[2019-11-28 11:34] LABS: Ferritin 143 ng/mL (8-252)
[2019-11-28 11:43] LABS: Vitamin D,25 Hydroxy 51.2 ng/mL (29.95-100.01)
[2019-11-28 11:43] LABS: ALB/GLOB Ratio 0.9 RATIO (0.9-2.4); AST(SGOT) 55 U/L (15-37); Alanine Aminotransfer ALT/SGPT 57 U/L (13-56); Albumin, Serum 3.7 g/dL (3.2-5.0); Alkaline Phosphatase 66 U/L (45-117); Anion Gap 6 (5-15); BUN 25 mg/dL (7-18); BUN/Creat Ratio 23.1 RATIO (10-20); Calcium,Total 10.1 mg/dL (8.5-10.1); Chloride 108 mmol/L (98-107); Creatinine, Serum 1.08 mg/dL (0.55-1.02); EST Glomerular Filtration Rate 55 mL/min (>60); Est Glom Filt Rate - Afr Amer 67 mL/min (>60); Free T3 2.4 pg/mL (2.18-3.98); Globulin 3.9 g/dL (2.2-4.2); Glucose 158 mg/dL (74-106); Magnesium 1.4 mg/dL (1.6-2.6); Potassium 4.4 mmol/L (3.5-5.1); Protein, Total 7.6 g/dL (6.4-8.2); Sodium Level 140 mmol/L (136-145); T4 Free Direct 1.02 ng/dL (0.76-1.46)
[2019-11-28 11:47] LABS: Homocysteine 13.5 umol/L (3.2-10.7)
[2019-12-02 12:05] LABS: Zinc, Plasma or Serum 81 ug/dL (56-134)
[2019-12-03 14:07] LABS: B. henselae IgG Negative titer (Neg:<1:320); B. henselae IgM Negative titer (Neg:<1:100); B. quintana IgG Negative titer (Neg:<1:320)
[2019-12-03 15:03] LABS: B. quintana IgM Negative titer (Neg:<1:100)
== END ==
PROVIDERS: PCP Family Medicine
DX: K63.89 Other specified diseases of intestine (principal); E66.01 Morbid (severe) obesity due to excess calories; E11.9 Type 2 diabetes mellitus without complications; Z77.120 Contact with and (suspected) exposure to mold (toxic)
CPT/HCPCS: 36415; 80053; 82306; 82728; 83090; 83520; 83735; 83921; 84439; 84443; 84481; 84630; 86611

== ENCOUNTER → 2019-12-04 09:00 | Outpatient (CLI) | payer OTHER, SELFPAY ==
[2019-10-30 09:59] VITALS: BMI 43.1
== END ==
PROVIDERS: PCP Family Medicine; Visit Provider Family Medicine
DX: K63.89 Other specified diseases of intestine (principal); Z77.120 Contact with and (suspected) exposure to mold (toxic); E66.01 Morbid (severe) obesity due to excess calories; E11.9 Type 2 diabetes mellitus without complications
CPT/HCPCS: 36415

== ENCOUNTER → 2020-04-08 10:16 | Outpatient (CLI) | payer OTHER, SELFPAY ==
[2019-10-30 09:59] VITALS: BMI 43.1
[2020-04-08 10:28] LABS: Bacteria 0 SEEN /hpf (None Seen); Mucous, Urine 0 SEEN /hpf (<or=2+); Red Blood Cells-Urine 0 SEEN /hpf (0-5); Squamous Epithelial Cells - UA 0 SEEN /hpf (5-10); White Blood Cells 0 SEEN /hpf (0-5)
[2020-04-08 11:02] LABS: Color, Urine Yellow (Yellow); Glucose, Dipstick Normal (Normal); Ketone-Dipstick Negative (Negative); Leukocyte Esterase-Dipstick Negative /ul (Negative); Nitrite-Dipstick Negative (Negative); Occult Blood-Urine Negative /ul (Negative); Protein-Dipstick Negative (Negative); Specific Gravity, Urine 1.005 (1.002-1.030); Urine Bilirubin Dipstick Negative (Negative); Urine Clarity Sl. Cloudy (Clear); Urine Urobilinogen Normal (Normal)
[2020-04-08 11:07] LABS: Erythrocyte Sedimentation Rate 26 mm/hr (0-30)
[2020-04-08 11:09] LABS: Absolute Lymphocyte Count 1.75 X10^3/uL (0.83-4.51); Absolute Neutrophil Count 2.9 X10^3/uL (2.0-7.7); Basophil# 0.05 X10^3/uL; Basophil% 0.9 % (0-1); Eosinophil# 0.37 X10^3/uL; Eosinophils% 6.9 % (0-5); Hematocrit 37.4 % (37-47); Hemoglobin 12.1 g/dL (12.0-15.0); Lymphocyte # 1.75 X10^3/ul (4.0); Lymphocyte % 32.6 % (19-41); Mean Corp Hgb Conc 32.4 g/dL (32-36); Mean Corpuscular Hgb 30.9 pg (27.0-32.0); Mean Corpuscular Volume 95.7 fL (81-99); Mean Platelet Vol. 9.7 fl (6.2-12.0); Monocyte# 0.26 X10^3/uL; Monocyte% 4.8 % (0-10); NRBC Flagged by Analyzer 0 % (0-5); Neutrophil % 54.1 % (47-70); Platelet Count 194 K/mm3 (150-450); RBC Distribution Width CV 13.4 % (11.6-14.6); RBC Distribution Width SD 46.5 fl (35.1-43.9); Red Blood Count 3.91 M/mm3 (4.2-5.4); White Blood Count 5.4 K/mm3 (4.4-11.0)
[2020-04-08 11:24] LABS: AST(SGOT) 43 U/L (15-37); Alanine Aminotransfer ALT/SGPT 52 U/L (13-56); Albumin, Serum 3.9 g/dL (3.2-5.0); Alkaline Phosphatase 68 U/L (45-117); Anion Gap 9 (5-15); BUN 29 mg/dL (7-18); BUN/Creat Ratio 24.2 RATIO (10-20); CPK Total, Creatine Kinase 48 U/L (26-192); Calcium,Total 10.1 mg/dL (8.5-10.1); Chloride 102 mmol/L (98-107); EST Glomerular Filtration Rate 49 mL/min (>60); Est Glom Filt Rate - Afr Amer 59 mL/min (>60); Glucose 180 mg/dL (74-106); Potassium 4.6 mmol/L (3.5-5.1); Protein, Total 7.9 g/dL (6.4-8.2); Sodium Level 137 mmol/L (136-145); Uric Acid 4.7 mg/dL (2.6-6.0)
[2020-04-09 15:08] LABS: Complement C3 188 mg/dL (82-167)
[2020-04-10 00:40] LABS: Anti-Mitochondrial AB <20.0 Units (0.0-20.0)
[2020-04-10 00:50] LABS: Anti-Smooth Muscle ABS 4 Units (0-19)
== END ==
PROVIDERS: PCP Family Medicine; Referring Provider Internal Medicine Rheumatology; Visit Provider Internal Medicine Rheumatology
DX: M32.19 Other organ or system involvement in systemic lupus erythematosus (principal); R94.4 Abnormal results of kidney function studies; R79.82 Elevated C-reactive protein (CRP); H04.123 Dry eye syndrome of bilateral lacrimal glands; R68.2 Dry mouth, unspecified; Z87.39 Personal history of other diseases of the musculoskeletal system and connective tissue; M35.00 Sjogren syndrome, unspecified; Z96.642 Presence of left artificial hip joint; R94.5 Abnormal results of liver function studies; Z79.1 Long term (current) use of non-steroidal anti-inflammatories (NSAID); R76.8 Other specified abnormal immunological findings in serum; K76.0 Fatty (change of) liver, not elsewhere classified; K75.81 Nonalcoholic steatohepatitis (NASH); E73.9 Lactose intolerance, unspecified; E83.42 Hypomagnesemia
CPT/HCPCS: 36415; 80053; 81001; 82550; 83516; 84550; 85025; 85652; 86140; 86160

== ENCOUNTER → 2020-05-06 10:01 | Outpatient (CLI) | payer OTHER, SELFPAY ==
[2020-04-29 13:42] VITALS: BMI 41.3
[2020-05-06 11:05] LABS: BUN 28 mg/dL (7-18); EST Glomerular Filtration Rate 54 mL/min (>60); Est Glom Filt Rate - Afr Amer 65 mL/min (>60)
== END ==
PROVIDERS: PCP Family Medicine; Visit Provider Internal Medicine Rheumatology
DX: R94.4 Abnormal results of kidney function studies (principal)
CPT/HCPCS: 36415; 82565; 84520

== ENCOUNTER → 2020-07-08 10:09 | Outpatient (CLI) | payer OTHER, SELFPAY ==
[2020-04-29 13:42] VITALS: BMI 41.3
[2020-07-08 12:22] LABS: Cholesterol 178 mg/dL (200); Free T3 2.1 pg/mL (2.18-3.98); High Density Lipoprotein 32 mg/dL; T4 Free Direct 1.26 ng/dL (0.76-1.46); Thyroid Stim Hormone (TSH) 3.63 uIU/mL (0.358-3.74); Triglycerides 433 mg/dL
== END ==
PROVIDERS: PCP Family Medicine; Referring Provider Family Medicine; Visit Provider Family Medicine
DX: E11.9 Type 2 diabetes mellitus without complications (principal); E03.9 Hypothyroidism, unspecified
CPT/HCPCS: 36415; 80061; 84439; 84443; 84481

== ENCOUNTER → 2020-08-03 08:52 | Outpatient (CLI) | payer OTHER, SELFPAY ==
[2020-04-29 13:42] VITALS: BMI 41.3
--- NOTE | 2020-08-03 08:55 | US_ITS ---
STUDY: ABDOMINAL ULTRASOUND - RIGHT UPPER QUADRANT REASON FOR VISIT: Female, 59 years old ELEVATED LIVER ENZYMES TECHNIQUE: Ultrasound evaluation of the right upper quadrant was performed with real-time and static nuñez-scale imaging. TECHNICAL QUALITY: Adequate. COMPARISON: None. FINDINGS: Liver: The liver measures 20.4 cm. There is coarse heterogeneously hyperechoic of the liver. The bile ducts are within normal limits. There is hepatic color flow. The direction of portal flow is hepatopetal. There is no demonstrated mass lesion. Gallbladder: Normal distended gallbladder. The gallbladder wall measures 2.1 mm. There is a negative sonographic Villegas''s sign. There is no pericholecystic fluid. There are no gallstones. Common Bile Duct (C.B.D.): The common bile duct measures 4.6 mm. Pancreas: Normal size of the head, body and tail of the pancreas. There is diffusely increased echogenicity of the pancreas. There is no demonstrated pancreatic mass or cyst. Right Kidney: Normal size of the right kidney. The right kidney measures 9.1 x 5.2 x 4.6 cm. Normal renal cortex. The right cortex measures 1.4 cm. There is no demonstrated renal mass or cyst. There is no right hydronephrosis. US/Abdomen Limited IMPRESSION: Findings consistent with nonspecific hepatocellular disease. Diffuse fatty infiltration of the pancreas Electronically Signed: Jesus Chris MD at 22:49 EDT , Service support ,
== END ==
PROVIDERS: PCP Family Medicine; Referring Provider Family Medicine; Visit Provider Family Medicine
DX: R74.8 Abnormal levels of other serum enzymes (principal)
CPT/HCPCS: 76705

== ENCOUNTER → 2020-08-12 10:15 | Outpatient (CLI) | payer OTHER, SELFPAY ==
[2020-04-29 13:42] VITALS: BMI 41.3
[2020-08-12 10:32] LABS: Mucous, Urine 0 SEEN /hpf (<or=2+); Red Blood Cells-Urine 0 SEEN /hpf (0-5); Squamous Epithelial Cells - UA 0 SEEN /hpf (5-10)
[2020-08-12 10:49] LABS: Color, Urine Straw (Yellow); Glucose, Dipstick Normal (Normal); Ketone-Dipstick Negative (Negative); Leukocyte Esterase-Dipstick 25 /ul (Negative); Nitrite-Dipstick Negative (Negative); Occult Blood-Urine Negative /ul (Negative); Protein-Dipstick Negative (Negative); Specific Gravity, Urine 1.005 (1.002-1.030); Urine Bilirubin Dipstick Negative (Negative); Urine Clarity Clear (Clear); Urine Urobilinogen Normal (Normal); Urine pH 6.5 (5.0 - 8.0)
[2020-08-12 10:50] LABS: Absolute Lymphocyte Count 1.88 X10^3/uL (0.83-4.51); Absolute Neutrophil Count 2.6 X10^3/uL (2.0-7.7); Basophil# 0.06 X10^3/uL; Basophil% 1.2 % (0-1); Eosinophil# 0.25 X10^3/uL; Hematocrit 37.1 % (37-47); Hemoglobin 12.4 g/dL (12.0-15.0); Lymphocyte # 1.88 X10^3/ul (4.0); Lymphocyte % 37.3 % (19-41); Mean Corp Hgb Conc 33.4 g/dL (32-36); Mean Corpuscular Hgb 31.2 pg (27.0-32.0); Mean Corpuscular Volume 93.2 fL (81-99); Mean Platelet Vol. 9.4 fl (6.2-12.0); Monocyte# 0.26 X10^3/uL; Monocyte% 5.2 % (0-10); NRBC Flagged by Analyzer 0 % (0-5); Neutrophil # 2.55 X10^3/uL (2.7-7.7); Neutrophil % 50.5 % (47-70); Platelet Count 185 K/mm3 (150-450); RBC Distribution Width CV 13.1 % (11.6-14.6); RBC Distribution Width SD 44.9 fl (35.1-43.9); Red Blood Count 3.98 M/mm3 (4.2-5.4)
[2020-08-12 11:00] LABS: Bacteria RARE /hpf (None Seen); White Blood Cells 0-5 SEEN /hpf (0-5)
[2020-08-12 11:01] LABS: Erythrocyte Sedimentation Rate 34 mm/hr (0-30)
[2020-08-12 11:29] LABS: ALB/GLOB Ratio 0.9 RATIO (0.9-2.4); AST(SGOT) 55 U/L (15-37); Alanine Aminotransfer ALT/SGPT 54 U/L (13-56); Albumin, Serum 3.7 g/dL (3.2-5.0); Alkaline Phosphatase 64 U/L (45-117); Anion Gap 7 (5-15); BUN 23 mg/dL (7-18); BUN/Creat Ratio 22.1 RATIO (10-20); CPK Total, Creatine Kinase 47 U/L (26-192); CRP 6.56 mg/L (0.0-3.0); Calcium,Total 9.3 mg/dL (8.5-10.1); Chloride 104 mmol/L (98-107); Creatinine, Serum 1.04 mg/dL (0.55-1.02); EST Glomerular Filtration Rate 58 mL/min (>60); Est Glom Filt Rate - Afr Amer 70 mL/min (>60); Globulin 3.9 g/dL (2.2-4.2); Glucose 162 mg/dL (74-106); Potassium 4.6 mmol/L (3.5-5.1); Protein, Total 7.6 g/dL (6.4-8.2); Sodium Level 138 mmol/L (136-145); Uric Acid 5.4 mg/dL (2.6-6.0)
[2020-08-13 08:43] LABS: AFP, Tumor Marker 3.9 ng/mL (0.0-8.3); Complement C3 193 mg/dL (82-167)
== END ==
PROVIDERS: PCP Family Medicine; Referring Provider Internal Medicine Rheumatology; Visit Provider Internal Medicine Rheumatology
DX: M32.19 Other organ or system involvement in systemic lupus erythematosus (principal); R94.4 Abnormal results of kidney function studies; H04.123 Dry eye syndrome of bilateral lacrimal glands; Z87.39 Personal history of other diseases of the musculoskeletal system and connective tissue; M35.00 Sjogren syndrome, unspecified; Z96.642 Presence of left artificial hip joint; R94.5 Abnormal results of liver function studies; Z79.1 Long term (current) use of non-steroidal anti-inflammatories (NSAID); R76.8 Other specified abnormal immunological findings in serum; I10 Essential (primary) hypertension; K75.81 Nonalcoholic steatohepatitis (NASH); R73.9 Hyperglycemia, unspecified; M35.01 Sjogren syndrome with keratoconjunctivitis; M51.36 Other intervertebral disc degeneration, lumbar region; M19.071 Primary osteoarthritis, right ankle and foot; M19.072 Primary osteoarthritis, left ankle and foot
CPT/HCPCS: 80053; 81001; 82105; 82550; 84550; 85025; 85652; 86140; 86160

== ENCOUNTER → 2020-09-18 15:24 | Outpatient (CLI) | payer OTHER, SELFPAY ==
[2020-04-29 13:42] VITALS: BMI 41.3
== END ==
PROVIDERS: PCP Family Medicine; Referring Provider Family Medicine; Visit Provider Family Medicine
DX: Z20.828 Contact with and (suspected) exposure to other viral communicable diseases (principal)
CPT/HCPCS: 87635; U0003

== ENCOUNTER → 2020-09-30 10:18 | Outpatient (CLI) | payer OTHER, SELFPAY ==
[2020-04-29 13:42] VITALS: BMI 41.3
[2020-09-30 11:59] LABS: Hematocrit 37.1 % (37-47); Hemoglobin 12.5 g/dL (12.0-15.0); Mean Corp Hgb Conc 33.7 g/dL (32-36); Mean Corpuscular Hgb 31.4 pg (27.0-32.0); Mean Corpuscular Volume 93.2 fL (81-99); Mean Platelet Vol. 10.1 fl (6.2-12.0); Platelet Count 215 K/mm3 (150-450); RBC Distribution Width CV 12.8 % (11.6-14.6); RBC Distribution Width SD 43.8 fl (35.1-43.9); Red Blood Count 3.98 M/mm3 (4.2-5.4); White Blood Count 5.5 K/mm3 (4.4-11.0)
[2020-09-30 12:22] LABS: AST(SGOT) 62 U/L (15-37); Alanine Aminotransfer ALT/SGPT 53 U/L (13-56); Albumin, Serum 3.9 g/dL (3.2-5.0); Alkaline Phosphatase 71 U/L (45-117); Anion Gap 9 (5-15); BUN 29 mg/dL (7-18); BUN/Creat Ratio 27.1 RATIO (10-20); Chloride 102 mmol/L (98-107); Cholesterol 267 mg/dL (200); Creatinine, Serum 1.07 mg/dL (0.55-1.02); EST Glomerular Filtration Rate 56 mL/min (>60); Est Glom Filt Rate - Afr Amer 67 mL/min (>60); Ferritin 214 ng/mL (8-252); Globulin 3.9 g/dL (2.2-4.2); Glucose 179 mg/dL (74-106); High Density Lipoprotein 34 mg/dL; Iron 73 ug/dL (50-170); Magnesium 1.6 mg/dL (1.6-2.6); Potassium 4.4 mmol/L (3.5-5.1); Protein, Total 7.8 g/dL (6.4-8.2); Sodium Level 137 mmol/L (136-145); Triglycerides 406 mg/dL
[2020-09-30 14:41] LABS: T4 Free Direct 1.38 ng/dL (0.76-1.46); Thyroid Stim Hormone (TSH) 3.18 uIU/mL (0.358-3.74)
== END ==
PROVIDERS: PCP Family Medicine; Referring Provider Family Medicine; Visit Provider Family Medicine
DX: R74.8 Abnormal levels of other serum enzymes (principal); E03.9 Hypothyroidism, unspecified; D64.9 Anemia, unspecified; E78.00 Pure hypercholesterolemia, unspecified
CPT/HCPCS: 36415; 80053; 80061; 82728; 83540; 83735; 84439; 84443; 85027

== ENCOUNTER → 2020-10-08 10:42 | Outpatient (CLI) | payer OTHER, SELFPAY ==
[2020-04-29 13:42] VITALS: BMI 41.3
--- NOTE | 2020-10-08 10:45 | RAD_ITS ---
STUDY: X-RAY - LEFT SHOULDER REASON FOR EXAM: Female, 59 years old. Left shoulder pain TECHNIQUE: 4 view(s) of the shoulder. COMPARISON: None. FINDINGS: Normal glenohumeral articulation. Normal acromioclavicular joint. Normal acromion. Normal humeral head and visualized proximal humerus. The soft tissue structures are unremarkable. Normal visualized pulmonary apex. RAD/Shoulder min 2 Views IMPRESSION: Normal x-ray examination of the shoulder. Electronically Signed: Deric Abdalla, at 14:17 EST , Service support ,
--- NOTE | 2020-10-08 10:45 | RAD_ITS ---
STUDY: X-RAY - LUMBAR SPINE REASON FOR EXAM: Female, 59 years old. Lumbar degenerative disc disease TECHNIQUE: 5 view(s) of the lumbar spine were obtained including oblique views. COMPARISON: None FINDINGS: There is straightening of the normal lumbar lordosis. There is a levoscoliosis of the lumbar spine. There is a normal alignment of the vertebrae. There is multilevel endplate spondylosis of the lumbar vertebrae. There is multi-level degenerative disc disease with multi-level disc space narrowing. Facet joint osteoarthritis. The patient is status post left hip replacement. The soft tissue structures are unremarkable. RAD/L/S Spine Min 4 Views IMPRESSION: Degenerative changes of the spine, as detailed above. Levoscoliosis. Electronically Signed: Deric Abdalla, at 14:18 EST , Service support ,
== END ==
PROVIDERS: PCP Family Medicine; Referring Provider Family Medicine; Visit Provider Family Medicine
DX: M51.36 Other intervertebral disc degeneration, lumbar region (principal); M25.512 Pain in left shoulder
CPT/HCPCS: 72110; 73030

== ENCOUNTER → 2020-12-09 10:32 | Outpatient (CLI) | payer OTHER, SELFPAY ==
[2020-04-29 13:42] VITALS: BMI 41.3
[2020-12-09 10:41] LABS: Bacteria 0 SEEN /hpf (None Seen); Mucous, Urine 0 SEEN /hpf (<or=2+); Red Blood Cells-Urine 0 SEEN /hpf (0-5); White Blood Cells 0 SEEN /hpf (0-5)
[2020-12-09 11:43] LABS: Color, Urine Yellow (Yellow); Glucose, Dipstick Normal (Normal); Ketone-Dipstick Negative (Negative); Leukocyte Esterase-Dipstick Negative /ul (Negative); Nitrite-Dipstick Negative (Negative); Occult Blood-Urine Negative /ul (Negative); Protein-Dipstick Negative (Negative); Urine Bilirubin Dipstick Negative (Negative); Urine Clarity Clear (Clear); Urine Urobilinogen Normal (Normal)
[2020-12-09 11:47] LABS: Erythrocyte Sedimentation Rate 25 mm/hr (0-30)
[2020-12-09 11:50] LABS: Absolute Lymphocyte Count 1.97 X10^3/uL (0.83-4.51); Absolute Neutrophil Count 3.2 X10^3/uL (2.0-7.7); Basophil# 0.06 X10^3/uL; Eosinophil# 0.28 X10^3/uL; Eosinophils% 4.8 % (0-5); Hemoglobin 11.7 g/dL (12.0-15.0); Lymphocyte # 1.97 X10^3/ul (4.0); Lymphocyte % 33.7 % (19-41); Mean Corp Hgb Conc 32.5 g/dL (32-36); Mean Corpuscular Hgb 30.8 pg (27.0-32.0); Mean Corpuscular Volume 94.7 fL (81-99); Mean Platelet Vol. 9.6 fl (6.2-12.0); Monocyte# 0.32 X10^3/uL; Monocyte% 5.5 % (0-10); NRBC Flagged by Analyzer 0 % (0-5); Neutrophil # 3.19 X10^3/uL (2.7-7.7); Neutrophil % 54.5 % (47-70); Platelet Count 180 K/mm3 (150-450); RBC Distribution Width CV 13.2 % (11.6-14.6); RBC Distribution Width SD 45.2 fl (35.1-43.9); White Blood Count 5.9 K/mm3 (4.4-11.0)
[2020-12-09 11:59] LABS: Squamous Epithelial Cells - UA 0-5 SEEN /hpf (5-10)
[2020-12-09 12:15] LABS: AST(SGOT) 52 U/L (15-37); Alanine Aminotransfer ALT/SGPT 42 U/L (13-56); Albumin, Serum 3.7 g/dL (3.2-5.0); Alkaline Phosphatase 64 U/L (45-117); Anion Gap 8 (5-15); BUN 22 mg/dL (7-18); BUN/Creat Ratio 20.8 RATIO (10-20); CPK Total, Creatine Kinase 50 U/L (26-192); CRP 5.11 mg/L (0.0-3.0); Calcium,Total 9.9 mg/dL (8.5-10.1); Chloride 105 mmol/L (98-107); Creatinine, Serum 1.06 mg/dL (0.55-1.02); EST Glomerular Filtration Rate 56 mL/min (>60); Est Glom Filt Rate - Afr Amer 68 mL/min (>60); Globulin 3.8 g/dL (2.2-4.2); Glucose 152 mg/dL (74-106); Potassium 4.6 mmol/L (3.5-5.1); Protein, Total 7.5 g/dL (6.4-8.2); Sodium Level 138 mmol/L (136-145); Uric Acid 5.2 mg/dL (2.6-6.0)
[2020-12-10 08:21] LABS: Complement C3 193 mg/dL (82-167)
== END ==
PROVIDERS: PCP Family Medicine; Visit Provider Internal Medicine Rheumatology
DX: M32.19 Other organ or system involvement in systemic lupus erythematosus (principal); K11.7 Disturbances of salivary secretion; R76.8 Other specified abnormal immunological findings in serum; Z79.1 Long term (current) use of non-steroidal anti-inflammatories (NSAID); M35.00 Sjogren syndrome, unspecified; Z87.39 Personal history of other diseases of the musculoskeletal system and connective tissue; H04.123 Dry eye syndrome of bilateral lacrimal glands; K75.81 Nonalcoholic steatohepatitis (NASH); M35.01 Sjogren syndrome with keratoconjunctivitis; M19.071 Primary osteoarthritis, right ankle and foot; M19.072 Primary osteoarthritis, left ankle and foot; M51.36 Other intervertebral disc degeneration, lumbar region; R73.9 Hyperglycemia, unspecified; R94.4 Abnormal results of kidney function studies
CPT/HCPCS: 36415; 80053; 81001; 82550; 84550; 85025; 85652; 86140; 86160

== ENCOUNTER → 2021-04-07 10:06 | Outpatient (CLI) | payer OTHER, SELFPAY ==
[2020-04-29 13:42] VITALS: BMI 41.3
[2021-04-07 11:07] LABS: Vitamin D,25 Hydroxy 62.4 ng/mL
[2021-04-07 11:13] LABS: AST(SGOT) 45 U/L (15-37); Alanine Aminotransfer ALT/SGPT 45 U/L (13-56); Albumin, Serum 3.9 g/dL (3.2-5.0); Alkaline Phosphatase 82 U/L (45-117); Anion Gap 7 (5-15); BUN 22 mg/dL (7-18); BUN/Creat Ratio 21.6 RATIO (10-20); Calcium,Total 10.1 mg/dL (8.5-10.1); Chloride 102 mmol/L (98-107); Creatinine, Serum 1.02 mg/dL (0.55-1.02); EST Glomerular Filtration Rate 59 mL/min (>60); Est Glom Filt Rate - Afr Amer 71 mL/min (>60); Glucose 173 mg/dL (74-106); Potassium 4.3 mmol/L (3.5-5.1); Protein, Total 7.9 g/dL (6.4-8.2); Sodium Level 138 mmol/L (136-145); T4 Free Direct 1.33 ng/dL (0.76-1.46); Thyroid Stim Hormone (TSH) 1.57 uIU/mL (0.358-3.74)
== END ==
PROVIDERS: PCP Family Medicine; Referring Provider Family Medicine; Visit Provider Family Medicine
DX: M35.00 Sjogren syndrome, unspecified (principal); E03.9 Hypothyroidism, unspecified; E11.65 Type 2 diabetes mellitus with hyperglycemia
CPT/HCPCS: 36415; 80053; 82306; 84439; 84443

== ENCOUNTER → 2021-04-14 16:29 | Outpatient (CLI) | payer OTHER, SELFPAY ==
[2020-04-29 13:42] VITALS: BMI 41.3
--- NOTE | 2021-04-14 16:34 | RAD_ITS ---
STUDY: X-RAY - PELVIS AND RIGHT HIP REASON FOR EXAM: Female, 60 years old. PAIN INVOLVING PELVIC REGION AND THIGH TECHNIQUE: 3 views of the pelvis and hip. COMPARISON: None. FINDINGS: There is a non-specific bowel gas pattern. Normal visualized soft tissue structures. Left total hip arthroplasty. Hardware appears intact and normally aligned. Moderate right hip arthrosis and joint space narrowing. No acute fracture or dislocation identified. RAD/HIP, UNI W/ Pelvis 2-3 Views IMPRESSION: Left total hip arthroplasty. Hardware appears intact and normally aligned. Moderate right hip arthrosis and joint space narrowing. No acute fracture or dislocation identified. Electronically Signed: Antonio Ravi MD at 18:24 EDT Tel , Service support ,
== END ==
PROVIDERS: PCP Family Medicine; Referring Provider Family Medicine; Visit Provider Family Medicine
DX: M25.559 Pain in unspecified hip (principal)
CPT/HCPCS: 73502

== ENCOUNTER → 2021-07-14 12:23 | Outpatient (CLI) | payer OTHER, SELFPAY ==
[2020-04-29 13:42] VITALS: BMI 41.3
[2021-07-14 12:37] LABS: Bacteria 0 SEEN /hpf (None Seen); Mucous, Urine 0 SEEN /hpf (<or=2+); Red Blood Cells-Urine 0 SEEN /hpf (0-5); White Blood Cells 0 SEEN /hpf (0-5)
[2021-07-14 13:05] LABS: Erythrocyte Sedimentation Rate 17 mm/hr (0-30)
[2021-07-14 13:06] LABS: Absolute Lymphocyte Count 1.59 X10^3/uL (0.83-4.51); Absolute Neutrophil Count 1.8 X10^3/uL (2.0-7.7); Basophil# 0.03 X10^3/uL; Basophil% 0.8 % (0-1); Eosinophil# 0.15 X10^3/uL; Eosinophils% 3.9 % (0-5); Hematocrit 35.2 % (37-47); Hemoglobin 11.8 g/dL (12.0-15.0); Lymphocyte # 1.59 X10^3/ul (0.83-4.51); Lymphocyte % 41.5 % (19-41); Mean Corp Hgb Conc 33.5 g/dL (32-36); Mean Corpuscular Hgb 30.7 pg (27.0-32.0); Mean Corpuscular Volume 91.7 fL (81-99); Mean Platelet Vol. 9.6 fl (6.2-12.0); Monocyte# 0.22 X10^3/uL; Monocyte% 5.7 % (0-10); NRBC Flagged by Analyzer 0 % (0-5); Neutrophil # 1.82 X10^3/uL (2.7-7.7); Neutrophil % 47.6 % (47-70); Platelet Count 167 K/mm3 (150-450); RBC Distribution Width CV 12.9 % (11.6-14.6); RBC Distribution Width SD 42.8 fl (35.1-43.9); Red Blood Count 3.84 M/mm3 (4.2-5.4); White Blood Count 3.8 K/mm3 (4.4-11.0)
[2021-07-14 13:25] LABS: ALB/GLOB Ratio 0.9 RATIO (0.9-2.4); AST(SGOT) 39 U/L (15-37); Alanine Aminotransfer ALT/SGPT 37 U/L (13-56); Albumin, Serum 3.5 g/dL (3.2-5.0); Alkaline Phosphatase 66 U/L (45-117); Anion Gap 9 (5-15); BUN 17 mg/dL (7-18); BUN/Creat Ratio 17.5 RATIO (10-20); CPK Total, Creatine Kinase 51 U/L (26-192); CRP 3.63 mg/L (0.0-3.0); Calcium,Total 9.4 mg/dL (8.5-10.1); Chloride 102 mmol/L (98-107); Creatinine, Serum 0.97 mg/dL (0.55-1.02); EST Glomerular Filtration Rate 62 mL/min (>60); Est Glom Filt Rate - Afr Amer 75 mL/min (>60); Globulin 3.7 g/dL (2.2-4.2); Glucose 243 mg/dL (74-106); Potassium 4.2 mmol/L (3.5-5.1); Protein, Total 7.2 g/dL (6.4-8.2); Sodium Level 139 mmol/L (136-145); Uric Acid 3.4 mg/dL (2.6-6.0)
[2021-07-14 13:46] LABS: Color, Urine Yellow (Yellow); Glucose, Dipstick Normal (Normal); Ketone-Dipstick Negative (Negative); Leukocyte Esterase-Dipstick Negative /ul (Negative); Nitrite-Dipstick Negative (Negative); Occult Blood-Urine Negative /ul (Negative); Protein-Dipstick Negative (Negative); Urine Bilirubin Dipstick Negative (Negative); Urine Clarity Clear (Clear); Urine Urobilinogen Normal (Normal)
[2021-07-14 13:56] LABS: Squamous Epithelial Cells - UA 0-5 SEEN /hpf (5-10)
[2021-07-15 17:58] LABS: Complement C3 175 mg/dL (82-167)
== END ==
PROVIDERS: PCP Family Medicine; Referring Provider Internal Medicine Rheumatology; Visit Provider Internal Medicine Rheumatology
DX: M32.19 Other organ or system involvement in systemic lupus erythematosus (principal); D64.89 Other specified anemias; H04.123 Dry eye syndrome of bilateral lacrimal glands; K11.7 Disturbances of salivary secretion; M35.00 Sjogren syndrome, unspecified; Z79.1 Long term (current) use of non-steroidal anti-inflammatories (NSAID); Z87.39 Personal history of other diseases of the musculoskeletal system and connective tissue; Z96.642 Presence of left artificial hip joint; R94.4 Abnormal results of kidney function studies; R76.8 Other specified abnormal immunological findings in serum; K75.81 Nonalcoholic steatohepatitis (NASH); R73.9 Hyperglycemia, unspecified; M35.01 Sjogren syndrome with keratoconjunctivitis; M51.36 Other intervertebral disc degeneration, lumbar region
CPT/HCPCS: 36415; 80053; 81001; 82550; 84550; 85025; 85652; 86140; 86160

== ENCOUNTER → 2021-09-27 10:48 | Outpatient (CLI) | payer OTHER, SELFPAY ==
[2021-09-27 13:13] LABS: ALB/GLOB Ratio 0.8 RATIO (0.9-2.4); AST(SGOT) 137 U/L (15-37); Alanine Aminotransfer ALT/SGPT 87 U/L (13-56); Albumin, Serum 3.3 g/dL (3.2-5.0); Alkaline Phosphatase 115 U/L (45-117); Anion Gap 10 (5-15); BUN 15 mg/dL (7-18); BUN/Creat Ratio 17.5 RATIO (10-20); Calcium,Total 9.3 mg/dL (8.5-10.1); Chloride 106 mmol/L (98-107); Cholesterol 149 mg/dL (200); Creatinine, Serum 0.86 mg/dL (0.55-1.02); EST Glomerular Filtration Rate 72 mL/min (>60); Est Glom Filt Rate - Afr Amer 87 mL/min (>60); Globulin 4.1 g/dL (2.2-4.2); Glucose 183 mg/dL (74-106); High Density Lipoprotein 29 mg/dL; Protein, Total 7.4 g/dL (6.4-8.2); Sodium Level 137 mmol/L (136-145); T4 Free Direct 1.41 ng/dL (0.76-1.46); Triglycerides 267 mg/dL; Uric Acid 5.3 mg/dL (2.6-6.0); Very Low Density Lipoprotein 53 mg/dL (5-40)
== END ==
PROVIDERS: PCP Family Medicine; Visit Provider Family Medicine
DX: E03.9 Hypothyroidism, unspecified (principal); K21.9 Gastro-esophageal reflux disease without esophagitis; E11.65 Type 2 diabetes mellitus with hyperglycemia; M10.9 Gout, unspecified
CPT/HCPCS: 36415; 80053; 80061; 84439; 84443; 84550

== ENCOUNTER → 2021-09-30 17:43 | Outpatient (CLI) | payer OTHER, SELFPAY | PROVIDERS: PCP Family Medicine; Visit Provider Family Medicine | DX: J02.9 Acute pharyngitis, unspecified (principal) | CPT/HCPCS: 87070 ==

== ENCOUNTER 2021-11-26 12:36 | Outpatient (CLI) | payer OTHER, SELFPAY ==
[2021-11-26 15:12] LABS: Absolute Lymphocyte Count 1.67 X10^3/uL (0.83-4.51); Absolute Neutrophil Count 3.5 X10^3/uL (2.0-7.7); Basophil# 0.04 X10^3/uL; Basophil% 0.7 % (0-1); Eosinophil# 0.26 X10^3/uL; Eosinophils% 4.4 % (0-5); Hematocrit 33.9 % (37-47); Hemoglobin 11.2 g/dL (12.0-15.0); Lymphocyte # 1.67 X10^3/ul (0.83-4.51); Lymphocyte % 28.3 % (19-41); Mean Corpuscular Hgb 30.4 pg (27.0-32.0); Mean Corpuscular Volume 91.9 fL (81-99); Mean Platelet Vol. 9.9 fl (6.2-12.0); Monocyte# 0.42 X10^3/uL; Monocyte% 7.1 % (0-10); NRBC Flagged by Analyzer 0 % (0-5); Neutrophil # 3.51 X10^3/uL (2.7-7.7); Neutrophil % 59.3 % (47-70); Platelet Count 178 K/mm3 (150-450); RBC Distribution Width SD 47.4 fl (35.1-43.9); Red Blood Count 3.69 M/mm3 (4.2-5.4); White Blood Count 5.9 K/mm3 (4.4-11.0)
[2021-11-26 15:29] LABS: D-Dimer Quantitative (DVT/PE) 0.39 FEU/ug/m (0.27-0.49)
[2021-11-26 15:58] LABS: ALB/GLOB Ratio 1.1 RATIO (0.9-2.4); AST(SGOT) 46 U/L (15-37); Alanine Aminotransfer ALT/SGPT 32 U/L (13-56); Albumin, Serum 4.1 g/dL (3.2-5.0); Alkaline Phosphatase 67 U/L (45-117); Anion Gap 8 (5-15); BUN 23 mg/dL (7-18); BUN/Creat Ratio 25.6 RATIO (10-20); Calcium,Total 9.6 mg/dL (8.5-10.1); Chloride 104 mmol/L (98-107); EST Glomerular Filtration Rate 68 mL/min (>60); Est Glom Filt Rate - Afr Amer 82 mL/min (>60); Globulin 3.9 g/dL (2.2-4.2); Glucose 149 mg/dL (74-106); Potassium 4.2 mmol/L (3.5-5.1); Sodium Level 138 mmol/L (136-145); Thyroid Stim Hormone (TSH) 1.55 uIU/mL (0.358-3.74)
== END 2021-11-26 23:59 | disposition home or self-care (01) ==
LOC: MTLAB 12:38
PROVIDERS: PCP Family Medicine; Referring Provider Family Medicine; Visit Provider Family Medicine
DX: R06.02 Shortness of breath (principal)
CPT/HCPCS: 36415; 80053; 84443; 85025; 85379

== ENCOUNTER 2021-12-09 13:53 | Outpatient (CLI) | payer OTHER, SELFPAY ==
--- NOTE | 2021-12-09 14:02 | CT_ITS ---
STUDY: CT CHEST WITH CONTRAST REASON FOR EXAM: Female, 61 years old. Post Covid shortness of breath. RADIATION DOSAGE (If Supplied By Facility): CTDIvol = ( 18.08 ) mGy, DLP = ( 642.91 ) mGycm TECHNIQUE: Transaxial imaging was performed following intravenous administration of IV 100mL Isovue-300. Multiplanar coronal and sagittal images were reformatted. Individualized dose optimization techniques were used for this CT. COMPARISON: None. FINDINGS: Diffuse increase interstitial markings in both lungs worse in the right hemithorax. Focal area of confluence in the right upper lobe. Calcified granuloma in the anterior aspect of the right middle lobe. Follow-up is recommended. There is no demonstrated pleural abnormality. Normal heart and pericardium. Normal mediastinum. Normal hilar regions. Normal enhanced pulmonary arteries. Normal aorta arch and descending thoracic aorta. Normal osseous structures. There is no demonstrated abnormality of the visualized upper abdomen. CT/Chest WITH Contrast IMPRESSION: Diffuse increased interstitial lynn in both lungs worse in the right hemithorax with focal area of confluence in the right upper lobe. Radiographic follow-up is recommended. Electronically Signed: Deric Abdalla MD at 15:31 EST ,
== END 2021-12-09 23:59 | disposition home or self-care (01) ==
LOC: CT 13:57
PROVIDERS: PCP Family Medicine; Referring Provider Family Medicine; Visit Provider Family Medicine
DX: R06.02 Shortness of breath (principal)
CPT/HCPCS: 71260; Q9967

== ENCOUNTER 2021-12-15 08:59 | Outpatient (CLI) | payer OTHER, SELFPAY ==
--- NOTE | 2021-12-15 09:00 | ECHOD_ITS ---
Reason For Study: SOB Procedure This was a 2D Doppler, Color Flow transthoracic echocardiogram. Exam performed in department. Left Ventricle Normal LV size. Left ventricular systolic function is normal. The estimated ejection fraction is 55 %. Stage 1 diastolic dysfunction. No regional wall motion abnormalities noted. Right Ventricle Normal RV size. Normal systolic function. Atria Normal left atrium. Normal right atrium. Tricuspid Valve The tricuspid valve is not well visualized. Unable to estimate RV systolic pressure/pulmonary artery pressure due to technically difficult study. Great Vessels Normal aortic root. The pulmonary artery is normal size. Normal inferior vena cava. Pericardium/Pleural No pericardial effusion. MMode/2D Measurements & Calculations LVIDd: 5.0 cm IVSd: 0.96 cm Ao root diam: 2.8 cm LVIDs: 3.0 cm LVPWd: 1.0 cm RVDd: 3.3 cm FS: 41.0 % LAV(MOD-bp): 51.1 ml LA dimension(2D): 4.4 cm LA A4 area: 19.8 cm2 LAV(MOD-bp) Indexed: 26.2 ml/m2 LAV(MOD-sp2): 39.1 ml LAV(MOD-sp4): 52.6 ml RA A4 area: 16.1 cm2 Time Measurements MV dec time: 0.18 sec Doppler Measurements & Calculations MV E max inderjit: 85.5 cm/sec Lat Peak E' Inderjit: 8.8 cm/sec Med Peak E' Inderjit: 5.7 cm/sec MV A max inderjit: 94.8 cm/sec E/E' lat: 9.7 E/E' med: 15.1 MV E/A: 0.90 Ao V2 max: 122.6 cm/sec LV V1 max: 98.2 cm/sec PA V2 max: 95.6 cm/sec Ao max P.0 mmHg LV V1 max P.9 mmHg ECHO/Echo Complete Interpretation Summary Normal LV size. Left ventricular systolic function is normal. The estimated ejection fraction is 55 %. Stage 1 diastolic dysfunction. Ordering Physician: Olivier Gonzalez Referring Physician: Olivier Gonzalez Performed By: Christiana Obrien RDCS, RVT
== END 2021-12-15 23:59 | disposition home or self-care (01) ==
LOC: CVS 09:00
PROVIDERS: PCP Family Medicine; Referring Provider Family Medicine; Visit Provider Family Medicine
DX: R06.02 Shortness of breath (principal)
CPT/HCPCS: 93306

== ENCOUNTER 2022-02-09 10:00 | Outpatient (RCR) | payer OTHER, SELFPAY ==
--- NOTE | 2021-11-26 13:05 | HP.PTEVAL_ITS ---
Patient's Visit Information AMY ELLISON is a 61 year old F referred to Physical Therapy by Dr. Elsa Fernandez DO with a diagnosis of L RTC tear with repair. DOS: 09/21/21. Date of Evaluation: 11/26/21 Physical Therapist: Darryl Manriquez DPT - Visit Plan Frequency: 3x /Week Duration: 6 Weeks Plan: Start with progressing end range PROM, initiate supine AAROM into flexion and ER. Progress standing AAROM shoulder IR. Once strength is improving add in standing AAROM as tolerated. Pt. to follow up with physician in a few weeks. - Subjective Pt. is here today for her initial evaluation with diagnosis of traumatic L RTC tear with repair. DOS: 09/21/21. She ended up going to hospital on 10/06/21 and had pneumonia and COVID. She was subsequently in ICU for a 1 week. She did PT for about a month for general mobility and L shoulder ROM. She saw physician on 10/29/21. She reported falling at a grocery store last year and believes this started her L shoulder issues. Pt. is sleeping in a reclining chair. Increased pain with sleeping. She reports pain at lateral deltoid. She does have relief with squeezing her pectoral muscle on the L side. 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 She is currently on 5L of 02 with walking, 2L at rest. She is to physician later this month. She ultimately had multiple RTC repair, no bicep involvement, but did have a SAD as well. - Pain L shoulder Pain Intensity (Out of 10): 2 Comment: achy - Objective POSTURE: Pt. has slight FH posture bilat. Pt. has rounded shoulders bilaterally. PALPATION: Pt. has tenderness at anterior shoulder, but incisions are healing well without signs of infection. NEURO: Pt. has normal sensation in BUes. Pt. h as normal DTR of BUEs. ROM: L shoulder: PROM: flexion 155deg, abd 150deg, ER at 90deg 45deg. AROM (Seated): flexion 40deg, abd 50deg, functional IR PSIS, ER aberrant motion to ear. MMT: RUE 5/5 throughout. LUE not tested as she can not move well enough against gravity. - Balance/Special Test Scores Quick DASH Score: 50.0000 - Goals Goal 1:: LTG: Pt. to be I with HEP for AAROM and strengthening of L shoulder. Goal Time Frame: 4-6 Weeks Goal 2:: STG: Pt. to sleep throughout the night with 0-1/10 pain allowing for increased quality of life. Goal Time Frame: 2-4 Weeks Goal 3:: STG: Pt. to have full PROM of L shoulder without increase in symptoms. Goal Time Frame: 2 Weeks Goal 4:: LTG: Pt. to have full AAROM of L shoulder without increase in symptoms. Goal Time Frame: 2-4 Weeks Goal 5:: LTG: Pt. to have increased L UE strength to at least 4+/5 throughout. Goal Time Frame: 4-6 Weeks - Rehabilitation Potential Physical Therapy Diagnosis: Pt. has signs and symptoms consistent with L RTC tear with repair. DOS: 09/21/21. She did have COVID, pneumonia after this resulting in large gap in therapy interventions. She is overall doing well. She has decent ROM of L shoulder, but has marked weakness. Pt. would benefit from PT to progress end range PROM, progressing AAROM (initial strength) and eventually progressing strength. Rehabilitation Potential: Excellent - Anticipated Interventions Patient/Client Instruction: Educate patient on: Condition, Plan of Care, Risk Factors, Benefits of Fitness Program For the Purpose of:: To improve decision making, To facilitate caregiver knowledge, To improve self management, To prevent re-injury, To improve ability to perform tasks related to life management Therapeutic Exercise to Include: Strength training, Power training, Coordination, Body mechanics, Postural training, Flexibilty training, Passive ROM, Active ROM, Scapular Strength/Stabilization For the Purpose of:: To decrease pain, To decrease swelling/inflammation, To increase ROM, To improve nutrient delivery to tissue, To improve ability of physical actions for home/community/work/leisure, To improve health of tissue, To decrease soft tissue restriction, To increase flexibility/ROM Cryotherapy (ice pack, ice massage): Yes Thermo therapy (hot pack): Yes For the Purpose of:: To decrease pain, To increase ROM, To improve nutrient delivery to tissue, To decrease soft tissue restriction Thank you for the opportunity to evaluate your patient. For Medicare and Medicare HMO plans, please review the plan of care and approve it. It will need to be FAXED BACK to us at [phone] for Medicare purposes. For Medicare only, by signing this I certify the plan of care. Please let me know if there are questions or concerns regarding this plan of care. Physician Signature: Date:
--- NOTE | 2022-02-09 12:32 | HP.PTDCSUM_ITS ---
It has been my pleasure to treat AMY ELLISON referred by Dr. Elsa Fernandez DO, with the diagnosis of L RTC tear with repair. DOS: 09/21/21 for a total of 22 visit(s). Discharge Date: 02/09/22 Please see the following information for a summary of their discharge status. Subjective: Pt. reports overall doing well. Pt. reports no pain currently. She had some soreness the other day, but not really painful. Pt. reports HEP compliant. L shoulder Pain Intensity (Out of 10): 0 % Improvement: 90 Objective/Function: Pt. repots her slight weakness being her main issues with further progression. PROM: Pt. has close to full PROM, lacking final few degrees of flexion and abduction. AROM: Pt. has similar AROM to PROM. Slightly more difficulty with abd. Great functional ER and IR motion. MMT: RUE 5/5 throughout. LUE: shoulder: flexion 4/5, abd 4+/5, ER 4+/5, IR 5-/5 ext 5-/5. She is overall doing well. No issues noted. Pt. pleased. Pt. is still having some intermittent breathing issues, being managed Goal 1:: LTG: Pt. to be I with HEP for AAROM and strengthening of L shoulder. Goal Progress: Goal Met Goal 2:: STG: Pt. to sleep throughout the night with 0-1/10 pain allowing for in creased quality of life. Goal Progress: Goal Met Goal 3:: STG: Pt. to have full PROM of L shoulder without increase in symptoms. Goal Progress: Goal Met Goal 4:: LTG: Pt. to have full AAROM of L shoulder without increase in symptoms. Goal Progress: Goal Met Goal 5:: LTG: Pt. to have increased L UE strength to at least 4+/5 throughout. Goal Progress: Goal Met Plan: PT. to be DC to HEP at this point in time. Discharge Comments: Pt is doing well. No major issues at this point in time. She is I with HEP for strengthening and has good ROM. She will be DC to HEP at this point in time. If there are questions or concerns regarding this patient's physical therapy, please feel free to call me at [phone]. Thank you for the referral of this patient. Sincerely, Darryl L Sipos, DPT Balance/Gait/Functional tests - Balance/Special Test Scores Quick DASH Score: 0
== END 2022-02-09 12:41 | disposition home or self-care (01) ==
LOC: PT 10:00
PROVIDERS: PCP Family Medicine; Referring Provider Orthopaedic Surgery; Visit Provider Orthopaedic Surgery
DX: S46.012D Strain of muscle(s) and tendon(s) of the rotator cuff of left shoulder, subsequent encounter (principal)
CPT/HCPCS: 97110; 97140; 97162; 97164

== ENCOUNTER → 2022-03-23 | Outpatient (CLI) | payer OTHER, SELFPAY ==
[2022-03-23 10:30] LABS: Hematocrit 36.6 % (37-47); Hemoglobin 12.1 g/dL (12.0-15.0); Mean Corp Hgb Conc 33.1 g/dL (32-36); Mean Corpuscular Hgb 30.4 pg (27.0-32.0); Mean Platelet Vol. 9.1 fl (6.2-12.0); Platelet Count 179 K/mm3 (150-450); RBC Distribution Width CV 13.8 % (11.6-14.6); RBC Distribution Width SD 46.5 fl (35.1-43.9); Red Blood Count 3.98 M/mm3 (4.2-5.4); White Blood Count 5.6 K/mm3 (4.4-11.0)
== END | disposition home or self-care (01) ==
LOC: LAB 09:40
PROVIDERS: PCP Family Medicine; Referring Provider Internal Medicine Pulmonary Disease; Visit Provider Internal Medicine Pulmonary Disease
DX: R06.00 Dyspnea, unspecified (principal); J45.30 Mild persistent asthma, uncomplicated; D64.9 Anemia, unspecified
CPT/HCPCS: 36415; 85027

== ENCOUNTER → 2022-06-01 | Outpatient (CLI) | payer OTHER, SELFPAY ==
[2022-06-01 12:37] LABS: Absolute Lymphocyte Count 1.94 X10^3/uL (0.83-4.51); Absolute Neutrophil Count 3.5 X10^3/uL (2.0-7.7); Basophil# 0.05 X10^3/uL; Basophil% 0.8 % (0-1); Eosinophil# 0.12 X10^3/uL; Hematocrit 37.3 % (37-47); Hemoglobin 12.2 g/dL (12.0-15.0); Lymphocyte # 1.94 X10^3/ul (0.83-4.51); Lymphocyte % 32.6 % (19-41); Mean Corp Hgb Conc 32.7 g/dL (32-36); Mean Corpuscular Hgb 30.3 pg (27.0-32.0); Mean Corpuscular Volume 92.6 fL (81-99); Mean Platelet Vol. 9.7 fl (6.2-12.0); Monocyte# 0.35 X10^3/uL; Monocyte% 5.9 % (0-10); NRBC Flagged by Analyzer 0 % (0-5); Neutrophil # 3.49 X10^3/uL (2.7-7.7); Neutrophil % 58.5 % (47-70); Platelet Count 185 K/mm3 (150-450); RBC Distribution Width CV 13.1 % (11.6-14.6); RBC Distribution Width SD 44.7 fl (35.1-43.9); Red Blood Count 4.03 M/mm3 (4.2-5.4)
[2022-06-01 12:54] LABS: Erythrocyte Sedimentation Rate 17 mm/hr (0-30)
[2022-06-01 13:28] LABS: BUN 23 mg/dL (7-18); Glucose 111 mg/dL (74-106)
[2022-06-01 13:29] LABS: ALB/GLOB Ratio 1.1 RATIO (0.9-2.4); AST(SGOT) 30 U/L (15-37); Alanine Aminotransfer ALT/SGPT 35 U/L (13-56); Albumin, Serum 3.7 g/dL (3.2-5.0); Alkaline Phosphatase 54 U/L (45-117); Anion Gap 5 (5-15); BUN/Creat Ratio 25.4 RATIO (10-20); Calcium,Total 9.5 mg/dL (8.5-10.1); Chloride 106 mmol/L (98-107); Cholesterol 147 mg/dL (200); EST Glomerular Filtration Rate 67 mL/min (>60); Est Glom Filt Rate - Afr Amer 81 mL/min (>60); Globulin 3.5 g/dL (2.2-4.2); High Density Lipoprotein 46 mg/dL; Potassium 4.3 mmol/L (3.5-5.1); Protein, Total 7.2 g/dL (6.4-8.2); Sodium Level 139 mmol/L (136-145); T4 Free Direct 1.45 ng/dL (0.76-1.46); Thyroid Stim Hormone (TSH) 0.54 uIU/mL (0.358-3.74); Triglycerides 127 mg/dL; Very Low Density Lipoprotein 25 mg/dL (5-40)
== END | disposition home or self-care (01) ==
LOC: MFPLAB 09:48
PROVIDERS: PCP Family Medicine; Referring Provider Family Medicine; Visit Provider Family Medicine
DX: M35.00 Sjogren syndrome, unspecified (principal); E11.59 Type 2 diabetes mellitus with other circulatory complications; E11.9 Type 2 diabetes mellitus without complications; E03.9 Hypothyroidism, unspecified; E55.9 Vitamin D deficiency, unspecified
CPT/HCPCS: 36415; 80053; 80061; 82306; 84439; 84443; 85025; 85652

== ENCOUNTER → 2022-06-27 | Outpatient (CLI) | payer OTHER, SELFPAY ==
--- NOTE | 2022-06-27 10:45 | RAD_ITS ---
EXAM: XR LUMBOSACRAL SPINE COMPLETE WITH FLEXION/EXTENSION, 6 OR MORE VIEWS CLINICAL INDICATION: DDD TECHNIQUE: Lateral, frontal, oblique and lateral flexion/extension views of the lumbar spine and sacrum. This report was created using avocarrot report [employer] technology. COMPARISON: None. FINDINGS: VERTEBRAE: Leftward curvature of the thoracolumbar spine. No acute or healing fracture or acute post traumatic malalignment. No unusual lytic or sclerotic lesions of bone. No spondylolisthesis. No significant facet arthropathy. DISC SPACES: Multilevel mild to moderate degenerative changes of the spine. VASCULATURE: Atherosclerotic calcifications of the nonenlarged thoracic aorta. GASTROINTESTINAL TRACT: Unremarkable as visualized. Included bowel gas pattern is non-obstructive. OTHER FINDINGS: Moderate right hip osteoarthrosis. Left total hip arthroplasty. RAD/L/S Spine w Bend Min 6 Vw IMPRESSION: 1. Multilevel mild to moderate degenerative changes of the spine. 2. No mechanical instability with flexion or extension. Electronically Signed: Yon Joshi MD at 20:53 EDT ,
== END | disposition home or self-care (01) ==
LOC: MTRAD 10:44
PROVIDERS: PCP Family Medicine; Referring Provider Family Medicine; Visit Provider Family Medicine
DX: M51.36 Other intervertebral disc degeneration, lumbar region (principal)
CPT/HCPCS: 72114

== ENCOUNTER 2022-06-29 11:00 | Outpatient (RCR) | payer OTHER, SELFPAY ==
--- NOTE | 2022-04-05 10:01 | HP.PTEVAL ---
Patient's Visit Information AMY ELLISON is a 61 year old F referred to Physical Therapy by Dr. Miki Gonzalez MD with a diagnosis of L piriformis syndrome. Date of Evaluation: 04/05/22 Physical Therapist: Darryl Manriquez DPT - Visit Plan Frequency: 2x /Week Duration: 4 Weeks Plan: Start with gentle piriformis stretching/activitation. DN and manual techniques. Progressing glute med and max strengthening in non painful ranges. - Subjective Pt. is here today for her initial evaluation with diagnosis of L piriformis syndrome. Pt. reports having pain since (~2-3 weeks). Pt. reports no mech of injury. She does reports having some relief since initial injury. She initially had pain from hip to foot, but now is much better. She still has pain with increased standing, getting up/down. Decreased pain: sitting, resting and some OTC pain meds. No N/T. She is sleeping better. She is doing better at work now, after missing a few days initially. She has not tried any stretching, or exercises for her pain. She did report having increased stressed in her life during this time as well. Pt. did try kenolog without relief. She is hopeful to reduce symptoms further in order to continue with work and recreational activities without limitations. Pt. does have a L HOLLY, completed in 2013. - Pain L hip Pain Intensity (Out of 10): 2 Pain Intensity Range: 1, 5 Comment: muscle spam like symptom - Objective POSTURE: Pt. has FH posture, decreased lumbar lordosis, slightly slouched posture. PALPATION: Pt. has increased tenderness at L greater trochanter, L piriformis and L glute medius. NEURO: Pt. has normal sensation to B LEs. Pt. has normal DTR of BLEs. ROM: Pt. has decent ROM of her L hip. ER 45deg, IR 20deg, flexion 110deg, ext 10deg. Tight IT band and HS noted. R hip ROM: normal throughout, tight IT band and HS as well. MMT: LEs symmetrical in strength, except hip abd 4/5, hip ext 4/5, and hip ER 4/5. GAIT: Pt. ambulates well with out AD. She has slight lateral hip sway, but not major. She tends to drop down onto her L side, but minimally. Mild increase in pain during L stance phase. STAIRS: Pt. is able to negotiate with 2 HR with reciprocal pattern. Pt. appears to have functional weakness on the L side. - Special Tests Lumbar Standing: Flexion - Mechanical Response: No effect Lumbar Standing: Flexion - Symptoms During Testing: No effect Lumbar Standing: Flexion - Symptoms After Testing: No effect Lumbar Standing: Extension - Mechanical Response: No effect Lumbar Standing: Extension - Symptoms During Testing: No effect Lumbar Standing: Extension - Symptoms After Testing: No effect Lumbar Standing: Right Side Glides - Mechanical Response: No effect Lumbar Standing: Right Side [place] - Symptoms During Testing: No effect Lumbar Standing: Right Side [place] - Symptoms After Testing: No effect Lumbar Standing: Left Side [place] - Mechanical Response: No effect Lumbar Standing: Left Side [place] - Symptoms During Testing: No effect Lumbar Standing: Left Side [place] - Symptoms After Testing: No effect Lumbar Lying: Flexion - Mechanical Response: No effect Lumbar Lying: Flexion - Symptoms During Testing: No effect Lumbar Lying: Flexion - Symptoms After Testing: No effect Lumbar Lying: Extension - Mechanical Response: No effect Lumbar Lying: Extension - Symptoms During Testing: No effect Lumbar Lying: Extension - Symptoms After Testing: No effect L Hip Scour: Negative L Hip Insha - IT Band: Negative - Balance/Special Test Scores Lower Extremity Functional Score: 40 - Goals Goal 1:: LTG: Pt. I with HEP. Goal Time Frame: 4-6 Weeks Goal 2:: STG: Pt. to sleep throughout the night without increase in symptoms. Goal Time Frame: 2 Weeks Goal 3:: LTG: pt. to walk unlimited distances without increase in symptoms and normal gait pattern. Goal Time Frame: 4-6 Weeks Goal 4:: STG: Pt. to have increased ROM of L hip to full without increase in symptoms. Goal Time Frame: 2-4 Weeks - Rehabilitation Potential Physical Therapy Diagnosis: Pt. has signs and symptoms consistent with L piriformis syndrome. She has increased tightness, pain to palpation, and increased pain with ambulation. Pt. would benefit from PT to increase ROM, decrease muscle tension and progress back to previous recreational and work activities. Rehabilitation Potential: Excellent - Anticipated Interventions Patient/Client Instruction: Educate patient on: Condition, Plan of Care, Risk Factors, Benefits of Fitness Program For the Purpose of:: To improve health and function, To foster healthy habits, To improve decision making, To facilitate caregiver knowledge, To improve self management, To prevent re-injury, To improve ability to perform tasks related to life management Therapeutic Exercise to Include: Strength training, Coordination, Body mechanics, Postural training, Flexibilty training, Gait and locomotor training, Passive ROM, Active ROM For the Purpose of:: To decrease pain, To decrease swelling/inflammation, To increase ROM, To improve nutrient delivery to tissue, To increase oxygenation perfusion, To improve muscle performance and motor function, To improve ability to perform ADL's, To improve gait and locomotor functions, To improve health of tissue, To decrease soft tissue restriction, To increase flexibility/ROM Manual Therapy Techniques to Include: Functional dry needling, Soft tissue mobilization For the Purpose of:: To decrease pain, To decrease swelling/inflammation, To increase ROM, To improve nutrient delivery to tissue, To increase oxygenation perfusion Thank you for the opportunity to evaluate your patient. For Medicare and Medicare HMO plans, please review the plan of care and approve it. It will need to be FAXED BACK to us at [phone] for Medicare purposes. For Medicare only, by signing this I certify the plan of care. Please let me know if there are questions or concerns regarding this plan of care. Physician Signature: Date:
--- NOTE | 2022-05-31 12:07 | HP.PTREVAL_ITS ---
Dr. Miki Gonzalez MD, It has been my pleasure to treat AMY ELLISON over the last 9 visits for L piriformis syndrome. Please see the progress note below for an update on the physical therapy plan of care! Subjective: Pt. reports I am doing a bit better, but I still have days where it bothers me. She reports being HEP compliant. 2/10 pain pre treatment in L gluteal region today. She reports being HEP compliant without issues. Objective/Function: Pt. did well with PT. She continues to slowly progress. She needs to continue to strengthenign her glute medius to increase stability. She is progressing with this as well. She is following up with physician later this week. She is not quite progressing as fast as I would like. She has good mobility in her L hip, but I would like to see her glute medius stronger and glute max as well. She was decent then took a longer trip in the car and set off her symptoms again. Pt. to see physician then follow back up if needed. Plan Plan: Follow up with physician to determine best course of action. Balance/Gait/Functional tests - Balance/Special Test Scores Lower Extremity Functional Score: 40 Goals Goal 1:: LTG: Pt. I with HEP. Goal Time Frame: 4-6 Weeks Goal Progress: Goal Met Goal 2:: STG: Pt. to sleep throughout the night without increase in symptoms. Goal Time Frame: 2 Weeks Goal Progress: Progressing Goal 3:: LTG: pt. to walk unlimited distances without increase in symptoms and normal gait pattern. Goal Time Frame: 4-6 Weeks Goal Progress: Progressing Goal 4:: STG: Pt. to have increased ROM of L hip to full without increase in symptoms. Goal Time Frame: 2-4 Weeks Goal Progress: Goal Met Goal 5:: LTG: pt. to have 5/5 strength of L glute med and max. Goal Time Frame: 4-6 Weeks Goal Progress: Progressing Anticipated Interventions Patient/Client Instruction: Educate patient on: Condition, Plan of Care, Risk Factors, Benefits of Fitness Program For the Purpose of:: To improve health and function, To foster healthy habits, To improve decision making, To facilitate caregiver knowledge, To improve self management, To prevent re-injury, To improve ability to perform tasks related to life management Therapeutic Exercise to Include: Strength training, Coordination, Body mechanics, Postural training, Flexibilty training, Gait and locomotor training, Passive ROM, Active ROM For the Purpose of:: To decrease pain, To decrease swelling/inflammation, To increase ROM, To improve nutrient delivery to tissue, To increase oxygenation perfusion, To improve muscle performance and motor function, To improve ability to perform ADL's, To improve gait and locomotor functions, To improve health of tissue, To decrease soft tissue restriction, To increase flexibility/ROM Manual Therapy Techniques to Include: Functional dry needling, Soft tissue mobilization For the Purpose of:: To decrease pain, To decrease swelling/inflammation, To increase ROM, To improve nutrient delivery to tissue, To increase oxygenation perfusion Please do not hesitate to contact me at [phone] by phone or Fax: if you have questions or concerns regarding this new plan of care! Sincerely, Darryl Manriquez DPT
--- NOTE | 2022-06-29 12:33 | HP.PTREVAL ---
Dr. Miki Gonzalez MD, It has been my pleasure to treat AMY ELLISON over the last 11 visits for L piriformis syndrome. Please see the progress note below for an update on the physical therapy plan of care! Subjective: Pt. reports having increased pain in her L lumbar and hip region. She reports pain was so intense that she could hardly stand or walk. She was able to get into see physician who took some xrays and started her on prednisone. Her xrays showed mild to moderate multilevel degeneration and R hip OA. She is describing pain down her leg at times, numbness in her foot and lateral leg as well. No morning pain, but appears to worsen as the day goes on. No Objective/Function: ROM: Pt. has good lumbar spine she reports no pain with this, but does report some HS tightness. Overall with measuring HS length was good. No pain with testing. MMT: normal throughout BLEs. Sensation: normal in BLEs, normal DTR of BLEs. Pt. seemed to have a directional preference into flexion, but not drastics. Extension was no change, SB no change either direction. - slump test noted. I was able cause some light dural signs, but bilaterally, mild as well. from her description of her symptoms, location, causation suggest spinal stenosis. But this is not totally clear as well. I gave her flexion exercises to reduce symptoms as this appeared to have a slight directional preference. She is still doing some core stability exercises and should continue to do so. Plan Plan: Pt. to follow up next week after completing flexion exercises to determine if benefit occured. Balance/Gait/Functional tests - Balance/Special Test Scores Lower Extremity Functional Score: 40 Goals Goal 1:: LTG: Pt. I with HEP. Goal Time Frame: 4-6 Weeks Goal Progress: Goal Met Goal 2:: STG: Pt. to sleep throughout the night without increase in symptoms. Goal Time Frame: 2 Weeks Goal Progress: Progressing Goal 3:: LTG: pt. to walk unlimited distances without increase in symptoms and normal gait pattern. Goal Time Frame: 4-6 Weeks Goal Progress: Progressing Goal 4:: STG: Pt. to have increased ROM of L hip to full without increase in symptoms. Goal Time Frame: 2-4 Weeks Goal Progress: Goal Met Goal 5:: LTG: pt. to have 5/5 strength of L glute med and max. Goal Time Frame: 4-6 Weeks Goal Progress: Progressing Anticipated Interventions Patient/Client Instruction: Educate patient on: Condition, Plan of Care, Risk Factors, Benefits of Fitness Program For the Purpose of:: To improve health and function, To foster healthy habits, To improve decision making, To facilitate caregiver knowledge, To improve self management, To prevent re-injury, To improve ability to perform tasks related to life management Therapeutic Exercise to Include: Strength training, Coordination, Body mechanics, Postural training, Flexibilty training, Gait and locomotor training, Passive ROM, Active ROM For the Purpose of:: To decrease pain, To decrease swelling/inflammation, To increase ROM, To improve nutrient delivery to tissue, To increase oxygenation perfusion, To improve muscle performance and motor function, To improve ability to perform ADL's, To improve gait and locomotor functions, To improve health of tissue, To decrease soft tissue restriction, To increase flexibility/ROM Manual Therapy Techniques to Include: Functional dry needling, Soft tissue mobilization For the Purpose of:: To decrease pain, To decrease swelling/inflammation, To increase ROM, To improve nutrient delivery to tissue, To increase oxygenation perfusion Please do not hesitate to contact me at [phone] by phone or if you have questions or concerns regarding this new plan of care! Sincerely, Darryl Manriquez DPT
== END 2022-06-29 19:00 | disposition home or self-care (01) ==
LOC: PT 11:00
PROVIDERS: PCP Family Medicine; Referring Provider Family Medicine; Visit Provider Family Medicine
DX: G57.02 Lesion of sciatic nerve, left lower limb (principal)
CPT/HCPCS: 97110; 97161; 97164

== ENCOUNTER → 2022-07-13 | Outpatient (CLI) | payer OTHER, SELFPAY ==
[2022-07-13 12:27] LABS: Bacteria 0 SEEN /hpf (None Seen); Mucous, Urine 0 SEEN /hpf (<or=2+)
[2022-07-13 13:34] LABS: Color, Urine Yellow (Yellow); Glucose, Dipstick Normal (Normal); Ketone-Dipstick Negative (Negative); Leukocyte Esterase-Dipstick 25 /ul (Negative); Nitrite-Dipstick Negative (Negative); Occult Blood-Urine Negative /ul (Negative); Protein-Dipstick Negative (Negative); Urine Bilirubin Dipstick Negative (Negative); Urine Clarity Clear (Clear); Urine Urobilinogen Normal (Normal); Urine pH 6.5 (5.0 - 8.0)
[2022-07-13 13:40] LABS: Red Blood Cells-Urine 0-5 SEEN /hpf (0-5); Squamous Epithelial Cells - UA 0-5 SEEN /hpf (5-10); White Blood Cells 0-5 SEEN /hpf (0-5)
[2022-07-13 13:43] LABS: Erythrocyte Sedimentation Rate 23 mm/hr (0-30)
[2022-07-13 13:44] LABS: Absolute Lymphocyte Count 1.54 X10^3/uL (0.83-4.51); Basophil# 0.04 X10^3/uL; Basophil% 0.6 % (0-1); Eosinophil# 0.26 X10^3/uL; Eosinophils% 4.2 % (0-5); Hematocrit 35.8 % (37-47); Lymphocyte # 1.54 X10^3/ul (0.83-4.51); Lymphocyte % 24.9 % (19-41); Mean Corp Hgb Conc 33.5 g/dL (32-36); Mean Corpuscular Hgb 30.5 pg (27.0-32.0); Mean Corpuscular Volume 91.1 fL (81-99); Mean Platelet Vol. 9.5 fl (6.2-12.0); Monocyte# 0.31 X10^3/uL; NRBC Flagged by Analyzer 0 % (0-5); Neutrophil # 3.98 X10^3/uL (2.7-7.7); Neutrophil % 64.5 % (47-70); Platelet Count 161 K/mm3 (150-450); RBC Distribution Width CV 13.3 % (11.6-14.6); RBC Distribution Width SD 44.4 fl (35.1-43.9); Red Blood Count 3.93 M/mm3 (4.2-5.4); White Blood Count 6.2 K/mm3 (4.4-11.0)
[2022-07-13 14:18] LABS: AST(SGOT) 43 U/L (15-37); Alanine Aminotransfer ALT/SGPT 53 U/L (13-56); Albumin, Serum 3.6 g/dL (3.2-5.0); Alkaline Phosphatase 86 U/L (45-117); Anion Gap 8 (5-15); BUN 10 mg/dL (7-18); BUN/Creat Ratio 11.8 RATIO (10-20); CPK Total, Creatine Kinase 84 U/L (26-192); CRP 6.43 mg/L (0.0-3.0); Calcium,Total 9.9 mg/dL (8.5-10.1); Chloride 108 mmol/L (98-107); Creatinine, Serum 0.84 mg/dL (0.55-1.02); EST Glomerular Filtration Rate 73 mL/min (>60); Est Glom Filt Rate - Afr Amer 88 mL/min (>60); Globulin 3.5 g/dL (2.2-4.2); Glucose 125 mg/dL (74-106); Potassium 4.2 mmol/L (3.5-5.1); Protein, Total 7.1 g/dL (6.4-8.2); Sodium Level 143 mmol/L (136-145); Uric Acid 5.3 mg/dL (2.6-6.0)
[2022-07-15 09:06] LABS: Complement C3 209 mg/dL (82-167)
== END | disposition home or self-care (01) ==
PROVIDERS: PCP Family Medicine; Referring Provider Internal Medicine Rheumatology; Visit Provider Internal Medicine Rheumatology
DX: M19.071 Primary osteoarthritis, right ankle and foot (principal); D70.9 Neutropenia, unspecified; M35.00 Sjogren syndrome, unspecified; M32.19 Other organ or system involvement in systemic lupus erythematosus; M19.072 Primary osteoarthritis, left ankle and foot; D72.819 Decreased white blood cell count, unspecified; D64.9 Anemia, unspecified; R79.82 Elevated C-reactive protein (CRP); H04.123 Dry eye syndrome of bilateral lacrimal glands; Z87.39 Personal history of other diseases of the musculoskeletal system and connective tissue; Z96.642 Presence of left artificial hip joint; R73.9 Hyperglycemia, unspecified; K11.7 Disturbances of salivary secretion
CPT/HCPCS: 36415; 80053; 81001; 82550; 84550; 85025; 85652; 86140; 86160; 87077; 87086; 87088; 87186

== ENCOUNTER → 2022-08-03 | Outpatient (CLI) | payer OTHER, SELFPAY ==
--- NOTE | 2022-08-03 11:06 | MRI_ITS ---
STUDY: MRI LUMBAR SPINE WITHOUT CONTRAST REASON FOR EXAM: Female, 61 years old. DDD TECHNIQUE: Standardized fat and water weighted pulse sequences were obtained in the sagittal and axial planes. COMPARISON: Lumbar spine radiographs 06/27/2022. FINDINGS: T11-T12 and T12-L1: (Sagittal only). Normal endplates. Normal disc height, hydration and morphology. Normal central canal and bilateral intervertebral neural foramina. Normal lumbar lordosis. 6 lumbar type vertebral bodies due to lumbarization of S1. Moderate levoscoliosis of the lumbar spine. Normal conus medullaris that terminates at the lower T12 vertebral body level. L1-2: (Sagittal only). Normal endplates. Minimal disc space height narrowing. Mild ventral extradural defect due to small posterior bulging annulus. Normal central canal and bilateral intervertebral neural foramina. L2-3: Normal endplates. Moderate right-sided disc space height narrowing. Mild right lateral degenerative subluxation of L2 on L3. Mild ventral extradural defect due to small posterior bulging annulus. No significant facet arthropathy. Normal central canal and bilateral lateral recesses. Normal bilateral intervertebral neural foramina. L3-4: MODIC type II degenerative vertebral marrow fatty changes underneath the vertebral endplates. Pronounced right-sided disc space height narrowing. Mild degenerative retrolisthesis of L3 on L4. Prominent right lateral marginal spurs. Moderate right degenerative facet arthropathy. Mild left degenerative facet arthropathy. Prominent dorsal epidural lipomatosis. Mild central canal stenosis with an AP canal diameter of 9 mm. Normal bilateral lateral recesses. Mild stenosis of the right intervertebral neural foramen. Normal left intervertebral neural foramen. L4-5: Normal endplates. Grade 1 left lateral degenerative subluxation of L4 on L5. Moderate disc space height narrowing. Moderate left degenerative facet arthropathy. Mild right degenerative facet arthropathy. Normal central canal. Suspicious left-sided posterior caudal disc protrusion causing stenosis of the left lateral recess and probable displacement of the left L5 nerve root sleeve. Normal right lateral recess. Normal central canal. Normal bilateral intervertebral neural foramina. L5-L6: Lumbarization of S1. Normal endplates. Normal disc height, hydration and morphology. Normal hypoplastic facet joints. Normal tapered termination of the thecal sac surrounded by epidural lipomatosis. Normal bilateral lateral recesses. Normal bilateral intervertebral neural foramina. Normal visualized sacral ala. Normal visualized paraspinous soft tissue structures. MRI/Spine Lumbar (Routine) IMPRESSION: 1. 6 lumbar type vertebral bodies due to lumbarization of S1. This correlates with the lumbar spine radiographs of 06/27/2022. 2. Severe stenosis of the left L4-L5 lateral recess suspiciously secondary to left posterior caudal disc protrusion causing probable displacement of the left L5 nerve root sleeve. Advise clinical correlation. Additionally, grade 1 left lateral degenerative subluxation of L4 on L5 and moderate left degenerative facet arthropathy. 3. Mild right lateral degenerative subluxation of L2 on L3, mild central canal stenosis and mild stenosis of the right intervertebral neural foramen. Electronically Signed: Brennan Edouard MD at 13:38 EDT ,
[2022-08-03 18:04] LABS: Prothrombin Time (Protime)PT. 13.2 SECONDS (11.7-14.9)
[2022-08-03 18:05] LABS: Partial Thromboplast Time 28.4 Seconds (24.1-36.2)
[2022-08-03 18:35] LABS: ALB/GLOB Ratio 1.2 RATIO (0.9-2.4); AST(SGOT) 26 U/L (15-37); Alanine Aminotransfer ALT/SGPT 29 U/L (13-56); Albumin, Serum 3.9 g/dL (3.2-5.0); Alkaline Phosphatase 59 U/L (45-117); Anion Gap 6 (5-15); BUN 22 mg/dL (7-18); BUN/Creat Ratio 21.6 RATIO (10-20); Calcium,Total 9.7 mg/dL (8.5-10.1); Chloride 111 mmol/L (98-107); Creatinine, Serum 1.02 mg/dL (0.55-1.02); EST Glomerular Filtration Rate 58 mL/min (>60); Est Glom Filt Rate - Afr Amer 71 mL/min (>60); Globulin 3.3 g/dL (2.2-4.2); Glucose 110 mg/dL (74-106); Potassium 4.2 mmol/L (3.5-5.1); Protein, Total 7.2 g/dL (6.4-8.2); Sodium Level 141 mmol/L (136-145)
[2022-08-07 15:56] LABS: AFP, Tumor Marker 4.5 ng/mL (0.0-9.2)
== END | disposition home or self-care (01) ==
PROVIDERS: Internal Medicine Gastroenterology; PCP Family Medicine; Referring Provider Family Medicine; Visit Provider Family Medicine
DX: K74.60 Unspecified cirrhosis of liver (principal); M51.36 Other intervertebral disc degeneration, lumbar region
CPT/HCPCS: 36415; 72148; 80053; 82105; 85610; 85730

== ENCOUNTER → 2022-08-17 | Outpatient (CLI) | payer OTHER, SELFPAY ==
--- NOTE | 2022-08-17 07:59 | US_ITS ---
STUDY: ABDOMINAL ULTRASOUND - ELASTOGRAPHY REASON FOR VISIT: Female, 61 years old. Fatty infiltration of the liver. TECHNIQUE: Liver stiffness measurements were obtained on a [employer] RS 85 ultrasound machine using a CA 1-7 probe following the SRU guidelines. 3 measurements were obtained using a 2-D-SWE method. The IQR/M was 18% suggesting a quality data set. TECHNICAL QUALITY: Adequate. COMPARISON: Comparison is made with prior study done earlier in the day. FINDINGS: Liver: Hepatomegaly and fatty infiltration of the liver. Median liver stiffness measured 12.6 kPa. US/Elastography Parenchyma/Organ IMPRESSION: Liver stiffness measures 12.6 kPa compatible with F3-F4 (Moderate to severe liver fibrosis) Metavir score. Electronically Signed: Deric Abdalla MD at 15:10 EDT ,
--- NOTE | 2022-08-17 07:59 | US_ITS ---
STUDY: ABDOMINAL ULTRASOUND - RIGHT UPPER QUADRANT REASON FOR VISIT: Female, 61 years old FATTY LIVER TECHNIQUE: Ultrasound evaluation of the right upper quadrant was performed with real-time and static nuñez-scale imaging. TECHNICAL QUALITY: Adequate. COMPARISON: Comparison is made with prior sonogram dated 08/03/2020. FINDINGS: Liver: The liver is enlarged and measures 19.3 cm. There is increased echogenicity consistent with fatty infiltration. The bile ducts are within normal limits. There is hepatic color flow. The direction of portal flow is hepatopetal. There is no demonstrated mass lesion. Gallbladder: Normal distended gallbladder. The gallbladder wall measures 2.0 mm. There is a negative sonographic Villegas''s sign. There is no pericholecystic fluid. There are no gallstones. Common Bile Duct (C.B.D.): The common bile duct measures 4.1 mm. Pancreas: Normal size of the head, body and tail of the pancreas. There is normal echogenicity of the pancreas. There is no demonstrated pancreatic mass or cyst. Right Kidney: Normal size of the right kidney. The right kidney measures 9 cm x 4.7 cm x 4.4 cm. Normal renal cortex. The right cortex measures 1.5 cm. There is no demonstrated renal mass or cyst. There is no right hydronephrosis. US/Abdomen Limited IMPRESSION: Hepatomegaly and fatty infiltration of the liver. Electronically Signed: Deric Abdalla MD at 15:08 EDT ,
== END | disposition home or self-care (01) ==
LOC: US 07:58
PROVIDERS: PCP Family Medicine; Referring Provider Internal Medicine Gastroenterology; Visit Provider Internal Medicine Gastroenterology
DX: K76.0 Fatty (change of) liver, not elsewhere classified (principal); K74.60 Unspecified cirrhosis of liver
CPT/HCPCS: 76705; 76981

== ENCOUNTER → 2022-09-22 | Outpatient (CLI) | payer OTHER, SELFPAY ==
--- NOTE | 2022-09-22 14:57 | CT_ITS ---
STUDY: CT CHEST WITHOUT CONTRAST REASON FOR EXAM: Female, 61 years old. Shortness of breath. Increased interstitial markings on prior examination. RADIATION DOSAGE (If Supplied By Facility): CTDIvol = ( 19.81 ) mGy, DLP = ( 624.72 ) mGycm TECHNIQUE: Transaxial imaging was performed without the administration of intravenous contrast material. Multiplanar coronal and sagittal images were reformatted. Individualized dose optimization techniques were used for this CT. COMPARISON: Comparison is made with prior study dated 12/09/2021. FINDINGS: CHEST Since prior examination, there has been a marked degree of improvement of the diffuse increased interstitial markings with areas of confluence. Mild degree of residual increased linear markings persist in the posterior aspects of both right and left upper lobes. Stable calcified granuloma in the anterior aspect of the right middle lobe. There is no demonstrated pleural abnormality. There are calcifications of the coronary arteries. There are multiple small lymph nodes within the mediastinum, which are normal in size and morphology most compatible with reactive lymph hyperplasia. Calcified right hilar lymph nodes. Normal unenhanced pulmonary arteries. Normal aorta arch and descending thoracic aorta. There are multi-level degenerative changes of the thoracic spine. Dextroscoliosis. Small gallstones. CT/Chest without Contrast IMPRESSION: Interval improvement in the diffuse bilateral interstitial markings with mild residual changes persist in both upper lobes. Electronically Signed: Deric Abdalla MD at 15:37 EST ,
== END | disposition home or self-care (01) ==
LOC: CT 14:54
PROVIDERS: PCP Family Medicine; Referring Provider Internal Medicine Pulmonary Disease; Visit Provider Internal Medicine Pulmonary Disease
DX: R06.00 Dyspnea, unspecified (principal)
CPT/HCPCS: 71250

== ENCOUNTER → 2022-09-28 | Outpatient (CLI) | payer OTHER, SELFPAY ==
--- NOTE | 2022-09-28 09:25 | RAD_ITS ---
STUDY: X-RAY - PELVIS REASON FOR EXAM: Female, 61 years old. Right hip pain TECHNIQUE: Three views of the pelvis were obtained. COMPARISON: None. FINDINGS: There is a non-specific bowel gas pattern. Normal visualized soft tissue structures. Normal bilateral iliac wings, sacroiliac joints and visualized sacrum. Normal visualized bilateral superior and inferior pubic rami. Normal pubic symphysis. Normal ischial tuberosities. Normal visualized right femoral head. Normal right acetabulum. There is moderate articular joint space narrowing of the right hip. Left hip has been previously replaced. Components demonstrate anatomic alignment. No plain film evidence of hardware application, failure, or acute abnormality RAD/Pelvis 1 or 2 Views IMPRESSION: Age consistent right hip and SI joint arthrosis. Replaced left hip joint free of complication Electronically Signed: Eh Martin MD at 12:26 EST ,
== END | disposition home or self-care (01) ==
LOC: MTRAD 09:21
PROVIDERS: PCP Family Medicine; Referring Provider Family Medicine; Visit Provider Family Medicine
DX: Z96.642 Presence of left artificial hip joint (principal); M16.0 Bilateral primary osteoarthritis of hip; R22.41 Localized swelling, mass and lump, right lower limb
CPT/HCPCS: 72170

== ENCOUNTER → 2022-10-06 | Outpatient (CLI) | payer OTHER, SELFPAY ==
--- NOTE | 2022-10-06 16:50 | CT_ITS ---
STUDY: CT PELVIS WITHOUT CONTRAST REASON FOR EXAM: Female, 61 years old. R HIP MASS. Right-sided lipomas. RADIATION DOSAGE (If Supplied By Facility): CTDIvol = ( 20.96 ) mGy, DLP = ( 697.20 ) mGycm TECHNIQUE: Transaxial imaging of the pelvis was performed with oral contrast, and without intravenous administration of contrast material. Individualized dose optimization techniques were used for this CT. COMPARISON: None. FINDINGS: Normal urinary bladder. Normal visualized small intestine. There are multiple colonic diverticula of the sigmoid colon consistent with chronic diverticulosis. There is no pelvic fluid. There is no pelvic mass lesion or lymphadenopathy. There is diffuse atherosclerotic calcification of the pelvic arteries. Normal abdominal wall. There are diffuse degenerative changes of the visualized lumbar spine. The patient is status post left hip replacement. CT/Pelvis without IV Contrast IMPRESSION: No masses are seen. Electronically Signed: Deric Abdalla MD at 10:59 EST ,
== END | disposition home or self-care (01) ==
LOC: CT 16:48
PROVIDERS: PCP Family Medicine; Referring Provider Family Medicine; Visit Provider Family Medicine
DX: R22.41 Localized swelling, mass and lump, right lower limb (principal)
CPT/HCPCS: 72192

== ENCOUNTER → 2022-11-25 | Outpatient (CLI) | payer OTHER, SELFPAY ==
[2022-11-25 13:38] LABS: ALB/GLOB Ratio 1.2 RATIO (0.9-2.4); AST(SGOT) 37 U/L (15-37); Alanine Aminotransfer ALT/SGPT 32 U/L (13-56); Alkaline Phosphatase 55 U/L (45-117); Anion Gap 8 (5-15); BUN 23 mg/dL (7-18); BUN/Creat Ratio 23.5 RATIO (10-20); Chloride 107 mmol/L (98-107); Creatinine, Serum 0.98 mg/dL (0.55-1.02); EST Glomerular Filtration Rate 61 mL/min (>60); Est Glom Filt Rate - Afr Amer 74 mL/min (>60); Globulin 3.4 g/dL (2.2-4.2); Glucose 129 mg/dL (74-106); Potassium 4.2 mmol/L (3.5-5.1); Protein, Total 7.4 g/dL (6.4-8.2); Sodium Level 140 mmol/L (136-145); Uric Acid 5.9 mg/dL (2.6-6.0)
== END | disposition home or self-care (01) ==
LOC: MFPLAB 10:14
PROVIDERS: PCP Family Medicine; Referring Provider Family Medicine; Visit Provider Family Medicine
DX: M10.9 Gout, unspecified (principal)
CPT/HCPCS: 36415; 80053; 84550

== ENCOUNTER → 2022-11-30 | Outpatient (CLI) | payer OTHER, SELFPAY ==
[2022-11-30 12:39] LABS: International Normalized Ratio 1.1; Prothrombin Time (Protime)PT. 13.7 SECONDS (11.7-14.9)
[2022-11-30 12:40] LABS: Partial Thromboplast Time 30.9 Seconds (24.1-36.2)
[2022-12-02 18:53] LABS: AFP, Tumor Marker 3.9 ng/mL (0.0-9.2)
== END | disposition home or self-care (01) ==
LOC: MTLAB 11:19
PROVIDERS: PCP Family Medicine; Referring Provider Internal Medicine Gastroenterology; Visit Provider Internal Medicine Gastroenterology
DX: K74.60 Unspecified cirrhosis of liver (principal)
CPT/HCPCS: 36415; 82105; 85610; 85730

== ENCOUNTER → 2023-02-08 | Outpatient (CLI) | payer OTHER, SELFPAY ==
[2023-02-08 10:32] LABS: Bacteria 0 SEEN /hpf (None Seen); Mucous, Urine 0 SEEN /hpf (<or=2+); Red Blood Cells-Urine 0 SEEN /hpf (0-5); Squamous Epithelial Cells - UA 0 SEEN /hpf (5-10); White Blood Cells 0 SEEN /hpf (0-5)
[2023-02-08 11:06] LABS: Absolute Lymphocyte Count 1.69 X10^3/uL (0.83-4.51); Absolute Neutrophil Count 2.4 X10^3/uL (2.0-7.7); Basophil# 0.06 X10^3/uL; Basophil% 1.2 % (0-1); Eosinophil# 0.36 X10^3/uL; Eosinophils% 7.4 % (0-5); Hematocrit 35.9 % (37-47); Hemoglobin 12.1 g/dL (12.0-15.0); Lymphocyte # 1.69 X10^3/ul (0.83-4.51); Lymphocyte % 34.9 % (19-41); Mean Corp Hgb Conc 33.7 g/dL (32-36); Mean Corpuscular Hgb 31.4 pg (27.0-32.0); Mean Corpuscular Volume 93.2 fL (81-99); Mean Platelet Vol. 9.5 fl (6.2-12.0); Monocyte% 6.2 % (0-10); NRBC Flagged by Analyzer 0 % (0-5); Neutrophil # 2.42 X10^3/uL (2.7-7.7); Neutrophil % 50.1 % (47-70); Platelet Count 163 K/mm3 (150-450); RBC Distribution Width SD 44.1 fl (35.1-43.9); Red Blood Count 3.85 M/mm3 (4.2-5.4); White Blood Count 4.8 K/mm3 (4.4-11.0)
[2023-02-08 11:07] LABS: Color, Urine Yellow (Yellow); Glucose, Dipstick Normal (Normal); Ketone-Dipstick Negative (Negative); Leukocyte Esterase-Dipstick Negative /ul (Negative); Nitrite-Dipstick Negative (Negative); Occult Blood-Urine Negative /ul (Negative); Protein-Dipstick Negative (Negative); Urine Bilirubin Dipstick Negative (Negative); Urine Clarity Clear (Clear); Urine Urobilinogen Normal (Normal)
[2023-02-08 11:19] LABS: Erythrocyte Sedimentation Rate 14 mm/hr (0-30)
[2023-02-08 11:39] LABS: ALB/GLOB Ratio 1.1 RATIO (0.9-2.4); AST(SGOT) 35 U/L (15-37); Alanine Aminotransfer ALT/SGPT 31 U/L (13-56); Albumin, Serum 3.8 g/dL (3.2-5.0); Alkaline Phosphatase 57 U/L (45-117); Anion Gap 4 (5-15); BUN 25 mg/dL (7-18); BUN/Creat Ratio 25.1 RATIO (10-20); CPK Total, Creatine Kinase 40 U/L (26-192); CRP < 2.90 mg/L (0.0-3.0); Calcium,Total 9.5 mg/dL (8.5-10.1); Chloride 108 mmol/L (98-107); EST Glomerular Filtration Rate 60 mL/min (>60); Est Glom Filt Rate - Afr Amer 72 mL/min (>60); Globulin 3.4 g/dL (2.2-4.2); Glucose 145 mg/dL (74-106); Potassium 4.3 mmol/L (3.5-5.1); Protein, Total 7.2 g/dL (6.4-8.2); Sodium Level 139 mmol/L (136-145)
[2023-02-09 05:07] LABS: Complement C3 200 mg/dL (82-167)
== END | disposition home or self-care (01) ==
LOC: LAB 10:28
PROVIDERS: PCP Family Medicine; Referring Provider Internal Medicine Rheumatology; Visit Provider Internal Medicine Rheumatology
DX: K11.7 Disturbances of salivary secretion (principal); M35.01 Sjogren syndrome with keratoconjunctivitis; M32.19 Other organ or system involvement in systemic lupus erythematosus; E87.8 Other disorders of electrolyte and fluid balance, not elsewhere classified; R73.9 Hyperglycemia, unspecified; M51.36 Other intervertebral disc degeneration, lumbar region; M19.071 Primary osteoarthritis, right ankle and foot; M19.072 Primary osteoarthritis, left ankle and foot; Z79.1 Long term (current) use of non-steroidal anti-inflammatories (NSAID); R76.8 Other specified abnormal immunological findings in serum; K75.81 Nonalcoholic steatohepatitis (NASH); H04.123 Dry eye syndrome of bilateral lacrimal glands; Z87.39 Personal history of other diseases of the musculoskeletal system and connective tissue; Z96.642 Presence of left artificial hip joint
CPT/HCPCS: 36415; 80053; 81001; 82550; 85025; 85652; 86140; 86160; 87086; 87088

== ENCOUNTER → 2023-02-13 | Outpatient (CLI) | payer OTHER, SELFPAY ==
[2023-02-13 13:07] LABS: Thyroid Stim Hormone (TSH) 1.55 uIU/mL (0.358-3.74)
== END | disposition home or self-care (01) ==
LOC: MFPLAB 09:59
PROVIDERS: PCP Family Medicine; Visit Provider Family Medicine
DX: R39.9 Unspecified symptoms and signs involving the genitourinary system (principal); E03.9 Hypothyroidism, unspecified
CPT/HCPCS: 84439; 84443; 87086; 87088

== ENCOUNTER → 2023-05-23 | Outpatient (CLI) | payer OTHER, SELFPAY ==
[2023-05-23 13:01] LABS: Vitamin D,25 Hydroxy 62.3 ng/mL
[2023-05-23 13:36] LABS: AST(SGOT) 33 U/L (15-37); Alanine Aminotransfer ALT/SGPT 35 U/L (13-56); Albumin, Serum 3.7 g/dL (3.2-5.0); Alkaline Phosphatase 84 U/L (45-117); Anion Gap 5 (5-15); BUN 24 mg/dL (7-18); BUN/Creat Ratio 23.8 RATIO (10-20); Calcium,Total 9.9 mg/dL (8.5-10.1); Chloride 106 mmol/L (98-107); Cholesterol 162 mg/dL (200); Creatinine, Serum 1.01 mg/dL (0.55-1.02); EST Glomerular Filtration Rate 59 mL/min (>60); Est Glom Filt Rate - Afr Amer 71 mL/min (>60); Globulin 3.7 g/dL (2.2-4.2); Glucose 152 mg/dL (74-106); High Density Lipoprotein 44 mg/dL; Potassium 4.5 mmol/L (3.5-5.1); Protein, Total 7.4 g/dL (6.4-8.2); Sodium Level 138 mmol/L (136-145); Triglycerides 185 mg/dL; Uric Acid 5.8 mg/dL (2.6-6.0); Very Low Density Lipoprotein 37 mg/dL (5-40)
[2023-05-23 13:45] LABS: Partial Thromboplast Time 32.5 Seconds (24.1-36.2)
[2023-05-23 14:28] LABS: International Normalized Ratio 1.2; Prothrombin Time (Protime)PT. 14.7 SECONDS (11.7-14.9)
[2023-05-24 04:07] LABS: AFP, Tumor Marker 4.1 ng/mL (0.0-9.2)
== END | disposition home or self-care (01) ==
LOC: MFPLAB 10:04
PROVIDERS: PCP Family Medicine; Referring Provider Internal Medicine Gastroenterology; Visit Provider Internal Medicine Gastroenterology
DX: K74.00 Hepatic fibrosis, unspecified (principal); E11.69 Type 2 diabetes mellitus with other specified complication; E11.59 Type 2 diabetes mellitus with other circulatory complications; E55.9 Vitamin D deficiency, unspecified
CPT/HCPCS: 36415; 80053; 80061; 82105; 82306; 84550; 85610; 85730

== ENCOUNTER → 2023-06-12 | Outpatient (CLI) | payer OTHER, SELFPAY ==
--- NOTE | 2023-06-12 10:14 | US_ITS ---
INDICATION: UNSPECIFIED CIRRHOSIS OF LIVER EXAMINATION: Ultrasound US Abdomen Limited (quadrant) TECHNIQUE: Plummer scale and color doppler imaging was performed of the right upper quadrant. COMPARISON: FINDINGS: LIVER: There is coarse fatty echotexture measuring 18 cm. Hypoattenuated right hepatic 2.3 x 1.3 x 1.5 cm nodule. There is no free fluid. GALLBLADDER AND BILIARY TREE: Cholelithiasis. No pericholecystic fluid or gallbladder wall thickening is demonstrated. The proximal common bile duct measures 4.9 mm, which is within normal limits for the patient''s age. Songraphic Villegas''s sign: Negative. PANCREAS: Slightly prominent in size with heterogeneous echotexture of the pancreas. No pancreatic ductal dilatation. RIGHT KIDNEY: 9.2 x 5.8 x 4.3 cm. The cortical thickness 10 mm. No hydronephrosis. No shadowing calculi. US/Abdomen Limited IMPRESSION: Coarse fatty echotexture of the liver. Right hepatic hypoechoic nodule. Cholelithiasis. No biliary dilatation. Moderately prominent heterogeneous pancreas. Electronically Signed: Eitan Marie DO at 16:54 EDT ,
== END | disposition home or self-care (01) ==
LOC: US 10:13
PROVIDERS: PCP Family Medicine; Referring Provider Internal Medicine Gastroenterology; Visit Provider Internal Medicine Gastroenterology
DX: K74.60 Unspecified cirrhosis of liver (principal)
CPT/HCPCS: 76705

== ENCOUNTER → 2023-08-16 | Outpatient (CLI) | payer OTHER, SELFPAY ==
[2023-08-16 10:27] LABS: Bacteria 0 SEEN /hpf (None Seen); Mucous, Urine 0 SEEN /hpf (<or=2+); Red Blood Cells-Urine 0 SEEN /hpf (0-5); Squamous Epithelial Cells - UA 0 SEEN /hpf (5-10); White Blood Cells 0 SEEN /hpf (0-5)
[2023-08-16 11:17] LABS: Absolute Lymphocyte Count 1.82 X10^3/uL (0.83-4.51); Absolute Neutrophil Count 3.3 X10^3/uL (2.0-7.7); Basophil# 0.05 X10^3/uL; Basophil% 0.9 % (0-1); Color, Urine Yellow (Yellow); Eosinophil# 0.28 X10^3/uL; Eosinophils% 4.9 % (0-5); Glucose, Dipstick Normal (Normal); Hematocrit 36.9 % (37-47); Hemoglobin 12.2 g/dL (12.0-15.0); Ketone-Dipstick Negative (Negative); Leukocyte Esterase-Dipstick Negative /ul (Negative); Lymphocyte # 1.82 X10^3/ul (0.83-4.51); Lymphocyte % 31.6 % (19-41); Mean Corp Hgb Conc 33.1 g/dL (32-36); Mean Corpuscular Hgb 30.2 pg (27.0-32.0); Mean Corpuscular Volume 91.3 fL (81-99); Mean Platelet Vol. 9.8 fl (6.2-12.0); Monocyte# 0.33 X10^3/uL; Monocyte% 5.7 % (0-10); NRBC Flagged by Analyzer 0 % (0-5); Neutrophil # 3.25 X10^3/uL (2.7-7.7); Neutrophil % 56.4 % (47-70); Nitrite-Dipstick Negative (Negative); Occult Blood-Urine Negative /ul (Negative); Platelet Count 164 K/mm3 (150-450); Protein-Dipstick Negative (Negative); RBC Distribution Width CV 13.2 % (11.6-14.6); RBC Distribution Width SD 44.3 fl (35.1-43.9); Red Blood Count 4.04 M/mm3 (4.2-5.4); Urine Bilirubin Dipstick Negative (Negative); Urine Clarity Clear (Clear); Urine Urobilinogen Normal (Normal); White Blood Count 5.8 K/mm3 (4.4-11.0)
[2023-08-16 11:46] LABS: Erythrocyte Sedimentation Rate 26 mm/hr (0-30)
[2023-08-16 12:01] LABS: AST(SGOT) 34 U/L (15-37); Alanine Aminotransfer ALT/SGPT 34 U/L (13-56); Albumin, Serum 3.7 g/dL (3.2-5.0); Alkaline Phosphatase 92 U/L (45-117); Anion Gap 6 (5-15); BUN 27 mg/dL (7-18); BUN/Creat Ratio 26.5 RATIO (10-20); CPK Total, Creatine Kinase 43 U/L (26-192); CRP 4.51 mg/L (0.0-3.0); Calcium,Total 9.4 mg/dL (8.5-10.1); Chloride 105 mmol/L (98-107); Creatinine, Serum 1.02 mg/dL (0.55-1.02); EST Glomerular Filtration Rate 58 mL/min (>60); Est Glom Filt Rate - Afr Amer 70 mL/min (>60); Globulin 3.7 g/dL (2.2-4.2); Glucose 164 mg/dL (74-106); Potassium 4.4 mmol/L (3.5-5.1); Protein, Total 7.4 g/dL (6.4-8.2); Sodium Level 138 mmol/L (136-145); Uric Acid 5.8 mg/dL (2.6-6.0)
[2023-08-16 12:37] LABS: Vitamin D,25 Hydroxy 86.8 ng/mL
[2023-08-17 04:07] LABS: Complement C3 194 mg/dL (82-167)
[2023-08-19 15:08] LABS: Vitamin D 1,25-Dihydroxy 27.3 pg/mL (24.8-81.5)
== END | disposition home or self-care (01) ==
LOC: LAB 10:20
PROVIDERS: PCP Family Medicine; Referring Provider Internal Medicine Rheumatology; Visit Provider Internal Medicine Rheumatology
DX: J20.9 Acute bronchitis, unspecified (principal); M35.01 Sjogren syndrome with keratoconjunctivitis; M32.19 Other organ or system involvement in systemic lupus erythematosus; K76.0 Fatty (change of) liver, not elsewhere classified; K11.7 Disturbances of salivary secretion; E87.8 Other disorders of electrolyte and fluid balance, not elsewhere classified; M51.36 Other intervertebral disc degeneration, lumbar region; M19.071 Primary osteoarthritis, right ankle and foot; M19.072 Primary osteoarthritis, left ankle and foot; H04.123 Dry eye syndrome of bilateral lacrimal glands; Z87.39 Personal history of other diseases of the musculoskeletal system and connective tissue; Z96.642 Presence of left artificial hip joint; Z79.1 Long term (current) use of non-steroidal anti-inflammatories (NSAID); Z79.52 Long term (current) use of systemic steroids; R76.8 Other specified abnormal immunological findings in serum
CPT/HCPCS: 36415; 80053; 81001; 82306; 82550; 82652; 84550; 85025; 85652; 86140; 86160; 87086; 87088

== ENCOUNTER → 2023-10-03 | Outpatient (CLI) | payer OTHER, SELFPAY ==
--- NOTE | 2023-10-03 18:23 | MRI_ITS ---
MRI Abdomen w/ and w/out contrast 10/03/2023 6:47 PM COMPARISON: None CLINICAL HISTORY: CIRRHOSIS TECHNIQUE: Multiplanar T1 and T2 weighted, diffusion and dynamic post-gadolinium images were obtained through the abdomen before and after administration of 19 cc of IV Clariscan. FINDINGS: Liver: The liver is cirrhotic. No suspicious arterially hyperenhancing or delayed washout lesions to suggest hepatocellular carcinoma. Gallbladder: Unremarkable Pancreas: Unremarkable Spleen: The spleen is mildly enlarged measuring 13.1 cm in craniocaudal dimension. Adrenal Glands: Unremarkable Kidneys: Unremarkable GI Tract: Unremarkable Lymphadenopathy: Absent Ascites: Absent Bones: No suspicious lesions MRI/MRI Abd WITH and W/O Contrast IMPRESSION: Cirrhotic liver with evidence of portal hypertension including mild splenomegaly. No suspicious arterially hyperenhancing or delayed washout lesions to suggest hepatocellular carcinoma. Recommend continued follow-up multiphase MR abdomen with and without contrast HCC protocol in 4-6 months. Electronically Signed: Olivier Hernandez MD at 20:45 EST ,
[2023-10-03 18:55] LABS: CREATININE FINGERSTICK 1.2 mg/dL (0.55-1.02)
== END | disposition home or self-care (01) ==
LOC: MRI 18:17
PROVIDERS: PCP Family Medicine; Visit Provider Internal Medicine Gastroenterology
DX: K74.60 Unspecified cirrhosis of liver (principal)
CPT/HCPCS: 74183; A9575

== ENCOUNTER → 2023-12-13 | Outpatient (CLI) | payer OTHER, SELFPAY ==
[2023-12-13 12:30] LABS: Anion Gap 5 (5-15); BUN 21 mg/dL (7-18); BUN/Creat Ratio 21.6 RATIO (10-20); Calcium,Total 9.6 mg/dL (8.5-10.1); Chloride 109 mmol/L (98-107); Cholesterol 178 mg/dL (200); Creatinine, Serum 0.97 mg/dL (0.55-1.02); EST Glomerular Filtration Rate 62 mL/min (>60); Est Glom Filt Rate - Afr Amer 75 mL/min (>60); Glucose 158 mg/dL (74-106); High Density Lipoprotein 58 mg/dL; Potassium 4.1 mmol/L (3.5-5.1); Sodium Level 140 mmol/L (136-145); Thyroid Stim Hormone (TSH) 0.98 uIU/mL (0.358-3.74); Triglycerides 102 mg/dL; Very Low Density Lipoprotein 20 mg/dL (5-40)
--- OUTSIDE RECORDS SUMMARY | 2023-12-13 20:31 | XMS RPT_ITS | CCD ---
Author Name Unknown Address [address] [place] [address] Organization [facility] Care Team Providers Care Cord Maker Name Role Phone Diego Parada Unavailable Unavailable Zabrina Gonzalez Unavailable Unavail able MAR, EMILY Unavailable Unavailable MAR, EMILY Unavailable Unavailable GISSEL ZHENG Unavailable Unavailable Kvng Pearce Unavailable Calos Moseley Unavailable Unavailab Zabrina Hoyos MD Primary Care Provider Zabrina Gonzalez MD Primary Care Provider Zabrina Gonzalez MD Primary Care Provider Zabrina Gonzalez MD Primary Care Provider Zabrina Gonzalez MD Primary Care Provider THERESA SCHWARZ, DR GERBER Primary Care Physician KARMA SCHWARZ., DR. BALTAZAR Attending El GONZALEZ MD., DR. GERBER Primary Care Unav ailable Zabrina Gonzalez MD Primary Care Provider ZABRINA GONZALEZ Primary Care Unavailabl e ZABRINA GONZALEZ Primary Care Unavailabl e SELF, SELF Referring Unavailable RADHA REES JR. Attending Unavaila RADHA August JR. Attending Unavaila ZABRINA Meraz Primary Care Unavailabl e ZABRINA GONZALEZ Referring Unavailabl e ZABRINA GONZALEZ Primary Care Unavailabl e ZABRINA GONZALEZ Referring Unavailabl e RADHA REES JR. Attending Unavaila ZABRINA Meraz Primary Care Unavailabl e ZABRINA GONZALEZ Primary Care Unavailabl e SELF, SELF Referring Unavailable RADHA REES JR. Attending Unavaila ZABRINA Meraz Primary Care UnavailZABRINA Dutton Primary Care Unavailabl ZABRINA Huff Primary Care UnavailZabrina Dutton MD Primary Care Provider WILLOW AMOS Attending Unavailable BETTE, WILLOW Referring Unavailable ZABRINA GONZALEZ Primary Care Unavailabl e HAI LARA Attending UnavailZABRINA Dutton Primary Care Unavailabl WILLOW Ya Referring Unavailable ZABRINA GONZALEZ Primary Care Unavailabl e ELSA FERNANDEZ Referring Unavailab ZABRINA Hoyos Primary Care UnavailZabrina Dutton MD Primary Care Provider Allergies Allergy Classification Reported Allergen(s) Allergy Type Date of Onset Reaction(s) Facility (20 sources) Cefaclor; 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: [CEFACLOR] Drug Allergy 12-04-19 15 Other: See Comments [facility] (20 sources) Erythromycin; 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: [ERYTHROMYCIN] Drug Allergy 07-07-20 05 Other: See Comments [facility] (20 sources) liraglutide; 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: [LIRAGLUTIDE] Drug Allergy 05-23-20 17 Nausea and Vomiting, Vomiting [facility] (20 sources) Lisinopril; 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: [LISINOPRIL] Drug Allergy 12-04-19 15 Cough [facility] (20 sources) Penicillins; 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: [PENICILLINS] Propensity to adverse reactions to drug (disorder) 05-01-20 06 [facility] (20 sources) Sulfamethoxazole; 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: [SULFAMETHOXAZOLE] Drug Allergy 01-13-20 11 [facility] (2 sources) OTHER; 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: [OTHER] Propensity to adverse reactions (disorder) 07-07-20 05 AOF [facility] (1 source) Penicillin Drug Allergy Unknown [facility] (4 sources) Sulfamethoxazole / Trimethoprim Drug Allergy 06-06-20 11 Unknown [facility] (3 sources) *Seasonal Propensity to adverse reactions to substance 06-06-20 11 [facility] (9 sources) HMG-CoA reductase inhibitor; 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: [[id number] REDUCTASE INHIBITORS] Drug Allergy 09-24-20 18 GI Upset [facility] (20 sources) Sulfamethoxazole / Trimethoprim; 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: [sulfamethoxazole-t rimethoprim] Drug Allergy 06-06-20 11 Hives [facility] (20 sources) traMADol; 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: [TRAMADOL] Drug Allergy 03-28-20 16 Other: See Comments, Unknown [facility] (20 sources) environmental [Other] Propensity to adverse reactions 07-07-20 05 Other: See Comments [facility] (15 sources) HMG-CoA reductase inhibitor Drug Allergy 09-24-20 18 GI Upset [facility] (1 source) Acetaminophen / HYDROcodone; 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: [acetaminophen-hydr ocodone] Drug Allergy [facility] (1 source) ezetimibe; 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: [ezetimibe] Drug Allergy [facility] (1 source) Gemfibrozil; 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: [gemfibrozil] Drug Allergy [facility] (1 source) Lovastatin; 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: [lovastatin] Drug Allergy [facility] (1 source) Penicillin; 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: [penicillin] Drug Allergy [facility] Medications Current Medications Medication Drug Class(es) Dates Sig (Normalized) Sig (Original) allopurinol 100 mg oral tablet (20 sources) Xanthine Oxidase Inhibitor Start: 08-29-2022 allopurinol 100 mg oral tablet Dose : 100 mg = 1 tab(s), Oral, 0 Refill(s) Start Date: 08/29/22 Status: Ordered Completed/Discontinued Medications Medication Drug Class(es) Dates Sig (Normalized) Sig (Original) [id number] 200 actuat albuterol 0.09 mg/actuat metered dose inhaler (5 sources) beta2-Adrenergic Agonist Start: 03-01-2023 albuterol HFA (PROVENTIL HFA, VENTOLIN HFA) 90 mcg/actuation inhaler as needed. 0 03/01/2023 Active Problems Active Problems Problem Classification Problem Date Documented Da te Episodic/Chronic Cataract (20 sources) Bilateral senile combined form cataracts of eyes; 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: [Combined forms of age-related cataract, bilateral] Onset: 7 05-23-2017 Chronic Diabetes mellitus without complication (20 sources) Type 2 diabetes mellitus without complications; 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: [Newly diagnosed diabetes] Onset: 4 10-09-2021 Chronic Diabetes mellitus without complication (8 sources) Hyperglycemia; 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: [Hyperglycemia, unspecified] Onset: 9 Episodic Diseases of mouth; excluding dental (16 sources) Xerostomia; 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: [Dry mouth, unspecified] Onset: 9 Episodic Disorders of lipid metabolism (20 sources) Mixed hyperlipidemia; 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: [Mixed hyperlipidemia] Onset: 5 12-22-2014 Chronic Esophageal disorders (20 sources) Gastroesophageal reflux disease; 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: [Gastro-esophageal reflux disease without esophagitis] Onset: 1 09-07-2021 Chronic Essential hypertension (20 sources) Hypertensive disorder; 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: [Essential (primary) hypertension] Onset: 8 09-04-2019 Chronic Genitourinary symptoms and ill-defined conditions (14 sources) Genuine stress incontinence; 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: [Stress incontinence (female) (male)] Onset: 2 Chronic Gout and other crystal arthropathies (20 sources) Gout; 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: [Gout, unspecified] Onset: 1 12-22-2014 Chronic Hepatitis (7 sources) Nonalcoholic steatohepatitis; 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: [Nonalcoholic steatohepatitis ()] Onset: 9 Chronic Immunizations and screening for infectious disease (15 sources) Anti-nuclear factor positive; 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: [Other specified abnormal immunological findings in serum] Onset: 9 Episodic Menopausal disorders (2 sources) Atrophic vaginitis; 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: [Postmenopausal atrophic vaginitis] Chronic Nutritional deficiencies (4 sources) Vitamin D deficiency; 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: [Vitamin D deficiency, unspecified] Onset: 9 09-04-2019 Chronic Osteoarthritis (10 sources) Bilateral osteoarthritis of feet; 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: [Primary osteoarthritis, right ankle and foot] Onset: 9 Chronic Other aftercare (14 sources) Patient encounter status; 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: [MCFP (current) use of non-steroidal anti-inflammatories (NSAID)] Onset: 9 Episodic Other aftercare (2 sources) 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; 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: [MCFP (current) use of systemic steroids] Onset: 3 Episodic Other connective tissue disease (6 sources) History of total replacement of left hip joint; 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: [Presence of left artificial hip joint] Onset: 9 Chronic Other connective tissue disease (2 sources) Presence of left artificial hip joint; 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: [Presence of left artificial hip joint] Onset: 9 Chronic Other connective tissue disease (6 sources) H/O: musculoskeletal disease; 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: [Personal history of other diseases of the musculoskeletal system and connective tissue] Onset: 9 Episodic Other connective tissue disease (6 sources) H/O: gout; 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: [Personal history of other diseases of the musculoskeletal system and connective tissue] Onset: 9 Episodic Other connective tissue disease (1 source) Pain in left arm; 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: [Pain in left arm] Episodic Other connective tissue disease (1 source) Pain in right arm; 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: [Pain in right arm] Episodic Other diseases of bladder and urethra (20 sources) Overactive bladder; 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: [Overactive bladder] Onset: 5 12-22-2014 Chronic Other diseases of veins and lymphatics (3 sources) Lymphedema of bilateral lower limbs; 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: [Lymphedema, not elsewhere classified] Onset: 9 09-04-2019 Chronic Other eye disorders (20 sources) Anisocoria; 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: [Anisocoria] Onset: 6 05-26-2016 Chronic Other eye disorders (20 sources) Bilateral vitreous floaters; 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: [Other vitreous opacities, bilateral] Onset: 6 05-26-2016 Chronic Other eye disorders (7 sources) Asteroid hyalosis; 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: [Crystalline deposits in vitreous body, right eye] Onset: 2 Chronic Other eye disorders (9 sources) Asteroid hyalosis of right eye; 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: [Crystalline deposits in vitreous body, right eye] Onset: 2 04-28-2022 Chronic Other eye disorders (6 sources) Dry eyes; 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: [Dry eye syndrome of bilateral lacrimal glands] Onset: 9 Episodic Other eye disorders (2 sources) Tear film insufficiency; 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: [Dry eye syndrome of bilateral lacrimal glands] Episodic Other gastrointestinal disorders (1 source) Other specified diseases of intestine; 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: [Other specified diseases of intestine] Onset: 8 Episodic Other liver diseases (5 sources) Steatosis of liver; 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: [Fatty (change of) liver, not elsewhere classified] Onset: 9 09-27-2019 Chronic Other liver diseases (2 sources) Fatty (change of) liver, not elsewhere classified; 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: [Fatty (change of) liver, not elsewhere classified] Onset: 9 Chronic Other lower respiratory disease (2 sources) Respiratory distress; 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: [Other respiratory abnormalities] 10-09-2021 Episodic Other lower respiratory disease (1 source) Dyspnea at rest; 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: [Shortness of breath] Onset: 1 10-10-2021 Episodic Other nervous system disorders (2 sources) Bilateral carpal tunnel syndrome; 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: [Carpal tunnel syndrome, bilateral upper limbs] Chronic Other nervous system disorders (1 source) Carpal tunnel syndrome, bilateral upper limbs; 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: [Bilateral carpal tunnel syndrome] Onset: 2 Chronic Other nervous system disorders (1 source) Paresthesia; 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: [Paresthesia of skin] Episodic Other nutritional; endocrine; and metabolic disorders (3 sources) Hypomagnesemia; 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: [Hypomagnesemia] Onset: 9 09-27-2019 Chronic Other nutritional; endocrine; and metabolic disorders (3 sources) Body mass index 40+ - severely obese; 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: [Morbid (severe) obesity due to excess calories] Onset: 0 04-22-2020 Chronic Other nutritional; endocrine; and metabolic disorders (20 sources) Morbid obesity; 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: [Morbid (severe) obesity due to excess calories] Onset: 5 12-22-2014 Chronic Other screening for suspected conditions (not mental disorders or infectious disease) (20 sources) Elevated C-reactive protein; 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: [Elevated C-reactive protein (CRP)] Onset: 6 Resolved: 3 Episodic Other upper respiratory disease (20 sources) Seasonal allergy; 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: [Other seasonal allergic rhinitis] Onset: 9 12-19-2018 Chronic Pneumonia (except that caused by tuberculosis or sexually transmitted disease) (1 source) Pneumonia due to other virus not elsewhere classified 10-09-2021 Episodic Pneumonia (except that caused by tuberculosis or sexually transmitted disease) (1 source) Pneumonia (except that caused by tuberculosis or sexually transmitted disease) 10-09-2021 Prolapse of female genital organs (15 sources) Midline cystocele; 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: [Cystocele, midline] Onset: 2 Chronic Residual codes; unclassified (20 sources) Central sleep apnea syndrome; 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: [Primary central sleep apnea] Onset: 5 10-11-2021 Chronic Residual codes; unclassified (1 source) Pain; 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: [Pain, unspecified] Episodic Respiratory failure; insufficiency; arrest (adult) (1 source) Acute respiratory failure 10-12-2021 Episodic Respiratory failure; insufficiency; arrest (adult) (3 sources) Respiratory failure; insufficiency; arrest (adult) 10-14-2021 Retinal detachments; defects; vascular occlusion; and retinopathy (20 sources) Epiretinal membrane of right eye; 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: [Puckering of macula, right eye] Onset: 7 06-06-2018 Chronic Spondylosis; intervertebral disc disorders; other back problems (8 sources) Degeneration of lumbar intervertebral disc; 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: [Other intervertebral disc degeneration, lumbar region] Onset: 9 Chronic Systemic lupus erythematosus and connective tissue disorders (20 sources) Systemic lupus erythematosus; 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: [Other organ or system involvement in systemic lupus erythematosus] Onset: 9 Chronic Thyroid disorders (20 sources) Hypothyroidism; 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: [Hypothyroidism, unspecified] Onset: 5 09-04-2019 Chronic Unclassified (2 sources) Unknown / UNK(Unknown) Onset: 7 Unclassified (2 sources) Primary hypertension 10-09-2021 Unclassified (2 sources) COVID-19 10-09-2021 Past or Other Problems Problem Classification Problem Date Documented Da te Episodic/Chronic Acute bronchitis (3 sources) Acute bronchitis, unspecified; 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: [Acute bronchitis] Onset: 3 Resolved: 3 Episodic Allergic reactions (20 sources) Environmental allergy; 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: [Other allergy status, other than to drugs and biological substances] Onset: 8 03-08-2018 Episodic Cancer of cervix (20 sources) Atypical squamous cells of undetermined significance on cervical Papanicolaou smear; 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: [Atypical squamous cells of undetermined significance on cytologic smear of cervix (ASC-US)] Onset: 0 03-26-2020 Episodic Deficiency and other anemia (4 sources) Normocytic normochromic anemia; 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: [Anemia, unspecified] Onset: 1 Resolved: 2 Episodic Deficiency and other anemia (2 sources) Anemia, unspecified; 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: [Anemia, unspecified] Onset: 2 Episodic Diseases of white blood cells (12 sources) Neutropenia; 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: [Neutropenia, unspecified] Onset: 2 Resolved: 2 Chronic Fluid and electrolyte disorders (5 sources) Hyperchloremia; 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: [Other disorders of electrolyte and fluid balance, not elsewhere classified] Onset: 2 Resolved: 3 Episodic Malaise and fatigue (3 sources) Fatigue; 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: [Other fatigue] Onset: 9 09-04-2019 Episodic Mycoses (20 sources) Candidiasis, unspecified; 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: [Candidiasis] Onset: 8 07-04-2018 Episodic Other aftercare (2 sources) MCFP (current) use of non-steroidal anti-inflammatories (NSAID); 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: [MCFP (current) use of non-steroidal anti-inflammatories (nsaid)] Onset: 9 Episodic Other aftercare (1 source) Long-term current use of systemic steroid; 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: [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] Onset: 3 02-20-2023 Episodic Other aftercare (1 source) Long-term current use of antibiotic; 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: [atomic spectroscopist (current) use of antibiotics] Onset: 3 Resolved: 3 02-20-2023 Episodic Other and unspecified benign neoplasm (20 sources) Adrenal cortical adenoma ; 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: [Benign neoplasm of left adrenal gland] Onset: 5 10-11-2021 Episodic Other bone disease and musculoskeletal deformities (3 sources) Disorder of skeletal system; 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: [Disorder of bone, unspecified] Onset: 9 09-04-2019 Episodic Other connective tissue disease (3 sources) Bilateral thumb pain; 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: [Pain in right finger(s)] Onset: 9 09-04-2019 Episodic Other connective tissue disease (3 sources) Pain of bilateral hands; 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: [Pain in right hand] Onset: 9 09-04-2019 Episodic Other connective tissue disease (2 sources) Personal history of other diseases of the musculoskeletal system and connective tissue; 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: [Personal history of other diseases of the musculoskeletal system and connective tissue] Onset: 9 Episodic Other diseases of kidney and ureters (20 sources) Cyst of kidney; 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: [Cyst of kidney, acquired] Onset: 5 12-22-2014 Episodic Other eye disorders (2 sources) Dry eye syndrome of bilateral lacrimal glands; 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: [Dry eye syndrome of bilateral lacrimal glands] Onset: 9 Episodic Other gastrointestinal disorders (20 sources) Small bowel bacterial overgrowth syndrome; 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: [Other specified diseases of intestine] Onset: 8 06-20-2018 Episodic Other non-traumatic joint disorders (3 sources) Pain of right shoulder joint; 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: [Pain in right shoulder] Onset: 9 09-04-2019 Episodic Other non-traumatic joint disorders (3 sources) Bilateral wrist pain; 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: [Pain in right wrist] Onset: 9 09-04-2019 Episodic Other non-traumatic joint disorders (3 sources) Hip pain; 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: [Pain in left hip] Onset: 9 09-04-2019 Episodic Residual codes; unclassified (20 sources) Contact with and (suspected) exposure to other hazardous metals; 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: [Contact with and (suspected) exposure to other hazardous metals] Onset: 8 07-04-2018 Episodic Residual codes; unclassified (3 sources) Bilateral lower limb edema; 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: [Localized edema] Onset: 9 09-04-2019 Episodic Residual codes; unclassified (20 sources) Contact with and (suspected) exposure to mold (toxic); 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: [Contact with and (suspected) exposure to mold] Onset: 9 11-28-2018 Episodic Sexually transmitted infections (not HIV or hepatitis) (20 sources) Human papillomavirus deoxyribonucleic acid test positive, high risk on cervical specimen; 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: [Cervical high risk human papillomavirus (HPV) DNA test positive] Onset: 9 01-24-2019 Episodic Spondylosis; intervertebral disc disorders; other back problems (20 sources) Neck pain; 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: [Cervicalgia] Onset: 8 09-04-2019 Episodic Sprains and strains (20 sources) Traumatic rupture of rotator cuff; 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: [Strain of muscle(s) and tendon(s) of the rotator cuff of left shoulder, subsequent encounter] Onset: 1 Episodic Unclassified (1 source) FATTY LIVER~ Onset: 7 Unclassified (1 source) SHORT OF BREATH 10-09-2021 Results Test Name Value Interpretation Reference Range Facil ity Vital Signs Date Time Vital Sign Value Performing Clinician Facility 08-21-2023 15:52-0500 Body height 152.4 cm Radha [facility]es Jr[facility] 08-21-2023 15:52-0500 Body mass index (BMI) [Ratio] 42.42 kg/m2 Radha Rees Jr., DO Work Phone: [facility] 08-21-2023 15:52-0500 Body temperature 98.71 [degF] Radha Rees Jr., DO Work Phone: [facility] 08-21-2023 15:52-0500 Body weight 98.52 kg Radha Rees Jr., DO Work Phone: [facility] 08-21-2023 15:52-0500 Diastolic blood pressure 66 mm[Hg] Radha Rees Jr., DO Work Phone: [facility] 08-21-2023 15:52-0500 Systolic blood pressure 128 mm[Hg] Radha Rees Jr., DO Work Phone: [facility] 06-29-2023 16:02-0400 Body height 154.9 cm Willow Amos APRN.SEATER GRINDER Work Phone: [facility] 06-29-2023 16:02-0400 Body weight 97.52 kg Willow Amos INFORMATICS DEVELOPER.SEATER GRINDER Work Phone: [facility] 06-29-2023 16:02-0400 Diastolic blood pressure 80 mm[Hg] Willow Amos INFORMATICS DEVELOPER.SEATER GRINDER Work Phone: [facility] 06-29-2023 16:02-0400 Systolic blood pressure 154 mm[Hg] Willow Amos INFORMATICS DEVELOPER.SEATER GRINDER Work Phone: [facility] 08-29-2022 10:39-0500 Diastolic Blood Pressure Non-Invasive [address] DIEGO PARADA MD [facility] 08-29-2022 10:39-0500 Heart rate 77 /min DR DIEGO PARADA MD [facility] 08-29-2022 10:39-0500 Systolic Blood Pressure Non-Invasive [address] DIEGO PARADA MD [facility] 08-29-2022 10:30-0500 Diastolic Blood Pressure Non-Invasive [address] DIEGO PARADA MD [facility] 08-29-2022 10:30-0500 Heart rate 78 /min DR DIEGO PARADA MD [facility] 08-29-2022 10:30-0500 Systolic Blood Pressure Non-Invasive [address] DIEGO PARADA MD [facility] 08-29-2022 10:21-0500 Diastolic Blood Pressure Non-Invasive [address] DIEGO PARADA MD [facility] 08-29-2022 10:21-0500 Heart rate 88 /min DR DIEGO PARADA MD [facility] 08-29-2022 10:21-0500 Systolic Blood Pressure Non-Invasive [address] DIEGO PARADA MD [facility] 08-29-2022 10:11-0500 Body temperature 97.34 [degF] DR DIEGO PARADA MD [facility] 08-29-2022 10:05-0500 Respiratory Rate - Anes 12 br/min DR DIEGO PARADA MD [facility] 08-29-2022 10:00-0500 Respiratory Rate - Anes 23 br/min DR DIEGO PARADA MD [facility] 08-29-2022 08:50-0500 Body height [address] DIEGO PARADA MD [facility] 08-29-2022 08:50-0500 Body temperature 97.88 [degF] DR DIEGO PARADA MD [facility] 08-29-2022 08:50-0500 Body weight 94.[address] DIEGO PARADA MD [facility] 08-29-2022 08:50-0500 Heart rate 75 /min DR DIEGO PARADA MD [facility] 08-29-2022 08:50-0500 Respiratory rate 20 /min DR DIEGO PARADA MD [facility] 08-05-2022 09:15-0400 Body height 152.4 cm Radha Rees Jr., DO Work Phone: [facility] 08-05-2022 09:15-0400 Body mass index (BMI) [Ratio] 41.4 kg/m2 Radha Rees Jr., DO Work Phone: [facility] 08-05-2022 09:15-0400 Body temperature 98.01 [degF] Radha Rees Jr., DO Work Phone: [facility] 08-05-2022 09:15-0400 Body weight 96.16 kg Radha Rees Jr., DO Work Phone: [facility] 08-05-2022 09:15-0400 Diastolic blood pressure 78 mm[Hg] Radha Teenapatria Christie, DO Work Phone: [facility] 08-05-2022 09:15-0400 Heart rate 81 /min Radha Rees Jr., DO Work Phone: [facility] 08-05-2022 09:15-0400 SaO2% (BldA) [Mass fraction] 97 % Radha Rees Jr., DO Work Phone: [facility] 08-05-2022 09:15-0400 Systolic blood pressure 136 mm[Hg] Radha Teenapatria Christie, DO Work Phone: [facility] 06-03-2022 08:00-0400 Diastolic blood pressure 84 mm[Hg] Nisreen Munoz PT Work Phone: [facility] 06-03-2022 08:00-0400 Systolic blood pressure 122 mm[Hg] Nisreen Munoz PT Work Phone: [facility] 05-05-2022 13:16-0400 Body weight 95.17 kg Leatha Serrano MD Work Phone: [facility] 05-05-2022 13:16-0400 Diastolic blood pressure 62 mm[Hg] Leatha Serrano MD Work Phone: [facility] 05-05-2022 13:16-0400 Systolic blood pressure 118 mm[Hg] Leatha Serrano MD Work Phone: [facility] 04-06-2022 09:52-0400 Body height 152.4 cm Willow Amos APRN.SEATER GRINDER Work Phone: [facility] 04-06-2022 09:52-0400 Body weight 93.89 kg Willow Amos APRN.SEATER GRINDER Work Phone: [facility] 04-06-2022 09:52-0400 Diastolic blood pressure 66 mm[Hg] Willow Amos APRN.SEATER GRINDER Work Phone: [facility] 04-06-2022 09:52-0400 Systolic blood pressure 122 mm[Hg] Willow Amos APRN.SEATER GRINDER Work Phone: [facility] 03-07-2022 15:51-0400 Body height 152.4 cm Radha Rees Jr., DO Work Phone: [facility] 03-07-2022 15:51-0400 Body mass index (BMI) [Ratio] 41.4 kg/m2 Radha Rees Jr., DO Work Phone: [facility] 03-07-2022 15:51-0400 Body weight 96.16 kg Radha Rees Jr., DO Work Phone: [facility] 03-07-2022 15:51-0400 Diastolic blood pressure 62 mm[Hg] Radha Rees Jr., DO Work Phone: [facility] 03-07-2022 15:51-0400 Heart rate 86 /min Radha Rees Jr., DO Work Phone: [facility] 03-07-2022 15:51-0400 SaO2% (BldA) [Mass fraction] 97 % Radha Rees Jr., DO Work Phone: [facility] 03-07-2022 15:51-0400 Systolic blood pressure 124 mm[Hg] Radha Rees Jr., DO Work Phone: [facility] 10-17-2021 16:56-0500 Body temperature 98.06 [degF] Kvng Pearec Other Phone: [facility] 10-17-2021 16:56-0500 Diastolic blood pressure 52 mm[Hg] Kvng Pearce Other Phone: [facility] 10-17-2021 16:56-0500 Heart rate 85 /min Kvng Pearce Other Phone: [facility] 10-17-2021 16:56-0500 Respiratory rate 18 /min Kvng Pearce Other Phone: [facility] 10-17-2021 16:56-0500 SaO2% (BldA) [Mass fraction] 92 % Kvng Pearce Other Phone: [facility] 10-17-2021 16:56-0500 Systolic blood pressure 113 mm[Hg] Kvng Pearce Other Phone: [facility] Encounters Encounter Date Encounter Type Care Provider Facility Start: 08-21-2023 End: 08-21-2023 Office outpatient visit 40 minutes Radha Rees DO [facility] Procedures Date Procedure Procedure Detail Performing Clinician Start: 05-16-2023 Computerized ophthal charisse imaging retina Hai Lara OD Work Phone: Start: 04-26-2023 End: 04-26-2023 Mammography Willow Amos APRN.SEATER GRINDER Work Phone: Start: 09-27-2022 Nerve conduction catrachito dies 5-6 studies Elsa Fernandez DO Work Phone: Start: 08-11-[address] DIEGO PARADA MD Start: 04-28-2022 Computerized ophthal charisse imaging retina Bao Allred MD Work Phone: Start: 04-06-2022 End: 04-06-2022 Dxa bone density study 1/> sites axial skel Willow Amos APRN.SEATER GRINDER Work Phone: Start: 04-06-2022 End: 04-06-2022 Mammography Willow Amos APRN.SEATER GRINDER Work Phone: Start: 10-09-2021 End: 10-09-2021 EKG impression Adrien Santoro Start: 09-21-2021 Repair of musculoten dinous cuff of shoulder DR DIEGO PARADA MD Plan of Treatment Date Care Activity Detail Author Start: 04-14-2031 Tetanus vaccination [facility] Start: 04-14-2031 Urine microalbumin profile DTaP,Tdap,Td Vaccine (2 - Td or Tdap) [facility] Start: 04-06-2027 HPV TESTING HPV TESTING [facility] Start: 04-06-2027 PAP TESTING PAP TESTING [facility] Start: 04-02-2026 HPV TESTING HPV TESTING [facility] Start: 04-02-2026 PAP TESTING PAP TESTING [facility] Start: 06-29-2024 HPV Testing HPV Testing [facility] Start: 06-29-2024 Pap Testing Pap Testing [facility] Start: 05-16-2024 Hepatitis C antibody, confirmatory test DILATED RETINAL EXAM [facility] Start: 04-26-2024 Mammography [facility] Start: 02-19-2024 End: 02-19-2024 Patient encounter procedure 02/19/2024 3:30 PM EDT Office Visit [facility] [address] [id number] Negrita Christie, Radha Pierre, [address] [place] [id number] [facility] Start: 02-03-2024 End: 08-21-2024 C-reactive protein C REACTIVE PROTEIN Lab Routine Other systemic lupus erythematosus with other organ involvement CRP elevated Dry eyes Elevated BUN History of fibromyalgia History of gout History of total hip arthroplasty, left MCFP current use of non-steroidal anti-inflammatories (NSAID) Positive GEOVANY (antinuclear antibody) Positive double stranded DNA antibody test Dry mouth Fatty liver Vitamin D deficiency Xerostomia Hyperglycemia Keratoconjunctivitis sicca Lumbar degenerative disc disease Osteoarthritis of both feet, unspecified osteoarthritis type History of Sjogren's disease Expected: 02/03/2024 (Approximate), Expires: 08/21/2024 [facility] Immunizations Immunization Date Immunization Notes Care Provider Fa mike 08-10-2016 influenza virus vacc ine, unspecified formulation Willow Amos APRN.[employer]ATER GR[employer]ER Work Phone: [facility] Payers Date Payer Category Payer Unknown [id number] 2018 Unknown 2018 Unknown MMO MMO [employer] [id number] 2018-Present [phone] [address] [place] [address] PPO [id number] 1960 Unknown [id number] 1960 Unknown [id number] 1960 Unknown [id number] 1960 Unknown [id number] 1960 Unknown [id number] 1960 Unknown [id number] 1960 Unknown [id number] 1960 Unknown [id number] 1960 Unknown [id number] 1960 Unknown [id number] Social History Date Type Detail Facility [facility] Tobacco smoking consumption unknown [facility] Start: 09-04-2019 End: 08-05-2022 Tobacco smoking status NHIS Never smoked tobacco [facility] Start: 09-04-2019 End: 08-05-2022 Tobacco use and exposure Smokeless tobacco non-user [facility] Start: 03-07-2022 End: 08-21-2023 Alcohol intake Current non-drinker of alcohol (finding) [facility] Start: 1960 Sex Assigned At Not on file [facility] Start: 03-20-2020 History SDOH Social Connections Phone 5 [facility] Start: 03-20-2020 History SDOH Social Connections Get Together 2 [facility] Start: 03-20-2020 History SDOH Social Connections Restorationism 3 [facility] Start: 03-20-2020 History SDOH Social Connections Meetings 1 [facility] Start: 03-20-2020 History SDOH Physical Activity DPW 0 [facility] Start: 03-20-2020 Education 18 [facility] Start: 1960 Sex Assigned At Female [facility] Start: 03-27-2022 End: 06-03-2022 Exposure to SARS-CoV-2 (event) Not sure [facility] Start: 03-20-2020 End: 02-20-2023 History of Social function [facility] Work Phone: Start: 03-20-2020 End: 02-20-2023 Social connection and isolation panel [facility] Work Phone: Do you belong to any clubs or organizations such as adventist groups, unions, fraternal or athletic groups, or school groups? No [facility] Work Phone: Are you now , , , , never or living with a partner? [facility] Work Phone: How hard is it for y ou to pay for the very basics like food, housing, medical care, and heating Not hard at all [facility] Work Phone: Do you feel stress - tense, restless, nervous, or anxious, or unable to sleep at night because your mind is troubled all the time - these days [OSQ] Only a little [facility] Work Phone: (I/We) worried wheth er (my/our) food would run out before (I/we) got money to buy more. Never true [facility] Work Phone: Start: 08-31-2021 Gender identity Identifies as female gender (finding) [facility] Start: 08-31-2021 Sexual orientation Heterosexual (finding) [facility] Medical Equipment Procedure Code Equipment Code Equipment Origin al Text Equipment Identifier Dates Anchr Sut 4.75mm 2 Fibertak - [id number] Start: 09-21-2021 System Speedbrid ge Swivelock 4.75mm Biocomposite 19.1mm Endoscopic Fixation - [id number] Start: 09-21-2021 Functional Status Date Assessment Result Facility 08-29-2022 Functional Status Ambulating in savage, Ambulating in room [facility] 08-29-2022 Functional Status Maintained [facility] Functional observable [facility] Mental Status Date Assessment Result Facility 08-29-2022 Mental Status Oriented x 4 [facility] 08-29-2022 Mental Status [facility] 10-16-2021 Cognitive functi ons :51 [facility] Clinical Notes 03-08-2018 to 08-21-2023 Radha Rees Jr., DO - 08/21/2023 4:00 PM Willow Frances APRN.SEATER GRINDER - 06/29/2023 4:00 PM EDTPatient InstructionsHai Lara OD - 05/16/2023 4:59 PM EDTPatient Instructions<item><item> Note Date & Type Note Facility 08-21-2023 History of Present illness Narrative Images from the original note were not included. Subjective History of Present Illness Presence of Pain: complains of pain/discomfort Select Pain Scale: DVPRS (Defense and Veterans Pain Rating Scale) (Adult-Cognitively Intact) DVPRS: Rest: 2- mild pain Select Pain Scale: DVPRS (Defense and Veterans Pain Rating Scale) (Adult-Cognitively Intact). Total time spent in this encounter was 41 minutes. Patient is here for 6 month Follow-up. Patient states where she will have episodes of acute pain and fatigue. States has shoulder and neck pain. Energy level depends on the day. Dry mouth is worse. 2 weeks ago had B/L parotid gland enlargement. Dry eyes are worse. Eye doctor gave her Restasis but she has not tried it yet. Sleep apnea is the same she thinks. Cough is better with medication. Paresthesias is hands. Weakness is thumbs. Joint pain is neck. Back pain is the same. Still has red spots that come and go and stay. No prednisone since last seen. Patient is taking 100 mg of Allopurinol a day instead of 200 mg. Objective Review of Systems Constitutional: Positive for fatigue and fever. HENT: Dry mouth History of B/L parotid gland enlargement Eyes: Dry eyes Respiratory: Positive for apnea. CPAP Cardiovascular: Negative. Gastrointestinal: Negative. Endocrine: Negative. Genitourinary: Negative. Musculoskeletal: Positive for arthralgias, back pain, neck pain and neck stiffness. Skin: Red spots on chest and come and go Allergic/Immunologic: Negative. Neurological: Positive for weakness and numbness. LLE Hematological: Negative. Psychiatric/Behavioral: Negative. Vitals: There were no vitals taken for this visit. Physical Exam Vitals and nursing note reviewed. Constitutional: Appearance: Normal appearance. She is obese. HENT: Head: Normocephalic and atraumatic. Comments: Female pattern alopecia Right Ear: External ear normal. Left Ear: External ear normal. Nose: Nose normal. Mouth/Throat: Mouth: Mucous membranes are dry. Pharynx: Oropharynx is clear. Eyes: Extraocular Movements: Extraocular movements intact. Conjunctiva/sclera: Conjunctivae normal. Pupils: Pupils are equal, round, and reactive to light. Comments: Dry eyes Cardiovascular: Rate and Rhythm: Normal rate and regular rhythm. Pulses: Radial pulses are 2+ on the right side and 2+ on the left side. Heart sounds: Murmur heard. Systolic murmur is present with a grade of 2/6. Pulmonary: Effort: Pulmonary effort is normal. Abdominal: General: Bowel sounds are normal. Palpations: Abdomen is soft. Comments: Obese Musculoskeletal: Right shoulder: Decreased range of motion. Left shoulder: Decreased range of motion. Right upper arm: Normal. Left upper arm: Normal. Right elbow: Normal. Left elbow: Normal. Right forearm: Normal. Left forearm: Normal. Right wrist: Normal. Left wrist: Normal. Right hand: Normal. Left hand: Normal. Hands: Cervical back: Neck supple. Right upper leg: Normal. Left upper leg: Normal. Right knee: Decreased range of motion. Left knee: Decreased range of motion. Right lower leg: Normal. Left lower leg: Normal. Right ankle: Decreased range of motion. Left ankle: Decreased range of motion. Legs: Feet: Skin: General: Skin is warm and dry. Neurological: Mental Status: She is alert and oriented to person, place, and time. Cranial Nerves: Cranial nerves 2-12 are intact. Sensory: Sensation is intact. Motor: Motor function is intact. Psychiatric: Mood and Affect: Mood normal. Behavior: Behavior normal. Thought Content: Thought content normal. Judgment: Judgment normal. Neurological Exam Mental Status Alert. Oriented to person, place, and time. Cranial Nerves CN II: Vision test: Dry eyes. CN III, IV, : Extraocular movements intact bilaterally. Pupils equal round and reactive to light bilaterally. Sensory Normal sensation. Assessment and Plan Encounter Diagnoses Name Primary? 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 Time was spent with the patient today in education in re: to all their medical conditions. A complete H&P&ROS was obtained and is either in this note or in the EHR. Please do not hesitate to contact me with any questions or concerns re: this patient. Past History Past medical, surgical, family, and social histories have been reviewed and updated with the patient today and are located elsewhere in the medical record. 2. Thank you for allowing me to participate in the care of your patient. With your permission I would like to F/U with your patient. 3. ESR was normal at 14 and still is at 26 4. Glucose was elevated at 145 and still is at 164 5. Patient given educational material on Sjogren's Syndrome in the form of a pamphlet from the arthritis foundation. Patient told that they could use OTC dry mouth preparations such as Biotene. Patient told they could use OTC artificial tears. 6. Vit D under care of PCP 7. Monitor CBC/LFT/Renal func every 6-12 months as long as patient is on daily NSAID 8. Patient given educational material on gout in the form of a pamphlet from the arthritis foundation. Patient should remain on Allopurinol life long. Would monitor CBC, LFT, Renal func, uric acid level every 6 - 12 months as long as patient on Allopurinol. Patient can take prednisone 5 mg 8 po q AM times one day decrease by one pill q day until off on a PRN basis any acute attack of gout. 9. Patient given educational material on fibromyalgia syndrome in the form of a pamphlet from the arthritis foundation. Patient told that generalized stretching and aerobic exercise would be the cornerstone of treatment. Patient would benefit from psych eval and treatment of any underlying depression and/or anxiety disorder. Patient would benefit from eval and F/U treatment by PMR and/or Chronic Pain Management 10. Chloride was elevated at 108 and is now normal at 105 11. Patient declined Plaquenil for fear of occular side effects 12. Uric acid was normal at 5.3 and still is at 5.8 13. S/p R rotator cuff surgery 14. Patient is taking 100 mg of Allopurinol a day instead of 200 mg. 15. Patient declines referral to PT. 16. AST was elevated at 43 and is now normal at 34 17. Eye doctor gave her Restasis to try. 18. Patient is taking and Vti D3 10,000 units a day and mag 800 mg a day and Vesepa and systane and Zadator eye drops and Livalo and COq 10 and Tricor and Zyrtec and Claritan and Restasis 19. Magnesium was low at 1.5 20. S/P R and now L rotator cuff surgery 21. Ortho F/U per Dr. mejía and Dr. Pierce 22. Patient told to F/U with PCP about low magnesium 23. Patient declines Benlysta and CellCept 24. Pulmonary F/U per Dr. Tubbs 25. CRP was negative at < 2.9 and is now elevated at 4.51 26. GEOVANY was positive 27. dsDNA was elevated at 36 28. C3 was elevated at 200 and still is at 194 29. C4 was normal at 18 and still is at 21 30. BENNY level was normal at 77 31, Negative SSB, SSA, ANCA, Lupus serology (except), HLA-B27, Celiac, CCP, RF, AMA, ASMA. AFP 32. Normal ACTH, cortisol 33. Lodine decreased to 500 mg 1 pill every other day due to renal insufficiency and now she is off of it 34. Patient declines referral to Chronic Pain Management 35. BUN was elevated at 25 and still is at 27 36. Lab on or about 02/03/2024 37. 90 day supply on medications 38. Patient is taking Meloxicam from PCP. 39. Follow-up with me in 6 months 40. Call if need Rx's documented in this encounter [facility] 06-29-2023 Note HNO ID: [id number] Author: Willow Amos APRN.SEATER GRINDER Service: ? Author Type: Nurse Practitioner Type: Progress Notes Filed: 06/29/2023 8:29 PM Note Text: Ehs Manager offered: Patient declines. Bessie is a 62 year old who presents for an annual gynecologic exam without complaints. Postmenopausal: LMP 01/2010 HRT use: estradiol cream using 2-3x's/week. Last Pap:2021 pap normal and HPV positive 18; 2021 colp - benign - 2020 normal cytology HPV 18+; 2019 ASCUS, HPV 18 positive Colposcopy benign 2018 and 2019; [place] 2020 benign and insufficient sample HPV: 2018, 2019, 2020 + Type 18 History of abnormal pap: Yes Last mammogram: 04/2023 normal History of abnormal mammogram: Yes , benign biopsy and lumpectomy left breast 2013 Sexually active: No Hot flashes: No Night sweats: No Vaginal dryness: Yes occasional Documentation from previous visit of 04/06/2022 was copied and pasted, documentation has been reviewed and edited as necessary for today's visit. 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 08/21/2014 Left Breast Bursitis of left shoulder COVID-19 09/2021 CPAP (continuous positive airway pressure) dependence Dysmetabolic syndrome X Essential hypertension, benign Growth of eyelid - Right Eye 08/11/2014 Impingement syndrome of left shoulder Impingement syndrome of left shoulder Myalgia and myositis, unspecified Nonalcoholic liver disease, chronic Other and unspecified hyperlipidemia Other vitreous opacities - Both Eyes 08/11/2014 Polycystic ovaries Sjogren's syndrome (HCC) Traumatic complete tear of left rotator cuff Type 2 diabetes mellitus (HCC) 2015 PAST SURGICAL HISTORY Procedure Laterality Date ARTHRP ACETBLR/PROX FEM PROSTC AGRFT/ALGRFT 10/2013 Hip replacement, total left BREAST BIOPSY 08/21/2014 excisional biopsy for intraductal hyperplasia with atypia BREAST LUMPECTOMY HX 08/[address] Parada states to get in 6-7 years COLPOSCOPY 05/2021,2019 AND 2020 EXTRACTION, ERUPTED TOOTH OR EXPOSED ROOT (ELEVATION AND/OR FORCEPS REMOVAL) 1981 SHOULDER SURGERY HX 09/26/2018 Right shoulder SINUS SURGERY HX 1994 TONSILLECTOMY PRIMARY/SECONDARY Tonsillectomy, age 34/Sinus surgery FAMILY HISTORY Problem Relation Age of Onset Breast Cancer Mother at 60 Hypertension Mother Cancer Father lung, at 64, coal mill operator Alcohol/Drug Father Emphysema Father COPD Father Hypertension Sister Cancer Brother pancreatic, at 54 other (uterine cancer) Maternal Grandmother COPD Maternal Grandfather coal mill operator COPD Paternal Grandfather other (black lung) Paternal Grandfather Stroke Maternal Aunt Breast Cancer Maternal Aunt at 48 Breast Cancer Maternal Aunt radical mastectomy at 34, at age 65 Stroke Maternal Aunt other (Kidney Cancer) Maternal Uncle SOCIAL HISTORY Social History Tobacco Use Smoking status: Never Smokeless tobacco: Never Vaping Use Vaping Use: Never used Substance Use Topics Alcohol use: No Drug use: No REVIEW OF SYSTEMS Abdomen: No abdominal pain, nausea, vomiting, diarrhea, or constipation. No bloating, early satiety, indigestion, or increased flatulence. Bladder: No dysuria, gross hematuria,states at time she has some urgency, frequency and incontinence issues. States that this can happen daily, wears pads. Had PFT 2021 Breast: No breast lumps, nipple d/c, overlying skin changes, redness or skin retraction Allergies and current medication updated:Yes EXAM: BP 154/80 Ht 5' 1 (1.55m) Wt 215 lb (97.5kg) LMP 01/14/2010 BMI 40.64 kg/(m2). GENERAL: pleasant, female in no apparent distress HEENT: Normocephalic, atraumatic, mucus membranes moist, and no lesions NECK: Supple, full range of motion, no adenopathy, and thyroid normal DERMATOLOGY: Normal, without lesions, non-icteric, and non-hirsute BREAST: soft, non-tender, symmetric, no dominant mass, normal nipple-areolar complex, no lymphadenopathy, and no nipple discharge CHEST: Normal inspiratory effort ABDOMEN: soft, non-tender, and no masses PELVIC: external genitalia normal, normal Bartholin's glands, urethra, Nodaway's glands, no vulvar lesions, no cervical lesions, physiologic discharge present, normal appearing perineal body and perianal region. +cystocele BIMANUAL: uterus normal size, shape and consistency, no adnexal masses, and non-tender RECTOVAGINAL: deferred. NEURO: alert and oriented x3,exam grossly non-focal EXTREMITIES: normal ASSESSMENT/PLAN: 1) Health maintenance: Pap done with HPV. (more content not included)... [facility] 06-29-2023 History of Present illness Narrative Ehs Manager offered: Patient declines. Bessie is a 62 year old who presents for an annual gynecologic exam without complaints. Postmenopausal: LMP 01/2010 HRT use: estradiol cream using 2-3x's/week. Last Pap:2021 pap normal and HPV positive 18; 2021 colp - benign - 2020 normal cytology HPV 18+; 2019 ASCUS, HPV 18 positive Colposcopy benign 2018 and 2019; [place] 2020 benign and insufficient sample HPV: 2018, 2019, 2020 + Type 18 History of abnormal pap: Yes Last mammogram: 04/2023 normal History of abnormal mammogram: Yes , benign biopsy and lumpectomy left breast 2013 Sexually active: No Hot flashes: No Night sweats: No Vaginal dryness: Yes occasional Documentation from previous visit of 04/06/2022 was copied and pasted, documentation has been reviewed and edited as necessary for today's visit. 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 08/21/2014 Left Breast Bursitis of left shoulder COVID-19 09/2021 CPAP (continuous positive airway pressure) dependence Dysmetabolic syndrome X Essential hypertension, benign Growth of eyelid - Right Eye 08/11/2014 Impingement syndrome of left shoulder Impingement syndrome of left shoulder Myalgia and myositis, unspecified Nonalcoholic liver disease, chronic Other and unspecified hyperlipidemia Other vitreous opacities - Both Eyes 08/11/2014 Polycystic ovaries Sjogren's syndrome (HCC) Traumatic complete tear of left rotator cuff Type 2 diabetes mellitus (HCC) 2014 PAST SURGICAL HISTORY Procedure Laterality Date ARTHRP ACETBLR/PROX FEM PROSTC AGRFT/ALGRFT 10/2013 Hip replacement, total left BREAST BIOPSY 08/21/2014 excisional biopsy for intraductal hyperplasia with atypia BREAST LUMPECTOMY HX 08/[address] Parada states to get in 6-7 years COLPOSCOPY 05/2021,2019 & 2020 EXTRACTION, ERUPTED TOOTH OR EXPOSED ROOT (ELEVATION AND/OR FORCEPS REMOVAL) 1981 SHOULDER SURGERY HX 09/26/2018 Right shoulder SINUS SURGERY HX 1994 TONSILLECTOMY PRIMARY/SECONDARY <AGE 12 1994 Tonsillectomy, age 34/Sinus surgery FAMILY HISTORY Problem Relation Age of Onset Breast Cancer Mother at 60 Hypertension Mother Cancer Father lung, at 64, coal mill operator Alcohol/Drug Father Emphysema Father COPD Father Hypertension Sister Cancer Brother pancreatic, at 54 other (uterine cancer) Maternal Grandmother COPD Maternal Grandfather coal mill operator COPD Paternal Grandfather other (black lung) Paternal Grandfather Stroke Maternal Aunt Breast Cancer Maternal Aunt at 48 Breast Cancer Maternal Aunt radical mastectomy at 34, at age 65 Stroke Maternal Aunt other (Kidney Cancer) Maternal Uncle SOCIAL HISTORY Social History Tobacco Use Smoking status: Never Smokeless tobacco: Never Vaping Use Vaping Use: Never used Substance Use Topics Alcohol use: No Drug use: No REVIEW OF SYSTEMS Abdomen: No abdominal pain, nausea, vomiting, diarrhea, or constipation. No bloating, early satiety, indigestion, or increased flatulence. Bladder: No dysuria, gross hematuria,states at time she has some urgency, frequency and incontinence issues. States that this can happen daily, wears pads. Had PFT 2021 Breast: No breast lumps, nipple d/c, overlying skin changes, redness or skin retraction Allergies and current medication updated:Yes EXAM: BP 154/80 Ht 5' 1 (1.55m) Wt 215 lb (97.5kg) LMP 01/14/2010 BMI 40.64 kg/(m^2). GENERAL: pleasant, female in no apparent distress HEENT: Normocephalic, atraumatic, mucus membranes moist, and no lesions NECK: Supple, full range of motion, no adenopathy, and thyroid normal DERMATOLOGY: Normal, without lesions, non-icteric, and non-hirsute BREAST: soft, non-tender, symmetric, no dominant mass, normal nipple-areolar complex, no lymphadenopathy, and no nipple discharge CHEST: Normal inspiratory effort ABDOMEN: soft, non-tender, and no masses PELVIC: external genitalia normal, normal Bartholin's glands, urethra, Nodaway's glands, no vulvar lesions, no cervical lesions, physiologic discharge present, normal appearing perineal body and perianal region. +cystocele BIMANUAL: uterus normal size, shape and consistency, no adnexal masses, and non-tender RECTOVAGINAL: deferred. NEURO: alert and oriented x3,exam grossly non-focal EXTREMITIES: normal ASSESSMENT/PLAN: 1) Health maintenance: Pap done with HPV. Mammogram ordered Mammogram up to date Nutrition, exercise and routine health maintenance exams reviewed. Calcium/Vitamin D supplementation information provided. Colon cancer screening: up to date with screening 2021 with 5 yr follow-up Dr Parada 2) Follow up one year or sooner as needed Willow Amos APRN.LUIS documented in this encounter [facility] 05-16-2023 Note HNO ID: [id number] Author: Hai Lara OD Service: ? Author Type: FACE PAINTER Type: Progress Notes Filed: 05/16/2023 5:02 PM Note Text: ASSESSMENT/PLAN: 1. Type 2 diabetes mellitus without retinopathy (HCC) - ICD9: 250.00, ICD10: E11.9 (primary diagnosis) Examination shows no ocular diabetic complications today. Discussed need for optimal diabetes control to minimize chance of ocular complications. Advise patient to immediately report worsening in status or additional symptoms. Continue yearly dilated eye examinations. 2. Dry eye syndrome of both eyes - ICD9: 375.15, ICD10: H04.123 Continue to use the Systane up to four times a day and the Zaditor twice a day. 3. Combined forms of age-related cataract of both eyes - ICD9: 366.19, ICD10: H25.813 Mild to moderate cataract in both eyes. Well tolerated at this time. Discussed possible future affect on daily activities to watch for. Monitor as instructed. 4. 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 Epiretinal membrane (ERM) of right eye - ICD9: 362.56, ICD10: H35.371 Stable Recommended yearly exams Hai Lara, OD I have confirmed and edited as necessary the relevant ophthalmic history, ROS, and the neuro exam findings as obtained by others. [facility] 05-16-2023 Instructions Hai Lara, OD - 05/16/2023 5:01 PM EDT ASSESSMENT/PLAN: 1. Type 2 diabetes mellitus without retinopathy (HCC) - ICD9: 250.00, ICD10: E11.9 (primary diagnosis) Examination shows no ocular diabetic complications today. Discussed need for optimal diabetes control to minimize chance of ocular complications. Advise patient to immediately report worsening in status or additional symptoms. Continue yearly dilated eye examinations. 2. Dry eye syndrome of both eyes - ICD9: 375.15, ICD10: H04.123 Continue to use the Systane up to four times a day and the Zaditor twice a day. 3. Combined forms of age-related cataract of both eyes - ICD9: 366.19, ICD10: H25.813 Mild to moderate cataract in both eyes. Well tolerated at this time. Discussed possible future affect on daily activities to watch for. Monitor as instructed. 4. 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 Epiretinal membrane (ERM) of right eye - ICD9: 362.56, ICD10: H35.371 Stable Recommended yearly exams documented in this encounter [facility] 05-16-2023 History of Present illness Narrative ASSESSMENT/PLAN: 1. Type 2 diabetes mellitus without retinopathy (HCC) - ICD9: 250.00, ICD10: E11.9 (primary diagnosis) Examination shows no ocular diabetic complications today. Discussed need for optimal diabetes control to minimize chance of ocular complications. Advise patient to immediately report worsening in status or additional symptoms. Continue yearly dilated eye examinations. 2. Dry eye syndrome of both eyes - ICD9: 375.15, ICD10: H04.123 Continue to use the Systane up to four times a day and the Zaditor twice a day. 3. Combined forms of age-related cataract of both eyes - ICD9: 366.19, ICD10: H25.813 Mild to moderate cataract in both eyes. Well tolerated at this time. Discussed possible future affect on daily activities to watch for. Monitor as instructed. 4. 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 Epiretinal membrane (ERM) of right eye - ICD9: 362.56, ICD10: H35.371 Stable Recommended yearly exams Hai Lara, OD I have confirmed and edited as necessary the relevant ophthalmic history, ROS, and the neuro exam findings as obtained by others. documented in this encounter [facility] 04-27-2023 Miscellaneous Notes April 28, 2023 PID: [id number] Bessie Ellison [address] [place] [id number] Dear Ms. Ellison, We are pleased to inform you that the results of your recent breast imaging exam on 04/26/2023 are normal. Early detection of cancer is very important. We also understand recommendations regarding breast cancer screening are controversial. Please discuss with your primary care provider which strategy is best for you and whether a mammogram is right for you. Your imaging studies and report will be kept on file at [facility] as part of your permanent medical record and are available for your continuing care. Thank you for allowing us to help in meeting your health care needs. Sincerely, Dr. Serrano Interpreting Radiologist [facility] (Normal over 40) documented in this encounter [facility] 04-26-2023 Note HNO ID: [id number] Author: RT Idalia(R) Service: ? Author Type: Technologist Type: Progress Notes Filed: 04/26/2023 8:59 AM Note Text: Radiology Service Progress Note PATIENT NAME: Bessie Ellison DATE OF SERVICE: April 26, 2023 TIME: 8:59 AM PATIENT IDENTITY VERIFICATION COMPLETED USING TWO (2) IDENTIFIERS: Name and Date of confirmed by patient verbally. FALL SCREENING: Has the patient had 2 falls in the last year or 1 fall with injury or currently using an Ambulatory Assistive Device (Walker, Cane, Wheelchair, Crutches, etc.)? No PATIENT GENDER DATA: Female. status: : No status: NO. PATIENT RELEVANT IMPLANT DATA REVIEWED: Not Applicable RADIOLOGY DEPARTMENT: Mammography PERIPHERAL IV DATA: Not applicable SIGNED BY: RT Idalia(R) April 26, 2023 8:59 AM [facility] 04-26-2023 History of Present illness Narrative Radiology Service Progress Note PATIENT NAME: Bessie Ellison DATE OF SERVICE: April 26, 2023 TIME: 8:59 AM PATIENT IDENTITY VERIFICATION COMPLETED USING TWO (2) IDENTIFIERS: Name and Date of confirmed by patient verbally. FALL SCREENING: Has the patient had 2 falls in the last year or 1 fall with injury or currently using an Ambulatory Assistive Device (Walker, Cane, Wheelchair, Crutches, etc.)? No PATIENT GENDER DATA: Female. status: : No status: NO. PATIENT RELEVANT IMPLANT DATA REVIEWED: Not Applicable RADIOLOGY DEPARTMENT: Mammography PERIPHERAL IV DATA: Not applicable SIGNED BY: RT Idalia(R) April 26, 2023 8:59 AM documented in this encounter [facility] 09-27-2022 Note HNO ID: [id number] Author: Tejinder Little MD Service: ? Author Type: Physician Type: Progress Notes Filed: 09/27/2022 9:09 AM Note Text: UNIVERSAL PROTOCOL / SAFETY CHECKLIST Procedure to be Performed: EMG Sign In: A Moment of CARE was completed. Personnel directly involved with the procedure wore the appropriate PPE (Personal Protective Equipment). Patient/Surrogate Stated/Verified: PATIENT VERIFIED(optional for EMERGENT procedures): Patient name, Date of , Relevant allergies, and The intended procedure Time Out Communication: Intended patient and procedure match the source documents. Correct side/site marked and visible. Sign Out: SIGN OUT (optional for EMERGENT procedures): Post-procedure follow-up management communicated and Plan of Care Visit completed when applicable. Concetta Little MD [facility] 09-27-2022 History of Present illness Narrative UNIVERSAL PROTOCOL / SAFETY CHECKLIST Procedure to be Performed: EMG Sign In: A Moment of CARE was completed. Personnel directly involved with the procedure wore the appropriate PPE (Personal Protective Equipment). Patient/Surrogate Stated/Verified: PATIENT VERIFIED(optional for EMERGENT procedures): Patient name, Date of , Relevant allergies, and The intended procedure Time Out Communication: Intended patient and procedure match the source documents. Correct side/site marked and visible. Sign Out: SIGN OUT (optional for EMERGENT procedures): Post-procedure follow-up management communicated and Plan of Care Visit completed when applicable. Concetta Little MD documented in this encounter [facility] 08-29-2022 Hospital Discharge instructions Patient Education 08/29/2022 10:19:27 Monitored Anesthesia Care, Care After Monitored Anesthesia Care, Care After These instructions provide you with information about caring for yourself after your procedure. Your health care provider may also give you more specific instructions. Your treatment has been planned according to current medical practices, but problems sometimes occur. Call your health care provider if you have any problems or questions after your procedure. What can I expect after the procedure? After your procedure, you may: Feel sleepy for several hours. Feel clumsy and have poor balance for several hours. Feel forgetful about what happened after the procedure. Have poor judgment for several hours. Feel nauseous or vomit. Have a sore throat if you had a breathing tube during the procedure. Follow these instructions at home: For at least 24 hours after the procedure: Have a responsible adult stay with you. It is important to have someone help care for you until you are awake and alert. Rest as needed. Do not: ?Participate in activities in which you could fall or become injured. ?Drive. ?Use heavy machinery. ?Drink alcohol. ?Take sleeping pills or medicines that cause drowsiness. ?Make important decisions or sign legal documents. ?Take care of children on your own. Eating and drinking Follow the diet that is recommended by your health care provider. If you vomit, drink water, juice, or soup when you can drink without vomiting. Make sure you have little or no nausea before eating solid foods. General instructions Take igcg-uxw-ovxctkx and prescription medicines only as told by your health care provider. If you have sleep apnea, surgery and certain medicines can increase your risk for breathing problems. Follow instructions from your health care provider about wearing your sleep device: ?Anytime you are sleeping, including during daytime naps. ?While taking prescription pain medicines, sleeping medicines, or medicines that make you drowsy. If you smoke, do not smoke without supervision. Keep all follow-up visits as told by your health care provider. This is important. Contact a health care provider if: You keep feeling nauseous or you keep vomiting. You feel light-headed. You develop a rash. You have a fever. Get help right away if: You have trouble breathing. Summary For several hours after your procedure, you may feel sleepy and have poor judgment. Have a responsible adult stay with you for at least 24 hours or until you are awake and alert. This information is not intended to replace advice given to you by your health care provider. Make sure you discuss any questions you have with your health care provider. Document Released: 01/22/2017 Document Revised: 12/31/2018 Document Reviewed: 01/22/2017 [employer] Patient Education 2020 [employer]. 08/29/2022 10:19:15 Esophagogastroduodenoscopy, Care After (83310) Esophagogastroduodenoscopy, Care After Refer to this sheet in the next few weeks. These instructions provide you with information about caring for yourself after your procedure. Your health care provider may also give you more specific instructions. Your treatment has been planned according to current medical practices, but problems sometimes occur. Call your health care provider if you have any problems or questions after your procedure. What can I expect after the procedure? After the procedure, it is common to have: A sore throat. Nausea. Bloating. Dizziness. Fatigue. Follow these instructions at home: Do not eat or drink anything until the numbing medicine (local anesthetic) has worn off and your gag reflex has returned. You will know that the local anesthetic has worn off when you can swallow comfortably. Do not drive for 24 hours if you received a medicine to help you relax (sedative). If your health care provider took a tissue sample for testing during the procedure, make sure to get your test results. This is your responsibility. Ask your health care provider or the department performing the test when your results will be ready. Keep all follow-up visits as told by your health care provider. This is important. Contact a health care provider if: You cannot stop coughing. You are not urinating. You are urinating less than usual. Get help right away if: You have trouble swallowing. You cannot eat or drink. You have throat or chest pain that gets worse. You are dizzy or light-headed. You faint. You have nausea or vomiting. You have chills. You have a fever. You have severe abdominal pain. You have black, tarry, or bloody stools. This information is not intended to replace advice given to you by your health care provider. Make sure you discuss any questions you have with your health care provider. Document Released: 09/18/2013 Document Revised: 03/09/2017 Document Reviewed: 08/25/2016 [employer] Interactive Patient Education 2019 [employer]. Follow Up Care 08/11/2022 11:34:17 With:DIEGO PARADA MD Address: [address] [phone] When: Unknown Comments:biopsies were taken. The office will call you with results. call the office if you do not hear from them. Go to the emergency room with any urgent concerns. [facility] 08-29-2022 Summary of episode note Discharge Instructions Thank you for allowing [facility] to assist you with your healthcare needs. The following is important discharge information regarding your hospital visit. Your Care Team THERESA SCHWARZ, ZABRINA PARADA. Your Diagnosis EGD WITH BIOPSIES. What to do next Follow Up Appointments Follow Up with DIEGO PARADA MD When Why: biopsies were taken. The office will call you with results. call the office if you do not hear from them. Go to the emergency room with any urgent concerns. Where: [address] [place] [phone] Allergies Bactrim Ceclor Crestor Lopid Vicodin Victoza Zetia lisinopril lovastatin penicillin Medications Please ask your primary doctor or pharmacist before taking any other medication not listed, including over the counter drugs, herbal medications, vitamins and or supplements as they may interact with your home medications. What How Much When Instructions Last Dose Unchanged albuterol (ProAir Digihaler) by inhalation Every 6 hours Unchanged allopurinol (allopurinol 100 mg oral tablet) 1 tab(s) by mouth Unchanged amLODIPine (amLODIPine 5 mg oral tablet) Unchanged calcium carbonate (calcium carbonate 600 mg oral tablet, chewable) 2 tab(s) Chewed Once a day Unchanged carvedilol (carvedilol 6.25 mg oral tablet) 1 tab(s) by mouth Two (2) times a day Unchanged cholecalciferol (Vitamin D3) Once a day Unchanged cyclobenzaprine (cyclobenzaprine 10 mg oral tablet) 1 tab(s) by mouth Three (3) times a day as needed for as needed for spasm Unchanged etodolac (etodolac 500 mg oral tablet) 1 tab(s) by mouth Two (2) times a day Unchanged fenofibrate (TriCor 145 mg oral tablet) 1 tab(s) by mouth Once a day Unchanged ferrous sulfate by mouth Unchanged fluticasone nasal (fluticasone 50 mcg/ inh NASAL spray) Once a day Unchanged losartan (losartan 100 mg oral tablet) 1 tab(s) by mouth Once a day Unchanged metFORMIN (Glucophage (IR) immediate release use metFORMIN ) by mouth Unchanged metFORMIN (metFORMIN 500 mg oral tablet (IR)) 1 tab(s) by mouth Two (2) times a day Unchanged methocarbamol (Robaxin use methocarbamol ) 500 Milligram by mouth Unchanged omeprazole (omeprazole 20 mg oral delayed release capsule) 1 cap by mouth Every other day Unchanged semaglutide (Ozempic) Subcutaneous Unchanged thyroid desiccated ([place] Thyroid) by mouth Once a day Unchanged zolpidem (Ambien 5 mg oral tablet) 1 tab(s) by mouth Daily at bedtime Please take this list to your next doctor s visit. Bring all medications you take, including over the counter medications, herbals and other supplements with you to your doctor s visit. Patients and families are reminded to discard old lists and to update any records with all medication providers or retail pharmacies. Education Materials Monitored Anesthesia Care, Care After These instructions provide you with information about caring for yourself after your procedure. Your health care provider may also give you more specific instructions. Your treatment has been planned according to current medical practices, but problems sometimes occur. Call your health care provider if you have any problems or questions after your procedure. What can I expect after the procedure? After your procedure, you may: Feel sleepy for several hours. Feel clumsy and have poor balance for several hours. Feel forgetful about what happened after the procedure. Have poor judgment for several hours. Feel nauseous or vomit. Have a sore throat if you had a breathing tube during the procedure. Follow these instructions at home: For at least 24 hours after the procedure: Have a responsible adult stay with you. It is important to have someone help care for you until you are awake and alert. Rest as needed. Do not: ? Participate in activities in which you could fall or become injured. ? Drive. ? Use heavy machinery. ? Drink alcohol. ? Take sleeping pills or medicines that cause drowsiness. ? Make important decisions or sign legal documents. ? Take care of children on your own. Eating and drinking Follow the diet that is recommended by your health care provider. If you vomit, drink water, juice, or soup when you can drink without vomiting. Make sure you have little or no nausea before eating solid foods. General instructions Take icii-uwq-zvnetup and prescription medicines only as told by your health care provider. If you have sleep apnea, surgery and certain medicines can increase your risk for breathing problems. Follow instructions from your health care provider about wearing your sleep device: ? Anytime you are sleeping, including during daytime naps. ? While taking prescription pain medicines, sleeping medicines, or medicines that make you drowsy. If you smoke, do not smoke without supervision. Keep all follow-up visits as told by your health care provider. This is important. Contact a health care provider if: You keep feeling nauseous or you keep vomiting. You feel light-headed. You develop a rash. You have a fever. Get help right away if: You have trouble breathing. Summary For several hours after your procedure, you may feel sleepy and have poor judgment. Have a responsible adult stay with you for at least 24 hours or until you are awake and alert. This information is not intended to replace advice given to you by your health care provider. Make sure you discuss any questions you have with your health care provider. Document Released: 01/22/2017 Document Revised: 12/31/2018 Document Reviewed: 01/22/2017 [employer] Patient Education 2020 [employer] Inc[employer] Esophagogastroduodenoscopy, Care After Refer to this sheet in the next few weeks. These instructions provide you with information about caring for yourself after your procedure. Your health care provider may also give you more specific instructions. Your treatment has been planned according to current medical practices, but problems sometimes occur. Call your health care provider if you have any problems or questions after your procedure. What can I expect after the procedure? After the procedure, it is common to have: A sore throat. Nausea. Bloating. Dizziness. Fatigue. Follow these instructions at home: Do not eat or drink anything until the numbing medicine (local anesthetic) has worn off and your gag reflex has returned. You will know that the local anesthetic has worn off when you can swallow comfortably. Do not drive for 24 hours if you received a medicine to help you relax (sedative). If your health care provider took a tissue sample for testing during the procedure, make sure to get your test results. This is your responsibility. Ask your health care provider or the department performing the test when your results will be ready. Keep all follow-up visits as told by your health care provider. This is important. Contact a health care provider if: You cannot stop coughing. You are not urinating. You are urinating less than usual. Get help right away if: You have trouble swallowing. You cannot eat or drink. You have throat or chest pain that gets worse. You are dizzy or light-headed. You faint. You have nausea or vomiting. You have chills. You have a fever. You have severe abdominal pain. You have black, tarry, or bloody stools. This information is not intended to replace advice given to you by your health care provider. Make sure you discuss any questions you have with your health care provider. Document Released: 09/18/2013 Document Revised: 03/09/2017 Document Reviewed: 08/25/2016 [employer] Interactive Patient Education 2019 [employer] Inc[employer] Additional Information VACCINATE! IT SAVES LIVES! Members of the community who have not yet received the COVID-19 vaccine and would like to receive it can visit one of [facility] vaccine clinics. There are many vaccine clinic locations within the [facility]. For locations and available times, please visit [email or web address] It is important to note that some COVID mobile vaccine clinics are held outdoors and may be canceled in rainy or stormy conditions. To learn more about pediatric vaccinations (ages 5-11), we invite you to visit the [facility] webpage. [email or web address]/[email or web address]-[email or web address]-[email or web address]-Frequently-[email or web address] -Questions.html To learn more about the COVID-19 vaccine, we invite you to visit the [employer] website for a list of frequently asked questions. [email or web address] [employer] Patient Portal Access Instructions: Stay connected with your healthcare team and access your personal medical information anytime with the [employer] Patient Portal.If you would like a full copy of your medical records, please contact the [facility] Medical Records Department, Monday through Monday between 8a.m. and 4:30p.m. Please follow the directions below to access the portal: 1.Access the email account you provided upon registration to the hospital.2.Look for an invitation email from [facility].3.Open the email and access the invitation link: Accept Invitation to [employer]4.Fill in the required huang to create your account. Sign into [email or web address] with your username and password that you created in the above steps to stay up to date. You can then view a summary of results, a summary of your visits, and the ability to download your summaries to your computer or send the information securely to a physician. Remember that your healthcare information is confidential, so carefully consider who you will allow to register on the [facility] for access to your information. You can also access the [facility] on the [employer] jocelyn. Simply click on Health Records under Health Data and then click on the [employer] logo. HOW TO SAFELY DISPOSE OF PRESCRIPTION MEDICATIONS Please use one of the following methods to safely dispose of your unused medications. 1.Use a drug disposal kit: the drug disposal pouch allows you to safely discard your old and unused drugs. Ask your nurse to give you one when you are discharged.2.Visit a local take-back location: Many local pharmacies and police departments have programs that collect old and unwanted prescription drugs. Call your local pharmacy or go to http://Yunait/2I6Tm9b to find one close to you.3.Make use of household items: Use cat litter or old coffee grounds to dispose medications if other options are not available. Mix your drugs with these household products, seal them in an airtight container and throw it into the garbage. Call [facility]: [phone] to be sure your drugs can be disposed of in this way. Some medicines may require a different approach.4.Never flush your medications down the toilet. IF YOU HAVE BEEN PRESCRIBED AN OPIOID FOR PAIN If you have been prescribed an opioid (such as hydrocodone, oxycodone or morphine), it is critical to understand the possible side effects and risks of opioid pain medications. Even when taken as directed, opioids can have several side effects including: Tolerance, meaning you might need to take more of a medication for the same pain relief. Nausea, vomiting and/or constipation. Sleepiness, dizziness, dry mouth, confusion, depression or itching. Physical dependence, meaning you have withdrawal symptoms when a medication is stopped, can develop within a few days. KNOW YOUR RESPONSIBILITIES It is important to know exactly how much and how often to take the opioid pain medications you are prescribed. Never take opioids in higher amounts or more often than prescribed. Do not combine opioids with alcohol or other drugs that cause drowsiness, such as benzodiazepines, also known as benzos, including diazepam and alprazolam, muscle relaxants or sleep aids. Never sell or share prescription opioids. This is illegal. Store opioids in a secure place and out of reach of others (including children, family, friends and visitors). The last page of this document has been signed and retained as a CHART COPY. Signatures Patient Education Materials Monitored Anesthesia Care, Care After Esophagogastroduodenoscopy, Care After (33685) Medication Leaflets My discharge plan and instructions have been reviewed and explained to me and I,BESSIE ELLISON understand my current condition and have read and understand these discharge instructions. I have received a written copy of the plan/instructions. If I have questions, I am aware that I should contact my doctor. Patient/Rivet Thrower Signature: _ Date/Time: Relationship to Patient: Witness Name/Signature: Date/Time: [facility] 08-29-2022 Procedure note Patient: BESSIE ELLISON Age: 61 years Sex: Female : 1960 Associated Diagnoses: None Author: SHAY RILEY APRN-SALES PERFORMANCE MANAGER Assessment Postanesthesia assessment Vitals: Vital signs from flowsheet : Vital Signs 08/29/2022 10:05 EST Heart Rate Monitored 82 bpm bpm Respiratory Rate - Anes 12 br/min br/min Systolic Blood Pressure Non-Invasive 127 mmHg mmHg Diastolic Blood Pressure Non-Invasive 59 mmHg mmHg 08/29/2022 10:00 EST Heart Rate Monitored 84 bpm bpm Respiratory Rate - Anes 23 br/min br/min Systolic Blood Pressure Non-Invasive 133 mmHg mmHg Diastolic Blood Pressure Non-Invasive 58 mmHg mmHg 08/29/2022 8:50 EST Temperature Temporal Artery 36.6 DegC Peripheral Pulse Rate 75 bpm Respiratory Rate 20 br/min Systolic Blood Pressure Non-Invasive 127 mmHg Diastolic Blood Pressure Non-Invasive 54 mmHg LOW , Measurements from flowsheet . Mental status: alert & oriented x 4. Respiratory function: respirations are non-labored. Respiratory support: none. CV function: Normal rate. Cardiovascular support: none. Pain. Nausea status: see nursing documentation of medications. Postoperative hydration status: within normal limits. Digitally Signed by SHAY RILEY on 08/29/2022 10:09 AM [facility] 08-29-2022 Procedure note Patient: BESSIE ELLISON Age: 61 years Sex: Female : 1960 Associated Diagnoses: None Author: SHAY RILEY Preoperative Information Time of last food or liquid consumption: 08/29/2022 00:00:00 Anesthesia history Patient's history: negative. Family's history: negative. Health Status Allergies: Allergic Reactions (Selected) Severity Not Documented Bactrim- No reactions were documented. Ceclor- No reactions were documented. Crestor- No reactions were documented. Lisinopril- No reactions were documented. Lopid- No reactions were documented. Lovastatin- No reactions were documented. Penicillin- No reactions were documented. Vicodin- No reactions were documented. Victoza- No reactions were documented. Zetia- No reactions were documented., Allergies (10) ActiveReaction BactrimNone Documented CeclorNone Documented CrestorNone Documented lisinoprilNone Documented LopidNone Documented lovastatinNone Documented penicillinNone Documented VicodinNone Documented VictozaNone Documented ZetiaNone Documented Current medications: (Selected) Inpatient Medications Ordered LR 1,000 mL: 50 mL/hr, Intravenous Documented Medications Documented Ambien 5 mg oral tablet: 5 mg, 1 tab(s), Oral, qHS, 0 Refill(s) [place] Thyroid: Oral, qDay, 0 Refill(s) Glucophage (IR) immediate release use metFORMIN : Oral, 0 Refill(s) Ozempic: Subcutaneous, 0 Refill(s) ProAir Digihaler: Inhalation, q6hr, 0 Refill(s) Robaxin use methocarbamol : 500 mg, Oral, 0 Refill(s) TriCor 145 mg oral tablet: 145 mg, 1 tab(s), Oral, qDay, 30 tab(s), 0 Refill(s) Vitamin D3: qDay, 0 Refill(s) allopurinol 100 mg oral tablet: 100 mg, 1 tab(s), Oral, 0 Refill(s) amLODIPine 5 mg oral tablet: 0 Refill(s) calcium carbonate 600 mg oral tablet, chewable: 1,200 mg, 2 tab(s), Chewed, qDay, 0 Refill(s) carvedilol 6.25 mg oral tablet: 6.25 mg, 1 tab(s), Oral, BID, 180 tab(s), 0 Refill(s) cyclobenzaprine 10 mg oral tablet: 10 mg, 1 tab(s), Oral, TID, PRN: as needed for spasm, 30 tab(s), 0 Refill(s) etodolac 500 mg oral tablet: 500 mg, 1 tab(s), Oral, BID, 0 Refill(s) ferrous sulfate: Oral, 0 Refill(s) fluticasone 50 mcg/inh NASAL spray: qDay, 0 Refill(s) losartan 100 mg oral tablet: 100 mg, 1 tab(s), Oral, qDay, 30 tab(s), 0 Refill(s) metFORMIN 500 mg oral tablet (IR): 500 mg, 1 tab(s), Oral, BID, 0 Refill(s) omeprazole 20 mg oral delayed release capsule: 20 mg, 1 cap(s), Oral, Every other day, 0 Refill(s), Medications (1) Active Scheduled: (0) Continuous: (1) Lactated Ringers 1,000 mL 1,000 mL, Intravenous, 50 mL/hr PRN: (0) Problem list: Active Problems (10) Cirrhosis of liver Colon cancer high risk DM2 (diabetes mellitus, type 2) Fatty liver GERD (gastroesophageal reflux disease) HTN (hypertension) Hypothyroidism RUQ pain Sjogren's disease Sleep apnea Histories Past Medical History: No active or resolved past medical history items have been selected or recorded. Family History: Breast cancer Mother Anemia Sister Malignant tumor of pancreas Brother COPD Father CHF (congestive heart failure) Father Diabetes Brother Procedure history: Colonoscopy ([id number]) on 08/11/2022 at 61 Years. Rotator cuff repair ([id number]) on 09/21/2021 at 60 Years. Comments: 08/29/2022 8:46 EST - Mira Garcia RN left rotator cuff repair. Rotator cuff ([id number]) in 2018 at 57 Years. Comments: 08/29/2022 8:45 EST - Mira Garcia RN with bicept repari right side. Esophagogastroduodenoscopy ([id number]) in 2018 at 57 Years. Lumpectomy of left breast ([id number]). History of total replacement of left hip joint ([id number]). History of tonsillectomy ([id number]). Oral surgery ([id number]). History of nasal sinus surgery ([id number]). Social History Social & Psychosocial Habits Alcohol 08/29/2022 Use: Never Substance Abuse 08/29/2022 Use: Never Tobacco 08/29/2022 Tobacco Use: Never (less than 100 in l Home/Environment 08/29/2022 Domestic Concerns None Nutrition/Health 08/29/2022 Type of diet: Regular Appetite Excellent Eating Difficulties None Caffeine intake amount: 1 cup green tea in the morning. . Physical Examination Vital Signs 08/29/2022 8:50 EST Temperature Temporal Artery 36.6 DegC Peripheral Pulse Rate 75 bpm Respiratory Rate 20 br/min Systolic Blood Pressure Non-Invasive 127 mmHg Diastolic Blood Pressure Non-Invasive 54 mmHg LOW Vital Signs(last 24 hrs) Last Charted Resp Rate 20 br/min (AUG 29 08:50) BXB328 mmHg (AUG 29 08:50) DBPL 54mmHg (AUG 29 08:50) Measurements from flowsheet : Measurements 08/29/2022 8:50 EST Height 155.0 cm Admission Weight 94.7 kg Weight Method Stated [place] Body Weight 47.85 kg Admission Body Mass Index 39.42 m2 Pain assessment: Pain Assessment 08/29/2022 8:50 EST Primary Pain Intensity 0 Pain Scale Type 0-10 Pain scale . General: Alert and oriented. Airway: Normal temporomandibular joint mobility, Normal mouth, Normal neck range of motion. Mallampati classification: III (soft palate, base of uvula visible). Dentition Evaluation: Denies loose/chipped teeth. Respiratory: Respirations are non-labored. Cardiovascular: Normal rate. Neurologic: Alert, Oriented. Review / Management Results review: No qualifying data available , Lab results 08/29/2022 9:53 EST SN - Proc - Anesthesia Type MAC SN - Proc - EBL 0 mL SN - Proc - Actual Procedure ESOPHAGOGASTRODUODENOSCOPY WITH POSSIBLE BANDING 08/29/2022 9:53 EST SN - PP - Body Position Lateral Right Side-up Standard Intra-op 08/29/2022 9:52 EST SN - GCD - Post-operative Diagnosis CIRRHOSIS SN - GCD - Case Level OPD Level 3 08/29/2022 9:52 EST SN - CAt - Case Attendee SN - CAt - Case Attendee SN - CAt - Case Attendee SN - CAt - Case Attendee SN - CAt - Case Attendee SN - CAt - Case Attendee SN - CAt - Case Attendee SN - CAt - Case Attendee SN - CAt - Role Performed Primary Surgeon SN - CAt - Role Performed SALES PERFORMANCE MANAGER SN - CAt - Role Performed Fruit Buying Grader 1 SN - CAt - Role Performed Clerical Associate 08/29/2022 9:32 EST Lactated Ringers Injection Begin Bag 1,000 mL mL 08/29/2022 8:50 EST Blood Glucose, Capillary 145 mg/dL [facility] Designated Person #1 We May Share SIMBA ellison. [phone] Designated Person #1 Relationship Spouse Privacy Restrictions Requested None Height 155.0 cm Admission Weight 94.7 kg Weight Method Stated [place] Body Weight 47.85 kg Admission Body Mass Index 39.42 m2 Temperature Temporal Artery 36.6 DegC Peripheral Pulse Rate 75 bpm Respiratory Rate 20 br/min Systolic Blood Pressure Non-Invasive 127 mmHg Diastolic Blood Pressure Non-Invasive 54 mmHg LOW Primary Pain Intensity 0 Pain Scale Type 0-10 Pain scale Heart Rhythm Regular Oxygen Therapy Room air Abdomen Description Non-distended, Soft Swallowing Disorder None Bowel Sounds All Quadrants Present Genitourinary Symptoms Frequency Urinary Elimination Voiding, no difficulties, Incontinence Status No, per patient Skin Temperature Warm Skin Description Halfway, Normal for ethnicity, Dry Skin Moisture General Dry IV Present Present Hand Right 08/29/2022 22 gauge Peripheral IV Activity: Insert new site Peripheral IV Site Condition: No complications Peripheral IV Number of Attempts: 1 Neurological Symptoms Patient denies Characteristics of Speech Clear Level of Consciousness Alert Strength All Extremities Strong Sensation All Extremities Intact Affect/Behavior Appropriate Orientation Oriented x 4 Sensory Deficits None Sleep Apnea Age Yes Sleep Apnea Gender No Diagnosed With Sleep Apnea Yes Advanced Directives Yes Advance Directive Type [place] Durable Power of Junior Accountant for Health Care Advance Directive Location Family instructed to bring in copy Infectious Disease Symptoms Patient states no symptoms Infectious Disease Recent Exposure No Alcohol and Drug Use No Employee of Institutional Living No Health Care Employee No History of Exposure to TB No History of Positive Chest X-Ray for TB No History of Positive TB Skin Test No Homeless No Known Immunosuppression No Recent Immigrant No Resident of Institutional Living No Bloody Sputum No Fatigue No Fever No Loss of Appetite No Night Sweats No Persistent Cough > 3 Weeks No Weight Loss No Allergies Yes Auditor Internal On Yes Consent Form Signed Yes Patient Dressed In Hospital gown History & Physical Update On Chart Yes History & Physical On Chart Yes Obstructive Sleep Apnea Assess Completed Yes Orientation Assessment Oriented x 4 Safety Brochure Information Reviewed Unable to complete Liz Amanda Video Viewed No Individuals Taught Patient, Spouse Barriers to Learning None evident Teaching Method Explanation Teaching Evaluation No further teaching needed Preferred Written Language Mohawk Preferred Spoken Language Mohawk Pre Procedure/Surgery Education Appropriate expectations Information Given by Patient Patient's Current Physicians Zabrina Magana ([facility] physicians) Belongings At Bedside Pants, Shirt, Shoes Discharge To, Anticipated Home with family care Activity Status ADL Ambulating in savage, Ambulating in room, Awake NPO Status Maintained Standard Safety ID band on, Allergy Band on, Call device within reach, Bed in low position, Safety level maintained Prev Test Positive/Diagnosis w/COVID-19 Yes Previous COVID-19 Positive Date Current Quarantine/Isolated any Illness No Any Contact with Sick Animals/Birds No Traveled Anywhere in Last 30 Days No Allergy Band on and Verified Yes Patient ID Band on and Verified Yes Implants Verified Yes Pacemaker/AICD Verified Yes Last Fluid Intake 08/28/2022 23:00 Last Food Intake 08/28/2022 21:30 Last Void 08/29/2022 9:01 Lost Weight Unintentionally Recently No Eat Poorly Due to Decreased Appetite No Total MST Score 0 No Personal Devices, Patient Valuables None Anesthesia/Transfusions Prior anesthesia Admission Note-Nursing Same Day Patient History . Assessment and Plan [place] [employer] Anesthesiologists (ASA) physical status classification: Class III. Anesthetic Preoperative Plan Anesthetic technique: MAC. Informed consent: signed by patient. Digitally Signed by SHAY RILEY on 08/29/2022 10:01 AM [facility] 08-05-2022 History of Present illness Narrative Images from the original note were not included. History of Present Illness Presence of Pain: complains of pain/discomfort Pain Location: wrist, left, wrist, right, back Select Pain Scale: DVPRS (Defense and Veterans Pain Rating Scale) (Adult-Cognitively Intact) DVPRS: Rest: 2- mild pain DVPRS: Activity: 2- mild pain Select Pain Scale: DVPRS (Defense and Veterans Pain Rating Scale) (Adult-Cognitively Intact) Pain Frequency: constant Pain Quality: aching. Total time spent in this encounter was 31 minutes. energy level varies. Some days good and some days bad. Patient is here today for her 4 Month F/U. Patient states other than her back pain she has been doing pretty good. Patient states she is going to see ortho Dr. Hartmann in [place]. Dry mouth is about the same. No parotid gland enlargement. Dry eyes are the same. Sleep apnea is the same. Leg swelling is the same or less. Joint pain is mostly the wrists and things and R knee past week, Back was bad last week and it was hard to walk and got an MRI on Monday and has HNP and pinched nerve and is going to see a surgeon. Neck pain is not this week but every now and then will have 3 days when her neck hurts and then it goes away. Rash is no. UTI treated since last seen. Review of Systems Constitutional: Positive for fatigue. HENT: Dry mouth History of B/L parotid gland enlargement Eyes: Dry eyes Respiratory: Positive for apnea. CPAP Cardiovascular: Positive for leg swelling. Gastrointestinal: Negative. Endocrine: Negative. Genitourinary: Negative. Musculoskeletal: Positive for arthralgias, back pain, gait problem, neck pain and neck stiffness. Skin: Red spots on chest and come and go Allergic/Immunologic: Negative. Hematological: Negative. Psychiatric/Behavioral: Negative. Vitals: Height 1.524 m (5'), weight 96.2 kg (212 lb). Physical Exam Vitals and nursing note reviewed. Constitutional: Appearance: Normal appearance. She is obese. HENT: Head: Normocephalic and atraumatic. Comments: Female pattern alopecia Right Ear: External ear normal. Left Ear: External ear normal. Nose: Nose normal. Mouth/Throat: Mouth: Mucous membranes are dry. Pharynx: Oropharynx is clear. Comments: mask Eyes: Extraocular Movements: Extraocular movements intact. Conjunctiva/sclera: Conjunctivae normal. Pupils: Pupils are equal, round, and reactive to light. Comments: Dry eyes Cardiovascular: Rate and Rhythm: Normal rate and regular rhythm. Pulses: Radial pulses are 2+ on the right side and 2+ on the left side. Heart sounds: Normal heart sounds. Pulmonary: Effort: Pulmonary effort is normal. Breath sounds: Normal breath sounds. Abdominal: General: Bowel sounds are normal. Palpations: Abdomen is soft. Comments: Obese Musculoskeletal: Right shoulder: Decreased range of motion. Left shoulder: Decreased range of motion. Right upper arm: Normal. Left upper arm: Normal. Right elbow: Normal. Left elbow: Normal. Right forearm: Normal. Left forearm: Normal. Right wrist: Normal. Left wrist: Normal. Right hand: Normal. Left hand: Normal. Hands: Cervical back: Neck supple. Right upper leg: Normal. Left upper leg: Normal. Right knee: Decreased range of motion. Left knee: Decreased range of motion. Right lower leg: Normal. Left lower leg: Normal. Right ankle: Decreased range of motion. Left ankle: Decreased range of motion. Legs: Feet: Skin: General: Skin is warm and dry. Neurological: Mental Status: She is alert and oriented to person, place, and time. Cranial Nerves: Cranial nerves 2-12 are intact. Sensory: Sensation is intact. Motor: Motor function is intact. Psychiatric: Mood and Affect: Mood normal. Behavior: Behavior normal. Thought Content: Thought content normal. Judgment: Judgment normal. Neurological Exam Mental Status Alert. Oriented to person, place, and time. Cranial Nerves CN II: Vision test: Dry eyes. CN III, IV, : Extraocular movements intact bilaterally. Pupils equal round and reactive to light bilaterally. Sensory Normal sensation. Assessment and Plan There appear to be no need at this time to start immune modulating therapy or high dose steroids Encounter Diagnoses Name Primary? 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 Time was spent with the patient today in education in re: to all their medical conditions. A complete H&P&ROS was obtained and is either in this note or in the EHR. Please do not hesitate to contact me with any questions or concerns re: this patient. Past History Past medical, surgical, family, and social histories have been reviewed and updated with the patient today and are located elsewhere in the medical record. 2. Thank you for allowing me to participate in the care of your patient. With your permission I would like to F/U with your patient. 3. ESR was normal at 17 and still is at 23 4. Glucose was elevated at 243 and still is at 125 5. Patient given educational material on Sjogren's Syndrome in the form of a pamphlet from the arthritis foundation. Patient told that they could use OTC dry mouth preparations such as Biotene. Patient told they could use OTC artificial tears. 6. Vit D under care of PCP 7. Monitor CBC/LFT/Renal func every 6-12 months as long as patient is on daily NSAID 8. Patient given educational material on gout in the form of a pamphlet from the arthritis foundation. Patient should remain on Allopurinol life long. Would monitor CBC, LFT, Renal func, uric acid level every 6 - 12 months as long as patient on Allopurinol. Patient can take prednisone 5 mg 8 po q AM times one day decrease by one pill q day until off on a PRN basis any acute attack of gout. 9. Patient given educational material on fibromyalgia syndrome in the form of a pamphlet from the arthritis foundation. Patient told that generalized stretching and aerobic exercise would be the cornerstone of treatment. Patient would benefit from psych eval and treatment of any underlying depression and/or anxiety disorder. Patient would benefit from eval and F/U treatment by PMR and/or Chronic Pain Management 10. Chloride is elevated at 108 11. Patient declined Plaquenil for fear of occular side effects 12. Uric acid was normal at 3.4 and still is at 5.3 13. S/p R rotator cuff surgery 14. There appear to be no need at this time to start immune modulating therapy or high dose steroids. 15. Patient declines referral to PT. 16. AST was elevated at 39 and still is at 43 17. Hgb was low at 11.8 18. Patient is taking and Vti D3 7,000 units a day and mag 8700 mg a day and calcium and Vesepa and systane and Zadator eye drops and Livalo and COq 10 and Tricor and Zyrtec 19. Magnesium was low at 1.5 20. S/P R and now L rotator cuff surgery 21. Ortho F/U per Dr. mejía and Dr. Pierce 22. Patient told to F/U with PCP about low magnesium 23. Patient declines Benlysta 24. Pulmonary F/U per Dr. Tubbs 25. CRP was elevated at 3.63 and still is at 6.43: UTI 26. GEOVANY was positive 27. dsDNA was elevated at 36 28. C3 was elevated at 175 and still is at 209 29. C4 was normal at 17 and still is at 20 30. BENNY level was normal at 77 31, Negative SSB, SSA, ANCA, Lupus serology (except), HLA-B27, Celiac, CCP, RF, AMA, ASMA. AFP 32. Normal ACTH, cortisol 33. Lodine decreased to 500 mg 1 pill every other day due to renal insufficiency. 34. Patient declines referral to Chronic Pain Management 35. Lab on or about 01/20/2023 36. WBC was low at 3.8 and is now normal at 6.2 37. 90 day supply on medications 38. F/U with me in 6 months 39. Call if need Rx's documented in this encounter [facility] 07-08-2022 History of Present illness Narrative Episode Visit Count: 3 Therapist That Will Accept/Oversee The Plan Of Care: Nisreen Munoz Start of Care Date: 06/03/22 Onset Date: 10/16/05 Plan of Care Certification Date: 06/03/22 Next Certification Due Date: 08/02/22 Patient Identified by Name and Date of : Yes REHABILITATION AND SPORTS THERAPY PHYSICAL THERAPY PROGRESS REPORT PLAN OF CARE UPDATE: Assessment: Bessie Ellison demonstrates improvements in core strength, urinary urgency, mixed urinary incontinence. She has progressed toward goals. Patient continues to present with impairments in urinary frequency and nocturia. She will benefit from continued skilled therapy services to meet the updated goals for this plan of care as noted below. Goals for Episode of Care: created on 06/03/22 Updated on: 07/08/2022 [place] in home exercise program.-MET Patient will demonstrate increase in core strength to at least 4/5 during manual muscle testing in order to improve function for prior functional Tasks.-MET Incontinence: Patient to urinate every 2-4 hours-PROGRESSING Urinate 0-1 times per night-PROGRESSING Increase strength of pelvic floor to Endurance: 10 seconds-NOT ASSESSED Patient able to change positions without leaking-MOSTLY MET Patient to demonstrate less leaks with urge-MET Patient reports urgency is experienced less than baseline / initial Evaluation-MET Patient Goals: improve bladder function Planned Interventions, Frequency, and Duration: 1x every other week, 4 weeks (reassess at 4 weeks and progress as indicated) Total Number of Visits Planned: 2 Patient to be seen for Therapeutic exercise (60748);Manual therapy ([id number]);Self-custodial management ([id number]);Patient/Family/Caregiver Education PLAN FOR NEXT VISIT: progress exercises as tolerated SUBJECTIVE: Patient Reason for Visit: Pt reports some improvement in bladder control, when I focus on it. Pt reports good compliance with HEP. Pt reports continued feeling of fatigue, gets tired easily, especially with walking and stairs. Pain: Pain Pain Level: 0 Post Treatment Pain Post Treatment Pain Level: 0 PROMIS Scales Higher is Better 08/31/2021 06/28/2022 07/06/2022 Phys Func - Score - 37 (moderate dysfunction) - Phys Func - Percentile - 10 % - Social Roles - Score - 37 (moderate dysfunction) - Social Role - Percentile - 10 % - GH Physical - Score 42.3 (Good) 34.9 (Poor) 42.3 (Good) GH Physical - Percentile 22 % 7 % 22 % GH Mental - Score 48.3 (Very Good) 41.1 (Good) 45.8 (Good) GH Mental - Percentile 43 % 19 % 34 % Self-Eff Symptom - Score - 41 (Average) - Self-Eff Symptom - Percentile - 18 % - T-scores: mean of general population = 50. 5 points is clinically meaningfully difference Percentiles provide an indication of how the patient's score ranks in relation to the general population. Higher percentile rankings indicate better function/quality of life. 50th percentile is the average of the general population and indicates half of respondents had a worse score. Lower is Better 06/28/2022 Fatigue - Score 66 (moderate) Fatigue - Percentile 5 % T-scores: mean of general population = 50. 5 points is clinically meaningfully difference Percentiles provide an indication of how the patient's score ranks in relation to the general population. Higher percentile rankings indicate better function/quality of life. 50th percentile is the average of the general population and indicates half of respondents had a worse score. OBJECTIVE MEASURES WITH LEVEL OF FUNCTION: Pelvic Floor Stress Incontinence: Position change (rare) Urgency: No Frequency of Urgency Episodes: 0 Nocturia (times per night): 2 Daytime Frequency (hours): 1 Bladder Padding: wears 1 pad per day LE Strength Trunk Strength: Lower Abdominals: 5/5 TREATMENT: Therapeutic Exercise: 1: Reassessment 2: *clamshells, 2x10 each 3: *sidelying hip abduction, 2x10 each Skilled Intervention: Patient was educated in proper exercise technique and purpose for exercises. Reviewed and educated patient on additions/changes for home exercise program as above (*). Skilled judgment was provided in selection of appropriate interventions. Provided written instruction for home exercise program to facilitate proper performance and compliance. Self-Intermediate Management: 1: Reviewed bladder diary: reviewed strategies to improve urinary frequency 2: Reviewed benefits of increased general activity levels for improving mm endurance, decreasing fatigue, improving overall health Skilled Intervention: Skilled judgment in the selection of proper modification for activity of daily living/home management based on clinical presentation, deficits, and needs. Billing Therapeutic Exercise Treatment Minutes: 23 Self-Care/Home Management Treatment Minutes: 16 Total Treatment Time Minutes (timed/untimed): 39 Nisreen Munoz PT documented in this encounter [facility] 07-01-2022 History of Present illness Narrative Episode Visit Count: 2 Therapist That Will Accept/Oversee The Plan Of Care: Nisreen Munoz Start of Care Date: 06/03/22 Onset Date: 10/16/05 Plan of Care Certification Date: 06/03/22 Next Certification Due Date: 08/02/22 Patient Identified by Name and Date of : Yes REHABILITATION AND SPORTS THERAPY PHYSICAL THERAPY TREATMENT NOTE ASSESSMENT: Bessie Ellison tolerated the session with no issues. She demonstrated slight improvements in nocturia and urinary frequency. The patient will continue to benefit from ongoing skilled physical therapy to progress toward set goals. PLAN FOR NEXT VISIT: reassessment, review bladder diary SUBJECTIVE: Patient Reason for Visit: Pt reports some improvement in nocturia, slight improvement in urinary frequency. Pt reports less UI at nighttime, still has EDY with position change, especially getting out of a car. Pt reports fair compliance with HEP. Pain: Pain Pain Level: 0 Post Treatment Pain Post Treatment Pain Level: 0 OBJECTIVE MEASURES WITH LEVEL OF FUNCTION: Pelvic Floor Stress Incontinence: Position change Nocturia (times per night): 2 Daytime Frequency (hours): 1 TREATMENT: Therapeutic Exercise: 1: kegal holds, 5sec hold with 5sec rest, 1x10 2: *bridge with glute activation, 2x10 3: *supine TA bracing, 2x10 4: *posterior pelvic tilt, 2x10 Skilled Intervention: Patient was educated in proper exercise technique and purpose for exercises. Reviewed and educated patient on additions/changes for home exercise program as above (*). Skilled judgment was provided in selection of appropriate interventions. Provided written instruction for home exercise program to facilitate proper performance and compliance. Self-Intermediate Management: 1: *bladder diary: reviewed purpose and directions 2: Reviewed importance of functional kegals, especially during position changes, to avoid EDY; strategies to incorporate/remember functional kegals Skilled Intervention: Skilled judgment in the selection of proper modification for activity of daily living/home management based on clinical presentation, deficits, and needs. Educated the patient regarding recommendations and provided written instruction to facilitate compliance. Billing Therapeutic Exercise Treatment Minutes: 23 Self-Care/Home Management Treatment Minutes: 18 Total Treatment Time Minutes (timed/untimed): 41 Nisreen Munoz PT documented in this encounter [facility] 06-13-2022 Miscellaneous Notes Refill request received from pharmacy. Patient last seen for annual exam on 04/06/22. Kiah Jacob RN documented in this encounter [facility] 06-03-2022 History of Present illness Narrative Episode Visit Count: 1 Therapist That Will Oversee The Plan Of Care: Nisreen Munoz Start of Care Date: 06/03/22 Onset Date: 10/16/05 Plan of Care Certification Date: 06/03/22 Next Certification Due Date: 08/02/22 Patient Identified by Name and Date of : Yes REHABILITATION AND SPORTS THERAPY PHYSICAL THERAPY EVALUATION PLAN OF CARE: Assessment: Bessie Ellison presents with chief complaint of mixed urinary incontinence that interferes with bladder function . She presents with impairments in decreased pelvic floor muscle endurance; decreased core strength; impaired bladder function. PROMIS (Patient-Reported Outcomes Measurement Information System) scores were unable to be reviewed. Prognosis for therapy is Good due to: current objective clinical presentation . She will benefit from skilled therapy services to meet the goals established for this plan of care as noted below. Goals for Episode of Care: created on 06/03/22 through 08/02/22 [place] in home exercise program. Patient will demonstrate increase in core strength to at least 4/5 during manual muscle testing in order to improve function for prior functional tasks. Incontinence: Patient to urinate every 2-4 hours Urinate 0-1 times per night Increase strength of pelvic floor to Endurance: 10 seconds Patient able to change positions without leaking Patient to demonstrate less leaks with urge Patient reports urgency is experienced less than baseline / initial evaluation Patient Goals: improve bladder function Planned Interventions, Frequency, and Duration: Current Frequency: 1x/week Duration: 4 weeks (reassess at 4 weeks and progress as indicated) Total Number of Visits Planned: 4 Planned Treatment Interventions: Therapeutic exercise (99560);Manual therapy ([id number]);Self-custodial management ([id number]);Patient/Family/Caregiver Education PLAN FOR NEXT VISIT: progress exercises, bladder diary Patient demonstrates good understanding of plan of care and treatment. The above goals and plan of care were discussed and agreed upon by patient/family. SUBJECTIVE: Pt reports pelvic issues began after hip replacement in 2005. Pt reports urinary incontinence, has to wear pads every day due to leakage. Pt reports urinary frequency of about 45 minutes. 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 Atypical ductal hyperplasia of breast 08/21/2014 Left Breast Bursitis of left shoulder COVID-19 09/2021 CPAP (continuous positive airway pressure) dependence Dysmetabolic syndrome X Essential hypertension, benign Growth of eyelid - Right Eye 08/11/2014 Impingement syndrome of left shoulder Impingement syndrome of left shoulder Myalgia and myositis, unspecified Nonalcoholic liver disease, chronic Other and unspecified hyperlipidemia Other vitreous opacities - Both Eyes 08/11/2014 Polycystic ovaries Sjogren's syndrome (HCC) Traumatic complete tear of left rotator cuff Type 2 diabetes mellitus (HCC) 2014 PAST SURGICAL HISTORY Procedure Laterality Date ARTHRP ACETBLR/PROX FEM PROSTC AGRFT/ALGRFT 10/2013 Hip replacement, total left BREAST BIOPSY 08/21/2014 excisional biopsy for intraductal hyperplasia with atypia BREAST LUMPECTOMY HX 08/[address] Parada states to get in 6-7 years COLPOSCOPY 05/2021,2019 & 2020 EXTRACTION, ERUPTED TOOTH OR EXPOSED ROOT (ELEVATION AND/OR FORCEPS REMOVAL) 1981 SHOULDER SURGERY HX 09/26/2018 Right shoulder SINUS SURGERY HX 1994 TONSILLECTOMY PRIMARY/SECONDARY <AGE 12 1994 Tonsillectomy, age 34/Sinus surgery Intake Information: Prescription present Previous Treatment: Self prescribed exercises ([place]ham) Falls Interview: No positive findings with falls interview Aquatic Screen: No Pain: Pain Pain Level: 0 Post Treatment Pain Post Treatment Pain Level: 0 PROMIS Scales Higher is Better 11/26/2019 08/31/2021 GH Physical - Score 44.9 42.3 (Good) GH Physical - Percentile 31 % 22 % GH Mental - Score 45.8 48.3 (Very Good) GH Mental - Percentile 34 % 43 % T-scores: mean of general population = 50. 5 points is clinically meaningfully difference Percentiles provide an indication of how the patient's score ranks in relation to the general population. Higher percentile rankings indicate better function/quality of life. 50th percentile is the average of the general population and indicates half of respondents had a worse score. T-scores: mean of general population = 50. 5 points is clinically meaningfully difference Percentiles provide an indication of how the patient's score ranks in relation to the general population. Higher percentile rankings indicate better function/quality of life. 50th percentile is the average of the general population and indicates half of respondents had a worse score. OBJECTIVE MEASURES WITH LEVEL OF FUNCTION: Pelvic Floor Pregnancies: 0 Pain with penetration: Not sexually active Urinary/Bowel History : Urinary History;Bowel History Difficulty starting stream: No Incomplete emptying: No Stress Incontinence: Position change Urgency: Sometimes Frequency of Urgency Episodes: unable to state Frequency of Leaks Secondary to Urge: unable to state Nocturia (times per night): (2-4) Daytime Frequency (hours): 0.75 Bladder Padding: changes pad a couple times each day Fluid Intake: Water;Tea (8 oz measurements) Water : 8 Tea : 1 Difficulty evacuating / Excessive Straining: No Incomplete emptying: No Bowel Movement Frequency: 1x/day Fecal incontinence: No Pelvic Floor Muscle Assessment Consent for pelvic assessment/testing and treatment: Patient was educated regarding pelvic floor physical therapy assessment/treatment which may include pelvic floor and girdle muscle assessment externally or internally (vaginal or rectal approach).;Patient verbalized consent for the above treatment approaches today. Patient understands they have control of the treatment and an opportunity to stop treatment at any time. Pelvic Floor Muscle Assessment: PERFECT;Muscle Dynamics Power: 4 Endurance: 4 Fast Reps: 10 Contracton Pressure: Moderate squeeze, felt all the way around finger surface Duration of Contraction: >3 seconds Recruitment of pelvic floor muscles: Coordinated Range of Motion: Normal Ability to Lengthen pelvic floor: Yes Pelvic Floor Manual Assessment Pelvic Floor Tenderness/Hyperactivity: Tested Vaginally in Tested Vaginally in : Supine/hooklying (No tightness/tenderness noted.) LE AROM R LE AROM: WFL L LE AROM: WFL LE Flexibility Flexibility: Hamstring Flexibility;Hip Adductor;Hip Internal Rotation Flexibility;Hip External Rotation Flexibility R Hamstring Flexibility: WNL L Hamstring Flexibility: WNL R Adductor Flexibility: WNL L Adductor Flexibility: WNL R Hip Internal Rotation Flexibility: WNL L Hip Internal Rotation Flexibility: WNL R Hip External Rotation Flexibility: WNL L Hip External Rotation Flexibility: WNL LE Strength Trunk Strength: Lower Abdominals: 3/5 R LE Strength: 5/5 L LE Strength: 5/5 Education: Education Learning Preferences: Demonstration;Explanation;Performance; Printed Materials Barriers: None Learning/educational needs: Home exercise program;Plan of Care Education Provided: Yes, see treatment interventions for education provided Education Provided To: Patient Education Mode/Type: Demonstration;Explanation/Discussion;L iterature/Printed Materials;Performance Response to Education/Teach Back: States/Identifies;Return Demonstration TREATMENT: PT Treatment Interventions: Therapeutic Exercise;Self-Intermediate Management Evaluation Therapeutic Exercise: 1: *kegal holds, 4sec hold with 4sec rest, 2x10 2: *isometric hip adduction, 2x10 3: *hooklying hip abduction, L4 TB, 2x10 4: Reviewed functional kegals Skilled Intervention: Patient was educated in proper exercise technique and purpose for exercises. Reviewed and educated patient on additions/changes for home exercise program as above (*). Skilled judgment was provided in selection of appropriate interventions. Provided written instruction for home exercise program to facilitate proper performance and compliance. Self-Intermediate Management: 1: Reviewed pelvic floor anatomy and function with 3D pelvic model 2: Reviewed typical vs dysfunctional bladder health 3: Reviewed bladder irritants, importance of water intake 4: Reviewed urinary urgency suppression techniques 5: Reviewed strategies to improve urinary frequency, nocturia Skilled Intervention: Skilled judgment in the selection of proper modification for activity of daily living/home management based on clinical presentation, deficits, and needs. Educated the patient regarding recommendations and provided written instruction to facilitate compliance. Billing * Evaluation Low Complexity: 1 Unit Therapeutic Exercise Treatment Minutes: 10 Self-Care/Home Management Treatment Minutes: 15 Total Treatment Time Minutes (timed/untimed): 52 Nisreen Munoz PT documented in this encounter [facility] 05-17-2022 Miscellaneous Notes The message I received stated that there is no change in the original diagnosis. It was just that part E had been inadvertently left out. Leatha Serrano MD documented in this encounter [facility] 05-09-2022 Miscellaneous Notes Patient notified and voiced understanding. Kiah Jacob RN Left message for patient to call office. Gissel Hammer RN Please let the pt know that her biopsies are negative. Repeat pap in 1 yr. Kenna Manuel APRN.CNP documented in this encounter [facility] 05-05-2022 History of Present illness Narrative Bessie is a 61 year old Female who presents today for a colposcopy. The patient's last pap smear was High risk HPV with normal pap from March 2022. Patient has a history of abnormal pap: Yes. The patient has had prior treatment: none. test: n/a UNIVERSAL PROTOCOL / SAFETY CHECKLIST Procedure to be Performed: Colposcopy with possible BIopsy Sign In: A Moment of CARE was completed. Personnel directly involved with the procedure wore the appropriate PPE (Personal Protective Equipment). Patient/Surrogate Stated/Verified: PATIENT VERIFIED(optional for EMERGENT procedures): Patient name, Date of , Relevant allergies and The intended procedure Time Out Communication: Intended patient and procedure match the source documents. Consent documented and matches the intended procedure. Relevant labs, photos, and/or imaging studies have been reviewed. Sign Out: SIGN OUT (optional for EMERGENT procedures): All specimen containers correctly labeled. All instruments, equipment, possible retained foreign bodies accounted for. Post-procedure follow-up management communicated and Plan of Care Visit completed when applicable. PROCEDURE: EXTERNAL GENITALIA: Normal in appearance without lesions VAGINA: Normal in appearance without lesions CERVIX: Speculum placed in vagina and excellent visualization of cervix achieved. Cervix swabbed x 3 with 3% acetic acid solution. Cervix grossly normal. Squamocolumnar junction not visualized. Possible acetowhite changes noted. BIOPSY: Done at 3:00, 6:00, 9:00 and 12:00 ECC: done HEMOSTASIS: Obtained with Monsel's solution and pressure Procedure Summary: Patient tolerated procedure well. ASSESSMENT: HPV effect PLAN: Specimens labeled and sent to Pathology. Will notify patient of results in 1-2 weeks. Post-procedure instructions reviewed and written material given to the patient. Leatha Serrano MD Ehs Manager offered: Patient accepts, visit chaperoned by Julissa Huang MA. documented in this encounter [facility] 05-05-2022 Instructions Julissa Huang Ma - 05/05/2022 1:10 PM EDT YOUR RECOVERY It may take a few weeks for your cervix to heal. While your cervix heals, you may have: - Vaginal bleeding (less than a normal menstrual period) - Mild cramping - A brown-black vaginal discharge (similar to coffee grounds) which is a result of the paste used to help stop bleeding from the procedure Do NOT put anything in the vagina for 1 week after your colposcopy if your doctor does a biopsy of your cervix. This includes sex, tampons, and douches. If you have any discomfort, you may take an over the counter pain medication (motrin, advil, ibuprofen, tylenol, etc). If this does not relieve your discomfort, contact your doctor's office for a prescription strength pain medication. It is okay to wear a sanitary pad until the discharge and spotting stops. RISKS Although problems seldom occur with colposcopy, there can be some complications. You may feel faint during and shortly after the procedure as well as have some bleeding and vaginal discharge after the procedure. There is also a risk of infection after the procedure. These complications are rare and can be easily treated. You should contact you doctor is you have any of the following: - Heavy bleeding (more than your normal period) - Bleeding with clots - Severe abdominal pain - Fever (more than 100.4F) - Foul smelling vaginal discharge RESULTS If a biopsy was taken, we will have the results of your biopsy in 1-2 weeks. If you do not hear the results of your biopsy after 2 weeks, please contact your physicians office for the results. Depending on the biopsy results, your doctor will determine your follow up plan which may include further testing or treatments. STAYING HEALTHY After the procedure, you will need to see your doctor for follow up visits during the year. At these visits your doctor will check the health of your cervix with a pap smear. After three normal pap smears, your doctor will allow you to return to having exams once a year. If you have another abnormal pap smear, you may need closer follow up for longer or you may need additional treatment. By making a few lifestyle changes after the procedure, you can help protect the health of your cervix: - Have regular pelvic exams and pap smears as ordered by your doctor. - Stop smoking as smoking increases your risk of developing a cancer of the cervix - If you have more than one sexual partner, limit your number of partners and use condoms to reduce your risks of STDs. If you have any additional questions, please contact your doctor's office. documented in this encounter [facility] 04-28-2022 History of Present illness Narrative Assessment and Plan 1. Type 2 diabetes mellitus without retinopathy (HCC) -no diabetic retinopathy both eyes 2. Dry eye syndrome of both eyes -mild symptoms both eyes 3. Other chronic allergic conjunctivitis of both eyes -well controlled with zaditor both eyes 4. Asteroid hyalitis of right eye -stable 5. Epiretinal membrane (ERM) of right eye -stable, preserved foveal contour 6. Combined forms of age-related cataract of both eyes -not visually significant both eyes 7. Anisocoria -stable per patient for the past 4+ years, no associated ptosis or diplopia Plan: -Continue blood sugar and blood pressure control -zaditor twice a day both eyes -artificial tears twice a day both eyes -follow-up 1 year with dilated fundus exam and OCT macula both eyes, sooner as needed I have confirmed and edited as necessary the relevant ophthalmic history, ROS, and the neuro exam findings as obtained by others. I have seen and examined Bessie Ellison. I have discussed the case and the management of this patient's care with the Resident/Fellow, if applicable. I also have reviewed and agree with the assessment and plan as stated above and agree with all of its relevant components. Bao Allred MD documented in this encounter [facility] 04-06-2022 Note HNO ID: [id number] Author: DUKE Jones Service: Radiology Author Type: Technologist Type: Progress Notes Filed: 04/06/2022 12:50 PM Note Text: Radiology Service Progress Note PATIENT NAME: Bessie Ellison DATE OF SERVICE: April 06, 2022 TIME: 12:50 PM PATIENT IDENTITY VERIFICATION COMPLETED USING TWO (2) IDENTIFIERS: Name and Date of confirmed by patient verbally. FALL SCREENING: Has the patient had 2 falls in the last year or 1 fall with injury or currently using an Ambulatory Assistive Device (Walker, Cane, Wheelchair, Crutches, etc.)? No PATIENT GENDER DATA: Female. status: : No status: NO. PATIENT RELEVANT IMPLANT DATA REVIEWED: Not Applicable RADIOLOGY DEPARTMENT: General X-ray: Exam(s) Completed: Upper Extremity X-Ray(s): Wrist, bilateral PERIPHERAL IV DATA: Not applicable SIGNED BY: DUKE Jones April 06, 2022 12:50 PM [facility] 04-06-2022 History of Present illness Narrative Images from the original note were not included. Follow Up Visit Chief Complaint Bessie Ellison is a 61 year old female who presents today for follow up office visit. Patient presents with: Left Wrist - Established Patient, Pain Right Wrist - Established Patient, Pain History of Present Illness PAIN EVALUATION 04/06/2022 [id number] Pain Level: 0 Pain Location: Wrist-Left wrist-right Description: Sharp shock, weakness Duration Units: Years Frequency: Intermittent Intervention/Comfort measure: Heat;Medication;Massage;Exercise ibuprofen HPI: Bessie Ellison is a 61 year old female for a follow up visit New complaint of bilateral wrist and hand pain and numbness, worsening over the past 2 years. Pain history is noted as above. Denies neck pain, chest pain, sob, fever, chills or other const symptoms. Sister had carpal tunnel syndrome. Is there any overall improvement in your condition? No Any new injury, since being seen last: No REVIEW OF SYMPTOMS: Patient did not have, and does not currently have, any weight loss, malaise, fever, chills, headache, chest pain, chest pressure, palpitations, cough, shortness of breath, orthopnea, paroxsymal nocturnal dyspnea, nausea, vomiting, diarrhea, constipation, melena, hematochezia, urinary difficulties, prolonged bleeding, easily bruising, heat or cold intolerance, new onset joint pain or swelling, new onset extremity weakness or numbness, new onset auditory or visual disturbances, lightheadedness, dizziness, partial loss of consciousness or full loss of consciousness. Current Outpatient Medications Medication Sig estradiol (ESTRACE) 0.01 % (0.1 mg/gram) vaginal cream Use 0.5 g vaginally once daily. For 2 weeks. Then use 2 times per week ongoing. levothyroxine (SYNTHROID) 75 mcg tablet Take 75 mcg by mouth once daily. pilocarpine (SALAGEN) 5 mg tablet 1 po qid 30 minutes prior to meals and bed time Coenzyme Q10 (CO Q-10) 200 mg cap icosapent ethyl (VASCEPA) capsule Potassium Gluconate 2.5 mEq tab Take by mouth. carvedilol (COREG) 6.25 mg tablet Take 1 tablet by mouth twice daily. LIVALO 2 mg tab Take 1 tablet by mouth once daily. Vitamin D Nunn (WAYN) Take 1 capsule by mouth daily with food. ARMOUR THYROID 30 mg tablet Take 75 mg by mouth once daily. doxazosin (CARDURA) 4 mg tablet TAKE 1 (ONE) TABLET EVERY DAY AT BEDTIME amLODIPine (NORVASC) 5 mg tablet Take 5 mg by mouth once daily. ferrous sulfate 325 mg (65 mg iron) tablet Take 325 mg by mouth twice daily. omeprazole (PRILOSEC) 20 mg capsule TAKE 1 CAPSULE BY MOUTH EVERY DAY ketotifen fumarate (ZADITOR) 0.025 % (0.035 %) ophthalmic solution Use 1 Drop in both eyes twice daily. (Patient taking differently: Use 1 Drop in both eyes once daily. ) metFORMIN (GLUCOPHAGE) 500 mg tablet TAKE 2 TABLETS BY MOUTH WITH BREAKFAST, TAKE 1 TABLET WITH lunch, TAKE 2 TABLETS WITH supper CALCIUM CARBONATE/VITAMIN D3 (CALCIUM + D ORAL) Take 1 tablet by mouth once daily. magnesium oxide (MAG-OX) 400 mg tablet Take 400 mg by mouth once daily. CPAP methocarbamol (ROBAXIN) 500 mg tablet Take 500 mg by mouth as needed. zolpidem (AMBIEN) 5 mg tablet Take 5 mg by mouth at bedtime as needed. fenofibrate nanocrystallized (TRICOR) 145 mg [...] Take 1 tablet by mouth twice daily. cyclobenzaprine hcl(FLEXERIL 10 MG TAB) as necessary ibuprofen 200 mg ORAL Tab Take 1-2 tablet's) every four(4) to six(6) hours as needed for pain. FLONASE 50 MCG/ACTUATION NASAL SPRAY AEROSOL 2 spray per nostril daily. VITAMIN C 1,000 MG TAB Take one(1) tablet daily. zolpidem (AMBIEN) 5 mg tablet Take 1 tablet by mouth at bedtime as needed for up to 7 days. No current facility-administered medications for this visit. Physical Exam Vitals: [facility] 01/17/2010 Psych: Pleasant, good affect and mood General Appearance: Well appearing, alert, in no acute distress, well-hydrated, well nourished.. Skin: Skin color, texture, turgor normal, no suspicious rashes or lesions. Peripheral Pulses: Normal. Neurologic: Gait normal. Reflexes normal and symmetric. Sensation grossly intact.. Lymph Nodes: No cervical lymphadenopathy, No supraclavicular lymphadenopathy, No axillary lymphadenopathy. and No inguinal lymphadenopathy.. Respiratory: No recent pulmonary infection, hemoptysis, chronic cough, or shortness of breath at rest Rheumatologic: Joint deformities: Bilateral hand numbness Right Hand Exam Right hand exam is normal. Tenderness The patient is experiencing no tenderness. Range of Motion The patient has normal right wrist ROM. Wrist Extension: normal Flexion: normal Pronation: normal Supination: normal Muscle Strength The patient has normal right wrist strength. Tests Phalen s sign: positive Tinel's sign (median nerve): positive Anne's test: negative Other Erythema: absent Sensation: decreased Pulse: present Comments: B/l /uln/rad/ax nerves intact Dec med nerve sensation 2 point bilaterally Left Hand Exam Left hand exam is normal. Tenderness The patient is experiencing no tenderness. Range of Motion The patient has normal left wrist ROM. Wrist Extension: normal Flexion: normal Pronation: normal Supination: normal Muscle Strength The patient has normal left wrist strength. Tests Phalen s sign: positive Tinel's sign (median nerve): positive Anne's test: negative Other Erythema: absent Sensation: decreased Pulse: present Assessment and Plan Radiographs: I have independently reviewed films and my findings are the same. and I have reviewed the images with the patient and family. Last XR Wrist - Impression Only XR WRIST GENERAL 3V PA/LAT/OBL BILATERAL Exam End: 04/06/2022 12:51 PM (In process) Complete Results Impression: Encounter Diagnosis ICD-10-CM 1. Bilateral carpal tunnel syndrome G56.03 EMG(NEURO/NI) Today, in detail, through a thorough evaluation, we discussed possible etiologies of pain and our plans for further diagnostic and therapeutic interventions. We discussed strategies for decreasing pain and improving strength, stability and motion. Patient's questions were answered in detailed. Patient verbalizes understanding and agrees with the treatment plan as discussed. Carpal tunnel signs/symptoms emg Follow up aft er emg-Wait on emg findings to determine if injections, surgery, vs cock up wrist splint- deferred splint today Patient aware and in agreement of plan. All questions answered. Elsa Fernandez DO documented in this encounter [facility] 04-06-2022 History of Present illness Narrative Radiology Service Progress Note PATIENT NAME: Bessie Ellison DATE OF SERVICE: April 06, 2022 TIME: 12:50 PM PATIENT IDENTITY VERIFICATION COMPLETED USING TWO (2) IDENTIFIERS: Name and Date of confirmed by patient verbally. FALL SCREENING: Has the patient had 2 falls in the last year or 1 fall with injury or currently using an Ambulatory Assistive Device (Walker, Cane, Wheelchair, Crutches, etc.)? No PATIENT GENDER DATA: Female. status: : No status: NO. PATIENT RELEVANT IMPLANT DATA REVIEWED: Not Applicable RADIOLOGY DEPARTMENT: General X-ray: Exam(s) Completed: Upper Extremity X-Ray(s): Wrist, bilateral PERIPHERAL IV DATA: Not applicable SIGNED BY: DUKE Jones April 06, 2022 12:50 PM documented in this encounter [facility] 04-06-2022 History of Present illness Narrative Radiology Service Progress Note PATIENT NAME: Bessie Ellison DATE OF SERVICE: April 06, 2022 TIME: 11:35 AM PATIENT IDENTITY VERIFICATION COMPLETED USING TWO (2) IDENTIFIERS: Name and Date of confirmed by patient verbally. FALL SCREENING: Has the patient had 2 falls in the last year or 1 fall with injury or currently using an Ambulatory Assistive Device (Walker, Cane, Wheelchair, Crutches, etc.)? No PATIENT GENDER DATA: Female. status: : No status: NO. PATIENT RELEVANT IMPLANT DATA REVIEWED: Not Applicable RADIOLOGY DEPARTMENT: Bone Density PERIPHERAL IV DATA: Not applicable SIGNED BY: RT Carol(R) April 06, 2022 11:35 AM documented in this encounter [facility] 04-06-2022 Instructions Willow Amos APRN.SEATER GRINDER - 04/06/2022 10:56 AM EDT How To Perform Pelvic Floor (Kegel) Exercises These exercises help to strengthen the pelvic floor muscles and can help improve bladder control for women. 1. You should have been instructed in the office how to contract these muscles. At home, you can insert two fingers in the vagina and feel the contraction of these muscles as you squeeze. We call these muscles the pelvic floor because they help support the pelvic organs, especially during coughing and sneezing. Squeezing the pelvic floor while standing feels like you are lifting the area around the vagina, and will interrupt the stream of urine while voiding. Once you are certain which muscles to use, do not exercise while urinating. Make sure you are not bearing down, squeezing your buttocks, or straining abdominally: these are not the muscles to be exercised. You may wish to place hands on your buttock muscles to keep these muscles relaxed while performing the exercises. 2. Squeeze these muscles as hard as you can for a slow count of five, eventually working up to a slow count of ten. Rest for 15 seconds, and then start another contraction. At first. these muscles may feel sore, just as other muscles may feel sore after exercise. 3. You should perform 50 squeezes every day: make sure every squeeze count by migel as hard as you can! Many women try to do these exercises in sets of five or ten at a time. Remind yourself to do these exercises by starting them every time you are waiting at a red light, watching a television commercial, or on hold on the telephone. If you are having trouble concentrating, you may want to set aside a special time to perform sets of pelvic floor exercises. 4. In addition to the long, hard contractions you are doing try doing some quick flicks of these muscles throughout the day. 5. You should be seen in the office after starting these exercises to make sure you are performing the contraction correctly: you may have never known how to contract these muscles before starting pelvic floor exercises, and many patients mistakenly exercise the wrong muscles. If you still feel frustrated about which muscles to use ask us for help. There are physical therapy specialists who work with pelvic floor muscles. 6. Work hard! As with any exercise program, improvement often is related to how faithfully you adhere to your exercise program. Pelvic floor exercises do not have the side effects and expense associated with other treatments for urinary incontinence, and have been known to help with severe stress incontinence. It may take several months to see the full effect of your exercise program: if you are easily discouraged, see your doctor or doctor at regular visits to assess what progress you are making. Techniques to avoid urinary accidents: Empty your bladder regularly and prior to physical activity. Avoid activity that causes leakage, if possible. Avoid or moderate the intake of alcohol and caffeine products. Try to restrict fluids prior to planned activities. Wear appropriate protection. Prevent chronic coughing which can cause a loss of urinary control. Ways to prevent chronic coughing include treating asthma, restricting smoking, and removing allergy-causing agents from your environment. documented in this encounter [facility] 04-06-2022 Miscellaneous Notes April 06, 2022 PID: [id number] Bessie Ellison [address] [place] [address] Dear Ms. Ellison, We are pleased to inform you that the results of your recent breast imaging exam on 04/06/2022 are normal. Early detection of cancer is very important. We also understand recommendations regarding breast cancer screening are controversial. Please discuss with your primary care provider which strategy is best for you and whether a mammogram is right for you. Your imaging studies and report will be kept on file at [facility] as part of your permanent medical record and are available for your continuing care. Thank you for allowing us to help in meeting your health care needs. Sincerely, Dr. Car Interpreting Radiologist [facility] (Normal over 40) documented in this encounter [facility] 04-06-2022 History of Present illness Narrative Bessie is a 61 year old who presents for an annual gynecologic exam without complaints. Started Ozempic several months ago, lost weight but gained it back. Postmenopausal: LMP 01/2010 HRT use: No, has estradiol cream from having colposcopy, was starting to use estrogen cream weekly but got COVID 09/2021 and stopped, resumed about 5 weeks for preparation of today's INSTRUMENTATION TECH exam using 2-3x's/week. Last Pap:2020 normal cytology HPV 18+; 2019 ASCUS, HPV 18 positive Colposcopy benign 2018 and 2019; [place] 2020 benign and insufficient sample HPV: 2018, 2019, 2020 + Type 18 History of abnormal pap: Yes Last mammogram: today results pending History of abnormal mammogram: Yes , benign biopsy and lumpectomy left breast 2013 Sexually active: No Time with current partner: long-term -18 years with partner Hot flashes: No Night sweats: No Vaginal dryness: Yes occasional Documentation from previous visit of 04/02/2021 was copied and pasted, documentation has been reviewed and edited as necessary for today's visit. 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 Atypical ductal hyperplasia of breast 08/21/14 Left Breast Bursitis of left shoulder CPAP (continuous positive airway pressure) dependence Dysmetabolic syndrome X Essential hypertension, benign Growth of eyelid - Right Eye 08/11/2014 Impingement syndrome of left shoulder Impingement syndrome of left shoulder Myalgia and myositis, unspecified Nonalcoholic liver disease, chronic Other and unspecified hyperlipidemia Other vitreous opacities - Both Eyes 08/11/2014 Polycystic ovaries Traumatic complete tear of left rotator cuff PAST SURGICAL HISTORY Procedure Laterality Date ARTHRP ACETBLR/PROX FEM PROSTC AGRFT/ALGRFT 10/2013 Hip replacement, total left BREAST BIOPSY 08/21/14 excisional biopsy for intraductal hyperplasia with atypia BREAST LUMPECTOMY HX 08/2014 EXTRACTION, ERUPTED TOOTH OR EXPOSED ROOT (ELEVATION AND/OR FORCEPS REMOVAL) 1981 SHOULDER SURGERY HX 09/26/2018 Right shoulder SINUS SURGERY HX 1994 TONSILLECTOMY PRIMARY/SECONDARY <AGE 12 1994 Tonsillectomy, age 34/Sinus surgery FAMILY HISTORY Problem Relation Age of Onset Breast Cancer Mother at 60 Hypertension Mother Cancer Father lung, at 64 Alcohol/Drug Father Cancer Brother pancreatic, at 54 Breast Cancer Maternal Aunt at 48 Breast Cancer Maternal Aunt radical mastectomy at 34 and alive other (uterine cancer) Maternal Grandmother Hypertension Sister Stroke Maternal Uncle SOCIAL HISTORY Social History Tobacco Use Smoking status: Never Smoker Smokeless tobacco: Never Used Vaping Use Vaping Use: Never used Substance Use Topics Alcohol use: No Drug use: No REVIEW OF SYSTEMS Abdomen: No abdominal pain, nausea, vomiting, diarrhea, or constipation. No bloating, early satiety, indigestion, or increased flatulence. Bladder: No dysuria, gross hematuria,states at time she has some urgency, frequency and incontinence issues for past 10 years. States that this can happen daily, wears pads. Breast: No breast lumps, nipple d/c, overlying skin changes, redness or skin retraction Allergies and current medication updated:Yes EXAM: BP 122/66 Ht 5' 0 (1.52m) Wt 207 lb (93.9kg) LMP 01/17/2010 BMI 40.43 kg/(m^2). GENERAL: pleasant, female in no apparent distress HEENT: Normocephalic, atraumatic, mucus membranes moist and no lesions NECK: Supple, full range of motion, no adenopathy and thyroid normal DERMATOLOGY: Normal, without lesions, non-icteric and non-hirsute BREAST: soft, non-tender, symmetric, no dominant mass, normal nipple-areolar complex, no lymphadenopathy and no nipple discharge CHEST: Normal inspiratory effort ABDOMEN: soft, non-tender and no masses PELVIC: external genitalia normal, normal Bartholin's glands, urethra, Nodaway's glands, no vulvar lesions, no cervical lesions, good vaginal support, physiologic discharge present, normal appearing perineal body and perianal region Cystocele 1st degree. BIMANUAL: uterus normal size, shape and consistency, no adnexal masses and non-tender RECTOVAGINAL: deferred. NEURO: alert and oriented x3,exam grossly non-focal EXTREMITIES: normal ASSESSMENT/PLAN: 1. Encounter for gynecological examination (general) (routine) without abnormal findings - ICD9: V72.31, ICD10: Z01.419 (primary diagnosis) - Pap done with HPV. - Mammogram up to date - Nutrition, exercise and routine health maintenance exams reviewed. - Calcium/Vitamin D supplementation information provided, up to date - Colon cancer screening: up to date with screening, due this year being followed by Dr. Parada - BMD: ordered 2. Stress incontinence - ICD9: [id number], ICD10: N39.3 - Encouraged Kegel exercises - Offered Pelvic floor therapy, declined at this time as she is currently going through PT 3. Cystocele, midline - ICD9: 618.01, ICD10: N81.11 - Encouraged lifestyle changes - diet/exercise - Pelvic floor therapy/Kegel exercises 4. Postmenopausal atrophic vaginitis - ICD9: 627.3, ICD10: N95.2 - Continue vaginal estrogen twice weekly. Follow-up at annual exam and as needed Monae Musa APRN, Student TEACHING PROVIDER (Physician/PA/INFORMATICS DEVELOPER) NOTE OF PERSONAL INVOLVEMENT IN CARE: I have personally seen and examined the patient and performed the medical decision-making components. I have reviewed the Advanced Practice Registered Nurse (INFORMATICS DEVELOPER) Student's documentation and verified the findings in the note as written. Any additions or changes are noted in bold/italics. Signature: Willow Amos Date: 04/06/2022 Time: 1:35 PM Willow Amos APRN.SEATER GRINDER documented in this encounter [facility] 04-06-2022 History of Present illness Narrative Radiology Service Progress Note PATIENT NAME: Bessie Ellison DATE OF SERVICE: April 06, 2022 TIME: 9:19 AM PATIENT IDENTITY VERIFICATION COMPLETED USING TWO (2) IDENTIFIERS: Name and Date of confirmed by patient verbally. FALL SCREENING: Has the patient had 2 falls in the last year or 1 fall with injury or currently using an Ambulatory Assistive Device (Walker, Cane, Wheelchair, Crutches, etc.)? No PATIENT GENDER DATA: Female. status: : No status: NO. PATIENT RELEVANT IMPLANT DATA REVIEWED: Not Applicable RADIOLOGY DEPARTMENT: Mammography PERIPHERAL IV DATA: Not applicable SIGNED BY: RT Idalia(R) April 06, 2022 9:19 AM documented in this encounter [facility] 03-09-2022 History of Present illness Narrative Images from the original note were not included. Follow Up Visit Chief Complaint Bessie Ellison is a 61 year old female who presents today for follow up office visit. Patient presents with: Left Shoulder - Follow Up, Pain History of Present Illness PAIN EVALUATION 03/09/2022 1009 Pain Level: 3 Pain Location: Shoulder-Left Description: Aching;Dull;Sore Duration Amount of Time: DOS: 09/21/2022 Frequency: Intermittent Intervention/Comfort measure: Reposition;Relaxation;Medication;Cold; Other: See comment physical therapy HPI: Bessie Ellison is a 61 year old female for a follow up visit left shoulder RC repair. She is doing well, completed physical therapy. Covid complications are still present but getting better. Pain history is noted as above. Denies numbness, tingling, fever, chills or other constitutional symptoms. Still tired but getting better. Concerned about losing hair and long covid. Still following up with pulm in a few weeks for repeat imaging. Is there any overall improvement in your condition? Yes, from shoulder perceptive, Any new injury, since being seen last: No REVIEW OF SYMPTOMS: Patient did not have, and does not currently have, any weight loss, malaise, fever, chills, headache, chest pain, chest pressure, palpitations, cough, shortness of breath, orthopnea, paroxsymal nocturnal dyspnea, nausea, vomiting, diarrhea, constipation, melena, hematochezia, urinary difficulties, prolonged bleeding, easily bruising, heat or cold intolerance, new onset joint pain or swelling, new onset extremity weakness or numbness, new onset auditory or visual disturbances, lightheadedness, dizziness, partial loss of consciousness or full loss of consciousness. Current Outpatient Medications Medication Sig estradiol (ESTRACE) 0.01 % (0.1 mg/gram) vaginal cream Use 0.5 g vaginally once daily. For 2 weeks. Then use 2 times per week ongoing. levothyroxine (SYNTHROID) 75 mcg tablet Take 75 mcg by mouth once daily. pilocarpine (SALAGEN) 5 mg tablet 1 po qid 30 minutes prior to meals and bed time Coenzyme Q10 (CO Q-10) 200 mg cap icosapent ethyl (VASCEPA) capsule Potassium Gluconate 2.5 mEq tab Take by mouth. carvedilol (COREG) 6.25 mg tablet Take 1 tablet by mouth twice daily. LIVALO 2 mg tab Take 1 tablet by mouth once daily. Vitamin D Nunn (Tackle Grab for [employer]) Take 1 capsule by mouth daily with food. ARMOUR THYROID 30 mg tablet Take 75 mg by mouth once daily. doxazosin (CARDURA) 4 mg tablet TAKE 1 (ONE) TABLET EVERY DAY AT BEDTIME amLODIPine (NORVASC) 5 mg tablet Take 5 mg by mouth once daily. ferrous sulfate 325 mg (65 mg iron) tablet Take 325 mg by mouth twice daily. omeprazole (PRILOSEC) 20 mg capsule TAKE 1 CAPSULE BY MOUTH EVERY DAY ketotifen fumarate (ZADITOR) 0.025 % (0.035 %) ophthalmic solution Use 1 Drop in both eyes twice daily. (Patient taking differently: Use 1 Drop in both eyes once daily. ) metFORMIN (GLUCOPHAGE) 500 mg tablet TAKE 2 TABLETS BY MOUTH WITH BREAKFAST, TAKE 1 TABLET WITH lunch, TAKE 2 TABLETS WITH supper CALCIUM CARBONATE/VITAMIN D3 (CALCIUM + D ORAL) Take 1 tablet by mouth once daily. magnesium oxide (MAG-OX) 400 mg tablet Take 400 mg by mouth once daily. CPAP methocarbamol (ROBAXIN) 500 mg tablet Take 500 mg by mouth as needed. zolpidem (AMBIEN) 5 mg tablet Take 5 mg by mouth at bedtime as needed. fenofibrate nanocrystallized (TRICOR) 145 mg [...] Take 1 tablet by mouth twice daily. cyclobenzaprine hcl(FLEXERIL 10 MG TAB) as necessary ibuprofen 200 mg ORAL Tab Take 1-2 tablet's) every four(4) to six(6) hours as needed for pain. FLONASE 50 MCG/ACTUATION NASAL SPRAY AEROSOL 2 spray per nostril daily. VITAMIN C 1,000 MG TAB Take one(1) tablet daily. zolpidem (AMBIEN) 5 mg tablet Take 1 tablet by mouth at bedtime as needed for up to 7 days. No current facility-administered medications for this visit. Physical Exam Vitals: [facility] 01/17/2010 Psych: Pleasant, good affect and mood General Appearance: Well appearing, alert, in no acute distress, well-hydrated, well nourished.. Skin: Skin color, texture, turgor normal, no suspicious rashes or lesions. Peripheral Pulses: Normal. Neurologic: Gait normal. Reflexes normal and symmetric. Sensation grossly intact.. Lymph Nodes: No cervical lymphadenopathy, No supraclavicular lymphadenopathy, No axillary lymphadenopathy. and No inguinal lymphadenopathy.. Respiratory: No recent pulmonary infection, hemoptysis, chronic cough, or shortness of breath at rest Rheumatologic: Joint deformities: left shoulder pain Right Shoulder Exam Right shoulder exam is normal. Tenderness The patient is experiencing no tenderness. Range of Motion Active abduction: normal Passive abduction: normal Extension: normal External rotation: normal Forward flexion: normal Internal rotation 0 degrees: normal Internal rotation 90 degrees: normal Muscle Strength Abduction: 5/5 Internal rotation: 5/5 External rotation: 5/5 Supraspinatus: 5/5 Subscapularis: 5/5 Biceps: 5/5 Tests Apprehension: negative Amos test: negative Cross arm: negative Impingement: negative Other Erythema: absent Sensation: normal Pulse: present Left Shoulder Exam Left shoulder exam is normal. Tenderness The patient is experiencing no tenderness. Range of Motion Active abduction: normal Passive abduction: normal Extension: normal External rotation: normal Forward flexion: normal Internal rotation 0 degrees: normal Internal rotation 90 degrees: normal Muscle Strength Abduction: 5/5 Internal rotation: 5/5 External rotation: 5/5 Supraspinatus: 5/5 Subscapularis: 5/5 Biceps: 5/5 Tests Apprehension: negative Amos test: negative Cross arm: negative Impingement: negative Other Erythema: absent Sensation: normal Pulse: present Assessment and Plan Radiographs: No imaging to review. Impression: Encounter Diagnosis ICD-10-CM 1. Traumatic complete tear of left rotator cuff, subsequent encounter S46.012D Doing much better from shoulder standpoint but lungs are getting better and still doing PT Patient's goal si to continue strengthening Patient aware and in agreement of plan. All questions answered. Told patient to be the tortoise not the hare... and will continue to improve Will seep patient for her right wrist and will schedule follow up appointment with us w simon Today, in detail, through a thorough evaluation, we discussed possible etiologies of pain and our plans for further diagnostic and therapeutic interventions. We discussed strategies for decreasing pain and improving strength, stability and motion. Patient's questions were answered in detailed. Patient verbalizes understanding and agrees with the treatment plan as discussed. documented in this encounter [facility] 03-07-2022 History of Present illness Narrative Images from the original note were not included. History of Present Illness Presence of Pain: complains of pain/discomfort Pain Location: hip, left, neck Select Pain Scale: DVPRS (Defense and Veterans Pain Rating Scale) (Adult-Cognitively Intact) DVPRS: Rest: 2- mild pain DVPRS: Activity: 2- mild pain Select Pain Scale: DVPRS (Defense and Veterans Pain Rating Scale) (Adult-Cognitively Intact) Pain Frequency: constant Pain Quality: aching. Total time spent in this encounter was 35 minutes. Patient seen as add on patient today. COVID-19 since last seen. Energy level is almost non-existent. One day she almost feels normal and 3 days of fatigue. Dry mouth is worse. Swollen glands is not as bad as they were. Dry eyes are about the same. Sleep apnea is doing all right. Leg swelling was better but it started again 1 1/2 weeks ago and is worse when she sits too long. Headaches is no not really. Joint pain is a little bit right now her neck and thumbs and wrists the past week they come and go with sciatica in LLE and low back pain. Rash is no. Patient is here for a 6 Month F/U. Patient states that she is having neck and back pain today. Patient states on September 21 she had left shoulder replacement by [facility]. Patient state she had covid severely for a week and had respiratory failure. Patient states that she has been having fatigue. Review of Systems Constitutional: Positive for fatigue. HENT: Dry mouth History of B/L parotid gland enlargement Eyes: Dry eyes Respiratory: Positive for apnea. CPAP Cardiovascular: Positive for leg swelling. Gastrointestinal: Negative. Endocrine: Negative. Genitourinary: Negative. Musculoskeletal: Positive for arthralgias, back pain, neck pain and neck stiffness. Skin: Red spots on chest and come and go Allergic/Immunologic: Negative. Neurological: Negative. Hematological: Negative. Psychiatric/Behavioral: Negative. Vitals: Blood pressure 124/62, pulse 86, height 1.524 m (5'), weight 96.2 kg (212 lb), SpO2 97 %. Physical Exam Vitals and nursing note reviewed. Constitutional: Appearance: Normal appearance. She is obese. HENT: Head: Normocephalic and atraumatic. Comments: Female pattern alopecia Right Ear: External ear normal. Left Ear: External ear normal. Nose: Nose normal. Mouth/Throat: Mouth: Mucous membranes are dry. Pharynx: Oropharynx is clear. Comments: mask Eyes: Extraocular Movements: Extraocular movements intact. Conjunctiva/sclera: Conjunctivae normal. Pupils: Pupils are equal, round, and reactive to light. Comments: Dry eyes Cardiovascular: Rate and Rhythm: Normal rate and regular rhythm. Pulses: Radial pulses are 2+ on the right side and 2+ on the left side. Heart sounds: Normal heart sounds. Pulmonary: Effort: Pulmonary effort is normal. Breath sounds: Normal breath sounds. Abdominal: General: Bowel sounds are normal. Palpations: Abdomen is soft. Comments: Obese Musculoskeletal: Right shoulder: Tenderness present. Decreased range of motion. Left shoulder: Tenderness present. Decreased range of motion. Right upper arm: Tenderness present. Left upper arm: Tenderness present. Right elbow: Normal. Left elbow: Normal. Right forearm: Normal. Left forearm: Normal. Right wrist: Decreased range of motion. Left wrist: Decreased range of motion. Right hand: Decreased strength. Left hand: Decreased strength. Hands: Cervical back: Neck supple. Right upper leg: Normal. Left upper leg: Normal. Right knee: Decreased range of motion. Left knee: Decreased range of motion. Right lower leg: Normal. Left lower leg: Normal. Right ankle: Decreased range of motion. Left ankle: Decreased range of motion. Legs: Feet: Skin: General: Skin is warm and dry. Neurological: Mental Status: She is alert and oriented to person, place, and time. Cranial Nerves: Cranial nerves are intact. Sensory: Sensation is intact. Motor: Weakness present. Comments: Decreased author agent strength both hands Psychiatric: Mood and Affect: Mood normal. Behavior: Behavior normal. Thought Content: Thought content normal. Judgment: Judgment normal. Neurological Exam Mental Status Alert. Oriented to person, place, and time. Cranial Nerves CN II: Vision test: Dry eyes. CN III, IV, : Extraocular movements intact bilaterally. Pupils equal round and reactive to light bilaterally. Sensory Normal sensation. Decreased author agent strength both hands. Assessment and Plan Encounter Diagnoses Name Primary? Other systemic lupus erythematosus with other organ involvement Yes Normochromic normocytic anemia CRP elevated Dry eyes History of fibromyalgia History of gout History of total hip arthroplasty, left LFT elevation MCFP current use of non-steroidal anti-inflammatories (NSAID) Neutropenia, unspecified type Positive GEOVANY (antinuclear antibody) Positive double stranded DNA antibody test Dry mouth (nonalcoholic steatohepatitis) Xerostomia Hyperglycemia Keratoconjunctivitis sicca Lumbar degenerative disc disease Osteoarthritis of both feet, unspecified osteoarthritis type History of Sjogren's disease Leukopenia, unspecified type 1. Time was spent with the patient today in education in re: to all their medical conditions. A complete H&P&ROS was obtained and is either in this note or in the EHR. Please do not hesitate to contact me with any questions or concerns re: this patient. Past History Past medical, surgical, family, and social histories have been reviewed and updated with the patient today and are located elsewhere in the medical record. 2. Thank you for allowing me to participate in the care of your patient. With your permission I would like to F/U with your patient. 3. ESR was normal at 25 and still is at 17 4. Glucose was elevated at 152 and still is at 243 5. Patient given educational material on Sjogren's Syndrome in the form of a pamphlet from the arthritis foundation. Patient told that they could use OTC dry mouth preparations such as Biotene. Patient told they could use OTC artificial tears. 6. Vit D under care of PCP 7. Monitor CBC/LFT/Renal func every 6-12 months as long as patient is on daily NSAID 8. Patient given educational material on gout in the form of a pamphlet from the arthritis foundation. Patient should remain on Allopurinol life long. Would monitor CBC, LFT, Renal func, uric acid level every 6 - 12 months as long as patient on Allopurinol. Patient can take prednisone 5 mg 8 po q AM times one day decrease by one pill q day until off on a PRN basis any acute attack of gout. 9. Patient given educational material on fibromyalgia syndrome in the form of a pamphlet from the arthritis foundation. Patient told that generalized stretching and aerobic exercise would be the cornerstone of treatment. Patient would benefit from psych eval and treatment of any underlying depression and/or anxiety disorder. Patient would benefit from eval and F/U treatment by PMR and/or Chronic Pain Management 10. TECHNICAL SERVICES CONSULTANT was elevated at 1.06 with GFR 56 and is now normal at 0.91 with GFR of 62 11. Patient declined Plaquenil for fear of occular side effects 12. Uric acid was normal at 5.2 and still is at 3.4 13. S/p R rotator cuff surgery 14. BUN was elevated at 22 and is now is normal at 17 15. Patient declines referral to PT. 16. AST was elevated at 52 and still is at 39 17. Hgb was low at 11.7 and still is at 11.8 18. Patient is taking and Vti D3 7,000 units a day and mag 8700 mg a day and calcium and Vesepa and systane and Zadator eye drops and Livalo and COq 10 and Tricor and Zyrtec 19. Magnesium was low at 1.5 20. S/P R and now L rotator cuff surgery 21. Ortho F/U per Dr. mejía 22. Patient told to F/U with PCP about low magnesium 23. Patient declines Benlysta 24. Pulmonary F/U per Dr. Tubbs 25. CRP was elevated at 5.11 and still is at 3.63 26. GEOVANY was positive 27. dsDNA was elevated at 36 28. C3 was elevated at 193 and still is at 175 29. C4 was normal at 19 and still is at 17 30. BENNY level was normal at 77 31, Negative SSB, SSA, ANCA, Lupus serology (except), HLA-B27, Celiac, CCP, RF, AMA, ASMA. AFP 32. Normal ACTH, cortisol 33. Lodine decreased to 500 mg 1 pill every other day due to renal insufficiency. Rx given 34. Patient declines referral to Chronic Pain Management 35. Patient given for Mouth Koate 36. WBC is low at 3.8 37. Lab on or about 06/24/2022 38. F/U with me in 4 months 39. 90 day supply on medications documented in this encounter [facility] 10-17-2021 Hospital Discharge instructions Activity:activity as tolerated.Oxygen:Administer oxygen at 8 liters/min via nasal cannula to maintain SpO2 % of 92 with activity, continuous, at night. Other Instructions Patient requires oxygen 4 L at rest and 8 L with activity.Home Care Face to Face Certification:Home Care Services Needed: yesHome Care Agency: [facility] Ordered: RN/LPNFace to Face Encounter Completed: yesDate of Encounter: [id number] Necessity for Homecare (based on clinical findings): Patient has been hospitalized with COVID-19 pneumonia along with other pre-existing medical illness has declined her functioning capacity. Patient at this time would benefit from home health care services that would prevent her from rehospitalizationHomebound Status: homeboundHomebound Due to: COVID-19 pneumonia hospitalizationFace to Face Completed and Home Care Orders Reviewed: I certify that this patient is under my care. I have reviewed the information included in the face to face and certify that the home care services ordered are medically necessary for this patient.Home Care Skilled Service:Home Care Skilled Service: diabetes management, Rehab (PT/OT/SP eval and treat)Diabetes Management: First Home Care Visit: day after dischargeFollow Up Appointment 1:Physician/Dept/Service: Dr Sanderson for Referral: Hospital Follow-upCall to Schedule in: 1 weekLocation: [address] [place] [address] [place] [id number] Number: [phone]: Please call and schedule an appointment within 2 weeks of your hospital DischargeGold Form - Other Clinicians:Other Clinician Instructions: Patient was discharged with oxygen, Medrol Dosepak, Xarelto, vitamin C, vitamin D, duo nebs and a prescription for nebulization patient was also given. Patient will benefit from home health care. She had elevated blood sugars during this hospitalization because of steroids and might require insulin for a short time until seen by her primary care physician [facility] 10-16-2021 Note Send Summary: Discharge Summary Providers: Provider RoleProvider Name Calos Matamoros Aaron M Note Recipients: Discharge: Summary: Admission Date: .08-Oct-2021 22:01:00 Discharge Date: 17-Oct-2021 Attending Physician at Discharge: Calos Moseley Admission Reason: COVID-19 pneumonia Final Discharge Diagnoses: Acute hypoxemic respiratory failure due to COVID-19, COVID, Newly diagnosed diabetes, Primary hypertension Procedures: none Condition at Discharge: Satisfactory Disposition at Discharge: DC/Xfer to [facility] Vital Signs: T PRBPSpO2 [id number]/6794% Date/Time10/16 8:0510/16 8:0510/16 8:0510/16 8:0510/16 8:05 Range(36.6C - 36.6C ) (77 - 77 ) (17 - 17 ) (131 - 131 )/ (67 - 67 ) (94% - 94% ) As of 16-Oct-2021 08:45:00, patient is on 2 L/min of oxygen via nasal cannula. Date: Weight/Scale Type:Height: 13-Oct-2021 05:0091.5 kg Physical Exam: Constitutional: Well developed, awake/alert/oriented x3, no distress, alert and cooperative Eyes: PERRL, EOMI, clear sclera ENMT: mucous membranes moist, no apparent injury, no lesions seen Head/Neck: Neck supple, no apparent injury, thyroid without mass or tenderness, No JVD, trachea midline, no bruits Respiratory/Thorax: Patent airways, CTAB, normal breath sounds with good chest expansion, thorax symmetric Cardiovascular: Regular, rate and rhythm, no murmurs, 2+ equal pulses of the extremities, normal S 1and S 2 Gastrointestinal: Nondistended, soft, non-tender, no rebound tenderness or guarding, no masses palpable, no organomegaly, +BS, no bruits Musculoskeletal: ROM intact, no joint swelling, normal strength Extremities: normal extremities, no cyanosis edema, contusions or wounds, no clubbing Psychological: Appropriate mood and behavior Skin: Warm and dry, no lesions, no rashes Hospital Course: BESSIE ELLISON is a 60 year old Female Presents with complaints of shortness of breath and increased cough.Patient had a left shoulder surgery done 2 weeks Before coming into the hospital and has been having fatigue, weakness after that.Patient also felt fatigued patient does not have any complaints of nausea, vomiting or diarrhea. She complains of increasing myalgia and back pain. She also has loss of appetite. Bowel and bladder habits have been normal. On arrival to the ER patient had a blood pressure of 150/77, SPO2 61% improved to greater than 90% on 10 L nasal cannula, heart rate 1 10-1 20s beats per minute, respiratory rate 36/min. Initial labs shows CBC within normal limits, absolute lymphocyte count 1.23, D-dimer 733, sodium 134, other electrolytes normal, serum creatinine 1.09, troponin normal, COVID-[address] PE was done, negative for PE but showed multifocal pneumonia. Patient was in ICU initially. She was requiring high oxygen needs to begin with. She was on air Vo/BiPAP. Patient clinical status progressively improved and her oxygen needs came down. She was finally on nasal cannula. She required 4 L with rest and 10 L with activity. Patient is discharged with Medrol Dosepak, anticoagulation, vitamin C, vitamin D and albuterol nebulization. She was given insulin at discharge. Patient was instructed to take 20 units of Lantus along with mealtime insulin. Mealtime insulin scale was given to the patient. At this time the PT OT recommended patient for skilled facility. I had insisted the importance of short-term facility for strength gaining but patient declined this option.the patient wants to go home says her will take care of her. Home care has been initiatedAt discharge.No changes made to her home medication. Patient will undergo medication as is at discharge. Discharge Information: and Continuing Care: Lab Results - Pending: None Radiology Results - Pending: None Discharge Instructions: Activity: activity as tolerated. Respiratory: Oxygen: Administer oxygen at 8 liters/min via nasal cannula to maintain SpO2% of 92 with activity continuous at night Oxygen: Patient requires oxygen 4 L at rest and 8 L with activity Home Care Certification: Home Care Agency: [facility] Ordered: RN/ARRT TECHNOLOGIST Home Care Services: Home Care Skilled Service: diabetes management, Rehab (PT/OT/SP eval and treat) Follow Up Appointments: Follow-Up Appointment 01: Physician/Dept/Service: Primary care physician Call to Schedule in: 1 week Discharge Medications: Home Medication Flonase 50 mcg/inh nasal spray - 1 spray(s) nasal once a day allopurinol 100 mg oral tablet - 2 tab(s) orally 2 times a day etodolac 500 mg oral tablet - 1 tab(s) orally 2 times a day amLODIPine 5 mg oral tablet - 1 tab(s) orally once a day carvedilol 6.25 mg oral tablet - 1 tab(s) orally 2 times a day doxazosin 4 mg oral tablet - 1 tab(s) orally once a day Estrace Vaginal 0.1 mg/g vagi (more content not included)... [facility] 10-09-2021 Note History of Present I llness: HPI: BESSIE ELLISON is a 60 year old Female Presents with complaints of shortness of breath and increased cough started since last Monday. Patient had a left shoulder surgery done 2 weeks ago and has been having fatigue, weakness after that.Patient also felt fatigued patient does not have any complaints of nausea, vomiting or diarrhea. She complains of increasing myalgia and back pain. She also has loss of appetite. Bowel and bladder habits have been normal. On arrival to the ER patient had a blood pressure of 150/77, SPO2 61% improved to greater than 90% on 10 L nasal cannula, heart rate 1 10-1 20s beats per minute, respiratory rate 36/min. Initial labs shows CBC within normal limits, absolute lymphocyte count 1.23, D-dimer 733, sodium 134, other electrolytes normal, serum creatinine 1.09, troponin normal, COVID-[address] PE was done, negative for PE but showed multifocal pneumonia. 10 systems were reviewed and were negative except for those noted in the history of present illness. Problem list reviewed. Past medical history: GERD, ASCUS, hypothyroidism, bilateral renal cyst, overactive bladder, rotator cuff tear, hypothyroidism, left adrenal cortical mass, type 2 diabetes mellitus, GERD, Sjogren's syndrome Past surgical history: Shoulder surgery right and left, left hip replacement 2013 Allergies: Bactrim, penicillin, erythromycin Social history: Not as smoker, alcohol, IV drugs Family history: Reviewed not significant to current presentation Meds: Metformin, losartan, Prilosec, levothyroxine, docusate, allopurinol, statin, magnesium, vitamin d Comorbidities: Comorbidites: Comorbid Conditionsdiabetes, hypertension Diabetes TypeType 2 Insulin Dependentunknown DM Acuity or Statusunknown DM Complicationsunknown Allergies: penicillin: Unknown Bactrim: Unknown Medications Prior to Admission: Home meds have been reviewed, but review is not yet complete Flonase 50 mcg/inh nasal spray: 1 spray(s) nasal once a day allopurinol 100 mg oral tablet: 2 tab(s) orally 2 times a day etodolac 500 mg oral tablet: 1 tab(s) orally 2 times a day amLODIPine 5 mg oral tablet: 1 tab(s) orally once a day carvedilol 6.25 mg oral tablet: 1 tab(s) orally 2 times a day doxazosin 4 mg oral tablet: 1 tab(s) orally once a day Estrace Vaginal 0.1 mg/g vaginal cream: 1 application vaginal 2 times a week fenofibrate 145 mg oral tablet: 1 tab(s) orally once a day ferrous sulfate 325 mg (65 mg elemental iron) oral tablet: 1 tab(s) orally 2 times a day Vascepa 1 g oral capsule: 2 cap(s) orally 2 times a day levothyroxine 75 mcg (0.075 mg) oral tablet: 1 tab(s) orally once a day losartan 100 mg oral tablet: 1 tab(s) orally once a day Mag-Ox 400 oral tablet: 1 tab(s) orally once a day metFORMIN 500 mg oral tablet: 2 tab(s) orally 2 times a day, breakfast and dinner metFORMIN 500 mg oral tablet: 1 tab(s) orally once a day with lunch omeprazole 20 mg oral delayed release tablet: 1 tab(s) orally once a day pilocarpine 5 mg oral tablet: 1 tab(s) orally 4 times a day, 30 minutes prior to meals and bedtime Livalo 2 mg oral tablet: 1 tab(s) orally once a day Ozempic (1 mg dose) 4 mg/3 mL subcutaneous solution: 1 dose(s) subcutaneous once a week [place] Thyroid 30 mg oral tablet: 1 tab(s) orally once a day zolpidem 5 mg oral tablet: 1 tab(s) orally once a day (at bedtime), As Needed ketotifen 0.025% ophthalmic solution: 1 drop(s) in each eye 2 times a day . Objective: Objective Information: T PRBPSpO2 [id number]/7891% Date/Time10/08 22: 4: 22: 4: 4:00 Range(36.8C - 36.8C ) (105 - 116 ) (36 - 36 ) (148 - 163 )/ (77 - 82 ) (61% - 94% ) Pain reported at 10/08 22:13: 0 = None Physical Exam by System: Constitutional: Well developed, awake/alert/oriented x3, no distress, alert and cooperative Eyes: PERRL, EOMI, clear sclera ENMT: mucous membranes moist, no apparent injury, no lesions seen Head/Neck: Neck supple, no apparent injury, thyroid without mass or tenderness, No JVD, trachea midline, no bruits Respiratory/Thorax: Patent airways, CTAB, normal breath sounds with good chest expansion, thorax symmetric Cardiovascular: Regular, rate and rhythm, no murmurs, 2+ equal pulses of the extremities, normal S 1and S 2 Gastrointestinal: Nondistended, soft, non-tender, no rebound tenderness or guarding, no masses palpable, no organomegaly, +BS, no bruits Musculoskeletal: ROM intact, no joint swelling, normal strength Extremities: normal extremities, no cyanosis edema, contusions or wounds, no clubbing Psychological: Appropriate mood and behavior Skin: Warm and dry, no lesions, no rashes Medications: Medications: Continuous Medications 1. Sodium Chloride 0.9% Infusion: 1000 mL IntraVenous Scheduled Medications (more content not included)... [facility] 09-21-2021 Note HNO ID: [id number] Author: Radha Waggoner RN Service: ? Author Type: Registered Nurse Type: Nursing Progress Note Filed: 09/21/2021 12:16 PM Note Text: Dr. Nguyễn at bedside to evaluate patient. [facility] 09-21-2021 Note HNO ID: [id number] Author: Galilea Silva APRN.SALES PERFORMANCE MANAGER Service: Anesthesiology Author Type: Nurse Fly Winder Type: Anesthesia Procedure Notes Filed: 09/21/2021 7:55 AM Note Text: ANESTHESIOLOGY PROCEDURE NOTE Airway General Information Procedure Start Time/Medication Administration: 09/21/2021 7:45 AM Patient location during procedure: OR Patient identity confirmed: arm band, care steam blocker and patient Staffing Anesthesiologist: Lizbeth Nguyễn MD SALES PERFORMANCE MANAGER: Galilea Silva APRN.SALES PERFORMANCE MANAGER Performed by: JUAN CARLOS Indications and Patient Condition Preoxygenated: yes Patient position: sniffing Indications for airway management: anesthesia anesthesia circuit Method: asleep Airway Accessory: oral airway (#4) Final Airway Details Final airway type: endotracheal airway Final Endotracheal Airway: ETT Cuffed: yes Successful intubation technique: direct laryngoscopy Devices used: intubating stylet Endotracheal tube insertion site: oral Blade: Kenroy Blade size: #3.5 ETT size (mm): 7.0 Measured from: lips Measurement (cm): 20 Placement verified by: chest auscultation and capnometry Cormack-Lehane Classification: grade IIa - partial view of glottis Number of attempts at approach: 1 Airway not difficult Comments Lips/teeth in preanesthetic condition SIGNATURE: Galilea Silva APRN.SALES PERFORMANCE MANAGER PATIENT NAME: Bessie Ellison DATE: September 21, 2021 TIME: 7:54 AM CSN: [id number] [facility] 09-21-2021 Note HNO ID: [id number] Author: Lizbeth Nguyễn MD Service: Anesthesiology Author Type: Anesthesiologist Type: Anesthesia Procedure Notes Filed: 09/21/2021 7:16 AM Note Text: ANESTHESIOLOGY PROCEDURE NOTE Peripheral Nerve Block General Information Procedure Start Time/Medication Administration: 09/21/2021 7:07 AM Procedure End time: 09/21/2021 7:14 AM Patient location during procedure: induction room Timeout Performed Pre-procedure: timeout performed Consent Obtained: Yes Patient identity confirmed: arm band and patient Reason for block: post-op pain management/at surgeon's request Staffing Anesthesiologist: Lizbeth Nguyễn MD Preparation Sterility Preparation: hand hygiene performed prior to procedure, surgical cap used, mask used, sterile drape used during line insertion, skin prep agent completely dried prior to procedure Site Prep: Chloraprep Pre-Procedure Neuro Exam Location: LUE Sensory: intact Motor: intact Procedure Details Patient Position: sitting Monitoring: Pulse OX, EKG and NIBP Block Type Approach: supraclavicular Laterality: left Injection Technique: single-shot Ultrasound Guided: Yes Image in Chart: yes Local Infiltration: Yes Needle Needle Type: echogenic Needle Gauge: 22 G Needle Localization: ultrasound Assessment Injection assessment: negative aspiration and local visualized surrounding nerve on ultrasound Medications Administered Dexamethasone sodium phosphate injection (DECADRON), 4 mg ropivacaine (PF) 5 mg/mL (0.5 %) injection (NAROPIN), 20 mL SIGNATURE: Lizbeth Nguyễn MD PATIENT NAME: Bessie Ellison DATE: September 21, 2021 TIME: 7:06 AM CSN: [id number] [facility] 08-04-2021 Note HNO ID: [id number] Author: DUKE Jones Service: Radiology Author Type: Clinical Waybill Clerk Type: Progress Notes Filed: 08/04/2021 9:04 AM Note Text: Radiology Service Progress Note PATIENT NAME: Bessie Ellison DATE OF SERVICE: August 04, 2021 TIME: 9:04 AM PATIENT IDENTITY VERIFICATION COMPLETED USING TWO (2) IDENTIFIERS: Name and Date of confirmed by patient verbally. FALL SCREENING: Has the patient had 2 falls in the last year or 1 fall with injury or currently using an Ambulatory Assistive Device (Walker, Cane, Wheelchair, Crutches, etc.)? No PATIENT GENDER DATA: Female. status: : No status: NO. PATIENT RELEVANT IMPLANT DATA REVIEWED: Not Applicable RADIOLOGY DEPARTMENT: General X-ray: Exam(s) Completed: Upper Extremity X-Ray(s): Shoulder, AP / TRUE AP / AXILLARY / SUPRA OUTLET left PERIPHERAL IV DATA: Not applicable SIGNED BY: DUKE Jones August 04, 2021 9:04 AM [facility] documented as of this encounter (statuses as of 03/09/2022) [facility]05[facility]24-2018 History of Past illness Narrative* Problem Noted Date Resolved Date BMI 37.0-37.9, adult 03/08/2018 09/07/2021 Vitamin B deficiency 06/23/2015 10/19/2015 Meibomitis 04/30/2015 10/19/2015 documented as of this encounter (statuses as of 04/06/2022) [facility] History of Past illness Narrative* Problem Noted Date Resolved Date BMI 37.0-37.9, adult 03/08/2018 09/07/2021 Vitamin B deficiency 06/23/2015 10/19/2015 Meibomitis 04/30/2015 10/19/2015 documented as of this encounter (statuses as of 04/06/2022) [facility] History of Past illness Narrative* Problem Noted Date Resolved Date BMI 37.0-37.9, adult 03/08/2018 09/07/2021 Vitamin B deficiency 06/23/2015 10/19/2015 Meibomitis 04/30/2015 10/19/2015 documented as of this encounter (statuses as of 04/07/2022) [address]24-2018 History of Past illness Narrative* Problem Noted Date Resolved Date BMI 37.0-37.9, adult 03/08/2018 09/07/2021 Vitamin B deficiency 06/23/2015 10/19/2015 Meibomitis 04/30/2015 10/19/2015 documented as of this encounter (statuses as of 04/07/2022) [address]24-2018 History of Past illness Narrative* Problem Noted Date Resolved Date BMI 37.0-37.9, adult 03/08/2018 09/07/2021 Vitamin B deficiency 06/23/2015 10/19/2015 Meibomitis 04/30/2015 10/19/2015 documented as of this encounter (statuses as of 04/08/2022) [facility] History of Past illness Narrative* Problem Noted Date Resolved Date BMI 37.0-37.9, adult 03/08/2018 09/07/2021 Vitamin B deficiency 06/23/2015 10/19/2015 Meibomitis 04/30/2015 10/19/2015 documented as of this encounter (statuses as of 04/08/2022) [facility] History of Past illness Narrative* Problem Noted Date Resolved Date BMI 37.0-37.9, adult 03/08/2018 09/07/2021 Vitamin B deficiency 06/23/2015 10/19/2015 Meibomitis 04/30/2015 10/19/2015 documented as of this encounter (statuses as of 04/14/2022) [facility] History of Past illness Narrative* Problem Noted Date Resolved Date BMI 37.0-37.9, adult 03/08/2018 09/07/2021 Vitamin B deficiency 06/23/2015 10/19/2015 Meibomitis 04/30/2015 10/19/2015 documented as of this encounter (statuses as of 04/28/2022) [facility] History of Past illness Narrative* Problem Noted Date Resolved Date BMI 37.0-37.9, adult 03/08/2018 09/07/2021 Vitamin B deficiency 06/23/2015 10/19/2015 Meibomitis 04/30/2015 10/19/2015 documented as of this encounter (statuses as of 05/05/2022) [address]24-2018 History of Past illness Narrative* Problem Noted Date Resolved Date BMI 37.0-37.9, adult 03/08/2018 09/07/2021 Vitamin B deficiency 06/23/2015 10/19/2015 Meibomitis 04/30/2015 10/19/2015 documented as of this encounter (statuses as of 05/09/2022) [address]24-2018 History of Past illness Narrative* Problem Noted Date Resolved Date BMI 37.0-37.9, adult 03/08/2018 09/07/2021 Vitamin B deficiency 06/23/2015 10/19/2015 Meibomitis 04/30/2015 10/19/2015 documented as of this encounter (statuses as of 05/17/2022) [facility] History of Past illness Narrative* Problem Noted Date Resolved Date BMI 37.0-37.9, adult 03/08/2018 09/07/2021 Vitamin B deficiency 06/23/2015 10/19/2015 Meibomitis 04/30/2015 10/19/2015 documented as of this encounter (statuses as of 06/03/2022) [facility] History of Past illness Narrative* Problem Noted Date Resolved Date BMI 37.0-37.9, adult 03/08/2018 09/07/2021 Vitamin B deficiency 06/23/2015 10/19/2015 Meibomitis 04/30/2015 10/19/2015 documented as of this encounter (statuses as of 06/13/2022) [facility] History of Past illness Narrative* Problem Noted Date Resolved Date BMI 37.0-37.9, adult 03/08/2018 09/07/2021 Vitamin B deficiency 06/23/2015 10/19/2015 Meibomitis 04/30/2015 10/19/2015 documented as of this encounter (statuses as of 07/01/2022) [address]24-2018 History of Past illness Narrative* Problem Noted Date Resolved Date BMI 37.0-37.9, adult 03/08/2018 09/07/2021 Vitamin B deficiency 06/23/2015 10/19/2015 Meibomitis 04/30/2015 10/19/2015 documented as of this encounter (statuses as of 07/08/2022) [address]24-2018 History of Past illness Narrative* Problem Noted Date Resolved Date BMI 37.0-37.9, adult 03/08/2018 09/07/2021 Vitamin B deficiency 06/23/2015 10/19/2015 Meibomitis 04/30/2015 10/19/2015 documented as of this encounter (statuses as of 09/19/2022) [address]24-2018 History of Past illness Narrative* Problem Noted Date Resolved Date BMI 37.0-37.9, adult 03/08/2018 09/07/2021 Vitamin B deficiency 06/23/2015 10/19/2015 Meibomitis 04/30/2015 10/19/2015 documented as of this encounter (statuses as of 09/27/2022) [facility] History of Past illness Narrative* Problem Noted Date Diagnosed Date Resolved Date BMI 37.0-37.9, adult 03/08/2018 021 Vitamin B deficiency 06/23/2015 016 Meibomitis 04/30/2015 10/19/2015 documented as of this encounter (statuses as of 04/29/2023) [facility] History of Past illness Narrative* Problem Noted Date Diagnosed Date Resolved Date BMI 37.0-37.9, adult 03/08/2018 021 Vitamin B deficiency 06/23/2015 016 Meibomitis 04/30/2015 10/19/2015 documented as of this encounter (statuses as of 05/17/2023) [facility] History of Past illness Narrative* Problem Noted Date Diagnosed Date Resolved Date BMI 37.0-37.9, adult 03/08/2018 021 Vitamin B deficiency 06/23/2015 016 Meibomitis 04/30/2015 10/19/2015 documented as of this encounter (statuses as of 06/30/2023) [facility] History of Past illness Narrative* Problem Noted Date Diagnosed Date Resolved Date BMI 37.0-37.9, adult 03/08/2018 021 Vitamin B deficiency 06/23/2015 016 Meibomitis 04/30/2015 10/19/2015 documented as of this encounter (statuses as of 08/20/2023) [facility] No data available for this section [facility] Evaluation note* Gastrointestinal: Nondistended, soft, non-tender, no rebound tenderness or guarding, no masses palpable, no organomegaly, +BS, no bruitsCardiovascular: Regular, rate and rhythm, no murmurs, 2+ equal pulses of the extremities, normal S 1and S 2Respiratory/Thorax: Patent airways, CTAB, normal breath sounds with good chest expansion, thorax symmetricHead/Neck: Neck supple, no apparent injury, thyroid without mass or tenderness, No JVD, trachea midline, no bruitsENMT: mucous membranes moist, no apparent injury, no lesions seenEyes: PERRL, EOMI, clear scleraSkin: Warm and dry, no lesions, no rashesConstitutional: Well developed, awake/alert/oriented x3, no distress, alert and cooperativePsychological: Appropriate mood and behaviorExtremities: normal extremities, no cyanosis edema, contusions or wounds, no clubbingMusculoskeletal: ROM intact, no joint swelling, normal strength [facility] Other systemic lupus erythematosus with other organ involvement- Primary Normochromic normocytic anemia Anemia, unspecified CRP elevated Elevated C-reactive protein (CRP) Dry eyes Tear film insufficiency, unspecified History of fibromyalgia Personal history of other musculoskeletal disorders History of gout Personal history of other endocrine, metabolic, and immunity disorders History of total hip arthroplasty, left LFT elevation Other abnormal blood chemistry 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 use of non-steroidal anti-inflammatories (NSAID) Encounter for long-term (current) use of non-steroidal anti-inflammatories Neutropenia, unspecified type Positive GEOVANY (antinuclear antibody) Other and unspecified nonspecific immunological findings Positive double stranded DNA antibody test Other and unspecified nonspecific immunological findings Dry mouth Disturbance of salivary secretion (nonalcoholic steatohepatitis) Other chronic nonalcoholic liver disease Xerostomia Disturbance of salivary secretion Hyperglycemia Other abnormal glucose Keratoconjunctivitis sicca Sicca syndrome Lumbar degenerative disc disease Degeneration of lumbar or lumbosacral intervertebral disc Osteoarthritis of both feet, unspecified osteoarthritis type History of Sjogren's disease Personal history of other musculoskeletal disorders Leukopenia, unspecified type [facility] Traumatic complete tear of left rotator cuff, subsequent encounter- Primary [facility] Diagnosis Encounter for gynecological examination with abnormal finding- Primary Routine gynecological examination Pap smear for cervical cancer screening Screening for malignant neoplasm of the cervix Encounter for screening mammogram for breast cancer Cervical high risk human papillomavirus (HPV) DNA test positive Encounter for screening for osteoporosis Special screening for osteoporosis Stress incontinence Female stress incontinence Cystocele, midline Postmenopausal atrophic vaginitis [facility] Bilateral carpal tunnel syndrome- Primary Carpal tunnel syndrome [facility] Diagnosis Encounter for screening mammogram for breast cancer [facility] Diagnosis Encounter for screening for osteoporosis Special screening for osteoporosis [facility] Pain Generalized pain [facility] Diagnosis Type 2 diabetes mellitus without retinopathy (HCC)- Primary Type II or unspecified type diabetes mellitus without mention of complication, not stated as uncontrolled Dry eye syndrome of both eyes Asteroid hyalitis of right eye Epiretinal membrane (ERM) of right eye Combined forms of age-related cataract of both eyes Other and combined forms of senile cataract Anisocoria [facility] Diagnosis Cervical high risk human papillomavirus (HPV) DNA test positive- Primary [facility] Diagnosis Stress incontinence- Primary Female stress incontinence Cystocele, midline [facility] Diagnosis Stress incontinence- Primary Female stress incontinence Cystocele, midline [facility] Diagnosis Stress incontinence- Primary Female stress incontinence Cystocele, midline [facility] Diagnosis Other systemic lupus erythematosus with other organ involvement- Primary CRP elevated Elevated C-reactive protein (CRP) Dry eyes Tear film insufficiency, unspecified History of fibromyalgia Personal history of other musculoskeletal disorders History of gout Personal history of other endocrine, metabolic, and immunity disorders History of total hip arthroplasty, left LFT elevation Other abnormal blood chemistry MCFP current use of non-steroidal anti-inflammatories (NSAID) Encounter for long-term (current) use of non-steroidal anti-inflammatories Positive GEOVANY (antinuclear antibody) Other and unspecified nonspecific immunological findings Positive double stranded DNA antibody test Other and unspecified nonspecific immunological findings Dry mouth Disturbance of salivary secretion Fatty liver Other chronic nonalcoholic liver disease (nonalcoholic steatohepatitis) Other chronic nonalcoholic liver disease Xerostomia Disturbance of salivary secretion Hyperchloremia Electrolyte and fluid disorders not elsewhere classified Hyperglycemia Other abnormal glucose Keratoconjunctivitis sicca Sicca syndrome Lumbar degenerative disc disease Degeneration of lumbar or lumbosacral intervertebral disc Osteoarthritis of both feet, unspecified osteoarthritis type History of Sjogren's disease Personal history of other musculoskeletal disorders [facility] Pain in left arm- Primary Bilateral carpal tunnel syndrome Carpal tunnel syndrome Pain in right arm Paresthesia of skin Disturbance of skin sensation documented in this encounter [facility] note* Diagnosis Type 2 diabetes mellitus without retinopathy (HCC)- Primary Type II or unspecified type diabetes mellitus without mention of complication, not stated as uncontrolled Dry eye syndrome of both eyes Combined forms of age-related cataract of both eyes Other and combined forms of senile cataract Asteroid hyalitis of right eye Epiretinal membrane (ERM) of right eye documented in this encounter [facility] note* Diagnosis Encounter for gynecological examination (general) (routine) without abnormal findings- Primary Postmenopausal atrophic vaginitis Cystocele, midline Encounter for screening mammogram for breast cancer Encounter for screening for human papillomavirus (HPV) Special screening examination for human papillomavirus (HPV) Pap smear for cervical cancer screening Screening for malignant neoplasm of the cervix documented in this encounter [facility] note* Diagnosis Encounter for gynecological examination with abnormal finding Routine gynecological examination Encounter for screening mammogram for breast cancer documented in this encounter [facility] note* Diagnosis Other systemic lupus erythematosus with other organ involvement- Primary CRP elevated Elevated C-reactive protein (CRP) Dry eyes Tear film insufficiency, unspecified Elevated BUN Other abnormal blood chemistry History of fibromyalgia Personal history of other musculoskeletal disorders History of gout Personal history of other endocrine, metabolic, and immunity disorders History of total hip arthroplasty, left 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 use of non-steroidal anti-inflammatories (NSAID) Encounter for long-term (current) use of non-steroidal anti-inflammatories Positive GEOVANY (antinuclear antibody) Other and unspecified nonspecific immunological findings Positive double stranded DNA antibody test Other and unspecified nonspecific immunological findings Dry mouth Disturbance of salivary secretion Fatty liver Other chronic nonalcoholic liver disease Vitamin D deficiency Unspecified vitamin D deficiency Xerostomia Disturbance of salivary secretion Hyperglycemia Other abnormal glucose Keratoconjunctivitis sicca Sicca syndrome Lumbar degenerative disc disease Degeneration of lumbar or lumbosacral intervertebral disc Osteoarthritis of both feet, unspecified osteoarthritis type History of Sjogren's disease Personal history of other musculoskeletal disorders [facility] Diagnostic Procedure Only (Routine) - Authorized Specialty Diagnoses / Procedures Referred By Contac t Referred To Contact [facility] Diagnoses Encounter for gynecological examination with abnormal finding Encounter for screening mammogram for breast cancer Procedures ALISA SCREENING SCREENING MAMMOGRAPHY BI 2-VIEW BREAST INC Willow Koo APRN.CNP [address] [place] [address] [facility] [address] [place] [address] Referral ID Status Reason Start Date Expiration Date Visits Requested Visits Authorized [id number] Authorized Auto-Generat ed Referral 04/06/2022 05/06/2023 1 1 [facility] for referral (narrative)* Outpatient Procedure (Routine) - Pending Review Specialty Diagnoses / Procedures Referred By Contac t Referred To Contact [facility] Diagnoses Bilateral carpal tunnel syndrome Procedures EMG(NEURO/NI) NERVE CONDUCTION STUDIES 9-10 STUDIES Elsa Fernandez DO [address] [place] [address] [facility] [address] [place] [id number] Referral ID Status Reason Start Date Expiration Date Visits Requested Visits Authorized [id number] Pending Review Auto-Generat ed Referral 04/06/2022 04/06/2023 1 1 [facility] for referral (narrative)* Diagnostic Procedure Only (Routine) - Closed Specialty Diagnoses / Procedures Referred By Contac t Referred To Contact XR IMAGING Diagnoses Pain Procedures XR WRIST GENERAL 3V PA/LAT/OBL BILATERAL RADEX WRIST COMPLETE MINIMUM 3 VIEWS Elsa Fernandez DO [address] [place] [address] Xr Imaging Referral ID Status Reason Start Date Expiration Date V isits Requested Visits Authorized [id number] Closed Auto-Generate d Referral 03/29/2022 04/28/2023 1 1 [facility] for referral (narrative)* Diagnostic Procedure Only (Routine) - Authorized Specialty Diagnoses / Procedures Referred By Contac t Referred To Contact [facility] Diagnoses Encounter for gynecological examination (general) (routine) without abnormal findings Encounter for screening mammogram for breast cancer Procedures ALISA SCREENING SCREENING MAMMOGRAPHY BI 2-VIEW BREAST INC Willow Koo APRN.SEATER GRINDER [address] [place] [address] [facility] [address] [place] [address] Referral ID Status Reason Start Date Expiration Date Visits Requested Visits Authorized [id number] Authorized Auto-Generat ed Referral 06/29/2023 07/28/2024 1 1 [facility] for referral (narrative)* Diagnostic Procedure Only (Routine) - Closed Specialty Diagnoses / Procedures Referred By Contac t Referred To Contact [facility] Diagnoses Encounter for gynecological examination with abnormal finding Encounter for screening mammogram for breast cancer Procedures ALISA SCREENING SCREENING MAMMOGRAPHY BI 2-VIEW BREAST INC Willow Koo APRN.SEATER GRINDER [address] [place] [address] [facility] [address] [place] [address] Referral ID Status Reason Start Date Expiration Date V isits Requested Visits Authorized [id number] Closed Auto-Generate d Referral 04/06/2022 05/06/2023 1 1 [facility] for visit Narrative* Diagnostic Procedure Only (Routine) - Closed Specialty Diagnoses / Procedures Referred By Contac t Referred To Contact XR IMAGING Diagnoses Pain Procedures XR WRIST GENERAL 3V PA/LAT/OBL BILATERAL RADEX WRIST COMPLETE MINIMUM 3 VIEWS Elsa Fernandez DO [address] [place] [address] Xr Imaging Referral ID Status Reason Start Date Expiration Date V isits Requested Visits Authorized [id number] Closed Auto-Generate d Referral 03/29/2022 04/28/2023 1 1 [facility] Diagnostic Procedure Only (Routine) - Closed Specialty Diagnoses / Procedures Referred By Umberto chaudhary Referred To Contact [facility] Diagnoses Encounter for gynecological examination with abnormal finding Encounter for screening mammogram for breast cancer Procedures ALISA SCREENING SCREENING MAMMOGRAPHY BI 2-VIEW BREAST INC Willow Koo APRN.SEATER GRINDER [address] [place] [address] [facility] [address] [place] [address] Referral ID Status Reason Start Date Expiration Date V isits Requested Visits Authorized [id number] Closed Auto-Generate d Referral 04/06/2022 05/06/2023 1 1 [facility] Summary Purpose Family History No Family History Records FoundNo Family History Records FoundNo Family History Records FoundNo Family History Records FoundNo Family History Records FoundNo Family History Records FoundNo Family History Records FoundNo Family History Records FoundNo Family History Records Found Advance Directives Documents on File Type Date 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 Advance Directive(s) 09/21/2021 1:05 PM Advance Directive(s) 09/03/2021 2:03 PM Advance Directive(s) 10/15/2018 7:05 AM Documents on File Type Date Recorded 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 In the event of a Fluress shortage, administer Helen-Fluor 1 drop into both eyes as directed for applanation tonometry Given 04/28/2022 9:02 AM EDT 1 Drop PHENYLephrine 2.5 % 1 Drop (AK-DILATE, TONY-SYNEPHRINE) 1 Drop, BOTH EYES, DIRECTED, Starting on Mon04/28/22 at 0900, Until Mon04/28/22 at 2058, Administer for dilation PROTECT FROM LIGHT Given 04/28/2022 9:02 AM EDT 1 Drop proparacaine 0.5 % 1 Drop (ALCAINE) 1 Drop, BOTH EYES, DIRECTED, Starting on Mon04/28/22 at 0900, Until Mon04/28/22 at 2058, Administer for pneumo tonometry, tonopen tonometry, or pachymetry. In the event of a proparacaine shortage, administer tetracaine 0.5% ophthalmic drops 1 drop in the left eye as directed for pneumo tonometry, tonopen tonometry, or pachymetry Given 04/28/2022 9:02 AM EDT 1 Drop tropicamide 1 % 1 Drop (MYDRIACYL) 1 Drop, BOTH EYES, DIRECTED, Starting on Mon04/28/22 at 0900, Until Mon04/28/22 at 2058, Administer for dilation Given 04/28/2022 9:02 AM EDT 1 Drop Inactive Administered Medications - up to 3 most recent administrations Medication Order MAR Action Action Date Dose Rate Site fluorescein-benoxinate 0.25-0.4 % 1 Drop (FLURESS) 1 Drop, BOTH EYES, DIRECTED, Starting on Mon05/16/23 at 1600, Until Mon05/17/23 at 035, Administer for applanation tonometry. In the event of a Fluress shortage, administer Helen-Fluor 1 drop into both eyes as directed for applanation tonometry Given 05/16/2023 4:00 PM EDT 1 Drop PHENYLephrine 2.5 % 1 Drop (AK-DILATE, TONY-SYNEPHRINE) 1 Drop, BOTH EYES, DIRECTED, Starting on Mon05/16/23 at 1600, Until Mon05/17/23 at 035, Administer for dilation PROTECT FROM LIGHT Given 05/16/2023 4:00 PM EDT 1 Drop proparacaine 0.5 % 1 Drop (ALCAINE) 1 Drop, BOTH EYES, DIRECTED, Starting on Mon05/16/23 at 1600, Until Mon05/17/23 at 035, Administer for pneumo tonometry, tonopen tonometry, or pachymetry. In the event of a proparacaine shortage, administer tetracaine 0.5% ophthalmic drops 1 drop in the left eye as directed for pneumo tonometry, tonopen tonometry, or pachymetry Given 05/16/2023 4:00 PM EDT 1 Drop tropicamide 1 % 1 Drop (MYDRIACYL) 1 Drop, BOTH EYES, DIRECTED, Starting on Mon05/16/23 at 1600, Until Mon05/17/23 at 0359, Administer for dilation Given 05/16/2023 4:00 PM EDT 1 Drop Additional Source Comments INFORMATION SOURCE (unrecogn ized section and content) DATE CREATED AUTHOR AUTHOR'S ORGANIZ ATION 10/15/2018 [facility] DATE CREATED AUTHOR AUTHOR'S ORGANIZ ATION 09/30/2020 [facility] DATE CREATED AUTHOR AUTHOR'S ORGANIZ ATION 08/21/2021 [facility] DATE CREATED AUTHOR AUTHOR'S ORGANIZ ATION 10/27/2021 [facility] DATE CREATED AUTHOR AUTHOR'S ORGANIZ ATION 04/08/2022 [facility] DATE CREATED AUTHOR AUTHOR'S ORGANIZ ATION 09/05/2022 [facility] ([place]) DATE CREATED AUTHOR AUTHOR'S ORGANIZ ATION 02/21/2023 [facility] DATE CREATED AUTHOR AUTHOR'S ORGANIZ ATION 07/17/2023 [facility] <item> Privacy Markings (unrecogniz ed section and content) Section Author: Jessy Mondragon PROHIBITION ON REDISCLOSURE OF CONFIDENTIAL INFORMATION This notice accompanies a disclosure of information concerning a client made to you with the consent of such client. Reason for Visit (unrecogniz ed section and content) Specialty Diagnoses / Procedures Referred By Umberto t Referred To Contact [facility] Diagnoses Stress incontinence Cystocele, midline Procedures CONSULT TO PHYSICAL THERAPY PHYSICAL THERAPY EVALUATION HIGH COMPLEX 45 MINS Willow Amos, INFORMATICS DEVELOPER.SEATER GRINDER [address] [place] [address] [facility] [address] [address] Referral ID Status Reason Start Date Expiration Date Visits Requested Visits Authorized [id number] Authorized Auto-Generat ed Referral 06/21/2022 10/15/2022 40 40 Reason Comments Physical Therapy Reason Comments Joint Pain Patient is here for a 6 Month F/U. Patient states that she is having neck and back pain today. Patient states on September 21 she had left shoulder replacement by [facility]. Patient state she had covid severely for a week and had respiratory failure. Patient states that she has been having fatigue. Reason Comments Follow Up Pain Reason Comments Established Patient Pain Reason Comments Diabetes Epiretinal Membrane Follow Up right eye Reason Comments Colposcopy Specialty Diagnoses / Procedures Referred By Umberto chaudhary Referred To Contact [facility] Diagnoses Cervical high risk human papillomavirus (HPV) DNA test positive Procedures COLPOSCOPY COLPOSCOPY CERVIX BX CERVIX & ENDOCRV CURRETAGE Willow Amos, INFORMATICS DEVELOPER.SEATER GRINDER [address] [place] [address] [address] [place] [address] Referral ID Status Reason Start Date Expiration Date V isits Requested Visits Authorized [id number] Closed Auto-Generate d Referral 04/14/2022 04/14/2023 1 1 Reason Comments Results Reason Comments PT Eval Reason Comments Refill Request Reason Comments Joint Pain Patient is [facility]/U. Patient states other than her back pain she has been doing pretty good. Patient states she is going to see ortho Dr. Hartmann in [place]. Reason Onset Date Comments EMG 09/27/2022 Specialty Diagnoses / Procedures Referred By Umberto chaudhary Referred To Contact [facility] Diagnoses Bilateral carpal tunnel syndrome Procedures EMG(NEURO/NI) NERVE CONDUCTION STUDIES 9-10 STUDIES Elsa Fernandez DO [address] [place] [address] [facility] [address] [place] [id number] Referral ID Status Reason Start Date Expiration Date V isits Requested Visits Authorized [id number] Closed Auto-Generate d Referral 04/06/2022 04/06/2023 1 1 Reason Comments Diabetes Blood sugar: 164A1c: 6.8 Reason Comments Yearly Exam Reason Comments Follow-up Patient is here for 6 month Follow-up. Patient states where she will have episodes of acute pain and fatigue. States has shoulder and neck pain. Care Teams (unrecognized sec tion and content) Cord Maker Relationship Specialty Start Date End Date Zabrina Gonzalez MD [address] [place] [place] [address] PCP - General 10/03/07 Cord Maker Relationship Specialty Start Date End Date aZbrina Gonzalez MD [address] [place] [address] PCP - General 10/03/07 Cord Maker Relationship Specialty Start Date End Date Zabrina Gonzalez MD [address] [place] [address] PCP - General 10/03/07 Cord Maker Relationship Specialty Start Date End Date Zabrina Gonzalez MD [address] [place] [address] PCP - General 10/03/07 Cord Maker Relationship Specialty Start Date End Date Zabrina Gonzalez MD [address] [place] [address] PCP - General 10/03/07 Cord Maker Relationship Specialty Start Date End Date Zabrina Gonzalez MD [address] [place] [address] PCP - General 10/03/07 Cord Maker Relationship Specialty Start Date End Date Zabrina Gonzalez MD [address] [place] [address] PCP - General 10/03/07 Cord Maker Relationship Specialty Start Date End Date Zabrina Gonzalez MD [address] [place] [address] PCP - General 10/03/07 Cord Maker Relationship Specialty Start Date End Date Zabrina Gonzalez MD [address] [place] [address] PCP - General 10/03/07 Cord Maker Relationship Specialty Start Date End Date Zabrina Gonzalez MD [address] [place] [address] PCP - General 10/03/07 Cord Maker Relationship Specialty Start Date End Date Zabrina Gonzalez MD [address] [place] [address] PCP - General 10/03/07 Cord Maker Relationship Specialty Start Date End Date Zabrina Gonzalez MD [address] [place] [address] PCP - General 10/03/07 Cord Maker Relationship Specialty Start Date End Date Zabrina Gonzalez MD [address] [place] [address] PCP - General 10/03/07 Cord Maker Relationship Specialty Start Date End Date Zabrina Gonzalez MD [address] [place] [address] PCP - General 10/03/07 Cord Maker Relationship Specialty Start Date End Date Zabrina Gonzalez MD [address] [place] [address] PCP - General 10/03/07 Cord Maker Relationship Specialty Start Date End Date Zabrina Gonzalez MD [address] [place] [address] PCP - General 10/03/07 Cord Maker Relationship Specialty Start Date End Date Zabrina Gonzalez MD [address] [place], [place] [address] PCP - General 06/06/11 Cord Maker Relationship Specialty Start Date End Date Zabrina Gonzalez MD [address] [place], [place] [address] [phone] PCP - General 10/03/07 Cord Maker Relationship Specialty Start Date End Date Zabrina Gonzalez MD [address] [place] [address] PCP - General 10/03/07 Cord Maker Relationship Specialty Start Date End Date Zabrina Gonzalez MD [address] [place] [address] PCP - General 10/03/07 Cord Maker Relationship Specialty Start Date End Date Zabrina Gonzalez MD [address] [place], [place] [address] PCP - General 10/03/07 Cord Maker Relationship Specialty Start Date End Date Zabrina Gonzalez MD [address] [place], [place] [id number] PCP - General 06/06/11 Source Comments (unrecognize d section and content) In the event this informatio n is protected by the Federal Confidentiality of Alcohol and Drug Abuse Patient Records regulations: The Federal rules restrict any use of the information to criminally investigate or prosecute any alcohol or drug abuse patient.[facility] Center[facility] the event this information is protected by the Federal Confidentiality of Alcohol and Drug Abuse Patient Records regulations: The Federal rules restrict any use of the information to criminally investigate or prosecute any alcohol or drug abuse patient.[facility] CenterIn the event this information is protected by the Federal Confidentiality of Alcohol and Drug Abuse Patient Records regulations: The Federal rules restrict any use of the information to criminally investigate or prosecute any alcohol or drug abuse patient.[facility] CenterIn the event this information is protected by the Federal Confidentiality of Alcohol and Drug Abuse Patient Records regulations: The Federal rules restrict any use of the information to criminally investigate or prosecute any alcohol or drug abuse patient.[facility] CenterIn the event this information is protected by the Federal Confidentiality of Alcohol and Drug Abuse Patient Records regulations: The Federal rules restrict any use of the information to criminally investigate or prosecute any alcohol or drug abuse patient.[facility] CenterIn the event this information is protected by the Federal Confidentiality of Alcohol and Drug Abuse Patient Records regulations: The Federal rules restrict any use of the information to criminally investigate or prosecute any alcohol or drug abuse patient.[facility] CenterIn the event this information is protected by the Federal Confidentiality of Alcohol and Drug Abuse Patient Records regulations: The Federal rules restrict any use of the information to criminally investigate or prosecute any alcohol or drug abuse patient.[facility] CenterIn the event this information is protected by the Federal Confidentiality of Alcohol and Drug Abuse Patient Records regulations: The Federal rules restrict any use of the information to criminally investigate or prosecute any alcohol or drug abuse patient.[facility] CenterIn the event this information is protected by the Federal Confidentiality of Alcohol and Drug Abuse Patient Records regulations: The Federal rules restrict any use of the information to criminally investigate or prosecute any alcohol or drug abuse patient.[facility] CenterIn the event this information is protected by the Federal Confidentiality of Alcohol and Drug Abuse Patient Records regulations: The Federal rules restrict any use of the information to criminally investigate or prosecute any alcohol or drug abuse patient.[facility] CenterIn the event this information is protected by the Federal Confidentiality of Alcohol and Drug Abuse Patient Records regulations: The Federal rules restrict any use of the information to criminally investigate or prosecute any alcohol or drug abuse patient.[facility] CenterIn the event this information is protected by the Federal Confidentiality of Alcohol and Drug Abuse Patient Records regulations: The Federal rules restrict any use of the information to criminally investigate or prosecute any alcohol or drug abuse patient.[facility] CenterIn the event this information is protected by the Federal Confidentiality of Alcohol and Drug Abuse Patient Records regulations: The Federal rules restrict any use of the information to criminally investigate or prosecute any alcohol or drug abuse patient.[facility] the event this information is protected by the Federal Confidentiality of Alcohol and Drug Abuse Patient Records regulations: The Federal rules restrict any use of the information to criminally investigate or prosecute any alcohol or drug abuse patient.[facility] CenterIn the event this information is protected by the Federal Confidentiality of Alcohol and Drug Abuse Patient Records regulations: The Federal rules restrict any use of the information to criminally investigate or prosecute any alcohol or drug abuse patient.[facility] CenterIn the event this information is protected by the Federal Confidentiality of Alcohol and Drug Abuse Patient Records regulations: The Federal rules restrict any use of the information to criminally investigate or prosecute any alcohol or drug abuse patient.[facility] the event this information is protected by the Federal Confidentiality of Alcohol and Drug Abuse Patient Records regulations: The Federal rules restrict any use of the information to criminally investigate or prosecute any alcohol or drug abuse patient.[facility] CenterIn the event this information is protected by the Federal Confidentiality of Alcohol and Drug Abuse Patient Records regulations: The Federal rules restrict any use of the information to criminally investigate or prosecute any alcohol or drug abuse patient.[facility] CenterIn the event this information is protected by the Federal Confidentiality of Alcohol and Drug Abuse Patient Records regulations: The Federal rules restrict any use of the information to criminally investigate or prosecute any alcohol or drug abuse patient.[facility] CenterIn the event this information is protected by the Federal Confidentiality of Alcohol and Drug Abuse Patient Records regulations: The Federal rules restrict any use of the information to criminally investigate or prosecute any alcohol or drug abuse patient.[facility] CenterIn the event this information is protected by the Federal Confidentiality of Alcohol and Drug Abuse Patient Records regulations: The Federal rules restrict any use of the information to criminally investigate or prosecute any alcohol or drug abuse patient.[facility] CenterIn the event this information is protected by the Federal Confidentiality of Alcohol and Drug Abuse Patient Records regulations: The Federal rules restrict any use of the information to criminally investigate or prosecute any alcohol or drug abuse patient.[facility] CenterIn the event this information is protected by the Federal Confidentiality of Alcohol and Drug Abuse Patient Records regulations: The Federal rules restrict any use of the information to criminally investigate or prosecute any alcohol or drug abuse patient.[facility] Care Team (unrecognized sect ion and content) Care Team Personnel Name: ZABRINA GONZALEZ MD Member Role: Primary Care Physician Address: Address: [address] [facility] [address] [place] [address]- Care Team Related Persons Name: JEROMY ELLISON Address: Home [address] [place] [address] FOR RECORDS PERTAINING TO PATIENTS WHO ARE OR HAVE BEEN ENROLLED IN A CHEMICAL DEPENDENCY/SUBSTANCEABUSE PROGRAM, SOME INFORMATION MAY BE OMITTED. This clinical summary was aggregated from multiple sources. Caution should be exercised in using it in the provision of clinical care. This summary normalizes information from multiple sources, and as a consequence, information in this document may materially change the coding, format and clinical context of patient data. In addition, data may be omitted in some cases. CLINICAL DECISIONS SHOULD BE BASED ON THE PRIMARY CLINICAL RECORDS. [facility], [facility]. provides no warranty or guarantee of the accuracy or completeness of information in this document.
== END | disposition home or self-care (01) ==
LOC: MFPLAB 10:39
PROVIDERS: PCP Family Medicine; Visit Provider Family Medicine
DX: E11.9 Type 2 diabetes mellitus without complications (principal)
CPT/HCPCS: 36415; 80048; 80061; 84443

== ENCOUNTER → 2024-01-15 | Outpatient (CLI) | payer OTHER, SELFPAY ==
[2024-01-15 18:14] LABS: Hematocrit 35.5 % (37-47); Hemoglobin 11.9 g/dL (12.0-15.0); Mean Corp Hgb Conc 33.5 g/dL (32-36); Mean Corpuscular Hgb 29.8 pg (27.0-32.0); Mean Corpuscular Volume 88.8 fL (81-99); Mean Platelet Vol. 10.1 fl (6.2-12.0); Platelet Count 154 K/mm3 (150-450); RBC Distribution Width CV 12.5 % (11.6-14.6); RBC Distribution Width SD 40.4 fl (35.1-43.9)
[2024-01-15 18:16] LABS: International Normalized Ratio 1.1; Prothrombin Time (Protime)PT. 14.3 SECONDS (11.7-14.9)
[2024-01-15 18:17] LABS: Partial Thromboplast Time 29.5 Seconds (24.1-36.2)
[2024-01-15 18:37] LABS: AST(SGOT) 41 U/L (15-37); Alanine Aminotransfer ALT/SGPT 50 U/L (13-56); Albumin, Serum 3.6 g/dL (3.2-5.0); Alkaline Phosphatase 91 U/L (45-117); Anion Gap 9 (5-15); BUN 14 mg/dL (7-18); BUN/Creat Ratio 14.6 RATIO (10-20); Calcium,Total 9.7 mg/dL (8.5-10.1); Chloride 107 mmol/L (98-107); Creatinine, Serum 0.96 mg/dL (0.55-1.02); EST Glomerular Filtration Rate 62 mL/min (>60); Est Glom Filt Rate - Afr Amer 75 mL/min (>60); Globulin 3.6 g/dL (2.2-4.2); Glucose 184 mg/dL (74-106); Potassium 4.2 mmol/L (3.5-5.1); Protein, Total 7.2 g/dL (6.4-8.2); Sodium Level 140 mmol/L (136-145)
[2024-01-17 04:07] LABS: AFP, Tumor Marker 3.8 ng/mL (0.0-9.2)
== END | disposition home or self-care (01) ==
PROVIDERS: PCP Family Medicine; Referring Provider Internal Medicine Gastroenterology; Visit Provider Internal Medicine Gastroenterology
DX: K74.60 Unspecified cirrhosis of liver (principal)
CPT/HCPCS: 36415; 80053; 82105; 85027; 85610; 85730

== ENCOUNTER → 2024-02-14 | Outpatient (CLI) | payer OTHER, SELFPAY ==
[2024-02-14 10:15] LABS: Bacteria 0 SEEN /hpf (None Seen); Mucous, Urine 0 SEEN /hpf (<or=2+); Red Blood Cells-Urine 0 SEEN /hpf (0-5)
[2024-02-14 10:49] LABS: Color, Urine Yellow (Yellow); Glucose, Dipstick Normal (Normal); Ketone-Dipstick Negative (Negative); Leukocyte Esterase-Dipstick 25 /ul (Negative); Nitrite-Dipstick Negative (Negative); Occult Blood-Urine Negative /ul (Negative); Protein-Dipstick Negative (Negative); Urine Bilirubin Dipstick Negative (Negative); Urine Clarity Clear (Clear); Urine Urobilinogen Normal (Normal); Urine pH 6.5 (5.0 - 8.0)
[2024-02-14 10:56] LABS: Squamous Epithelial Cells - UA 0-5 SEEN /hpf (5-10); White Blood Cells 0-5 SEEN /hpf (0-5)
[2024-02-14 10:59] LABS: Erythrocyte Sedimentation Rate 31 mm/hr (0-30)
[2024-02-14 11:02] LABS: Absolute Lymphocyte Count 1.32 X10^3/uL (0.83-4.51); Absolute Neutrophil Count 2.9 X10^3/uL (2.0-7.7); Basophil# 0.05 X10^3/uL; Eosinophil# 0.21 X10^3/uL; Eosinophils% 4.3 % (0-5); Hematocrit 35.8 % (37-47); Hemoglobin 11.9 g/dL (12.0-15.0); Lymphocyte # 1.32 X10^3/ul (0.83-4.51); Lymphocyte % 27.3 % (19-41); Mean Corp Hgb Conc 33.2 g/dL (32-36); Mean Corpuscular Hgb 29.8 pg (27.0-32.0); Mean Corpuscular Volume 89.7 fL (81-99); Mean Platelet Vol. 9.9 fl (6.2-12.0); Monocyte# 0.34 X10^3/uL; NRBC Flagged by Analyzer 0 % (0-5); Platelet Count 172 K/mm3 (150-450); RBC Distribution Width CV 12.9 % (11.6-14.6); RBC Distribution Width SD 42.3 fl (35.1-43.9); Red Blood Count 3.99 M/mm3 (4.2-5.4); White Blood Count 4.8 K/mm3 (4.4-11.0)
[2024-02-14 11:22] LABS: ALB/GLOB Ratio 0.9 RATIO (0.9-2.4); AST(SGOT) 35 U/L (15-37); Alanine Aminotransfer ALT/SGPT 29 U/L (13-56); Albumin, Serum 3.5 g/dL (3.2-5.0); Alkaline Phosphatase 87 U/L (45-117); Anion Gap 6 (5-15); BUN 22 mg/dL (7-18); BUN/Creat Ratio 20.8 RATIO (10-20); CPK Total, Creatine Kinase 37 U/L (26-192); Calcium,Total 9.5 mg/dL (8.5-10.1); Chloride 107 mmol/L (98-107); Creatinine, Serum 1.06 mg/dL (0.55-1.02); EST Glomerular Filtration Rate 56 mL/min (>60); Est Glom Filt Rate - Afr Amer 67 mL/min (>60); Globulin 3.9 g/dL (2.2-4.2); Glucose 210 mg/dL (74-106); Potassium 4.3 mmol/L (3.5-5.1); Protein, Total 7.4 g/dL (6.4-8.2); Sodium Level 138 mmol/L (136-145)
[2024-02-15 05:07] LABS: Complement C3 222 mg/dL (82-167)
== END | disposition home or self-care (01) ==
LOC: LAB 10:08
PROVIDERS: PCP Family Medicine; Referring Provider Internal Medicine Rheumatology; Visit Provider Internal Medicine Rheumatology
DX: M32.19 Other organ or system involvement in systemic lupus erythematosus (principal); R79.82 Elevated C-reactive protein (CRP); H04.123 Dry eye syndrome of bilateral lacrimal glands; Z87.39 Personal history of other diseases of the musculoskeletal system and connective tissue; Z96.642 Presence of left artificial hip joint; Z79.1 Long term (current) use of non-steroidal anti-inflammatories (NSAID); R76.8 Other specified abnormal immunological findings in serum; K76.0 Fatty (change of) liver, not elsewhere classified; E55.9 Vitamin D deficiency, unspecified; K11.7 Disturbances of salivary secretion; M35.01 Sjogren syndrome with keratoconjunctivitis; M51.36 Other intervertebral disc degeneration, lumbar region; M19.071 Primary osteoarthritis, right ankle and foot; M19.072 Primary osteoarthritis, left ankle and foot
CPT/HCPCS: 36415; 80053; 81001; 82550; 84550; 85025; 85652; 86140; 86160; 87077; 87086; 87088; 87186

== ENCOUNTER → 2024-02-21 | Outpatient (CLI) | payer OTHER, SELFPAY ==
[2024-02-21 11:02] LABS: Absolute Lymphocyte Count 1.49 X10^3/uL (0.83-4.51); Absolute Neutrophil Count 3.7 X10^3/uL (2.0-7.7); Basophil# 0.05 X10^3/uL; Basophil% 0.9 % (0-1); Eosinophil# 0.21 X10^3/uL; Eosinophils% 3.6 % (0-5); Hematocrit 36.8 % (37-47); Hemoglobin 12.2 g/dL (12.0-15.0); Lymphocyte # 1.49 X10^3/ul (0.83-4.51); Lymphocyte % 25.5 % (19-41); Mean Corp Hgb Conc 33.2 g/dL (32-36); Mean Corpuscular Hgb 29.8 pg (27.0-32.0); Mean Platelet Vol. 9.3 fl (6.2-12.0); Monocyte# 0.33 X10^3/uL; Monocyte% 5.7 % (0-10); NRBC Flagged by Analyzer 0 % (0-5); Neutrophil # 3.72 X10^3/uL (2.7-7.7); Neutrophil % 63.6 % (47-70); Platelet Count 182 K/mm3 (150-450); RBC Distribution Width CV 13.2 % (11.6-14.6); RBC Distribution Width SD 43.6 fl (35.1-43.9); Red Blood Count 4.09 M/mm3 (4.2-5.4); White Blood Count 5.8 K/mm3 (4.4-11.0)
== END | disposition home or self-care (01) ==
LOC: LAB 10:44
PROVIDERS: PCP Family Medicine; Referring Provider Internal Medicine Pulmonary Disease; Visit Provider Internal Medicine Pulmonary Disease
DX: R06.9 Unspecified abnormalities of breathing (principal)
CPT/HCPCS: 36415; 85025

== ENCOUNTER → 2024-02-26 | Outpatient (CLI) | payer OTHER, SELFPAY ==
[2024-02-26 15:15] LABS: Bacteria 0 SEEN /hpf (None Seen); Mucous, Urine 0 SEEN /hpf (<or=2+); Red Blood Cells-Urine 0 SEEN /hpf (0-5); Squamous Epithelial Cells - UA 0 SEEN /hpf (5-10); White Blood Cells 0 SEEN /hpf (0-5)
[2024-02-26 15:50] LABS: Color, Urine Yellow (Yellow); Glucose, Dipstick Normal (Normal); Ketone-Dipstick Negative (Negative); Leukocyte Esterase-Dipstick Negative /ul (Negative); Nitrite-Dipstick Negative (Negative); Occult Blood-Urine Negative /ul (Negative); Protein-Dipstick Negative (Negative); Urine Bilirubin Dipstick Negative (Negative); Urine Clarity Clear (Clear); Urine Urobilinogen Normal (Normal)
== END | disposition home or self-care (01) ==
LOC: LAB 15:05
PROVIDERS: PCP Family Medicine; Referring Provider Internal Medicine Rheumatology; Visit Provider Internal Medicine Rheumatology
DX: N39.0 Urinary tract infection, site not specified (principal); B95.1 Streptococcus, group B, as the cause of diseases classified elsewhere
CPT/HCPCS: 81001; 87086; 87088

== ENCOUNTER → 2024-04-02 | Outpatient (CLI) | payer OTHER, SELFPAY ==
--- NOTE | 2024-04-02 08:55 | US_ITS ---
STUDY: ABDOMINAL ULTRASOUND - RIGHT UPPER QUADRANT REASON FOR VISIT: Female, 63 years old CIRRHOSIS TECHNIQUE: Ultrasound evaluation of the right upper quadrant was performed with real-time and static nuñez-scale imaging. TECHNICAL QUALITY: Adequate. COMPARISON: Comparison is made with prior study dated June 12, 2023. FINDINGS: Liver: The liver is enlarged and measures 18.9 cm. There is increased echogenicity consistent with fatty infiltration. The bile ducts are within normal limits. There is hepatic color flow. The direction of portal flow is hepatopetal. There is no demonstrated mass lesion. Gallbladder: Normal distended gallbladder. The gallbladder wall measures 2 mm. There is a negative sonographic Villegas''s sign. There is no pericholecystic fluid. There are no gallstones. Common Bile Duct (C.B.D.): The common bile duct measures 5 mm. Pancreas: Normal size of the head, body and tail of the pancreas. There is normal echogenicity of the pancreas. There is no demonstrated pancreatic mass or cyst. Right Kidney: Normal size of the right kidney. The right kidney measures 9.6 cm x 6 cm x 4.3 cm. Normal renal cortex. The right cortex measures 1.2 cm. There is no demonstrated renal mass or cyst. There is no right hydronephrosis. US/Abdomen Limited IMPRESSION: Hepatomegaly and fatty infiltration of the liver. Electronically Signed: Deric Abdalla MD at 14:36 EDT ,
== END | disposition home or self-care (01) ==
PROVIDERS: PCP Family Medicine; Referring Provider Internal Medicine Gastroenterology; Visit Provider Internal Medicine Gastroenterology
DX: K74.60 Unspecified cirrhosis of liver (principal)
CPT/HCPCS: 76705

== ENCOUNTER → 2024-08-28 | Outpatient (CLI) | payer OTHER, SELFPAY ==
[2024-08-28 16:19] LABS: Color, Urine Straw (Yellow); Glucose, Dipstick Normal (Normal); Ketone-Dipstick Negative (Negative); Leukocyte Esterase-Dipstick Negative /ul (Negative); Nitrite-Dipstick Negative (Negative); Occult Blood-Urine Negative /ul (Negative); Protein-Dipstick Negative (Negative); Urine Bilirubin Dipstick Negative (Negative); Urine Clarity Clear (Clear); Urine Urobilinogen Normal (Normal)
[2024-08-28 16:35] LABS: Absolute Lymphocyte Count 1.72 X10^3/uL (0.83-4.51); Absolute Neutrophil Count 3.9 X10^3/uL (2.0-7.7); Basophil# 0.05 X10^3/uL; Basophil% 0.8 % (0-1); Eosinophils% 3.2 % (0-5); Hematocrit 37.6 % (37-47); Hemoglobin 12.2 g/dL (12.0-15.0); Lymphocyte # 1.72 X10^3/ul (0.83-4.51); Lymphocyte % 27.4 % (19-41); Mean Corp Hgb Conc 32.4 g/dL (32-36); Mean Corpuscular Hgb 28.5 pg (27.0-32.0); Mean Corpuscular Volume 87.9 fL (81-99); Mean Platelet Vol. 9.5 fl (6.2-12.0); Monocyte# 0.35 X10^3/uL; Monocyte% 5.6 % (0-10); NRBC Flagged by Analyzer 0 % (0-5); Neutrophil % 62.2 % (47-70); Platelet Count 169 K/mm3 (150-450); RBC Distribution Width CV 13.4 % (11.6-14.6); RBC Distribution Width SD 43.2 fl (35.1-43.9); Red Blood Count 4.28 M/mm3 (4.2-5.4); White Blood Count 6.3 K/mm3 (4.4-11.0)
[2024-08-28 16:37] LABS: International Normalized Ratio 1.1; Prothrombin Time (Protime)PT. 14.4 SECONDS (11.7-14.9)
[2024-08-28 16:38] LABS: Partial Thromboplast Time 31.4 Seconds (24.1-36.2)
[2024-08-28 17:08] LABS: ALB/GLOB Ratio 0.9 RATIO (0.9-2.4); AST(SGOT) 41 U/L (15-37); Alanine Aminotransfer ALT/SGPT 38 U/L (13-56); Albumin, Serum 3.8 g/dL (3.2-5.0); Alkaline Phosphatase 136 U/L (45-117); Anion Gap 4 (5-15); BUN 20 mg/dL (7-18); BUN/Creat Ratio 23.3 RATIO (10-20); CPK Total, Creatine Kinase 42 U/L (26-192); Calcium,Total 9.8 mg/dL (8.5-10.1); Chloride 104 mmol/L (98-107); Creatinine, Serum 0.86 mg/dL (0.55-1.02); EST Glomerular Filtration Rate 71 mL/min (>60); Est Glom Filt Rate - Afr Amer 86 mL/min (>60); Globulin 4.3 g/dL (2.2-4.2); Glucose 101 mg/dL (74-106); Potassium 4.2 mmol/L (3.5-5.1); Protein, Total 8.1 g/dL (6.4-8.2); Sodium Level 138 mmol/L (136-145); Uric Acid 9.6 mg/dL (2.6-6.0)
[2024-08-28 17:18] LABS: T4 Free Direct 1.39 ng/dL (0.76-1.46)
[2024-08-28 17:23] LABS: Erythrocyte Sedimentation Rate 24 mm/hr (0-30)
[2024-08-30 04:07] LABS: AFP, Tumor Marker 3.5 ng/mL (0.0-9.2); Complement C3 210 mg/dL (82-167)
== END | disposition home or self-care (01) ==
LOC: LAB 15:34
PROVIDERS: PCP Family Medicine; Referring Provider Internal Medicine Gastroenterology; Visit Provider Internal Medicine Rheumatology
DX: K74.60 Unspecified cirrhosis of liver (principal); M32.19 Other organ or system involvement in systemic lupus erythematosus; D64.9 Anemia, unspecified; B95.1 Streptococcus, group B, as the cause of diseases classified elsewhere; R76.8 Other specified abnormal immunological findings in serum; Z79.52 Long term (current) use of systemic steroids; N39.0 Urinary tract infection, site not specified; Z79.1 Long term (current) use of non-steroidal anti-inflammatories (NSAID); Z79.2 Long term (current) use of antibiotics; Z96.642 Presence of left artificial hip joint; Z87.39 Personal history of other diseases of the musculoskeletal system and connective tissue; H04.123 Dry eye syndrome of bilateral lacrimal glands; R79.82 Elevated C-reactive protein (CRP); R94.4 Abnormal results of kidney function studies; K11.7 Disturbances of salivary secretion; K76.0 Fatty (change of) liver, not elsewhere classified; M35.01 Sjogren syndrome with keratoconjunctivitis; M19.071 Primary osteoarthritis, right ankle and foot; M19.072 Primary osteoarthritis, left ankle and foot
CPT/HCPCS: 36415; 80053; 81002; 82105; 82550; 84439; 84443; 84550; 85025; 85610; 85652; 85730; 86140; 86160; 87086; 87088; 87186

== ENCOUNTER → 2024-09-10 | Outpatient (CLI) | payer OTHER, SELFPAY ==
[2024-09-10 10:15] LABS: Bacteria 0 SEEN /hpf (None Seen); Mucous, Urine 0 SEEN /hpf (<or=2+); Red Blood Cells-Urine 0 SEEN /hpf (0-5); Squamous Epithelial Cells - UA 0 SEEN /hpf (5-10); White Blood Cells 0 SEEN /hpf (0-5)
[2024-09-10 11:01] LABS: Color, Urine Straw (Yellow); Glucose, Dipstick Normal (Normal); Ketone-Dipstick Negative (Negative); Leukocyte Esterase-Dipstick Negative /ul (Negative); Nitrite-Dipstick Negative (Negative); Occult Blood-Urine Negative /ul (Negative); Protein-Dipstick Negative (Negative); Urine Bilirubin Dipstick Negative (Negative); Urine Clarity Clear (Clear); Urine Urobilinogen Normal (Normal)
== END | disposition home or self-care (01) ==
LOC: LAB 10:05
PROVIDERS: PCP Family Medicine; Referring Provider Internal Medicine Rheumatology; Visit Provider Internal Medicine Rheumatology
DX: M32.19 Other organ or system involvement in systemic lupus erythematosus (principal); M35.00 Sjogren syndrome, unspecified; R76.8 Other specified abnormal immunological findings in serum; Z79.1 Long term (current) use of non-steroidal anti-inflammatories (NSAID); Z79.2 Long term (current) use of antibiotics; R77.1 Abnormality of globulin; Z96.642 Presence of left artificial hip joint; Z87.39 Personal history of other diseases of the musculoskeletal system and connective tissue; H04.123 Dry eye syndrome of bilateral lacrimal glands; R74.8 Abnormal levels of other serum enzymes; K11.7 Disturbances of salivary secretion; K75.81 Nonalcoholic steatohepatitis (NASH); E79.0 Hyperuricemia without signs of inflammatory arthritis and tophaceous disease; H16.229 Keratoconjunctivitis sicca, not specified as Sjogren's, unspecified eye; M19.071 Primary osteoarthritis, right ankle and foot; M19.072 Primary osteoarthritis, left ankle and foot
CPT/HCPCS: 81001

== ENCOUNTER → 2024-09-25 | Outpatient (CLI) | payer OTHER, SELFPAY ==
--- NOTE | 2024-09-25 15:34 | MRI_ITS ---
INDICATION: CIRRHOSIS EXAMINATION: MRI - MR Abdomen WO/W Contrast TECHNIQUE: Multiplanar and multisequence MR images of the abdomen were obtained. IV Contrast Dosage and Agent: CLARISCAN 20ML IV COMPARISON: Prior study dated: 10/03/2023 MRI. Ultrasound from 04/02/2024. FINDINGS: LOWER CHEST: Lung bases are clear. No cardiomegaly or pericardial effusion. LIVER: Normal size of the liver with a nodular contour consistent with cirrhosis. No signal dropout on out of phase imaging. Dynamic postcontrast imaging shows no arterial phase enhancing lesion. No areas of early washed out. There is a peripheral T1 bright focus along segment 6 which is unchanged from prior. GALLBLADDER AND BILIARY TREE: No filling defects in the gallbladder. No gallbladder distension or wall edema. No intra- or extrahepatic biliary ductal dilation. PANCREAS: No focal cystic or solid mass. SPLEEN: Normal size without focal cystic or solid mass. ADRENAL GLANDS: No nodules. KIDNEYS AND URETERS: Normal renal size and position. No hydronephrosis. No renal mass. PERITONEUM: No ascites or free air. No other fluid collection. BOWEL: Tiny hiatal hernia. No obstruction. No gross mass. LYMPH NODES: No enlarged mesenteric or retroperitoneal lymph nodes. VESSELS: Aorta is non-dilated. The portal vein is patent. OSSEOUS STRUCTURES: No acute or suspicious osseous abnormalities. MRI/MRI Abd WITH and W/O Contrast IMPRESSION: Cirrhotic liver. No suspicious liver mass. Electronically Signed: Adis Birmingham MD at 0:39 EST ,
== END | disposition home or self-care (01) ==
LOC: MRI 15:23
PROVIDERS: PCP Family Medicine; Referring Provider Internal Medicine Gastroenterology; Visit Provider Internal Medicine Gastroenterology
DX: K74.60 Unspecified cirrhosis of liver (principal)
CPT/HCPCS: 74183; A9575; A4216

== ENCOUNTER → 2024-11-27 | Outpatient (CLI) | payer OTHER, SELFPAY ==
[2024-11-27 13:53] LABS: Cholesterol 244 mg/dL (200); Glucose 136 mg/dL (74-106); High Density Lipoprotein 43 mg/dL; Magnesium 1.8 mg/dL (1.6-2.6); Triglycerides 174 mg/dL; Uric Acid 6.4 mg/dL (2.6-6.0); Very Low Density Lipoprotein 35 mg/dL (5-40)
== END | disposition home or self-care (01) ==
LOC: MFPLAB 11:09
PROVIDERS: PCP Family Medicine; Referring Provider Family Medicine; Visit Provider Family Medicine
DX: R79.0 Abnormal level of blood mineral (principal); M10.9 Gout, unspecified; R74.8 Abnormal levels of other serum enzymes
CPT/HCPCS: 36415; 80061; 82947; 83735; 84550

== ENCOUNTER → 2025-02-26 | Outpatient (CLI) | payer OTHER, SELFPAY ==
[2025-02-26 13:42] LABS: Erythrocyte Sedimentation Rate 53 mm/hr (0-30)
[2025-02-26 13:44] LABS: Absolute Lymphocyte Count 1.72 X10^3/uL (0.83-4.51); Absolute Neutrophil Count 4.4 X10^3/uL (2.0-7.7); Basophil# 0.06 X10^3/uL; Basophil% 0.9 % (0-1); Hematocrit 32.7 % (37-47); Hemoglobin 10.7 g/dL (12.0-15.0); Lymphocyte # 1.72 X10^3/ul (0.83-4.51); Lymphocyte % 25.4 % (19-41); Mean Corp Hgb Conc 32.7 g/dL (32-36); Mean Corpuscular Hgb 28.9 pg (27.0-32.0); Mean Corpuscular Volume 88.4 fL (81-99); Mean Platelet Vol. 9.6 fl (6.2-12.0); Monocyte# 0.39 X10^3/uL; Monocyte% 5.8 % (0-10); NRBC Flagged by Analyzer 0 % (0-5); Neutrophil # 4.37 X10^3/uL (2.7-7.7); Neutrophil % 64.5 % (47-70); Platelet Count 153 K/mm3 (150-450); RBC Distribution Width CV 14.7 % (11.6-14.6); RBC Distribution Width SD 47.8 fl (35.1-43.9); White Blood Count 6.8 K/mm3 (4.4-11.0)
[2025-02-26 13:46] LABS: Partial Thromboplast Time 31.3 Seconds (24.1-36.2)
[2025-02-26 14:16] LABS: International Normalized Ratio 1.2
[2025-02-26 14:44] LABS: CPK Total, Creatine Kinase 50 U/L (24-195); Cholesterol 147 mg/dL (<=200); EST Glomerular Filtration Rate 73 (>60); High Density Lipoprotein 52 mg/dL; Low Density Lipoprotein Calc. 77 mg/dL; Triglycerides 91 mg/dL; Very Low Density Lipoprotein 18 mg/dL (5-40); cholesterol:hdl ratio screen 2.83
[2025-02-26 14:46] LABS: AST(SGOT) 45 U/L (<=31); Alanine Aminotransfer ALT/SGPT 27 U/L (<=34); Albumin, Serum 4.1 g/dL (3.4-4.8); Alkaline Phosphatase 162 U/L (35-104); Anion Gap 13 (5-15); BUN 22 mg/dL (4-19); BUN/Creat Ratio 25.5 RATIO (10-20); CORTISOL AM 6.54 ug/dL (6.02-18.40); Carbon Dioxide 21.5 mmol/L (21.0-32.0); Chloride 103 mmol/L (98-108); Creatinine, Serum 0.88 mg/dL (0.70-1.20); Globulin 3.9 g/dL (2.2-4.2); Glucose 142 mg/dL (70-99); Iron 57 ug/dL (50-170); Potassium 4.2 mmol/L (3.3-5.1); Sodium Level 137 mmol/L (133-145); Total Bilirubin 0.46 mg/dL (0.00-1.30); Uric Acid 5.2 mg/dL (2.6-6.0); Vitamin B12 396 pg/mL (180-914)
[2025-03-03 14:08] LABS: AFP, Tumor Marker 3.3 ng/mL (0.0-9.2); Albumin 3.4 g/dL (2.9-4.4); Alpha-1-Globulins 0.3 g/dL (0.0-0.4); Alpha-2-Globulins 0.8 g/dL (0.4-1.0); Complement C3 197 mg/dL (82-167); Gamma Globulin 1.7 g/dL (0.4-1.8); Immunoglobulin A 252 mg/dL (87-352); Immunoglobulin G 1655 mg/dL (586-1602); Immunoglobulin M 170 mg/dL (26-217); PROEL- TOTAL PROTEIN 7.4 g/dL (6.0-8.5)
== END | disposition home or self-care (01) ==
PROVIDERS: PCP Family Medicine; Referring Provider Internal Medicine Gastroenterology; Visit Provider Internal Medicine Rheumatology
DX: M32.19 Other organ or system involvement in systemic lupus erythematosus (principal); M35.00 Sjogren syndrome, unspecified; R76.8 Other specified abnormal immunological findings in serum; Z79.1 Long term (current) use of non-steroidal anti-inflammatories (NSAID); Z79.2 Long term (current) use of antibiotics; R77.1 Abnormality of globulin; Z96.642 Presence of left artificial hip joint; Z87.39 Personal history of other diseases of the musculoskeletal system and connective tissue; H04.123 Dry eye syndrome of bilateral lacrimal glands; R74.8 Abnormal levels of other serum enzymes; K11.7 Disturbances of salivary secretion; E55.9 Vitamin D deficiency, unspecified; K75.81 Nonalcoholic steatohepatitis (NASH); E79.0 Hyperuricemia without signs of inflammatory arthritis and tophaceous disease; H16.229 Keratoconjunctivitis sicca, not specified as Sjogren's, unspecified eye; M19.071 Primary osteoarthritis, right ankle and foot; M19.072 Primary osteoarthritis, left ankle and foot
CPT/HCPCS: 80053; 80061; 82105; 82306; 82533; 82550; 82595; 82607; 82652; 82784; 83540; 84165; 84439; 84443; 84550; 85025; 85610; 85652; 85730; 86140; 86160; 86334

== ENCOUNTER → 2025-03-05 | Outpatient (CLI) | payer OTHER, SELFPAY ==
--- NOTE | 2025-03-05 10:14 | US_ITS ---
PROCEDURE: ABDOMEN LIMITED 03/05/2025 REASON FOR EXAM: CIRRHOSIS COMPARISON: Prior MRI examination dated September 25, 2024. FINDINGS: Liver: Diffusely echogenic suggesting fatty infiltration. Borderline hepatomegaly. Gallbladder: No stones, sludge, wall thickening or tenderness. Common bile duct: Normal measuring 4.9 mm . Pancreas: 6 mm x 7 mm x 5 mm cyst in the body of the pancreas. Other: Visualized portions of the right kidney are unremarkable. No right upper quadrant ascites. US/Abdomen Limited IMPRESSION: Diffuse fatty infiltration of the liver. Borderline hepatomegaly. 6 mm x 7 mm x 5 mm cyst in the body of the pancreas. Reading Location: [place] [address]
[2025-03-05 10:17] LABS: Mucous, Urine 0 SEEN /hpf (<or=2+)
[2025-03-05 10:50] LABS: Color, Urine Yellow (Yellow); Glucose, Dipstick Normal (Normal); Ketone-Dipstick Negative (Negative); Leukocyte Esterase-Dipstick 100 /ul (Negative); Nitrite-Dipstick Negative (Negative); Occult Blood-Urine 25 /ul (Negative); Protein-Dipstick 100 mg/dl (Negative); Urine Bilirubin Dipstick Negative (Negative); Urine Clarity Clear (Clear); Urine Urobilinogen Normal (Normal)
[2025-03-05 11:07] LABS: Bacteria 1+ /hpf (None Seen); Red Blood Cells-Urine 0-5 SEEN /hpf (0-5); Squamous Epithelial Cells - UA 0-5 SEEN /hpf (5-10); White Blood Cells 10-25 SEEN /hpf (0-5)
== END | disposition home or self-care (01) ==
PROVIDERS: PCP Family Medicine; Referring Provider Internal Medicine Gastroenterology; Visit Provider Internal Medicine Gastroenterology
DX: K74.60 Unspecified cirrhosis of liver (principal)
CPT/HCPCS: 76705; 81001

== ENCOUNTER 2025-05-02 16:00 | Outpatient (RCR) | payer OTHER, SELFPAY ==
--- NOTE | 2025-03-12 17:52 | HP.PTEVAL ---
Patient's Visit Information Visit Information Visit Information: AMY ELLISON is a 64 year old F referred to Physical Therapy by Dr. Armond Lee MD with a diagnosis of Lumbar radiculopathy Left. Date of Evaluation: 03/12/25 Physical Therapist: Darryl Manriquez DPT Visit Plan Frequency: 2x /Week Duration: 4 Weeks Plan: Start with lumbar ROM. May use IFC and US to reduce symptoms Progress to neutral spine core stability Subjective Subjective: Pt. is here today for her initial evaluation with diagnosis of lumbar radiculopathy L side. Pt. reports having increased pain for the past 2 weeks. Pt. reports having increased pain going down her leg to her foot, NT and pain in this region. Increased pain: standing on her Left leg, standing worse. Better: sitting, lying down. Pt. tends to lean to L side and fwrd a bit in stance. Sleeping: difficulty falling asleep, but able to stay asleep. Mornings: a little bit better, but after walking a little bit she was having increased pain. Pt. reports initially having issues with LLE weakness, but has been doing a little bit better. Pain Lumbar spine: Pain Intensity (Out of 10): 4 Pain Intensity Range: 2 and 6 Objective Objective: POSTURE: Pt. has marked flexed posture with R lateral lean. PALPATION: Pt. has increased pain throughout B lumbar erector spinae NEURO: possible decreased sensation at L lateral distal LE. ROM: LUMBAR SPINE: flexion min loss decrease NB, extension min loss increase nW. SB mod loss L increase NW, min loss R mild increase NW, rotation min loss R NE, rotation L mod loss increase NW. MMT: Pt. has no myotomal weakness noted. B hips: 4/5 throughout, core strength: poor. No marked foot drop noted. GAIT: Pt. ambulates with SPC in L hand. Pt. has marked antalgic pattern. Flexed posture. Pt. has increased trunk lean to R side. Minimal to no arm swing. Balance/Special Test Scores Oswestry Low Back Score: 35 Goals Goal 1:: LTG: Pt. to be I with HEP. Goal Time Frame: 4-6 Weeks Goal 2:: LTG: Pt. to have full ROM of lumbar spine without increase in symptoms. Goal Time Frame: 4-6 Weeks Goal 3:: LTG: pt. to have no radicular symptoms in her LLE. Goal Time Frame: 4-6 Weeks Goal 4:: LTG: pt. to have increased core strength to fair. Goal Time Frame: 4-6 Weeks Goal 5:: LTG: pt. to have normal gait pattern without increase in Lumbar spine pain. Goal Time Frame: 4-6 Weeks Rehabilitation Potential Physical Therapy Diagnosis: Pt. has signs and symptoms consistent with Lumbar radiculopathy on the L side. Pt. has marked hypomobility, weakness and increased pain. Rehabilitation Potential: Good Anticipated Interventions Patient/Client Instruction: Educate patient on: Condition, Plan of Care, Risk Factors and Benefits of Fitness Program For the Purpose of:: To improve decision making, To facilitate caregiver knowledge, To improve self management, To prevent re-injury, To improve ability to perform tasks related to life management and To improve tolerance to ADL's Therapeutic Exercise to Include: Strength training, Power training, Postural training, Flexibilty training, Passive ROM, Active ROM, Dynamic Lumbar Stabilization and Fermin Exercises For the Purpose of:: To decrease pain, To increase ROM, To improve nutrient delivery to tissue, To increase oxygenation perfusion, To improve muscle performance and motor function and To improve ability to perform ADL's Manual Therapy Techniques to Include: Mobilization and Passive ROM For the Purpose of:: To decrease pain, To decrease swelling/inflammation, To increase ROM and To improve nutrient delivery to tissue IF ES: Yes Cryotherapy (ice pack, ice massage): Yes Ultrasound (thermal/non thermal): Yes For the Purpose of:: To decrease pain, To decrease swelling/inflammation and To increase ROM Text: Thank you for the opportunity to evaluate your patient. For Medicare and Medicare HMO plans, please review the plan of care and approve it. It will need to be FAXED BACK to us at [phone] for Medicare purposes. For Medicare only, by signing this I certify the plan of care. Please let me know if there are questions or concerns regarding this plan of care. Physician Signature: Date:
== END 2025-05-02 19:00 | disposition home or self-care (01) ==
LOC: PT 16:00
PROVIDERS: PCP Family Medicine; Referring Provider Orthopaedic Surgery Orthopaedic Surgery of the Spine; Visit Provider Orthopaedic Surgery Orthopaedic Surgery of the Spine
DX: M54.16 Radiculopathy, lumbar region (principal)
CPT/HCPCS: 97035; 97110; 97140; 97161

== ENCOUNTER → 2025-05-07 | Outpatient (CLI) | payer OTHER, SELFPAY ==
--- NOTE | 2025-05-07 16:56 | CT_ITS ---
PROCEDURE: CHEST WITHOUT CONTRAST 05/07/2025 REASON FOR EXAM: MODERATE PERSISTENT ASTHMA, UNCOMPLICATED TECHNIQUE: Chest CT without contrast. Coronal and Sagittal reconstruction series were provided. One or more dose reduction techniques were used (e.g., Automated exposure control, adjustment of the mA and/or kV according to patient size, use of iterative reconstruction technique RADIATION DOSE SUMMARY: CTDlvol: 20 mGy DLP: 762 mGycm COMPARISON: 09/22/2022 FINDINGS: Central airways are patent. There are bilateral multifocal areas of lung scarring, likely secondary to remote inflammatory event. No acute consolidation, effusion or pneumothorax. On the right, series 4, image 36, stable 5 mm nodular density likely an intrapulmonary lymph node. No suspicious lung nodules. Unremarkable base of neck and axilla. Normal esophagus. Normal heart size. No acute vascular pathology. Thoracic spine scoliosis and degeneration. No acute chest wall findings. Cirrhotic liver morphology. Mild splenic enlargement, 13.7 cm length. No acute upper abdominal findings. CT/Chest without Contrast IMPRESSION: Postinflammatory lung scarring is similar to the previous examination. No acute chest findings. Reading Location: [place] [address]
== END | disposition home or self-care (01) ==
PROVIDERS: PCP Family Medicine; Referring Provider Internal Medicine Pulmonary Disease; Visit Provider Internal Medicine Pulmonary Disease
DX: J45.40 Moderate persistent asthma, uncomplicated (principal)
CPT/HCPCS: 71250

== ENCOUNTER → 2025-05-07 | Outpatient (CLI) | payer OTHER, SELFPAY ==
[2025-05-12 12:52] LABS: Angiotensin Convert Enzyme 82 U/L (14-82); Immunoglobulin A 239 mg/dL (87-352); Immunoglobulin G 1150 mg/dL (586-1602); Immunoglobulin M 129 mg/dL (26-217)
== END | disposition home or self-care (01) ==
LOC: LAB 10:46
PROVIDERS: PCP Family Medicine; Referring Provider Internal Medicine Pulmonary Disease; Visit Provider Internal Medicine Pulmonary Disease
DX: J45.40 Moderate persistent asthma, uncomplicated (principal)
CPT/HCPCS: 36415; 82164; 82784; 82785

== ENCOUNTER → 2025-05-14 | Outpatient (CLI) | payer OTHER, SELFPAY ==
[2025-05-14 17:49] LABS: Hematocrit 31.9 % (37-47); Hemoglobin 10.4 g/dL (12.0-15.0); Immature Granulocytes Count 0.030 X10^3/uL (0.0-0.0); Immature Reticulocyte Fraction 14.10 % (3.00-15.90); Mean Corp Hgb Conc 32.6 g/dL (32-36); Mean Corpuscular Volume 88.9 fL (81-99); Mean Platelet Vol. 10.8 fl (6.2-12.0); NRBC Flagged by Analyzer 0 % (0-5); Platelet Count 140 K/mm3 (150-450); RBC Distribution Width CV 15.2 % (11.6-14.6); RBC Distribution Width SD 50.2 fl (35.1-43.9); Red Blood Count 3.59 M/mm3 (4.2-5.4); Reticulocyte Count 2.15 % (0.5-1.5); White Blood Count 5.7 K/mm3 (4.4-11.0)
[2025-05-14 18:35] LABS: Ferritin 38 ng/mL (22-378); Iron 55 ug/dL (50-170)
== END | disposition home or self-care (01) ==
LOC: MFPLAB 16:24
PROVIDERS: PCP Family Medicine; Referring Provider Family Medicine; Visit Provider Family Medicine
DX: R53.83 Other fatigue (principal)
CPT/HCPCS: 36415; 82728; 83540; 85025; 85045

== ENCOUNTER → 2025-05-28 | Outpatient (CLI) | payer OTHER, SELFPAY ==
[2025-05-28 16:05] LABS: AST(SGOT) 44 U/L (<=31); Alanine Aminotransfer ALT/SGPT 29 U/L (<=34); Albumin, Serum 4.1 g/dL (3.4-4.8); Alkaline Phosphatase 180 U/L (35-104); Anion Gap 14 (5-15); BUN 21 mg/dL (4-19); BUN/Creat Ratio 25.1 RATIO (10-20); CRP 9.13 mg/L (0.0-3.0); Calcium,Total 10.2 mg/dL (7.6-11.0); Carbon Dioxide 22.6 mmol/L (21.0-32.0); Chloride 104 mmol/L (98-108); Globulin 3.5 g/dL (2.2-4.2); Glucose 132 mg/dL (70-99); Potassium 4.4 mmol/L (3.3-5.1)
[2025-05-30 09:57] LABS: Vitamin D,25 Hydroxy 70.6 ng/mL (30-100)
== END | disposition home or self-care (01) ==
LOC: MFPLAB 11:24
PROVIDERS: PCP Family Medicine; Visit Provider Family Medicine
DX: N18.30 Chronic kidney disease, stage 3 unspecified (principal); L93.0 Discoid lupus erythematosus; R74.8 Abnormal levels of other serum enzymes; E03.9 Hypothyroidism, unspecified
CPT/HCPCS: 36415; 80053; 82306; 84439; 84443; 85652; 86140

== ENCOUNTER → 2025-06-04 | Outpatient (CLI) | payer OTHER, SELFPAY ==
--- NOTE | 2025-06-04 13:58 | VDLE_ITS ---
Reason For Study Reason For Study: Bilateral leg swelling RIGHT LEFT GSV is normal. GSV is normal. CFV is compressible, spontaneous, phasic, competent CFV is compressible, spontaneous, phasic, competent, and demonstrates normal augmentation. and demonstrates normal augmentation. FV is compressible, spontaneous, phasic, competent FV is compressible, spontaneous, phasic, competent and demonstrates normal augmentation. and demonstrates normal augmentation. POP V is compressible, spontaneous, phasic, competent POP V is compressible, spontaneous, phasic, competent and demonstrates normal augmentation. and demonstrates normal augmentation. T/P Trunk is compressible. T/P Trunk is compressible. PTV is compressible. PTV is compressible. RT PerV is compressible. LT PerV is compressible. Procedure This is a venous duplex using B-mode, color flow and spectral Doppler. Exam performed in department. A preliminary report was called and/or faxed to Dr. Levine. VL/Venous Duplex US - Tej Extrem Interpretation Summary Deep veins of the lower extremities are bilaterally patent and compressible seg mentally. There is no evidence of deep vein thrombosis on either side. Valvular competence appears intact within the p roximal deep venous systems bilaterally. The great saphenous veins appear bilaterally patent and compressible segmentall y. Ordering Physician: Jesus Levine Referring Physician: Olivier Gonzalez MD Performed By: Niru Radford RVT
== END | disposition home or self-care (01) ==
LOC: CVS 13:54
PROVIDERS: PCP Family Medicine; Referring Provider Podiatrist; Visit Provider Podiatrist
DX: M79.661 Pain in right lower leg (principal); M79.662 Pain in left lower leg
CPT/HCPCS: 93970

== ENCOUNTER → 2025-06-20 | Outpatient (CLI) | payer OTHER, SELFPAY ==
[2025-06-20 13:22] LABS: Pro- Brain NATRIURETIC PEPTIDE 62 pg/mL (<=900)
== END | disposition home or self-care (01) ==
LOC: MTLAB 10:09
PROVIDERS: PCP Family Medicine; Referring Provider Internal Medicine Pulmonary Disease; Visit Provider Internal Medicine Pulmonary Disease
DX: G47.33 Obstructive sleep apnea (adult) (pediatric) (principal)
CPT/HCPCS: 36415; 83880

== ENCOUNTER → 2025-07-21 | Outpatient (CLI) | payer OTHER, SELFPAY ==
--- NOTE | 2025-07-21 09:45 | ECHOD_ITS ---
Reason For Study Reason For Study: Obstructive sleep apnea Procedure This was a 2D Doppler, Color Flow transthoracic echocardiogram. Exam performed in department. Left Ventricle Normal LV size. Left ventricular systolic function is normal. The left ventricular ejection fraction is 60 %. Normal diastology for age. No regional wall motion abnormalities noted. Right Ventricle Normal RV size. The RV free wall longitudinal strain was -28.9 % . Normal systolic function. Atria The left atrium is mildly enlarged. Normal right atrium. Mitral Valve The mitral valve is structurally normal. No prolapse or stenosis seen. Mild- Moderate (1-2+) mitral valve insufficiency. Tricuspid Valve Normal tricuspid valve. Trivial tricuspid valve insufficiency. Pulmonary artery systolic pressure is 32 mmHg. Aortic Valve Trisinus/trileaflet aortic valve. Pulmonic Valve Normal pulmonic valve. Great Vessels Normal sized aortic root. Mild atherosclerosis of the ascending aorta. Pericardium/Pleural No pericardial effusion. MMode/2D Measurements & Calculations LVIDd: 4.9 cm IVSd: 0.88 cm Ao root diam: 3.0 cm LVIDs: 3.1 cm LVPWd: 1.0 cm RVDd: 3.8 cm FS: 36.4 % LAV(MOD-bp): 46.5 ml LVAd ap4: 27.6 cm2 LVAd ap2: 23.7 cm2 LAV(MOD-bp) Indexed: 23.3 ml/m2 LVLd ap4: 7.4 cm LVLd ap2: 7.4 cm LAV(MOD-sp2): 29.4 ml EDV(MOD-sp4): 85.6 ml EDV(MOD-sp2): 62.4 ml LAV(MOD-sp4): 62.0 ml EDV(sp4-el): 87.0 ml EDV(sp2-el): 64.4 ml LVAs ap4: 15.3 cm2 LVAs ap2: 13.8 cm2 LVLs ap4: 6.2 cm LVLs ap2: 6.8 cm ESV(MOD-sp4): 33.4 ml ESV(MOD-sp2): 24.0 ml ESV(sp4-el): 32.3 ml ESV(sp2-el): 23.9 ml EF(MOD-sp4): 61.0 % EF(MOD-sp2): 61.6 % EF(sp4-el): 62.8 % SV(MOD-sp4): 52.2 ml SV(MOD-sp2): 38.4 ml SV(sp4-el): 54.6 ml SI(MOD-sp4): 26.2 ml/m2 SI(MOD-sp2): 19.2 ml/m2 LA A4 area: 21.0 cm2 LA dimension(2D): 3.8 cm RA A4 area: 14.2 cm2 TAPSE: 2.6 cm Time Measurements MV dec time: 0.21 sec Doppler Measurements & Calculations MV E max inderjit: 107.9 cm/sec Lat Peak E' Inderjit: 10.9 cm/sec Med Peak E' Inderjit: 8.0 cm/sec MV A max inderjit: 98.6 cm/sec E/E' lat: 9.9 E/E' med: 13.5 MV E/A: 1.1 PA V2 max: 104.0 cm/sec TR max inderjit: 271.0 cm/sec MV dec slope: 521.0 cm/sec2 TR max P.4 mmHg ECHO/Echo Complete Interpretation Summary The left ventricular ejection fraction is 60 %. Normal LV size. The left atrium is mildly enlarged. Mild-Moderate (1-2+) mitral valve insufficiency. Left ventricular systolic function is normal. Pulmonary artery systolic pressure is 32 mmHg. Ordering Physician: Colby Morales V Referring Physician: Olivier Gonzalez MD Performed By: Hanh Raines RDCS
== END | disposition home or self-care (01) ==
LOC: CVS 09:45
PROVIDERS: PCP Family Medicine; Referring Provider Internal Medicine Pulmonary Disease; Visit Provider Internal Medicine Pulmonary Disease
DX: G47.33 Obstructive sleep apnea (adult) (pediatric) (principal)
CPT/HCPCS: 93306

== ENCOUNTER → 2025-07-24 | Outpatient (CLI) | payer OTHER, SELFPAY ==
[2025-07-24 12:22] LABS: Hematocrit 33.7 % (37-47); Hemoglobin 11.0 g/dL (12.0-15.0); Immature Granulocytes Count 0.030 X10^3/uL (0.0-0.0); Immature Reticulocyte Fraction 20.20 % (3.00-15.90); Mean Corp Hgb Conc 32.6 g/dL (32-36); Mean Corpuscular Volume 86.6 fL (81-99); Mean Platelet Vol. 10.5 fl (6.2-12.0); NRBC Flagged by Analyzer 0 % (0-5); Platelet Count 148 K/mm3 (150-450); RBC Distribution Width CV 14.6 % (11.6-14.6); RBC Distribution Width SD 46.5 fl (35.1-43.9); Red Blood Count 3.89 M/mm3 (4.2-5.4); Reticulocyte Count 2.05 % (0.5-1.5); White Blood Count 6.1 K/mm3 (4.4-11.0)
[2025-07-24 13:12] LABS: AST(SGOT) 52 U/L (<=31); Alanine Aminotransfer ALT/SGPT 41 U/L (<=34); Albumin, Serum 4.0 g/dL (3.4-4.8); Alkaline Phosphatase 172 U/L (35-104); Anion Gap 11 (5-15); BUN 20 mg/dL (4-19); BUN/Creat Ratio 24.8 RATIO (10-20); Calcium,Total 9.5 mg/dL (7.6-11.0); Carbon Dioxide 24.1 mmol/L (21.0-32.0); Chloride 103 mmol/L (98-108); Ferritin 28 ng/mL (22-378); Globulin 3.3 g/dL (2.2-4.2); Glucose 113 mg/dL (70-99); Iron 44 ug/dL (50-170); Potassium 4.4 mmol/L (3.3-5.1); Vitamin B12 1066 pg/mL (180-914)
== END | disposition home or self-care (01) ==
LOC: MFPLAB 10:16
PROVIDERS: PCP Family Medicine; Visit Provider Family Medicine
DX: D64.9 Anemia, unspecified (principal); R53.83 Other fatigue
CPT/HCPCS: 36415; 80053; 82607; 82728; 83540; 84443; 85025; 85045; 85652

== ENCOUNTER → 2025-09-03 | Outpatient (CLI) | payer OTHER, SELFPAY ==
[2025-09-03 12:27] LABS: Prothrombin Time (Protime)PT. 15.0 SECONDS (11.7-14.9)
[2025-09-03 12:28] LABS: Partial Thromboplast Time 31.7 Seconds (24.1-36.2)
[2025-09-03 12:43] LABS: AST(SGOT) 48 U/L (<=31); Alanine Aminotransfer ALT/SGPT 35 U/L (<=34); Albumin, Serum 4.0 g/dL (3.4-4.8); Alkaline Phosphatase 180 U/L (35-104); Anion Gap 11 (5-15); BUN 17 mg/dL (4-19); BUN/Creat Ratio 20.6 RATIO (10-20); Calcium,Total 9.6 mg/dL (7.6-11.0); Carbon Dioxide 24.3 mmol/L (21.0-32.0); Chloride 103 mmol/L (98-108); Globulin 3.5 g/dL (2.2-4.2); Glucose 143 mg/dL (70-99); Potassium 4.0 mmol/L (3.3-5.1)
[2025-09-03 12:53] LABS: Hematocrit 35.3 % (37-47); Hemoglobin 11.5 g/dL (12.0-15.0); Mean Corp Hgb Conc 32.6 g/dL (32-36); Mean Corpuscular Volume 85.5 fL (81-99); Mean Platelet Vol. 10.9 fl (6.2-12.0); Platelet Count 162 K/mm3 (150-450); RBC Distribution Width CV 15.0 % (11.6-14.6); RBC Distribution Width SD 46.7 fl (35.1-43.9); Red Blood Count 4.13 M/mm3 (4.2-5.4); White Blood Count 9.6 K/mm3 (4.4-11.0)
== END | disposition home or self-care (01) ==
LOC: MTLAB 10:18
PROVIDERS: PCP Family Medicine; Referring Provider Internal Medicine Gastroenterology; Visit Provider Internal Medicine Gastroenterology
DX: K74.60 Unspecified cirrhosis of liver (principal)
CPT/HCPCS: 36415; 80053; 82105; 85027; 85610; 85730

== ENCOUNTER → 2025-09-09 | Outpatient (CLI) | payer OTHER, SELFPAY ==
[2025-09-09 10:14] LABS: Mucous, Urine 0 SEEN /hpf (<or=2+); Red Blood Cells-Urine 0 SEEN /hpf (0-5); Squamous Epithelial Cells - UA 0 SEEN /hpf (5-10)
[2025-09-09 11:04] LABS: Hematocrit 34.9 % (37-47); Hemoglobin 10.9 g/dL (12.0-15.0); Immature Granulocytes Count 0.050 X10^3/uL (0.0-0.0); Mean Corp Hgb Conc 31.2 g/dL (32-36); Mean Corpuscular Volume 86.4 fL (81-99); Mean Platelet Vol. 10.0 fl (6.2-12.0); NRBC Flagged by Analyzer 0 % (0-5); Platelet Count 159 K/mm3 (150-450); RBC Distribution Width CV 15.1 % (11.6-14.6); RBC Distribution Width SD 47.6 fl (35.1-43.9); Red Blood Count 4.04 M/mm3 (4.2-5.4); White Blood Count 7.7 K/mm3 (4.4-11.0)
[2025-09-09 11:06] LABS: Color, Urine Yellow (Yellow); Glucose, Dipstick Normal (Normal); Ketone-Dipstick Negative (Negative); Leukocyte Esterase-Dipstick 100 /ul (Negative); Nitrite-Dipstick Negative (Negative); Occult Blood-Urine Negative /ul (Negative); Protein-Dipstick 15 mg/dl (Negative); Specific Gravity, Urine 1.010 (1.002-1.030); Urine Bilirubin Dipstick Negative (Negative)
[2025-09-09 12:09] LABS: BUN 26 mg/dL (4-19); CPK Total, Creatine Kinase 36 U/L (24-195); CRP 9.70 mg/L (0.0-3.0); Glucose 147 mg/dL (70-99); Uric Acid 5.6 mg/dL (2.6-6.0)
[2025-09-09 12:10] LABS: AST(SGOT) 38 U/L (<=31); Alanine Aminotransfer ALT/SGPT 28 U/L (<=34); Albumin, Serum 4.0 g/dL (3.4-4.8); Alkaline Phosphatase 157 U/L (35-104); Anion Gap 14 (5-15); BUN/Creat Ratio 31.8 RATIO (10-20); Calcium,Total 9.9 mg/dL (7.6-11.0); Carbon Dioxide 21.8 mmol/L (21.0-32.0); Chloride 102 mmol/L (98-108); Globulin 3.6 g/dL (2.2-4.2); Potassium 4.3 mmol/L (3.3-5.1)
== END | disposition home or self-care (01) ==
LOC: LAB.FUTURE 10:03 → LAB 10:05
PROVIDERS: PCP Family Medicine; Referring Provider Internal Medicine Rheumatology; Visit Provider Internal Medicine Rheumatology
DX: M32.19 Other organ or system involvement in systemic lupus erythematosus (principal); D64.9 Anemia, unspecified; M35.00 Sjogren syndrome, unspecified; R76.81 Abnormal rheumatoid factor and anti-citrullinated protein antibody without rheumatoid arthritis; Z79.52 Long term (current) use of systemic steroids; R79.89 Other specified abnormal findings of blood chemistry; Z96.642 Presence of left artificial hip joint; Z87.39 Personal history of other diseases of the musculoskeletal system and connective tissue; R79.9 Abnormal finding of blood chemistry, unspecified; H04.123 Dry eye syndrome of bilateral lacrimal glands; R79.82 Elevated C-reactive protein (CRP); R74.8 Abnormal levels of other serum enzymes; R70.0 Elevated erythrocyte sedimentation rate; I10 Essential (primary) hypertension; K11.7 Disturbances of salivary secretion; K75.81 Nonalcoholic steatohepatitis (NASH); K76.0 Fatty (change of) liver, not elsewhere classified; R68.2 Dry mouth, unspecified; R73.9 Hyperglycemia, unspecified; H16.229 Keratoconjunctivitis sicca, not specified as Sjogren's, unspecified eye; M19.071 Primary osteoarthritis, right ankle and foot; M19.072 Primary osteoarthritis, left ankle and foot
CPT/HCPCS: 36415; 80053; 81001; 82550; 84550; 85025; 85652; 86140; 86160; 87077; 87086; 87088; 87186

== ENCOUNTER → 2025-09-26 | Outpatient (CLI) | payer OTHER, SELFPAY ==
--- NOTE | 2025-09-26 07:57 | MRI_ITS ---
PROCEDURE: UPPER EXT JOINT ONLY(ROUTINE) 09/26/2025 REASON FOR EXAM: L SHOULDER PAIN. FAILED PT TECHNIQUE: Procedure Code: [id number] Modality: MR Procedure: MRI of the left shoulder without contrast Multiplanar and multisequence images were obtained without IV contrast administration. COMPARISON: COMPARISON: None provided. FINDINGS: Postsurgical changes with multiple anchors seen of the left humeral head identified. Moderately severe left acromioclavicular joint degenerative changes are seen, with marked joint narrowing and osseous reactive changes noted. A small amount of fluid is seen within the subacromial/subdeltoid bursa. The left glenohumeral joint demonstrates minimal degenerative changes. No joint effusion is evident. No acute osseous signal changes are seen. Mild infraspinatus tendinosis is seen The supraspinatus tendon demonstrates mild tendinosis. No tendon retraction is seen. MRI/Upper Ext Joint Only(Routine) IMPRESSION: 1. Moderately severe left acromioclavicular joint degenerative changes. 2. Postsurgical changes with anchors of the left humeral head. 3. Mild infraspinatus and supraspinatus tendinosis. Reading Location: [id number]
== END | disposition home or self-care (01) ==
LOC: OPMRI 07:55
PROVIDERS: PCP Family Medicine; Referring Provider Family Medicine; Visit Provider Family Medicine
DX: M25.512 Pain in left shoulder (principal)
CPT/HCPCS: 73221

== ENCOUNTER → 2025-10-03 | Outpatient (CLI) | payer OTHER, SELFPAY ==
--- NOTE | 2025-10-03 09:37 | MRI_ITS ---
PROCEDURE: MRI ABD WITH AND W/O CONTRAST 10/03/2025 REASON FOR EXAM: CIRRHOSIS TECHNIQUE: Procedure Code: [id number] Modality: MR Procedure: MRI ABD WITH AND W/O CONTRAST Multiplanar multisequence MRI abdomen was performed with and without IV contrast. CONTRAST: Clariscan VOLUME: 23 mL COMPARISON: 03/05/2025 and prior FINDINGS: Variable overall mild motion limitation. Few sequences mild/moderately motion degraded. Coronal and sagittal T2 limited by extremely large [id number]. Axial T2 fat-sat was not performed. Liver: Cirrhosis.. Similar T1 bright nonenhancing subcentimeter possible hemorrhagic/proteinaceous cyst along the subcapsular RIGHT lobe. 11 x 6 mm nodular enhancing structure in the subcapsular aspect of segment JOSE/II not definitely seen previously arterial phase hyperenhancement persistent into delayed imaging. No capsule or washout. Spleen: 15.7 cm. Gallbladder/biliary: Unremarkable. Pancreas: Somewhat atrophic. Adrenals: Unremarkable. Kidneys: Mild nonspecific symmetric perinephric stranding similar. Punctate presumed cysts, difficult to definitively characterize due to the combination of tiny size and mild motion artifact. Bowel: Suboptimally evaluated by MRI; no gross bowel dilatation. At least minimal sigmoid diverticulosis. Small hiatal hernia. Lymph nodes: Unremarkable. Vasculature: Atherosclerosis.. Patent portal vein. Peritoneum: Unremarkable. No abdominal ascites. Bones: Degenerative findings. Prominent S shaped thoracolumbar scoliosis. MRI/MRI Abd WITH and W/O Contrast IMPRESSION: 1. Cirrhosis with 11 mm LI-RADS 3 lesion not seen previously. Clinical follow- up recommended. 2. Splenomegaly may be related to portal hypertension. No significant ascites. 3. Additional description as above. Reading Location: [id number]
== END | disposition home or self-care (01) ==
LOC: MRI 09:34
PROVIDERS: PCP Family Medicine; Referring Provider Internal Medicine Gastroenterology; Visit Provider Internal Medicine Gastroenterology
DX: K74.60 Unspecified cirrhosis of liver (principal)
CPT/HCPCS: 74183; A9575; A4216